=== PATIENT | male | born 1965 | race African-American/Black ===

== ENCOUNTER 2016-12-29 10:51 | Inpatient (IN) ==
[2016-12-29] MEDS ORDERED: SODIUM CHLORIDE 0.9% 1,000 ML IV STA (11:29)
[2016-12-29] MEDS ORDERED: ONDANSETRON 4 MG/2 ML VIAL IV STA (11:29)
[2016-12-29] MEDS ORDERED: ONDANSETRON 4 MG/2 ML VIAL ONE (11:45)
[2016-12-29 12:02] LABS: Basophils % 0.5 % (0.0-0.8); Eosinophils # 0.1 10*3/uL (0.0-0.87); Eosinophils % 0.8 % (0.00-10.9); Hematocrit 37.3 VOL% (42.0-52.0); Immature Granulocytes % 0.7 %; Immature Granulocytes Absolute 0.06 #; Lymphocytes # 1.8 10*3/uL (1.4-4.0); Lymphocytes % 20.3 % (21.2-54.2); Mean Corpuscular HGB Conc 34.9 GM/DL (32-36); Mean Corpuscular Hemoglobin 31 PG (27-34); Mean Corpuscular Volume 89.9 FL (87-102); Mean Platelet Volume 9.6 FL (9.6-12.0); Monocytes # 0.5 10*3/uL (0.11-0.8); Monocytes % 5.2 % (1.7-12.7); Neutrophils # 6.4 10*3/uL (1.4-7.4); Neutrophils % 72.5 % (38.7-73.9); Platelet Count 315 T/CUMM (130-400); Red Blood Count 4.15 MC/CUMM (3.8-5.5); Red Cell Distribution Width 14.1 % (9.3-17.3); White Blood Count 8.9 T/CUMM (4-12)
--- NOTE | 2016-12-29 12:09 | CT Report ---
Referring physician: Kalen Tam EXAM: CT abdomen and pelvis without contrast DATE: 12/29/2016 COMPARISON: 07/08/2016 REASON: Left upper quadrant pain with history of pancreatitis TECHNIQUE: Axial images of the abdomen and pelvis were obtained without the use of contrast. Coronal and sagittal reformatted images were also provided. Total DLP is 166.50 mGy*cm. FINDINGS: The lungs remain overexpanded with chronic scarring and coronary artery calcifications. The liver is normal in size with no masses, dilated ducts, or calcified gallstones. The spleen, adrenal glands, and right kidney are stable in appearance. 10 mm calcification in the lower pole of the left kidney. The pancreas is enlarged with extensive calcifications. 59 x 58 x 57 mm pseudocyst in the head of the pancreas which measured 55 mm in maximal diameter on prior exam. The additional pseudocysts in the head and tail of the pancreas are more poorly defined on these noncontrast scans but have not increased in size. Compression of the adjacent bowel with minimal fluid in the duodenum. Increased fluid in the small bowel and colon with mild gaseous distention. No free air is identified. The prostate and urinary bladder are stable in appearance. Degenerative changes are noted. IMPRESSION: Findings consistent with acute and chronic pancreatitis. Larger 59 mm pseudocyst in the head of the pancreas with additional persistent smaller pseudocysts. Associated ileus. 10 mm calcification in the lower pole of the left kidney. Continued follow-up CT may be helpful for further evaluation of the progressive findings. The CT exam was performed using one or more of the following dose reduction techniques: Automated exposure control and adjustment of the mA and/or kV according to patient size. PROCEDURE INTERPRETED AT [facility] DEPARTMENT OF RADIOLOGY Final Report Signed by: Dr. Ritu Gupta
[2016-12-29] MEDS ORDERED: HYDROmorphone 2 MG/1 ML VIAL IV STA (12:26)
[2016-12-29 12:31] LABS: Alanine Aminotransferase 17 U/L (16-61); Albumin 3.3 G/DL (3.4-5.0); Alkaline Phosphatase 114 U/L (45-117); Aspartate Amino Transferase 16 U/L (0-37); Blood Urea Nitrogen 3 MG/DL (7-18); Calcium 8.8 MG/DL (8.5-10.1); Glucose 102 MG/DL (74-106); Magnesium 2.4 MG/DL (1.8-2.4); Osmolality,Calculated 279.1 MOS/KG (273-304); Potassium 3.2 MMOL/L (3.5-5.1); Sodium 142 MMOL/L (136-145); Total Protein 7.4 G/DL (6.4-8.3)
[2016-12-29] MEDS ORDERED: HYDROmorphone 2 MG/1 ML VIAL ONE (12:31)
--- NOTE | 2016-12-29 13:12 | Emergency Department Note ---
Ilan Peres Mantricia, am scribing for, and in the presence of, Kalen Tam MD 11:39. Anel Peres Phillip K, MD, personally performed the services described in this documentation, ascribed by Kuldip Talavera in my presence, and it is both accurate and complete [id number] . Arrival - Arrival Chief Complaint: Abdominal / Flank Pain Stated Complaint: pancreatitis ED Nursing Triage Note: Pt c/o upper abd pain x 1 wk. Mode of Arrival: Ambulatory Limitations: No Limitations Source: Patient Time Seen by Provider: 12/29/16 11:21 - History of Present Illness HPI Narrative: Pt is a 51 y/o black male arriving to ED with c/o abdominal pain that onset a week ago. Pt has a PMHx of pancreatitis and states that his last flare up was 2 weeks ago. He reports that his last alcohol consumption was in May. He reports no other complaints to ED. Onset (ago): week(s) Consistency: constant Allergies/Adverse Reactions: Allergies Allergy/AdvReac Type Severity Reaction Status Date / Time No Known Allergies Allergy Verified 08/10/16 08:27 Home Medications: Home Medications Medication Instructions Recorded Confirmed Type HYDROcodone/ACETAMIN 7.5-325 1 tablet PO Q4H PRN #20 tablet 04/22/16 12/29/16 Rx [[place] 7.5-325] Pantoprazole Tab [Protonix Tab] 40 mg PO DAILY #30 tablet 04/22/16 12/29/16 Rx amLODIPine [Norvasc] 10 mg PO DAILY 12/29/16 12/29/16 History Review of System - Review of System 12 point system: reviewed and no additional remarkable complaints except as stated - Review of System Constitutional: Absent: chills, diaphoresis Eyes: Absent: discharge, pain Gastrointestinal: Present: abdominal pain Medical,Surgical,& Family Hx - Medical History Cardio: History of: Hypertension Psychological: History of: Depression Neurology: History of: Migraine HEENT: History of: Eye Problem (wears glasses) Endocrine: No history of: Diabetes Mellitus (NIDDM) Gastrointestinal: History of: GERD, Pancreatitis, GI Problems Musculoskeletal: History of: Back/Neck Problems (chronic back and neck pain), Herniated Disk - Surgical History Cardiac Surgeries: Patient Denies: Cardiac Catheterization, Cardiac Surgery Thoracic Surgeries: Patient denies;: Organ Transplant Neurologic Surgeries: Patient denies: Neurologic Surgery Abdominal Surgeries: Patient denies: Abdominal Surgery Reproductive Surgeries: Patient denies;: Genitourinary Surgery Orthopedic Surgeries: Surgical HX of;: Spinal Surgery (lower back) - Family History Family History: Reports;: Family Cancer (Sister), Family Diabetes (Grandmother) , Family Hypertension, Family Stroke - Social History Smoking Status: Current every day smoker Exam Vital Signs: Vital Signs Temperature 98.9 F 12/29/16 12:17 Pulse Rate 71 12/29/16 12:30 Respiratory Rate 18 12/29/16 12:30 Blood Pressure 194/105 12/29/16 12:30 O2 Sat by Pulse Oximetry 99 12/29/16 11:01 - General General appearance: alert, in no apparent distress - Head Head exam: Present: atraumatic, normocephalic, normal inspection - Eye Eye exam: Present: normal appearance, PERRL, EOMI - ENT ENT exam: Present: normal exam, normal oropharynx, mucous membranes moist, TM's normal bilaterally, normal external ear exam - Neck Neck exam: Present: normal inspection, full ROM, trachea midline. Absent: tenderness - Chest Chest inspection: Present: normal inspection, symmetric chest wall rise. Absent : tenderness - Respiratory Respiratory exam: Present: normal lung sounds bilaterally - Cardiovascular Cardiovascular exam: Present: regular rate, normal rhythm, normal heart sounds - Abdominal Exam Abdominal exam: Present: soft, normal bowel sounds. Absent: distention, tenderness, guarding, rebound - Extremities Exam Extremities exam: Present: normal inspection, full ROM, normal capillary refill. Absent: tenderness, pedal edema - Back Exam Back exam: Present: normal inspection, full ROM. Absent: tenderness - Neurological Exam Neurological exam: Present: alert, oriented X3, CN II-XII intact, normal gait, reflexes normal - Psychiatric Psychiatric exam: Present: normal affect, normal mood - Skin Skin exam: Present: warm, dry, intact, normal color Results - Labs CBC & BMP: 12/29/16 11:51 12/29/16 11:51 Lab Results: I have reviewed the patients labs Labs: Laboratory Tests 12/29/16 12/29/16 11:51 11:51 Hgb 13.0 L Hct 37.3 L Lymph % (Auto) 20.3 L Potassium 3.2 L BUN 3 L BUN/Creatinine Ratio 4.00 L Albumin 3.3 L Globulin 4.1 H Albumin/Globulin Ratio 0.8 L Serum Alcohol < 15 L - Diagnostic Findings Procedure: CT Abdomen and Pelvis: report reviewed by me (Findings consistent with acute and chronic pancreatitis. Larger 59 mm pseudocyst in the head of the pancreas with additional persistent smaller pseudocysts. Associated ileus. 10 mm calcification in the lower pole of the left kidney. Continued follow-up CT may be helpful for further evaluation of the progressive findings. ) Disposition Clinical Impression: Pancreatitis, Pancreatic pseudocyst, Ileus Case discussed with: patient Disposition: Still a Patient Condition: Guarded Additional Instructions: Admit to the hospitalist.
--- NOTE | 2016-12-29 14:56 | Hospitalist History & Physical ---
Assessment and Plan - Time spent with patient Time spent with patient: Greater than 30 minutes (1) Ileus Status: Acute Assessment and plan: Mr. Lee is a 51-year-old -[place] male with history of hypertension and chronic pancreatitis due to multiple pseudocysts from previous alcohol use admitted by the hospitalist service with acute non-serologic pancreatitis. Patient will be given IV fluids, antibiotics, pain and nausea control. He will be held n.p.o. until his pain improves. If patient does not make significant improvement by 3 or 4 days will try to transfer to [facility] or [facility] for pancreatectomy as an inpatient. Will resume his home medicines and monitor his blood pressure. Dr. Jacobs will see and examined patient and further recommendations to follow. Current Visit: Yes (2) Pancreatic pseudocyst Status: Acute Current Visit: Yes (3) Abdominal pain Status: Acute Current Visit: No Qualifiers: Abdominal location: epigastric Qualified Code(s): R10.13 - Epigastric pain (4) Acute on chronic pancreatitis Status: Acute Current Visit: No (5) HTN (hypertension) Status: Acute Current Visit: No (6) History of alcohol abuse Status: Acute Current Visit: No History of Present Illness Chief complaint: Abdominal pain History of present illness: Mr. Lee is a 51 year old -[place] male with history of hypertension and acute versus chronic pancreatitis with multiple admissions due to pseudocysts in the pancreas. Patient was seen by Dr. Lowe from surgery before and they have tried to get him into [facility] or [facility] as an outpatient for pancreatectomy but the patient does not have any payor sources. Patient states his pain started approximately 1 week ago and it just worsened in the last day or so. Patient states it is associated with nausea and intense pain that radiates through to the back. Patient rates the pain 10/10 and is unrelenting. Patient's blood pressures are elevated but he states he did not take his medicines this morning due to his pain. His labs are relatively unremarkable other than a low potassium of 3.2. Patient's lipase is normal at 139. Patient has not had any alcohol since May and his serum alcohol is negative. Patient denies headache, dysphasia, chest pain, shortness of breath, constipation or diarrhea, or lower extremity edema. After discussion with Dr. Tam the ED physician and Dr. Jacobs the admitting hospitalist it was agreed patient would be admitted for further evaluation. Home Medications Medication Instructions Recorded Confirmed Type HYDROcodone/ACETAMIN 7.5-325 1 tablet PO Q4H PRN #20 tablet 04/22/16 12/29/16 Rx [[place] 7.5-325] Pantoprazole Tab [Protonix Tab] 40 mg PO DAILY #30 tablet 04/22/16 12/29/16 Rx amLODIPine [Norvasc] 10 mg PO DAILY 12/29/16 12/29/16 History Allergies Allergy/AdvReac Type Severity Reaction Status Date / Time No Known Allergies Allergy Verified 08/10/16 08:27 Medical,Surgical,& Family Hx - Medical History Cardio: History of: Hypertension Psychological: History of: Depression Neurology: History of: Migraine HEENT: History of: Eye Problem (wears glasses) Endocrine: No history of: Diabetes Mellitus (NIDDM) Gastrointestinal: History of: GERD, Pancreatitis, GI Problems Musculoskeletal: History of: Back/Neck Problems (chronic back and neck pain), Herniated Disk - Surgical History Cardiac Surgeries: Patient Denies: Cardiac Catheterization, Cardiac Surgery Thoracic Surgeries: Patient denies;: Organ Transplant Neurologic Surgeries: Patient denies: Neurologic Surgery Abdominal Surgeries: Patient denies: Abdominal Surgery Reproductive Surgeries: Patient denies;: Genitourinary Surgery Orthopedic Surgeries: Surgical HX of;: Spinal Surgery (lower back) - Family History Family History: Reports;: Family Cancer (Sister), Family Diabetes (Grandmother) , Family Hypertension, Family Stroke - Social History Smoking Status: Current every day smoker Frequency of Alcohol Use: None Type of Drug Use: Unknown Marital Status: Lives With:: Sibling Functional capacity: independent ambulation Review of systems: A complete 10 system review of systems was obtained and pertinent positives and negatives per HPI Exam - Constitutional Vitals: Period Temp Pulse Resp BP Sys/Esquivel Pulse Ox Last 24 Hr 98.9 F-98.9 F 71-98 18-197 169-200/105-123 99 Exam: Constitutional System: Moderate distress. No tremulousness. Cachectic Head: Normocephalic, atraumatic. Ears, Nose and Throat System: No evidence of Otitis or Mastoiditis. No epistaxis or discharge Eyes System: Pupils equal, round, and reactive. Extraocular muscles intact. Neck: Supple, without adenopathy, No jugular venous distention. No thyromegaly, neck mass, or prior surgery apparent. Respiratory System: Chest clear to auscultation. Cardiovascular System: Heart with regular rate and rhythm. No murmur. GI System: Abdomen soft, nontender. Normo active bowel sounds present. Musculoskeletal System: limbs with no pedal edema. Full distal pulses. Neurological System: No discernable sensory deficit. No aphasia Psychiatric System: Conversation is rational Results - Labs CBC & BMP: 12/29/16 11:51 12/29/16 11:51 Lab Results: I have reviewed the past 24 hour labs - Diagnostic Findings Procedure: CT Abdomen and Pelvis: report reviewed by me (Acute and chronic pancreatitis. Larger 59 mm pseudocyst in the head of the pancreas with additional persistent smaller pseudocysts. Associated ileus. 10 minute Ferreira calculus ossification in the lower pole of the kidney)
[2016-12-29] MEDS ORDERED: PROMETHAZINE 25 MG/1 ML VIAL IM PRN (15:00)
[2016-12-29] MEDS ORDERED: ONDANSETRON 4 MG/2 ML VIAL IV PRN (15:00)
[2016-12-29] MEDS ORDERED: guaiFENesin/DM ER 600-30 MG TABLET PO PRN (15:02)
[2016-12-29] MEDS ORDERED: ACETAMINOPHEN 325 MG TABLET PO PRN ×2 (15:02)
[2016-12-29] MEDS ORDERED: DOCUSATE SODIUM 100 MG CAPSULE PO PRN (15:02)
--- NOTE | 2016-12-29 16:30 | General Surg History&Physical ---
Assessment and Plan - Time spent with patient Time spent with patient: Greater than 30 minutes (1) Pancreatic pseudocyst Status: Chronic Assessment and plan: This pseudocyst actually measures larger than on his last CAT scan. He does not really appear to have elevated lipase or amylase suggesting a true acute pancreatitis episode though I suspect that his pancreas is "burned out". His symptoms may be from the pseudocyst itself. [facility] have not been [facility]. I have discussed the option of surgery with him with the understanding that dealing with the pseudocyst may not relieve his pain. He is going to need to decide whether he wants us to try to get him over to [facility] again or have us go ahead and do surgery here. We discussed these options in detail and he is contemplating this. Current Visit: No History of Present Illness Chief complaint: Abdominal pain History of present illness: Mr. Lee is a 51 year old male Who for the last week has had gradually increasing vague upper abdominal pain which is poorly localized. The pain is moderate in severity. It is constant. He feels worse if he tries to eat. The pain does not radiate. He has a feeling of fullness in his upper abdomen. He has had a long history of chronic pancreatitis. He stopped drinking in May. Home Medications Medication Instructions Recorded Confirmed Type HYDROcodone/ACETAMIN 7.5-325 1 tablet PO Q4H PRN #20 tablet 04/22/16 12/29/16 Rx [[place] 7.5-325] Pantoprazole Tab [Protonix Tab] 40 mg PO DAILY #30 tablet 04/22/16 12/29/16 Rx amLODIPine [Norvasc] 10 mg PO DAILY 12/29/16 12/29/16 History Allergies Allergy/AdvReac Type Severity Reaction Status Date / Time No Known Allergies Allergy Verified 08/10/16 08:27 Medical,Surgical,& Family Hx - Medical History Cardio: History of: Hypertension Psychological: History of: Depression Neurology: History of: Migraine HEENT: History of: Eye Problem (wears glasses) Endocrine: No history of: Diabetes Mellitus (NIDDM) Gastrointestinal: History of: GERD, Pancreatitis, GI Problems Musculoskeletal: History of: Back/Neck Problems (chronic back and neck pain), Herniated Disk - Surgical History Cardiac Surgeries: Patient Denies: Cardiac Catheterization, Cardiac Surgery Thoracic Surgeries: Patient denies;: Organ Transplant Neurologic Surgeries: Patient denies: Neurologic Surgery Abdominal Surgeries: Patient denies: Abdominal Surgery Reproductive Surgeries: Patient denies;: Genitourinary Surgery Orthopedic Surgeries: Surgical HX of;: Spinal Surgery (lower back) - Family History Family History: Reports;: Family Cancer (Sister), Family Diabetes (Grandmother) , Family Hypertension, Family Stroke - Social History Smoking Status: Current every day smoker Frequency of Alcohol Use: None Type of Drug Use: Unknown Exam - Constitutional Vitals: Period Temp Pulse Resp BP Sys/Esquivel Pulse Ox Last 24 Hr 98.1 F-98.9 F 63-98 18-197 169-200/105-123 99-99 General appearance: no acute distress, under weight - Head Head exam: Present: normocephalic - Eye Eye exam: Absent: scleral icterus Pupils: Present: HUSSAIN - ENT Mouth exam: Present: normal voice - Neck Neck exam: Present: trachea midline. Absent: tenderness, thyromegaly - Respiratory Respiratory exam: Present: clear to auscultation bilaterally. Absent: accessory muscle use - Cardiovascular Cardiovascular exam: Present: RRR - GI/Abdominal GI/Abdominal exam: Present: mass, soft. Absent: distended, guarding, Arceo's sign, tenderness, rebound - Extremities Exam Extremities exam: Present: full ROM. Absent: edema - Neurological Exam Neurological exam: Present: alert, oriented X3. Absent: motor sensory deficit Speech: Present: normal - Skin Skin exam: Present: normal color - Constitutional Constitutional: Absent: chills, fever(s), weight loss - EENT Nose, mouth and throat: Absent: dysphagia - Cardiovascular Cardiovascular: Absent: chest pain at rest, chest pain with activity, dyspnea, dyspnea on exertion, syncope - Respiratory Respiratory: Absent: cough, dyspnea, hemoptysis, dyspnea on exertion - Gastrointestinal Gastrointestinal: Present: abdominal pain, bloating, early satiety, nausea. Absent: hematemesis, hematochezia, melena, vomiting, jaundice - Genitourinary Genitourinary: Absent: hematuria - Musculoskeletal Musculoskeletal: Absent: back pain - Neurological Neurological: Absent: focal weakness, syncope - Endocrine Endocrine: Present: polyuria Hematologic/Lymphatic: Absent: easy bleeding, easy bruising Results - Labs CBC & BMP: 12/29/16 11:51 12/29/16 11:51 Lab Results: I have reviewed the past 24 hour labs - Diagnostic Findings Procedure: CT Abdomen and Pelvis: image reviewed by me, report reviewed by me
[2016-12-29] MEDS: amLODIPine 10 MG TABLET PO SCH (17:05)
[2016-12-29] MEDS: HYDROmorphone 2 MG/1 ML VIAL IV PRN ×3 (17:05→21:23)
[2016-12-29] MEDS: PANTOPRAZOLE 40 MG VIAL IV SCH (17:07)
[2016-12-29] MEDS: SODIUM CHLORIDE 0.9% 1,000 ML IV SCH (17:07)
[2016-12-29] MEDS: PIPERACILLIN/TAZOBACTAM 3,375 MG in SODIUM CHLORIDE 0.9% 100 ML IV SCH ×2 (17:08→23:19)
[2016-12-29] MEDS: ENOXAPARIN 40 MG/0.4 ML SYRINGE SUBCUT SCH (17:09)
[2016-12-29] MEDS: hydrALAZINE 20 MG/1 ML VIAL IV PRN (17:27)
[2016-12-30] MEDS: HYDROmorphone 2 MG/1 ML VIAL IV PRN ×8 (02:19→23:35)
[2016-12-30] MEDS: hydrALAZINE 20 MG/1 ML VIAL IV PRN ×2 (04:46→23:35)
[2016-12-30] MEDS: SODIUM CHLORIDE 0.9% 1,000 ML IV SCH ×2 (06:23→14:50)
[2016-12-30] MEDS: PIPERACILLIN/TAZOBACTAM 3,375 MG in SODIUM CHLORIDE 0.9% 100 ML IV SCH ×3 (06:27→23:35)
[2016-12-30] MEDS ORDERED: THIAMINE INJ 100 MG, FOLIC ACID INJ 1 MG, MULTIVITAMIN INJ 10 ML in DEXTROSE 5% NACL 0.... IV SCH (08:30)
[2016-12-30 09:10] LABS: Bilirubin,Total 0.7 MG/DL (0.2-1.0); Calcium 8.2 MG/DL (8.5-10.1); Osmolality,Calculated 279.1 MOS/KG (273-304); Potassium 2.9 MMOL/L (3.5-5.1); Total Protein 6.5 G/DL (6.4-8.3)
[2016-12-30] MEDS ORDERED: DEXTROSE 5% NACL 0.45% 1,000 ML IV SCH (09:30)
[2016-12-30] MEDS: PANTOPRAZOLE 40 MG VIAL IV SCH (10:43)
[2016-12-30] MEDS: NICOTINE 21 MG/24 HR PATCH TRANSDERM PRN (10:45)
[2016-12-30] MEDS: amLODIPine 10 MG TABLET PO SCH (10:45)
--- NOTE | 2016-12-30 10:49 | Ultrasound Report ---
US gallbladder Indication: Pancreatitis. ULTRASOUND ABDOMEN, limited Comparison: Findings: Liver: Unremarkable Gallbladder: Unremarkable, except for minimal pericholecystic fluid, nonspecific Common bile duct: 3 mm Pancreas: Enlarged, edematous and echogenic with scattered calcifications. 56 x 50 x 15 mm cystic lesion at the head of the pancreas is present with dependent debris. No pancreatic duct dilatation. Right kidney: 11.2 cm length. No mass, cyst, calcification or obstruction Impression: Pseudocyst of the head of the pancreas. Enlarged edematous pancreas. Trace amount of pericholecystic fluid, likely reactive ascites from the adjacent inflammation. PROCEDURE INTERPRETED AT [facility] DEPARTMENT OF RADIOLOGY Final Report Signed by: Harley Liu M.D.
--- NOTE | 2016-12-30 11:40 | General Surgery Progress Note ---
Assessment and Plan (1) Pancreatic pseudocyst Status: Chronic Assessment and plan: This pseudocyst actually measures larger than on his last CAT scan. He does not really appear to have elevated lipase or amylase suggesting a true acute pancreatitis episode though I suspect that his pancreas is "burned out". His symptoms may be from the pseudocyst itself. Attempts to get [facility] have not been [facility]. I have discussed the option of surgery with him with the understanding that dealing with the pseudocyst may not relieve his pain. He is going to need to decide whether he wants us to try to get him over to [facility] again or have us go ahead and do surgery here. We discussed these options in detail and he is contemplating this. 12/30: I discussed the role of surgery in treating his pseudocyst which is actually enlarged from the spurring. It is unclear how much of her his abdominal symptoms related to the pseudocyst and we did discuss the possibility that surgery would not make his abdominal pain better. He understands that it is not curative of his chronic pancreatitis and he could have recurrent flareups or further pseudocyst or other problems. We also discussed the risks associated with the surgery itself which are not insignificant. He understands that there is a risk of major infections or abscesses, or pancreatic fistula, etc. He understands these issues and is considering whether he wants to have surgery here or to be [facility] to [facility]. Current Visit: No Subjective Patient reports: Present: feels better, pain is less, nausea. Absent: vomiting , fever Exam - Constitutional Vitals: Period Temp Pulse Resp BP Sys/Esquivel Pulse Ox Last 24 Hr 97.6 F-98.9 F 63-98 18-197 129-200/75-123 97-100 General appearance: no acute distress - Respiratory Respiratory exam: Absent: accessory muscle use - GI/Abdominal GI/Abdominal exam: Present: mass, soft. Absent: distended, tenderness, rebound Results - Labs CBC & BMP: 12/29/16 11:51 12/30/16 08:38 Lab Results: I have reviewed the past 24 hour labs - Diagnostic Findings Procedure: Ultrasound: report reviewed by me
--- NOTE | 2016-12-30 11:47 | Hospitalist Progress Note ---
Assessment and Plan (1) Acute pancreatitis Status: Acute Assessment and plan: with an enlarging pseudocyst. Plan Surgery is following, will follow recommendations..He is considering whether he wants to have surgery here or to be transferred to [place]. Continue NPO/IVF/Banana bag/pain meds/antibiotics Gall bladder USS Lipid panel PPIs Correct electrolytes, BC -repeat amylase, lipase Current Visit: No Qualifiers: Pancreatitis type: alcohol induced (2) Hypertension Status: Chronic Assessment and plan: stable Current Visit: No (3) Hypokalemia Status: Acute Assessment and plan: will replete, bmp in am Current Visit: Yes (4) History of alcohol abuse Status: Acute Assessment and plan: He claims he has quit since May of last year -continue with banana bag Current Visit: No Hospitalist: Subjective Interval history: Patient seen. He was asking for something to eat.CT showed pseudocyst actually measures larger than on his last CAT scan. Surgery is seeing and discussing possibility of surgical intervention. Exam - Constitutional Vitals: Period Temp Pulse Resp BP Sys/Esquivel Pulse Ox Last 24 Hr 97.6 F-98.9 F 63-98 18-197 129-200/75-123 97-100 General appearance: no acute distress - Head Head exam: Present: normal inspection - Eye Pupils: Present: HUSSAIN - Respiratory Respiratory exam: Present: clear to auscultation bilaterally - Cardiovascular Cardiovascular exam: Present: regular rate and rhythm - GI/Abdominal GI/Abdominal exam: Present: tenderness - Extremities Exam Extremities exam: Present: normal inspection - Neurological Exam Neurological exam: Present: alert, oriented X3 Results - Labs CBC & BMP: 12/29/16 11:51 12/30/16 08:38 Lab Results: I have reviewed the past 24 hour labs
[2016-12-30] MEDS ORDERED: THIAMINE INJ 100 MG, FOLIC ACID INJ 1 MG, MULTIVITAMIN INJ 10 ML, POTASSIUM CHLORIDE IN... IV SCH (11:53)
[2016-12-30] MEDS: POTASSIUM CHLORIDE RIDER 10 MEQ in PREMIX 1 EACH IV SCH ×5 (12:44→21:09)
[2016-12-30] MEDS: ENOXAPARIN 40 MG/0.4 ML SYRINGE SUBCUT SCH (15:13)
[2016-12-30] MEDS: POTASSIUM CHLORIDE INJ 40 MEQ in DEXTROSE 5% NACL 0.45% 1,000 ML IV SCH (23:41)
[2016-12-31] MEDS: HYDROmorphone 2 MG/1 ML VIAL IV PRN ×9 (01:43→22:00)
[2016-12-31] MEDS: POTASSIUM CHLORIDE INJ 40 MEQ in DEXTROSE 5% NACL 0.45% 1,000 ML IV SCH ×2 (03:37→09:22)
[2016-12-31] MEDS: NICOTINE 21 MG/24 HR PATCH TRANSDERM PRN (03:40)
[2016-12-31 05:55] LABS: Risk Ratio 1.84; VLDL CHOLESTEROL 10.6 MG/DL
[2016-12-31] MEDS: PIPERACILLIN/TAZOBACTAM 3,375 MG in SODIUM CHLORIDE 0.9% 100 ML IV SCH ×2 (06:31→17:03)
[2016-12-31] MEDS: amLODIPine 10 MG TABLET PO SCH (09:20)
[2016-12-31] MEDS: PANTOPRAZOLE 40 MG VIAL IV SCH (09:20)
--- NOTE | 2016-12-31 10:53 | General Surgery Progress Note ---
Assessment and Plan (1) Pancreatic pseudocyst Status: Chronic Assessment and plan: This pseudocyst actually measures larger than on his last CAT scan. He does not really appear to have elevated lipase or amylase suggesting a true acute pancreatitis episode though I suspect that his pancreas is "burned out". His symptoms may be from the pseudocyst itself. Attempts to get [facility] have not been successful. I have discussed the option of surgery with him with the understanding that dealing with the pseudocyst may not relieve his pain. He is going to need to decide whether he wants us to try to get him over to [facility] again or have us go ahead and do surgery here. We discussed these options in detail and he is contemplating this. 12/30: I discussed the role of surgery in treating his pseudocyst which is actually enlarged from the spurring. It is unclear how much of her his abdominal symptoms related to the pseudocyst and we did discuss the possibility that surgery would not make his abdominal pain better. He understands that it is not curative of his chronic pancreatitis and he could have recurrent flareups or further pseudocyst or other problems. We also discussed the risks associated with the surgery itself which are not insignificant. He understands that there is a risk of major infections or abscesses, or pancreatic fistula, etc. He understands these issues and is considering whether he wants to have surgery here or to be transferred to [facility]. 12/31: He continues to improve and feel better. He desires treatment of his pseudocyst here. We discussed whether to transfer to [facility] and he prefers to have surgical treatment here. We went over the surgery involved in detail and he understands that it may not relieve his pain or prevent recurrences. He also understands that there are multiple complications that can occur with the surgery. He desires to proceed with surgery tomorrow. I will see about adding him on to the schedule tomorrow. Current Visit: No Subjective Patient reports: Present: feels better, pain is less. Absent: nausea, vomiting , fever Exam - Constitutional Vitals: Period Temp Pulse Resp BP Sys/Esquivel Pulse Ox Last 24 Hr 97 F-99 F 80-89 18-20 143-163/76-92 96-100 General appearance: no acute distress - Eye Eye exam: Absent: scleral icterus - Respiratory Respiratory exam: Absent: accessory muscle use - GI/Abdominal GI/Abdominal exam: Present: mass, soft. Absent: distended, guarding, tenderness , rebound Results - Labs CBC & BMP: 12/29/16 11:51 12/31/16 04:49 Lab Results: I have reviewed the past 24 hour labs
[2016-12-31 12:14] LABS: INR 1.1; PT Patient Result 11.3 SECS; Partial Thromboplastin Time 30.6 SECS (0-40)
--- NOTE | 2016-12-31 13:13 | Hospitalist Progress Note ---
Assessment and Plan (1) Acute pancreatitis Status: Acute Assessment and plan: with an enlarging pseudocyst.He desires to proceed with surgery here so he is on the schedule for tomorrow am.Gall bladder USS showed trace pericholecystic fluid, pseudocyst of the head of pancreas.Lipid profile noted.BC, UC-no growth Plan Follow Surgery's recommendations.. Continue NPO/IVF/Banana bag/pain meds/antibiotics/PPI Current Visit: No Qualifiers: Pancreatitis type: alcohol induced (2) Hypertension Status: Chronic Assessment and plan: will add Lisinopril 2.5mg bid, follow response. Current Visit: No (3) Hypokalemia Status: Acute Assessment and plan: will continue to replete, bmp in am Current Visit: Yes (4) History of alcohol abuse Status: Acute Assessment and plan: He claims he has quit since May of last year -continue with banana bag Current Visit: No Hospitalist: Subjective Interval history: Patient seen and he feels about the same. He goes downstairs to smoke every now and then.He prefers to have his pseudocyst surgery here rather than in [place]. Exam - Constitutional Vitals: Period Temp Pulse Resp BP Sys/Esquivel Pulse Ox Last 24 Hr 97 F-99 F 80-89 18-20 143-163/76-100 96-100 General appearance: no acute distress - Head Head exam: Present: normal inspection - Respiratory Respiratory exam: Present: clear to auscultation bilaterally - Cardiovascular Cardiovascular exam: Present: regular rate and rhythm - GI/Abdominal GI/Abdominal exam: Present: tenderness - Extremities Exam Extremities exam: Present: normal inspection - Neurological Exam Neurological exam: Present: alert, oriented X3 Results - Labs CBC & BMP: 12/29/16 11:51 12/31/16 04:49 Lab Results: I have reviewed the past 24 hour labs Quality Measures - VTE Contraindication to Pharmacological VTE Prophylaxis: High Risk of Bleeding
[2016-12-31] MEDS ORDERED: POTASSIUM CHLORIDE 20 MEQ TABLET PO ONE (13:25)
[2016-12-31] MEDS: THIAMINE INJ 100 MG, FOLIC ACID INJ 1 MG, MULTIVITAMIN INJ 10 ML, POTASSIUM CHLORIDE IN... IV SCH (13:57)
[2016-12-31] MEDS: LISINOPRIL 2.5 MG TABLET PO SCH ×2 (13:57→20:00)
[2017-01-01] MEDS: PIPERACILLIN/TAZOBACTAM 3,375 MG in SODIUM CHLORIDE 0.9% 100 ML IV SCH ×4 (00:18→23:14)
[2017-01-01] MEDS: HYDROmorphone 2 MG/1 ML VIAL IV PRN ×14 (00:18→23:08)
[2017-01-01] MEDS: hydrALAZINE 20 MG/1 ML VIAL IV PRN ×2 (00:19→11:57)
[2017-01-01] MEDS: POTASSIUM CHLORIDE INJ 40 MEQ in DEXTROSE 5% NACL 0.45% 1,000 ML IV SCH ×3 (05:15→14:08)
[2017-01-01 05:45] LABS: Basophils % 0.1 % (0.0-0.8); Eosinophils # 0.2 10*3/uL (0.0-0.87); Eosinophils % 2.2 % (0.00-10.9); Hematocrit 29.8 VOL% (42.0-52.0); Hemoglobin 10.1 GM/DL (14.0-18.0); Immature Granulocytes % 0.6 %; Immature Granulocytes Absolute 0.04 #; Lymphocytes # 1.8 10*3/uL (1.4-4.0); Lymphocytes % 25.1 % (21.2-54.2); Mean Corpuscular HGB Conc 33.9 GM/DL (32-36); Mean Corpuscular Hemoglobin 30 PG (27-34); Mean Corpuscular Volume 89.5 FL (87-102); Mean Platelet Volume 10.4 FL (9.6-12.0); Monocytes # 0.5 10*3/uL (0.11-0.8); Monocytes % 6.7 % (1.7-12.7); Neutrophils # 4.7 10*3/uL (1.4-7.4); Neutrophils % 65.3 % (38.7-73.9); Platelet Count 267 T/CUMM (130-400); Red Blood Count 3.33 MC/CUMM (3.8-5.5); Red Cell Distribution Width 14.4 % (9.3-17.3); White Blood Count 7.2 T/CUMM (4-12)
[2017-01-01 06:10] LABS: Calcium 8.1 MG/DL (8.5-10.1); Osmolality,Calculated 277.3 MOS/KG (273-304); Potassium 3.9 MMOL/L (3.5-5.1)
[2017-01-01] MEDS: PANTOPRAZOLE 40 MG VIAL IV SCH ×2 (08:12→08:33)
[2017-01-01] MEDS: LISINOPRIL 2.5 MG TABLET PO SCH (08:12)
[2017-01-01] MEDS: amLODIPine 10 MG TABLET PO SCH (08:12)
[2017-01-01] MEDS: THIAMINE INJ 100 MG, FOLIC ACID INJ 1 MG, MULTIVITAMIN INJ 10 ML, POTASSIUM CHLORIDE IN... IV SCH (11:36)
--- NOTE | 2017-01-01 12:08 | Hospitalist Progress Note ---
Assessment and Plan (1) Acute pancreatitis Status: Acute Assessment and plan: with an enlarging pseudocyst.Gall bladder USS showed trace pericholecystic fluid , pseudocyst of the head of pancreas.Lipid profile noted.BC, UC-no growth. He is going for surgery today. Plan Follow Surgery's recommendations.. Continue NPO/IVF/Banana bag/pain meds/antibiotics/PPI Current Visit: No Qualifiers: Pancreatitis type: alcohol induced (2) Hypertension Status: Chronic Assessment and plan: will increase Lisinopril to 5mg bid, follow response. Current Visit: No (3) Hypokalemia Status: Acute Assessment and plan: will continue to replete, bmp in am Current Visit: Yes (4) History of alcohol abuse Status: Acute Assessment and plan: He claims he has quit since May of last year -continue with banana bag Current Visit: No Hospitalist: Subjective Interval history: Patient seen. He is going for surgery today. Exam - Constitutional Vitals: Period Temp Pulse Resp BP Sys/Esquivel Pulse Ox Last 24 Hr 97.8 F-98.9 F 81-95 18-18 141-156/87-102 95-98 General appearance: no acute distress - Respiratory Respiratory exam: Present: clear to auscultation bilaterally - Cardiovascular Cardiovascular exam: Present: regular rate and rhythm - GI/Abdominal GI/Abdominal exam: Present: tenderness - Extremities Exam Extremities exam: Present: normal inspection - Neurological Exam Neurological exam: Present: alert, oriented X3 Results - Labs CBC & BMP: 01/01/17 04:23 01/01/17 04:23 Lab Results: I have reviewed the past 24 hour labs Quality Measures - VTE Contraindication to Pharmacological VTE Prophylaxis: High Risk of Bleeding
[2017-01-01] MEDS ORDERED: PROPOFOL 200 MG/20 ML VIAL IV ONE (12:30)
[2017-01-01] MEDS ORDERED: DEXAMETHASONE 10 MG/1 ML VIAL ONE (12:30)
[2017-01-01] MEDS ORDERED: KETOROLAC 30 MG/1 ML VIAL ONE (12:30)
[2017-01-01] MEDS ORDERED: PHENYLEPHRINE 1 MG/10 ML SYRINGE IV ONE (12:30)
[2017-01-01] MEDS ORDERED: LIDOCAINE 2% 5 ML VIAL ONE (12:30)
[2017-01-01] MEDS ORDERED: GLYCOPYRROLATE 0.4 MG/2 ML VIAL ONE (12:30)
[2017-01-01] MEDS ORDERED: ROCURONIUM 100 MG/10 ML VIAL IV ONE (12:30)
[2017-01-01] MEDS ORDERED: ONDANSETRON 4 MG/2 ML VIAL ONE ×2 (12:30→14:12)
[2017-01-01] MEDS ORDERED: NEOSTIGMINE 10 MG/10 ML VIAL ONE (12:30)
--- NOTE | 2017-01-01 13:59 | Operative Note ---
Date of procedure: 01/01/17 Pre-op diagnosis: 5.5 cm enlarging pancreatic pseudocyst symptomatic Post-op diagnosis: same Procedure: Cecil-en-Y pancreatic cyst jejunostomy Findings and technique: After informed consent was obtained the patient was brought the operating room and placed in supine position after successful induction of general anesthesia the patient's abdomen was prepped and draped in usual sterile fashion. The abdomen was opened through an upper midline incision. Prior to making the incision the mass in the right upper quadrant was easily palpable. Exploration of the abdomen revealed a large fibrotic mass posterior to the transverse mesocolon and densely adherent to it was the duodenum. Along the inferior aspect of the cystic mass the duodenum passed behind the mass. I felt the best way to access this mass was through the transverse mesocolon and placed the Cecil-en-Y internal drainage inferiorly. I created a window and accessed the cyst cavity with a needle and aspirated cloudy fluid. It did not appear infected. After identifying the site for the cyst gastrostomy I created a Cecil-en-Y limb about 15 cm distal to the ligament of Treitz. This limb was about 30 cm in length and laid without tension up against the cystic mass inferiorly. The bowel was divided with SILVESTRE stapling device and I went ahead and created the Cecil-en-Y anastomosis with a SILVESTRE stapler and a TA stapler to close the openings in the ends of the bowel. I made sure that there was no constriction of the lumen of the Cecil-en-Y limb of the anastomosis. Next I created a window into the pseudocyst. This was cut about 1 x 1.5 cm and the cyst wall sent to pathology and was found to be benign on frozen section. An anastomosis was created with an inner layer of interrupted PDS sutures approximating the lining of the cyst to the mucosa and then an outer layer of full-thickness sutures to the cyst wall seromuscular Lembert sutures with silk. This anastomosis was then coated coated with Tisseel tissue sealant. The staple lines of the Cecil-en-Y anastomosis were also coated with Tisseel and the bowel returned to its normal position. Good hemostasis was identified and minimal blood loss occurred intraoperatively. He appeared to tolerate the procedure well. Prior to making the anastomosis I explored the inner aspect of the cyst making sure that there was no bleeding within the cyst cavity and there was no apparent mass-effect or malignancy. This was a unilocular well-defined mature cyst. Anesthesia: GETA Surgeon / Physician: Deangelo Palma III. Estimated blood loss: other (50 mL) Specimens: other (Cyst wall) Condition: stable Disposition: PACU Results - Labs CBC & BMP: 01/01/17 04:23 01/01/17 04:23 Discharge Plan - Discharge Medications No Action Pantoprazole Tab [Protonix Tab] 40 mg PO DAILY #30 tablet HYDROcodone/ACETAMIN 7.5-325 [Whitmer 7.5-325] 1 tablet PO Q4H PRN #20 tablet PRN Reason: Pain Moderate (4-7) amLODIPine [Norvasc] 10 mg PO DAILY - Follow Up or Referral - Forms/Instructions
[2017-01-01] MEDS ORDERED: HYDROmorphone 2 MG/1 ML VIAL ONE (14:12)
--- NOTE | 2017-01-01 14:12 | Anesthesia Post-Op ---
Anesthesia Post OP - Post Ansesthetic Evaluation Patient seen in post op: Yes Resp: within normal limits CV: within normal limits Mental: within normal limits Temp: within normal limits Zrth-Lh-Ozvnwoyap: within normal limits Nausea and Vomiting: within normal limits Pain: within normal limits
[2017-01-01] MEDS ORDERED: SEVOFLURANE 1 UNIT/15 MINUTE INH ONE (14:13)
[2017-01-01] MEDS ORDERED: ACETAMINOPHEN 1,000 MG/100 ML VIAL IV ONE (14:14)
[2017-01-01] MEDS ORDERED: LACTATED RINGERS 1,000 ML IV ONE (14:14)
[2017-01-01] MEDS ORDERED: MIDAZOLAM 2 MG/2 ML VIAL ONE (14:14)
[2017-01-01] MEDS ORDERED: fentaNYL 100 MCG/2 ML VIAL ONE (14:14)
[2017-01-01] MEDS ORDERED: MEPERIDINE 25 MG/1 ML VIAL IV PRN (14:28)
[2017-01-01] MEDS ORDERED: ONDANSETRON 4 MG/2 ML VIAL IV PRN (14:28)
[2017-01-01 14:30] LABS: Apearance,Urine CLEAR (Clear); Bilirubin,Urine Negative (Negative); Blood, Urine Negative (Negative); Glucose,Urine (UA) Negative (Negative); Hyaline Casts,Urine 1 /LPF (0-3); Ketones,Urine Negative (Negative); Nitrite,Urine Negative (Negative); Protein,Urine Negative; RBC,Urine <1 /HPF (0-4); Urine Color Colorless (Yellow); Urine Specific Gravity 1.004 (1.001-1.035); Urine Urobilinogen < 2.0 EU/DL (0.2-1.0); WBC,Urine <1 /HPF (0-6)
[2017-01-01] MEDS ORDERED: MORPHINE 10 MG/1 ML VIAL ONE (14:35)
[2017-01-01] MEDS ORDERED: cloNIDine 0.1 MG TABLET ONE (14:35)
[2017-01-01] MEDS ORDERED: cloNIDine 0.1 MG TABLET PO ONE (14:35)
[2017-01-01] MEDS ORDERED: hydrALAZINE 20 MG/1 ML VIAL ONE (14:45)
[2017-01-01] MEDS ORDERED: MORPHINE 2 MG/1 ML SYRINGE IV ONE (14:45)
[2017-01-01] MEDS ORDERED: hydrALAZINE 20 MG/1 ML VIAL IV ONE (14:50)
[2017-01-01 16:57] LABS: Hematocrit 30.3 VOL% (42.0-52.0); Hemoglobin 10.4 GM/DL (14.0-18.0)
[2017-01-01] MEDS: LISINOPRIL 5 MG TABLET PO SCH (20:20)
[2017-01-01 22:47] LABS: Hematocrit 29.2 VOL% (42.0-52.0); Hemoglobin 9.9 GM/DL (14.0-18.0)
[2017-01-02] MEDS: POTASSIUM CHLORIDE INJ 40 MEQ in DEXTROSE 5% NACL 0.45% 1,000 ML IV SCH ×3 (00:58→20:48)
[2017-01-02] MEDS: HYDROmorphone 2 MG/1 ML VIAL IV PRN ×10 (02:37→22:46)
[2017-01-02 06:07] LABS: Hematocrit 29.9 VOL% (42.0-52.0); Immature Granulocytes % 0.3 %; Immature Granulocytes Absolute 0.04 #; Lymphocytes % 8.7 % (21.2-54.2); Mean Corpuscular HGB Conc 33.4 GM/DL (32-36); Mean Corpuscular Hemoglobin 30 PG (27-34); Mean Corpuscular Volume 89.3 FL (87-102); Mean Platelet Volume 10.3 FL (9.6-12.0); Monocytes # 0.7 10*3/uL (0.11-0.8); Monocytes % 5.9 % (1.7-12.7); Neutrophils # 10.2 10*3/uL (1.4-7.4); Neutrophils % 85.1 % (38.7-73.9); Platelet Count 298 T/CUMM (130-400); Red Blood Count 3.35 MC/CUMM (3.8-5.5); Red Cell Distribution Width 14.6 % (9.3-17.3)
[2017-01-02] MEDS: PIPERACILLIN/TAZOBACTAM 3,375 MG in SODIUM CHLORIDE 0.9% 100 ML IV SCH ×3 (06:27→22:49)
[2017-01-02 06:31] LABS: Band Neutrophils 1 % (0-10); Hypochromasia Slight; Lymphocytes 6 % (20-55); Microcytosis 1+; Platelet Estimate Adequate; Segmented Neutrophils 91 % (50-85); Total Cells Counted 100
[2017-01-02 06:45] LABS: Calcium 8.5 MG/DL (8.5-10.1); Osmolality,Calculated 275.5 MOS/KG (273-304); Potassium 4.5 MMOL/L (3.5-5.1)
[2017-01-02] MEDS ORDERED: ACETAMINOPHEN 500 MG TABLET PO PRN (07:09)
[2017-01-02] MEDS: PANTOPRAZOLE 40 MG VIAL IV SCH (08:20)
[2017-01-02] MEDS: LISINOPRIL 5 MG TABLET PO SCH (08:20)
[2017-01-02] MEDS: amLODIPine 10 MG TABLET PO SCH (08:20)
[2017-01-02] MEDS: THIAMINE INJ 100 MG, FOLIC ACID INJ 1 MG, MULTIVITAMIN INJ 10 ML, POTASSIUM CHLORIDE IN... IV SCH (10:47)
[2017-01-02] MEDS: hydrALAZINE 20 MG/1 ML VIAL IV PRN (10:48)
--- NOTE | 2017-01-02 11:29 | Pathology Report from [facility] ---
[facility] ACCESSION # : [id number] PATIENT NAME : Dada Lee ORDERING DR : TRICE MARTEL III, MD CLINICAL HX: Pseudocyst pancreatitis POST-OP DX: Same SPECIMEN INFO: Cyst wall GROSS DESCRIPTION: The specimen received fresh for frozen section labeled with the patients name DADA LEE and consists of an aggregate of red-sweeney tissue measuring 2.0 x 1.8 cm. A customer solutions representative section submitted in cassette FS1A for frozen section. The remaining tissue is submitted in cassette B. DIAGNOSIS FOR DADA LEE: PANCREATIC PSEUDOCYST WALL BIOPSY: Acute and chronic inflammation, fibrosis. COLLECTED DATE: 01/01/2017 [facility] REPORT DATE: 01/02/2017 ELECTRONICALLY SIGNED BY: Melquiades Heart M.D. 01/02/2017 - 9:21:22 [facility]
--- NOTE | 2017-01-02 12:39 | Event Note ---
Feels well postoperative day #1. His abdomen is benign and he is not having nausea or vomiting. We are limiting his p.o. intake at this point. There is just some serosanguineous drainage from his MARIXA drain and this is decreasing. We will get him up out of bed more today. His pathology is benign.
--- NOTE | 2017-01-02 14:17 | Hospitalist Progress Note ---
Assessment and Plan (1) Acute pancreatitis Status: Acute Assessment and plan: with an enlarging pseudocyst.Gall bladder USS showed trace pericholecystic fluid , pseudocyst of the head of pancreas.Lipid profile noted.BC, UC-no growth. Patient had a Cecil-en-Y pancreatic cyst jejunostomy yesterday.He is a lot of pain and discomfort today.He also has a drain in place. Plan Follow Surgery's recommendations.. Continue NPO/IVF/Banana bag/pain meds/antibiotics/PPI Current Visit: No Qualifiers: Pancreatitis type: alcohol induced (2) Hypertension Status: Chronic Assessment and plan: will increase Lisinopril to 10mg bid, follow response.Optimize pain management Current Visit: No (3) Hypokalemia Status: Acute Assessment and plan: will continue to replete, bmp in am Current Visit: Yes (4) History of alcohol abuse Status: Acute Assessment and plan: He claims he has quit since May of last year -continue with banana bag Current Visit: No Hospitalist: Subjective Interval history: Patient had a Cecil-en-Y pancreatic cyst jejunostomy done yesterday. This am, he was in a lot of pain and discomfort.Drain was in place draining minimal bloody fluid. He is also spiking a temp of 100.3 Exam - Constitutional Vitals: Period Temp Pulse Resp BP Sys/Esquivel Pulse Ox Last 24 Hr 97.9 F-100.3 F 81-107 16-20 115-189/69-115 93-100 General appearance: no acute distress - Head Head exam: Present: normal inspection - Respiratory Respiratory exam: Present: clear to auscultation bilaterally - Cardiovascular Cardiovascular exam: Present: regular rate and rhythm - GI/Abdominal GI/Abdominal exam: Present: tenderness, other (drain in place) - Extremities Exam Extremities exam: Present: normal inspection - Neurological Exam Neurological exam: Present: alert, oriented X3 Results - Labs CBC & BMP: 01/02/17 05:01 01/02/17 05:01 Lab Results: I have reviewed the past 24 hour labs Quality Measures - VTE Contraindication to Pharmacological VTE Prophylaxis: High Risk of Bleeding
[2017-01-02] MEDS: LISINOPRIL 10 MG TABLET PO SCH (20:42)
[2017-01-03] MEDS: HYDROmorphone 2 MG/1 ML VIAL IV PRN ×9 (01:25→21:44)
[2017-01-03] MEDS: POTASSIUM CHLORIDE INJ 40 MEQ in DEXTROSE 5% NACL 0.45% 1,000 ML IV SCH ×2 (06:52→23:47)
[2017-01-03] MEDS: PIPERACILLIN/TAZOBACTAM 3,375 MG in SODIUM CHLORIDE 0.9% 100 ML IV SCH ×3 (06:53→22:55)
[2017-01-03] MEDS: PANTOPRAZOLE 40 MG VIAL IV SCH (09:38)
[2017-01-03] MEDS: LISINOPRIL 10 MG TABLET PO SCH ×2 (09:39→21:06)
[2017-01-03] MEDS: amLODIPine 10 MG TABLET PO SCH (09:39)
[2017-01-03] MEDS: THIAMINE INJ 100 MG, FOLIC ACID INJ 1 MG, MULTIVITAMIN INJ 10 ML, POTASSIUM CHLORIDE IN... IV SCH (12:29)
--- NOTE | 2017-01-03 12:40 | Event Note ---
He feels well. He has been ambulating. His vital signs are stable and there is serosanguineous drainage in his MARIXA drain. I see no signs of leak or infectious complication. We will go slow on advancing his p.o. diet. I will check another CBC in the morning.
--- NOTE | 2017-01-03 13:36 | Hospitalist Progress Note ---
Assessment and Plan (1) Acute pancreatitis Status: Acute Assessment and plan: with an enlarging pseudocyst.Gall bladder USS showed trace pericholecystic fluid , pseudocyst of the head of pancreas.Lipid profile noted.BC, UC-no growth. Patient had a Cecil-en-Y pancreatic cyst jejunostomy ..He also has a MARIXA drain in place.He is still hurting in his stomach Plan Follow Surgery's recommendations.. Continue IVF/Banana bag/pain meds/antibiotics/PPI Current Visit: No Qualifiers: Pancreatitis type: alcohol induced (2) Hypertension Status: Chronic Assessment and plan: will increase Lisinopril to 15mg bid, follow response.Optimize pain management Current Visit: No (3) Hypokalemia Status: Acute Assessment and plan: corrected Current Visit: Yes (4) History of alcohol abuse Status: Acute Assessment and plan: He claims he has quit since May of last year -continue with banana bag Current Visit: No (5) Anemia Status: Acute Assessment and plan: SCDs for DVT prophylaxis CBC in am Current Visit: Yes Hospitalist: Subjective Interval history: Patient is 51yr old a history of chronic pancreatitis secondary to ETOH was admitted for acute pancreatitis and pseudocyst and he had Cecil-en-Y pancreatic cyst jejunostomy 2 days ago and currently has a MARIXA drain in place draining minimal bloody fluid. This am, patient was still hurting in his abdomen. Exam - Constitutional Vitals: Period Temp Pulse Resp BP Sys/Esquivel Pulse Ox Last 24 Hr 98.3 F-99.1 F 89-98 16-20 139-161/81-98 94-98 General appearance: no acute distress - Head Head exam: Present: normal inspection - Respiratory Respiratory exam: Present: clear to auscultation bilaterally - Cardiovascular Cardiovascular exam: Present: regular rate and rhythm - GI/Abdominal GI/Abdominal exam: Present: normal bowel sounds, tenderness, other (MARIXA drain in place) - Extremities Exam Extremities exam: Present: normal inspection - Neurological Exam Neurological exam: Present: alert, oriented X3 Results - Labs CBC & BMP: 01/02/17 05:01 01/02/17 05:01 Lab Results: I have reviewed the past 24 hour labs Quality Measures - VTE Contraindication to Pharmacological VTE Prophylaxis: High Risk of Bleeding
[2017-01-04] MEDS: HYDROmorphone 2 MG/1 ML VIAL IV PRN ×11 (00:09→22:34)
[2017-01-04 06:26] LABS: Basophils % 0.2 % (0.0-0.8); Eosinophils # 0.2 10*3/uL (0.0-0.87); Eosinophils % 2.2 % (0.00-10.9); Hematocrit 28.3 VOL% (42.0-52.0); Hemoglobin 9.9 GM/DL (14.0-18.0); Immature Granulocytes % 0.3 %; Immature Granulocytes Absolute 0.03 #; Lymphocytes # 1.6 10*3/uL (1.4-4.0); Lymphocytes % 16.1 % (21.2-54.2); Mean Corpuscular Hemoglobin 31 PG (27-34); Mean Corpuscular Volume 88.4 FL (87-102); Mean Platelet Volume 9.7 FL (9.6-12.0); Monocytes # 0.7 10*3/uL (0.11-0.8); Monocytes % 7.4 % (1.7-12.7); Neutrophils # 7.4 10*3/uL (1.4-7.4); Neutrophils % 73.8 % (38.7-73.9); Platelet Count 275 T/CUMM (130-400); Red Cell Distribution Width 14.6 % (9.3-17.3)
[2017-01-04] MEDS: POTASSIUM CHLORIDE INJ 40 MEQ in DEXTROSE 5% NACL 0.45% 1,000 ML IV SCH ×2 (06:28→20:43)
[2017-01-04] MEDS: PIPERACILLIN/TAZOBACTAM 3,375 MG in SODIUM CHLORIDE 0.9% 100 ML IV SCH ×3 (06:29→22:36)
[2017-01-04 06:55] LABS: Eosinophils 3 % (0-10); Hypochromasia 1+; Lymphocytes 17 % (20-55); Platelet Estimate Adequate; Segmented Neutrophils 78 % (50-85); Total Cells Counted 100
[2017-01-04 07:23] LABS: Calcium 8.4 MG/DL (8.5-10.1); Osmolality,Calculated 272.7 MOS/KG (273-304); Potassium 4.2 MMOL/L (3.5-5.1)
[2017-01-04] MEDS: LISINOPRIL 10 MG TABLET PO SCH ×2 (08:55→20:33)
[2017-01-04] MEDS: PANTOPRAZOLE 40 MG VIAL IV SCH (08:55)
[2017-01-04] MEDS: amLODIPine 10 MG TABLET PO SCH (08:56)
--- NOTE | 2017-01-04 10:30 | Event Note ---
Postoperative day #3. He looks and feels well. He is taking some liquids. There is no increased MARIXA drainage in his MARIXA drainage is serosanguineous. His abdomen appears benign. We will slowly advance his diet and get him up.
[2017-01-04] MEDS: THIAMINE INJ 100 MG, FOLIC ACID INJ 1 MG, MULTIVITAMIN INJ 10 ML, POTASSIUM CHLORIDE IN... IV SCH (13:22)
--- NOTE | 2017-01-04 18:37 | Hospitalist Progress Note ---
Assessment and Plan (1) History of alcohol use Status: Acute Current Visit: No (2) HTN (hypertension) Status: Acute Current Visit: No (3) Pancreatic pseudocyst Status: Acute Current Visit: Yes Hospitalist: Subjective Interval history: No acute events overnight. Patient reports that he feels a little better. He is on zosyn. Advanced to clear liquid diet. Exam - Constitutional Vitals: Period Temp Pulse Resp BP Sys/Esquivel Pulse Ox Last 24 Hr 98.1 F-99.1 F 75-101 18-20 102-147/61-94 92-99 General appearance: under weight - Head Head exam: Present: normocephalic, atraumatic - Eye Eye exam: Present: EOMI Pupils: Present: HUSSAIN - ENT ENT exam: Present: normal exam - Neck Neck exam: Present: normal inspection - Respiratory Respiratory exam: Present: clear to auscultation bilaterally. Absent: wheezes - Cardiovascular Cardiovascular exam: Present: regular rate and rhythm - GI/Abdominal GI/Abdominal exam: Present: normal bowel sounds, soft. Absent: tenderness, rebound - Extremities Exam Extremities exam: Present: normal inspection - Back Exam Back exam: Present: normal inspection - Neurological Exam Neurological exam: Present: alert, oriented X3 - Psychiatric Psychiatric exam: Present: normal affect, normal mood - Skin Skin exam: Present: warm, intact Results - Labs CBC & BMP: 01/04/17 05:33 01/04/17 05:33 Quality Measures - VTE Contraindication to Pharmacological VTE Prophylaxis: High Risk of Bleeding
[2017-01-05] MEDS: HYDROmorphone 2 MG/1 ML VIAL IV PRN ×4 (00:37→06:48)
[2017-01-05] MEDS: POTASSIUM CHLORIDE INJ 40 MEQ in DEXTROSE 5% NACL 0.45% 1,000 ML IV SCH ×2 (00:41→12:45)
[2017-01-05 05:28] LABS: Basophils % 0.2 % (0.0-0.8); Eosinophils # 0.2 10*3/uL (0.0-0.87); Eosinophils % 1.5 % (0.00-10.9); Hematocrit 28.1 VOL% (42.0-52.0); Hemoglobin 9.6 GM/DL (14.0-18.0); Immature Granulocytes % 0.5 %; Immature Granulocytes Absolute 0.05 #; Lymphocytes # 1.4 10*3/uL (1.4-4.0); Mean Corpuscular HGB Conc 34.2 GM/DL (32-36); Mean Corpuscular Hemoglobin 31 PG (27-34); Mean Corpuscular Volume 89.2 FL (87-102); Mean Platelet Volume 9.8 FL (9.6-12.0); Monocytes # 0.6 10*3/uL (0.11-0.8); Neutrophils # 8.2 10*3/uL (1.4-7.4); Neutrophils % 78.8 % (38.7-73.9); Platelet Count 272 T/CUMM (130-400); Red Blood Count 3.15 MC/CUMM (3.8-5.5); Red Cell Distribution Width 14.6 % (9.3-17.3); White Blood Count 10.4 T/CUMM (4-12)
[2017-01-05 06:04] LABS: Calcium 8.6 MG/DL (8.5-10.1); Magnesium 2.1 MG/DL (1.8-2.4); Osmolality,Calculated 272.7 MOS/KG (273-304); Potassium 3.8 MMOL/L (3.5-5.1)
[2017-01-05 06:17] LABS: Platelet Estimate Normal
[2017-01-05] MEDS: PIPERACILLIN/TAZOBACTAM 3,375 MG in SODIUM CHLORIDE 0.9% 100 ML IV SCH ×3 (06:47→22:57)
[2017-01-05] MEDS: amLODIPine 10 MG TABLET PO SCH (08:39)
[2017-01-05] MEDS: LISINOPRIL 10 MG TABLET PO SCH ×2 (08:39→20:08)
[2017-01-05] MEDS: PANTOPRAZOLE 40 MG VIAL IV SCH (08:43)
--- NOTE | 2017-01-05 11:08 | Event Note ---
He feels well. He is tolerating liquids without nausea or vomiting. He has had some low-grade temperature. His drain fluid is still small amount of serosanguineous drainage. His abdomen and his incisions look good. We will advance his diet and I think we can go ahead and pull his drain.
[2017-01-05] MEDS: THIAMINE INJ 100 MG, FOLIC ACID INJ 1 MG, MULTIVITAMIN INJ 10 ML, POTASSIUM CHLORIDE IN... IV SCH (12:45)
--- NOTE | 2017-01-05 13:55 | Hospitalist Progress Note ---
Assessment and Plan (1) History of alcohol use Status: Acute Current Visit: No (2) HTN (hypertension) Status: Chronic Assessment and plan: Continue lisinopril and amlodipine Current Visit: No (3) Pancreatic pseudocyst Status: Acute Assessment and plan: s/p drain removal today Continue zosyn Current Visit: Yes Hospitalist: Subjective Interval history: No acute events overnight. Pain is better. Drain was removed today. He has remained afebrile. Reports some burning after eating breakfast. Exam - Constitutional Vitals: Period Temp Pulse Resp BP Sys/Esquivel Pulse Ox Last 24 Hr 99 F-99.9 F 75-101 18-20 102-135/61-86 93-99 General appearance: under weight - Head Head exam: Present: normocephalic, atraumatic - Eye Eye exam: Present: EOMI Pupils: Present: HUSSAIN - ENT ENT exam: Present: normal exam - Neck Neck exam: Present: normal inspection - Respiratory Respiratory exam: Present: clear to auscultation bilaterally. Absent: rhonchi, wheezes - Cardiovascular Cardiovascular exam: Present: regular rate and rhythm - GI/Abdominal GI/Abdominal exam: Present: normal bowel sounds, soft. Absent: tenderness, rebound - Extremities Exam Extremities exam: Present: normal inspection - Back Exam Back exam: Present: normal inspection - Neurological Exam Neurological exam: Present: alert, oriented X3 - Psychiatric Psychiatric exam: Present: normal affect, normal mood - Skin Skin exam: Present: warm Results - Labs CBC & BMP: 01/05/17 04:50 01/05/17 04:50 Quality Measures - VTE Contraindication to Pharmacological VTE Prophylaxis: High Risk of Bleeding Specialty Discharge - Follow Up or Referrals Follow up with: Deangelo Palma III., MD [Physician] - (Follow Up on Sunday01/10/17 at 9:45 AM)
[2017-01-05] MEDS ORDERED: DEXT 5% NACL 0.45% KCL 40 MEQ 40 MEQ/1,000 ML BAG IV SCH (20:53)
[2017-01-05] MEDS: diphenhydrAMINE CAP 25 MG CAPSULE PO PRN (23:03)
[2017-01-06] MEDS: diphenhydrAMINE CAP 25 MG CAPSULE PO PRN (04:45)
[2017-01-06] MEDS: PIPERACILLIN/TAZOBACTAM 3,375 MG in SODIUM CHLORIDE 0.9% 100 ML IV SCH (06:04)
--- NOTE | 2017-01-06 07:20 | Event Note ---
The patient is doing well following Cecil-en-Y pancreatic cyst jejunostomy for pancreatic pseudocyst on 01/01/[address] Palma. His pain is well controlled with p.o. pain medication and he is tolerating a diet without difficulty. He appears ready for discharge and a prescription has been seen in his chart that was filled out yesterday by one of our providers in our group. The patient will be followed always here but if he goes home today he can follow-up with Dr. Palma as previously scheduled.
[2017-01-06] MEDS: amLODIPine 10 MG TABLET PO SCH ×2 (07:36→08:38)
[2017-01-06] MEDS: LISINOPRIL 10 MG TABLET PO SCH ×2 (07:36→08:39)
[2017-01-06] MEDS: PANTOPRAZOLE 40 MG TABLET PO SCH ×2 (07:37→08:39)
[2017-01-06 08:59] VITALS: BP 127/88
--- NOTE | 2017-01-06 09:50 | Discharge Summary ---
<Dary Camacho - Last Filed: 01/06/17 09:38> Hospital Course - Hospital Course Hospital Course: This is a very poor and unfortunate 51-year-old male that presented to the ED at [facility] on December 29, 2016 for the evaluation of abdominal pain. The patient has a medical history significant for: pancreatitis , alcohol abuse, nicotine addiction, hypertension, depression, migraine headaches, and chronic neck and back pain. The patient reported the onset of symptoms 1 week prior to presentation. He reported that he experienced symptoms similar in nature 2 weeks prior to this presentation and attributed them to pancreatitis. The patient adamantly denied alcohol consumption at the time of ED presentation and reported that his last alcohol consumption was in May 2016. At the time of ED presentation, the patient was noted to be grossly hypertensive with a blood pressure of 194/105. Labs were obtained; hematology panel reported a white blood cell count at 8.9, hemoglobin 13.0, hematocrit 37.3 , and platelet count at 315. Chemistry panel reported sodium at 142, potassium 3.2, chloride 106, carbon dioxide 26, BUN 3, creatinine 0.70, and glucose at 102. Lipase was noted at 139 and lipase was noted at 39. Lipid panel was obtained which reported triglycerides at 53, cholesterol 112, LDL cholesterol at 48, VLDL cholesterol at 2.6, HDL cholesterol at 61. Serum alcohol level was noted at <15. Ultrasound of the gallbladder was obtained which reported a pseudocyst of the head of the pancreas measuring 5.5 cm, enlarged edematous pancreas, trace amount of jose-cholecystic fluid likely reactive ascites from the adjacent inflammation. A general surgery consultation was requested at that time to evaluate based on the CT scan findings. On January 01, 2017, the patient underwent an uncomplicated Cecil-en-Y pancreatic cyst jejunostomy; under the direction of Dr. Deangelo Palma III. Specimens were obtained for pathology; which were essentially benign. The patient's condition gradually improved and his diet was advanced. His drain was removed 01/05/17 without incident. His vital signs are stable. He has not experienced any significant overnight events. He has now reached maximal benefit of inpatient stay and will be discharged home. Specialty Discharge - Follow Up or Referrals Follow up with: Deangelo Palma III., MD [Physician] - 01/10/17 9:45 am () Discharge Plan - Discharge Data Disposition: Disch To Home/Self Care - Discharge Medications New HYDROcodone/ACETAMIN 7.5-325 [[place] 7.5-325] 1 tablet PO Q4H PRN #30 tablet PRN Reason: Pain Moderate To Severe (4-10) Lisinopril [Prinivil] 15 mg PO BID #60 tablet Continue Pantoprazole Tab [Protonix Tab] 40 mg PO DAILY #30 tablet HYDROcodone/ACETAMIN 7.5-325 [[place] 7.5-325] 1 tablet PO Q4H PRN #20 tablet PRN Reason: Pain Moderate (4-7) amLODIPine [Norvasc] 10 mg PO DAILY - Follow Up or Referral Follow Up: Deangelo Palma III., MD [Physician] - 01/10/17 9:45 am () - Forms/Instructions Instructions: Pancreatitis (DC), Pancreatic Pseudocyst (DC) Exam - Constitutional Vitals: Period Temp Pulse Resp BP Sys/Esquivel Pulse Ox Last 24 Hr 97.9 F-99.0 F 84-95 16-20 127-152/84-97 96-99 DS: Provider Date of admission: 12/29/16 13:43 Primary care physician: COCO BARRIENTOS Attending physician on admission: Hilda Pearson MD Consults: 12/29/16 15:10 Consult to Physician [CONS] Routine Comment: Pancreatic pseudocyst Consulting Provider: Deangelo Palma III. Consult to Specialist Group: Surgery When should Consulting Provider be notified: Now Person Notified: ROX Date Notified: 12/29/16 Time Notified: 15:29 Consult Notification Comment: AWARE 12/29/16 15:59 Consult to Dietitian [CONS] Routine Reason for Dietitian: Other Discharging clinician: Dary Camacho CNP <Oral [place] - Last Filed: 01/06/17 10:11> Hospital Course - Time spent with patient Time with patient DS: Greater than 30 minutes (45) Diagnosis - Discharge Diagnosis (1) History of alcohol use Status: Chronic (2) HTN (hypertension) Status: Chronic (3) Pancreatic pseudocyst Status: Resolved Discharge Plan - Discharge Data Condition at Discharge: Stable Discharge Diet: advance to your usual diet Activity: resume usual activities as tolerated Hygiene: no restrictions Weight Bearing at Discharge: weight bear as tolerated Contact your physician if you experience:: fever over 101 Exam - Constitutional General appearance: under weight - Head Head exam: Present: normocephalic, atraumatic - Eye Eye exam: Present: EOMI Pupils: Present: HUSSAIN - ENT ENT exam: Present: normal exam - Neck Neck exam: Present: normal inspection - Respiratory Respiratory exam: Present: clear to auscultation bilaterally. Absent: rhonchi, wheezes - Cardiovascular Cardiovascular exam: Present: regular rate and rhythm - GI/Abdominal GI/Abdominal exam: Present: normal bowel sounds, soft. Absent: tenderness, rebound - Extremities Exam Extremities exam: Present: normal inspection - Back Exam Back exam: Present: normal inspection - Neurological Exam Neurological exam: Present: alert, oriented X3 - Psychiatric Psychiatric exam: Present: normal affect, normal mood - Skin Skin exam: Present: warm, intact
== END 2017-01-06 13:21 | disposition home or self-care (01) | DRG 405 ==
LOC: N.ED 10:51 → N.EDINP 13:43 → SUATTDRO 13:43 → N.5E 14:20
PROVIDERS: ADMIT Internal Medicine; ATTEND Internal Medicine

== ENCOUNTER 2017-01-22 09:44 | Inpatient (IN) ==
[2017-01-22] MEDS ORDERED: ONDANSETRON 4 MG/2 ML VIAL IV STA (11:46)
[2017-01-22] MEDS ORDERED: HYDROmorphone 2 MG/1 ML VIAL IV STA (11:46)
--- NOTE | 2017-01-22 11:52 | Emergency Department Note ---
Arrival - Arrival Chief Complaint: Abdominal / Flank Pain Stated Complaint: stomach ED Nursing Triage Note: Pt c/o abd pain x 3-4 days. Denies N/V/D. Mode of Arrival: Ambulatory Limitations: No Limitations Source: Patient, Old Records Reviewed, RN Notes Reviewed Time Seen by Provider: 01/22/17 10:39 - History of Present Illness HPI Narrative: - History of Present Illness 51-year-old black male presents to ED with CC of: abdominal pain, x 3-4 days. Denies nausea vomiting diarrhea or constipation. Fever: no Keeping fluids down: yes Normal urine output: yes PMHx: Chronic pancreatitis with multiple admissions for acute pancreatitis. Patient had drainage of a pancreatic pseudocyst in December by Dr. Palma. Denies alcohol intake this visit. HTN, GERD, chronic back pain, depression. Allergies/Adverse Reactions: Allergies Allergy/AdvReac Type Severity Reaction Status Date / Time No Known Allergies Allergy Verified 08/10/16 08:27 Home Medications: Home Medications Medication Instructions Recorded Confirmed Type amLODIPine [Norvasc] 10 mg PO DAILY 12/29/16 01/22/17 History HYDROcodone/ACETAMIN 7.5-325 1 tablet PO Q6H PRN 01/22/17 01/22/17 History [[place] 7.5-325] Omeprazole [Omeprazole] 20 mg PO DAILY 01/22/17 01/22/17 History Review of System - Review of System 12 point system: reviewed and no additional remarkable complaints except as stated - Review of System Constitutional: Absent: chills, fever Cardiovascular: Absent: chest pain, palpitations, edema Gastrointestinal: Present: as per HPI, abdominal pain. Absent: nausea, vomiting , diarrhea, constipation, hematemesis, melena, hematochezia Medical,Surgical,& Family Hx - Medical History Cardio: History of: Hypertension Psychological: History of: Depression Neurology: History of: Migraine HEENT: History of: Eye Problem (wears glasses) Endocrine: No history of: Diabetes Mellitus (NIDDM) Gastrointestinal: History of: GERD, Pancreatitis, GI Problems Musculoskeletal: History of: Back/Neck Problems (chronic back and neck pain), Herniated Disk - Surgical History Cardiac Surgeries: Patient Denies: Cardiac Catheterization, Cardiac Surgery Thoracic Surgeries: Patient denies;: Organ Transplant Neurologic Surgeries: Patient denies: Neurologic Surgery Abdominal Surgeries: Surgical HX of: Abdominal Surgery (remove cyst from pancreas) Reproductive Surgeries: Patient denies;: Genitourinary Surgery Orthopedic Surgeries: Surgical HX of;: Spinal Surgery (lower back) - Family History Family History: Reports;: Family Cancer (Sister), Family Diabetes (Grandmother) , Family Hypertension, Family Stroke - Social History Smoking Status: Current every day smoker Exam Physical Examination: - General General appearance: alert, in mild distress - HEENT Present: atraumatic, normocephalic, normal inspection, PERRL, EOMI, mucous membranes moist - Neck Neck exam: Present: normal inspection, full ROM - Respiratory Respiratory exam: Present: normal lung sounds bilaterally - Cardiovascular Cardiovascular exam: Present: regular rate, normal rhythm, normal heart sounds - Abdominal Exam Abdominal exam: Present: Firm, tenderness: Yes, left upper quadrant; moderate; guarding present, midline scar present, erythema or edema noted. Normal bowel sounds. Absent: distention, trauma, - Extremities Exam Extremities exam: Present: normal inspection, full ROM. Absent: pedal edema, joint swelling, calf tenderness - Neurological Exam Neurological exam: Present: alert, oriented X3, no neuorosensory deficits - Psychiatric Psychiatric exam: Present: normal affect, normal mood - Skin Skin exam: Present: warm, dry, intact Vital Signs: Vital Signs Temperature 98.4 F 01/22/17 23:25 Pulse Rate 87 01/22/17 23:25 Respiratory Rate 20 01/22/17 23:25 Blood Pressure 146/88 01/22/17 23:25 O2 Sat by Pulse Oximetry 98 01/22/17 23:25 Course - Consultations Time: 11:50 (Hospitalist service notified of pt presence and status. Requests CT. ) Time: 13:05 (Hospitalist service notified of pt CT and lab results. Will come and evaluate patient for admission.) Time: 13:30 (Joann Ramirez here. Will admit patient.) Results - Labs CBC & BMP: 01/22/17 12:20 01/22/17 12:20 Lab Results: I have reviewed the patients labs Labs: Laboratory Tests 01/22/17 11:46 Urine Color Straw Urine Appearance Clear Urine pH 7.0 Ur Specific [place] 1.029 Urine Protein Negative Urine Glucose (UA) Negative Urine Ketones Negative Urine Blood Negative Urine Nitrate Negative Urine Bilirubin Negative Urine Urobilinogen < 2.0 H Urine Leukocytes Negative Urine RBC <1 Urine WBC 1 Urine Mucus Occasional Ur Culture Indicated? Not indicated Laboratory Tests 01/22/17 01/22/17 12:20 13:47 Urine Opiates Screen Positive H Ur Barbiturates Screen Negative Ur Phencyclidine Scrn Negative U Amphetamine/Methamph Negative U Benzodiazepines Scrn Negative U Cocaine Metab Screen Negative U Cannabinoids Screen Negative Serum Alcohol < 15 L U Ethyl Alcohol Screen Negative Laboratory Tests 01/22/17 12:20 AST 13 ALT 15 L Alkaline Phosphatase 117 Albumin 2.6 L Globulin 4.3 H Albumin/Globulin Ratio 0.6 L Amylase 47 Lipase 74.0 - Impressions CT Abdomen and Pelvis: 1. There is a 15 x 11 mm soft tissue mass in the right lower lobe, highly suspicious for malignancy. Further evaluation is warranted. 2. There is air in the biliary tree, small in amount. This was not seen on the previous study. Has the patient had a sphincterotomy? 3. Grossly abnormal pancreas, with severe findings of acute and chronic pancreatitis. Pseudocyst at the junction of head and neck of the pancreas has decreased significantly in size. - Diagnostic Findings Procedure: CT Abdomen and Pelvis: report reviewed by me (See Impression Above) Disposition Clinical Impression: Acute non-serologic pancreatitis, Chronic pancreatitis, Nicotine abuse, Lung mass Disposition: Still a Patient Condition: Stable Time of Disposition: 13:30
[2017-01-22 12:29] LABS: Basophils % 0.3 % (0.0-0.8); Eosinophils # 0.1 10*3/uL (0.0-0.87); Hematocrit 30.7 VOL% (42.0-52.0); Hemoglobin 10.5 GM/DL (14.0-18.0); Immature Granulocytes % 0.8 %; Immature Granulocytes Absolute 0.06 #; Lymphocytes # 1.7 10*3/uL (1.4-4.0); Lymphocytes % 23.3 % (21.2-54.2); Mean Corpuscular HGB Conc 34.2 GM/DL (32-36); Mean Corpuscular Hemoglobin 30 PG (27-34); Monocytes # 0.3 10*3/uL (0.11-0.8); Monocytes % 4.2 % (1.7-12.7); Neutrophils % 70.4 % (38.7-73.9); Platelet Count 170 T/CUMM (130-400); Red Blood Count 3.45 MC/CUMM (3.8-5.5); Red Cell Distribution Width 16.3 % (9.3-17.3); White Blood Count 7.1 T/CUMM (4-12)
[2017-01-22] MEDS ORDERED: HYDROmorphone 2 MG/1 ML VIAL ONE (12:48)
[2017-01-22] MEDS ORDERED: ONDANSETRON 4 MG/2 ML VIAL ONE (12:49)
[2017-01-22 12:50] LABS: Lactic Acid 1.1 MMOL/L (0.4-2.0)
--- NOTE | 2017-01-22 12:53 | CT Report ---
CT of the abdomen and pelvis with intravenous contrast. 100 cc Omni 350. Axial images were obtained with sagittal and coronal reconstructions. Indication: Generalized abdominal pain. Pancreatitis. Comparison is made to a previous exam of December 29, 2016. Axial images were obtained with sagittal and coronal reconstructions. Within the medial aspects of the right lower lobe, there is a 15 x 11 mm lobular soft tissue mass, with some spiculation of the margins. This is highly suspicious for malignancy. There is no pericardial or pleural effusion. At the dome of the right lobe of the liver, there is a 7 mm hypodensity in the venous phase which demonstrates complete filling on the delayed phase. On a previous contrasted CT, this showed vascular enhancement. I suspect that this represents a small vascular lesion such as a hemangioma, or other vascular variant. No suspicious masses are seen within the liver. There is a air in the biliary tree. The gallbladder is contracted. The pancreas is markedly enlarged diffusely, and contains severe edema with poor perfusion of the parenchyma. Calcifications are seen throughout the pancreatic parenchyma, the result of chronic pancreatitis. A cystic mass previously seen in the junction of the head and the neck of the pancreas, previously measuring 5.5 cm, now measures 10 x 12 mm. No new pancreatic mass is seen. The pancreatic duct is not perceptible. There is no adrenal enlargement. There is no splenic enlargement. The kidneys are normal in size, location, and contour. They enhance normally and excrete normally. The ureters are normal in course and caliber. The urinary bladder presents a normal appearance. Evaluation of the bowel is limited due to the lack of bowel contrast. The gastric contour is normal. The loops of small intestine are not dilated. There is no small intestinal wall thickening. The appendix where visualized appears normal. The terminal ileum appears normal. There is no dilatation of the colon or colonic wall thickening. No free fluid. Atherosclerotic plaque is noted within a normal caliber abdominal aorta. No definite adenopathy. Degenerative changes are noted at L4-L5 and L5-S1. Impression: 1. There is a 15 x 11 mm soft tissue mass in the right lower lobe, highly suspicious for malignancy. Further evaluation is warranted. 2. There is air in the biliary tree, small in amount. This was not seen on the previous study. Has the patient had a sphincterotomy? 3. Grossly abnormal pancreas, with severe findings of acute and chronic pancreatitis. Pseudocyst at the junction of head and neck of the pancreas has decreased significantly in size. The CT exam was performed using one or more of the following dose reduction techniques: Automated exposure control, adjustment of the mA and/or kV according to patient size, or use of iterative reconstruction technique. PROCEDURE INTERPRETED AT [facility] DEPARTMENT OF RADIOLOGY Final Report Signed by: Dr. Jennifer Greene
[2017-01-22 13:02] LABS: Alanine Aminotransferase 15 U/L (16-61); Albumin 2.6 G/DL (3.4-5.0); Alkaline Phosphatase 117 U/L (45-117); Aspartate Amino Transferase 13 U/L (0-37); Bilirubin,Total < 0.39 MG/DL (0.2-1.0); Blood Urea Nitrogen 3 MG/DL (7-18); Calcium 8.9 MG/DL (8.5-10.1); Glucose 66 MG/DL (74-106); Osmolality,Calculated 275.3 MOS/KG (273-304); Potassium 3.6 MMOL/L (3.5-5.1); Sodium 141 MMOL/L (136-145); Total Protein 6.9 G/DL (6.4-8.3)
[2017-01-22 13:03] LABS: Amylase 47 U/L (25-115)
[2017-01-22 13:04] LABS: Apearance,Urine CLEAR (Clear); Bilirubin,Urine Negative (Negative); Blood, Urine Negative (Negative); Glucose,Urine (UA) Negative (Negative); Ketones,Urine Negative (Negative); Mucus,Urine Occasional /LPF (Occasional); Nitrite,Urine Negative (Negative); Protein,Urine Negative; RBC,Urine <1 /HPF (0-4); Urine Color Straw (Yellow); Urine Specific Gravity 1.029 (1.001-1.035); Urine Urobilinogen < 2.0 EU/DL (0.2-1.0); WBC,Urine 1 /HPF (0-6)
[2017-01-22 13:56] LABS: Hypochromasia 1+; Polychromasia Slight
[2017-01-22] MEDS ORDERED: PROMETHAZINE 25 MG/1 ML VIAL IM PRN (13:58)
[2017-01-22] MEDS ORDERED: ACETAMINOPHEN 325 MG TABLET PO PRN ×2 (13:58)
[2017-01-22] MEDS ORDERED: guaiFENesin/DM ER 600-30 MG TABLET PO PRN (13:58)
[2017-01-22] MEDS ORDERED: DOCUSATE SODIUM 100 MG CAPSULE PO PRN (13:58)
[2017-01-22] MEDS ORDERED: NICOTINE 21 MG/24 HR PATCH TRANSDERM PRN (13:58)
--- NOTE | 2017-01-22 14:05 | Hospitalist History & Physical ---
Assessment and Plan - Time spent with patient Time spent with patient: Greater than 30 minutes (1) Tobacco abuse Status: Acute Assessment and plan: Mr. Lee is a 51-year-old -Sammar[place] male with history of tobacco abuse , hypertension, and recurrent pancreatitis due to previous alcohol abuse admitted by the hospitalist service with acute non-serologic pancreatitis. Patient will be given IV fluids, pain and nausea medicine. Patient will be kept n.p.o. except for ice chips and sips of water. He will also be started on IV antibiotics. Patient also has a soft tissue mass in the right lower lobe of the lung so will consult pulmonary to evaluate. Dr. Ward will see and examine patient and further recommendations to follow. Current Visit: Yes (2) Acute non-serologic pancreatitis Status: Acute Current Visit: Yes (3) Hypertension Status: Acute Current Visit: No (4) History of alcohol abuse Status: Acute Current Visit: No History of Present Illness Chief complaint: Abdominal pain History of present illness: Mr. Lee is a 51 year old -Sammar[place] male with history of hypertension , tobacco abuse, and chronic pancreatitis with multiple admissions due to abdominal pain presenting to the ED today with abdominal pain. Patient underwent a Cecil-en-Y pancreatic cyst jejunostomy on 01/01/[address] Louie MARRUFO for a 5.5 cm enlarging pancreatic pseudocyst that was symptomatic. He had a follow-up appointment on 01/10/2017 where everything was going well. Patient states approximately 4 days ago he started having abdominal pain that is increased now to 9/10. He denies nausea, vomiting, headache, dizziness, difficulty swallowing, chest pain, shortness of breath, constipation or diarrhea , or lower extremity edema. Upon exam patient is afebrile and his vital signs are stable. His labs are relatively normal with normal LFTs and normal amylase and lipase. CT scan obtained showing a grossly abnormal pancreas with severe findings of acute on chronic pancreatitis. Pseudocyst at the junction of the head and neck of the pancreas is decreased significantly in size. Also showing a 15 x 11 mm soft tissue mass in the right lower lobe of the lung highly suspicious for malignancy. This is not mentioned in his previous CTs. Patient is lying on his side in the position due to pain. He has difficulty straightening his legs in supine position due to abdominal pain. He is tender to palpation throughout the abdomen but no peritoneal signs. Patient's case was discussed with Sofi Lockwood the ED REGISTERED NURSE AMBULATORY and Dr. Ward the admitting hospitalist and it was agreed patient would be admitted for further evaluation and treatment. Patient's medications will be reconciled when entered in the [employer] and patient is a full code. Home Medications Medication Instructions Recorded Confirmed Type amLODIPine [Norvasc] 10 mg PO DAILY 12/29/16 01/22/17 History Allergies Allergy/AdvReac Type Severity Reaction Status Date / Time No Known Allergies Allergy Verified 08/10/16 08:27 Medical,Surgical,& Family Hx - Medical History Cardio: History of: Hypertension Psychological: History of: Depression Neurology: History of: Migraine HEENT: History of: Eye Problem (wears glasses) Endocrine: No history of: Diabetes Mellitus (NIDDM) Gastrointestinal: History of: GERD, Pancreatitis, GI Problems Musculoskeletal: History of: Back/Neck Problems (chronic back and neck pain), Herniated Disk - Surgical History Cardiac Surgeries: Patient Denies: Cardiac Catheterization, Cardiac Surgery Thoracic Surgeries: Patient denies;: Organ Transplant Neurologic Surgeries: Patient denies: Neurologic Surgery Abdominal Surgeries: Surgical HX of: Abdominal Surgery (remove cyst from pancreas) Reproductive Surgeries: Patient denies;: Genitourinary Surgery Orthopedic Surgeries: Surgical HX of;: Spinal Surgery (lower back) - Family History Family History: Reports;: Family Cancer (Sister), Family Diabetes (Grandmother) , Family Hypertension, Family Stroke - Social History Smoking Status: Current every day smoker Have you smoked in the last 12 months: Yes Frequency of Alcohol Use: None Type of Drug Use: None Marital Status: Single Lives With:: Sibling Functional capacity: independent ambulation Review of systems: A complete 10 system review of systems was obtained and pertinent positives and negatives per HPI Exam - Constitutional Vitals: Period Temp Pulse Resp BP Sys/Esquivel Pulse Ox Last 24 Hr 98.3 F-98.3 F 84-95 20-20 122-135/82-88 98 Exam: Constitutional System: Mild distress. No tremulousness. Head: Normocephalic, atraumatic. Ears, Nose and Throat System: No evidence of Otitis or Mastoiditis. No epistaxis or discharge, poor dentition Eyes System: Pupils equal, round, and reactive. Extraocular muscles intact. Neck: Supple, without adenopathy, No jugular venous distention. No thyromegaly, neck mass, or prior surgery apparent. Respiratory System: Chest clear to auscultation. Cardiovascular System: Heart with regular rate and rhythm. No murmur. GI System: Abdomen rigid, moderately tender throughout. Normo active bowel sounds present. Musculoskeletal System: limbs with no pedal edema. Full distal pulses. Neurological System: No discernable sensory deficit. No aphasia Psychiatric System: Conversation is rational Results - Labs CBC & BMP: 01/22/17 12:20 01/22/17 12:20 Lab Results: I have reviewed the past 24 hour labs - Diagnostic Findings Procedure: CT Abdomen and Pelvis: report reviewed by me (15 x 11 mm soft tissue mass in the right lower lobe lung highly suspicious for malignancy. Small amount of air in the biliary tree. Grossly abnormal pancreas with severe findings of acute on chronic pancreatitis with pseudocyst at the junction of the head and neck of the pancreas that has decreased significantly in size.)
[2017-01-22 14:10] LABS: Alcohol Patient Result Negative (Negative); Barbiturates Screen,Urine Negative (Negative); Benzodiazepines Screen,Urine Negative (Negative); Cannabinoid Screen,Urine Negative (Negative); Opiate Screen,Urine Positive (Negative); Phencyclidine Screen,Urine Negative (Negative)
[2017-01-22] MEDS: HYDROmorphone 2 MG/1 ML VIAL IV SCH ×9 (16:41→23:59)
[2017-01-22] MEDS: PIPERACILLIN/TAZOBACTAM 3,375 MG in SODIUM CHLORIDE 0.9% 100 ML IV SCH (17:50)
[2017-01-22] MEDS: SODIUM CHLORIDE 0.9% 1,000 ML IV SCH ×2 (17:50→19:35)
[2017-01-22] MEDS: ENOXAPARIN 40 MG/0.4 ML SYRINGE SUBCUT SCH (18:41)
[2017-01-22] MEDS: amLODIPine 10 MG TABLET PO SCH (18:42)
[2017-01-23] MEDS: HYDROmorphone 2 MG/1 ML VIAL IV SCH ×24 (00:02→23:28)
[2017-01-23] MEDS: ONDANSETRON 4 MG/2 ML VIAL IV PRN ×2 (00:37→20:38)
[2017-01-23] MEDS: PIPERACILLIN/TAZOBACTAM 3,375 MG in SODIUM CHLORIDE 0.9% 100 ML IV SCH ×4 (00:37→23:35)
[2017-01-23] MEDS: SODIUM CHLORIDE 0.9% 1,000 ML IV SCH ×3 (02:04→14:13)
[2017-01-23 06:05] LABS: Basophils % 0.2 % (0.0-0.8); Eosinophils # 0.1 10*3/uL (0.0-0.87); Eosinophils % 1.7 % (0.00-10.9); Hematocrit 20.2 VOL% (42.0-52.0); Hemoglobin 6.7 GM/DL (14.0-18.0); Immature Granulocytes % 0.7 %; Immature Granulocytes Absolute 0.04 #; Lymphocytes # 1.5 10*3/uL (1.4-4.0); Lymphocytes % 26.7 % (21.2-54.2); Mean Corpuscular HGB Conc 33.2 GM/DL (32-36); Mean Corpuscular Hemoglobin 31 PG (27-34); Mean Corpuscular Volume 92.7 FL (87-102); Mean Platelet Volume 10.1 FL (9.6-12.0); Monocytes # 0.3 10*3/uL (0.11-0.8); Monocytes % 5.2 % (1.7-12.7); Neutrophils # 3.6 10*3/uL (1.4-7.4); Neutrophils % 65.5 % (38.7-73.9); Platelet Count 243 T/CUMM (130-400); Red Blood Count 2.18 MC/CUMM (3.8-5.5); Red Cell Distribution Width 16.6 % (9.3-17.3); White Blood Count 5.4 T/CUMM (4-12)
[2017-01-23 06:59] LABS: Hypochromasia Slight
[2017-01-23 07:00] LABS: Microcytosis 1+; Platelet Estimate Normal
[2017-01-23] MEDS ORDERED: SODIUM CHLORIDE 0.9% 250 ML IV PRN (07:54)
--- NOTE | 2017-01-23 07:56 | Hospitalist Progress Note ---
Assessment and Plan (1) Acute on chronic pancreatitis Status: Acute Assessment and plan: December repair of pancreatic pseudocyst, reduced volume of pseudocyst on recent CT scan however demonstrating acute and chronic pancreatic changes. Current Visit: No (2) Anemia Status: Acute Assessment and plan: The patient's previous hemoglobins of average approximately 9-9.5. The sudden drop likely reflects rehydration and his acute illness. The patient will be transfused. Current Visit: No (3) Lung mass Status: Acute Assessment and plan: This apparently was not noted on previous CT scans of the chest. Pulmonary consultation has been requested. Current Visit: Yes Hospitalist: Subjective Interval history: 51-year-old male with history of chronic pancreatitis recurrent episodes of acute pancreatitis had undergone resection of an enlarging pseudocyst on January 01. He presented yesterday with recurrent abdominal pain with CT scan demonstrating postoperative changes, chronic and acute pancreatitis with reduced volume of the pseudocyst. Incidentally the patient, a smoker, was identified as having a 15 x 11 mm soft tissue mass in the right lower lobe of the lung on that CT scan. The patient this morning states that he is hungry. With rehydration his hemoglobin is fallen substantially, no bleeding has been observed. Exam - Constitutional Vitals: Period Temp Pulse Resp BP Sys/Esquivel Pulse Ox Last 24 Hr 97.4 F-98.7 F 76-96 18-20 118-146/72-89 96-100 General appearance: under weight - Respiratory Respiratory exam: Present: clear to auscultation bilaterally. Absent: rales, rhonchi, wheezes - Cardiovascular Cardiovascular exam: Present: regular rate and rhythm - GI/Abdominal GI/Abdominal exam: Present: hypoactive bowel sounds, other (Well-healed midline incision). Absent: tenderness, rebound - Extremities Exam Extremities exam: Absent: edema - Neurological Exam Neurological exam: Present: alert, oriented X3 Results - Labs CBC & BMP: 01/23/17 04:44 01/23/17 07:11
--- NOTE | 2017-01-23 07:58 | XRay Report ---
Exam: XR chest 2V Indication: Chest lung mass pain Shortness of breath Comparison study: 08/10/2016 radiograph Findings: The heart, mediastinum and bony structures are stable from prior. Lungs are mildly hyperexpanded, similar to prior. The questioned soft tissue mass seen on prior CT imaging is not definitely identified radiographically. There is no focal consolidation, pneumothorax or pleural effusion identified. Impression: No acute cardiopulmonary process. Questioned mass seen previously on CT images is not definitely identified radiographically. Correlation with dedicated CT imaging of the chest with intravenous contrast should be obtained for further evaluation. PROCEDURE INTERPRETED AT [facility] DEPARTMENT OF RADIOLOGY Final Report Signed by: Devonte Hidalgo
[2017-01-23 08:19] LABS: Albumin 2.4 G/DL (3.4-5.0); Bilirubin,Total 0.4 MG/DL (0.2-1.0); Magnesium 1.9 MG/DL (1.8-2.4); Osmolality,Calculated 279.1 MOS/KG (273-304); Potassium 3.3 MMOL/L (3.5-5.1)
[2017-01-23] MEDS: amLODIPine 10 MG TABLET PO SCH (08:32)
--- NOTE | 2017-01-23 10:37 | Pulmonology Consult Note ---
History of Present Illness Chief complaint: Possible right lower lung chest mass. Acute abdominal pain. History of present illness: Mr. Lee is a 51 year old black male whom I been asked to see in pulmonary consultation. This patient had a pancreatic cyst. He was here 01/01/[address] Palma. The surgery was a Cecil-en-Y pancreatic cyst jejunostomy. Saw Dr. Palma in follow-up 01/10/2017 and was doing well. 3 days prior to this admission the patient began to develop abdominal pain and this increased significantly he said. His vital signs were stable and he was afebrile. His lab showed no gross abnormalities. CT scan of the abdomen showed an abnormal pancreas with findings of acute on chronic pancreatitis. Today's pseudocyst had decreased significantly in size. Patient's abdominal pain is better but he has had a big drop in his H&H. On the CT scan of his chest there was a 15 x 11 mm soft tissue mass in the right lower lung of the right lung. This appeared to be in a posterior medial basilar segment. On the follow-up routine chest x-ray this cannot be seen. We will reevaluate this with a CT of the chest. Patient has significant risk factors for lung cancer. The patient denies any cough or shortness of breath or sputum production. He says he smokes up half a pack of cigarettes per day and has done so for years. Patient says his abdomen no longer hurts. He says it has never hurt when he eats. He has not seen any blood per rectum or any blood in his stools. The remainder of the review of systems are negative. Allergies. None Home medicines. See below Hospital medicines. See below Past history. Recent Cecil-en-Y pancreatic cyst jejunostomy by Dr. Palma. History of tobacco abuse. High blood pressure. Recurrent pancreatitis secondary to previous alcohol abuse. History of depression. History of migraine headaches. History of chronic neck and back pain. Family history. His sister had cancer. His grandmother had diabetes. There is a family history of high blood pressure and CVA social history. Smokes a half a pack every day. Presently denies alcohol but there was past history of alcohol abuse. He is a disabled or seeking disability. Unemployed. CT of the abdomen. See above. 15 x 11 mm soft tissue mass medial basal segment of the right lower lung. Mass cannot be seen on chest x-ray Lab. Creatinine is 0.5. BUN is 5. Sodium 142. Potassium is low at 3.3. Calcium is low at 8.0. Protein and albumin are low at 6.0 and 2.4. Globulin is 3.6. White count is 5400 with 65.5 626.7 lymphs. H&H is dropped from 10.5/ 30.7-6.7/20.2. Platelets are 243,000. CEA is 4.2. Amylase and lipase are normal. Physical exam. Vital signs. See below Psychiatric. Oriented 3. General. No distress. Neurologic. Cranial nerves are grossly intact. Patient moves all 4 extremities. Gait was not tested. Neck. Symmetrical. No meningismus. Lymphatics. No submandibular cervical supraclavicular or epitrochlear adenopathy. Chest. Clear. Prolonged expiration. Heart no gallop Abdomen. Postsurgical. Nontender. Bowel sounds are present. Extremities. Nothing to suggest deep venous thrombophlebitis. The remainder the exam is noncontributory. Impression. 1. Recent Cecil-en-Y pancreatic cyst jejunostomy by Dr. Palma 2. History of alcohol abuse 3. Tobacco abuse 4. High blood pressure 5. Probable COPD 6. Possible 11 x 15 mm soft tissue nodule in the medial basal segment of the right lower lung. If this nodule persists on follow-up test and lung cancer is a possibility and will need to evaluate this with fiberoptic bronchoscopy under fluoroscopy. Plan. 1. CT of the chest with contrast 2. When patient is stable he can be evaluated with fiberoptic bronchoscopy if this mass-effect is still present on follow-up CT of chest 3. Patient should stop smoking. Home Medications Medication Instructions Recorded Confirmed Type amLODIPine [Norvasc] 10 mg PO DAILY 12/29/16 01/22/17 History HYDROcodone/ACETAMIN 7.5-325 1 tablet PO Q6H PRN 01/22/17 01/22/17 History [[place] 7.5-325] Omeprazole [Omeprazole] 20 mg PO DAILY 01/22/17 01/22/17 History Allergies Allergy/AdvReac Type Severity Reaction Status Date / Time No Known Allergies Allergy Verified 08/10/16 08:27 Exam (Pulmonay) H&P - Constitutional Vitals: Period Temp Pulse Resp BP Sys/Esquivel Pulse Ox Last 24 Hr 97.4 F-98.9 F 76-96 18-20 118-146/72-89 96-100 Medical,Surgical,& Family Hx - Medical History Cardio: History of: Hypertension Psychological: History of: Depression Neurology: History of: Migraine HEENT: History of: Eye Problem (wears glasses) Endocrine: No history of: Diabetes Mellitus (NIDDM) Gastrointestinal: History of: GERD, Pancreatitis, GI Problems Musculoskeletal: History of: Back/Neck Problems (chronic back and neck pain), Herniated Disk - Surgical History Cardiac Surgeries: Patient Denies: Cardiac Catheterization, Cardiac Surgery Thoracic Surgeries: Patient denies;: Organ Transplant Neurologic Surgeries: Patient denies: Neurologic Surgery Abdominal Surgeries: Surgical HX of: Abdominal Surgery (remove cyst from pancreas) Reproductive Surgeries: Patient denies;: Genitourinary Surgery Orthopedic Surgeries: Surgical HX of;: Spinal Surgery (lower back) - Family History Family History: Reports;: Family Cancer (Sister), Family Diabetes (Grandmother) , Family Hypertension, Family Stroke - Social History Smoking Status: Current every day smoker Frequency of Alcohol Use: Frequently Type of Drug Use: None Results - Labs CBC & BMP: 01/23/17 04:44 01/23/17 07:11
--- NOTE | 2017-01-23 14:43 | CT Report ---
CT chest wo/w con Technique: Axial CT imaging of the chest was performed prior to and following administration of 100 cc of Omnipaque 350. No immediate complication from administration of contrast. Coronal and sagittal reformatted images were additionally created and submitted for review. Dose reduction: This CT exam was performed using one or more of the following dose reduction techniques: Automated exposure control, automated adjustment of the mA and/or KV according to patient size, or use of iterative reconstruction technique. Total DLP: 216 mGy*cm Clinical history: Right lower lung nodule seen on CT scanning of the abdomen Comparison: CT abdomen pelvis dated 01/22/2017 Findings: CHEST: Mediastinum/vessels/lymph nodes: Heart and great vessels appear unremarkable. There is no evidence of pericardial effusion. The aorta and pulmonary vessels appear widely patent. There is no adenopathy in the chest. Lungs: Lungs are predominantly clear. The 1.7 cm soft tissue lesion within the medial aspect of the right lower lobe is again identified and highly suspicious for malignancy. There is an additional 6 mm ground glass density within the medial right upper lobe which is nonspecific (axial image 26). Central airways are patent. Minimal posterior basilar atelectatic changes are noted bilaterally.. Thyroid: Thyroid gland appears within normal limits. No acute abnormality is identified within the visualized upper abdomen. Markedly abnormal pancreatic tissue with extensive calcification consistent with chronic pancreatitis, discussed in detail on the dedicated CT abdomen pelvis report. BONES: No acute or suspicious appearing osseous abnormalities are identified. Impression: 1.7 cm soft tissue lesion within the medial right lung base is suspicious for malignancy. Additional nonspecific groundglass density measuring 6 mm in the medial right upper lobe may represent a infectious/inflammatory process although an additional possibility of malignancy cannot be excluded. Consider tissue biopsy of the solid lesion within the right lower lobe and PET/CT imaging for further evaluation. PROCEDURE INTERPRETED AT [facility] DEPARTMENT OF RADIOLOGY Final Report Signed by: Devonte Hidalgo
[2017-01-23] MEDS: POTASSIUM CHLORIDE INJ 40 MEQ in LACTATED RINGERS 1,000 ML IV SCH (15:42)
[2017-01-23] MEDS: ENOXAPARIN 40 MG/0.4 ML SYRINGE SUBCUT SCH (16:19)
[2017-01-24] MEDS: HYDROmorphone 2 MG/1 ML VIAL IV SCH ×24 (01:20→22:18)
[2017-01-24 06:50] LABS: Magnesium 1.9 MG/DL (1.8-2.4); Osmolality,Calculated 275.3 MOS/KG (273-304); Potassium 3.8 MMOL/L (3.5-5.1)
[2017-01-24] MEDS: POTASSIUM CHLORIDE INJ 40 MEQ in LACTATED RINGERS 1,000 ML IV SCH ×2 (07:40→14:09)
[2017-01-24] MEDS: PIPERACILLIN/TAZOBACTAM 3,375 MG in SODIUM CHLORIDE 0.9% 100 ML IV SCH ×2 (08:32→17:10)
[2017-01-24] MEDS: amLODIPine 10 MG TABLET PO SCH (08:32)
--- NOTE | 2017-01-24 08:51 | Hospitalist Progress Note ---
Assessment and Plan (1) Acute on chronic pancreatitis Status: Acute Assessment and plan: December repair of pancreatic pseudocyst, reduced volume of pseudocyst on recent CT scan however demonstrating acute and chronic pancreatic changes. Current Visit: No (2) Anemia Status: Acute Assessment and plan: The patient's previous hemoglobins of average approximately 9-9.5. The sudden drop likely reflects rehydration and his acute illness. The patient will be transfused. Current Visit: No (3) Lung mass Status: Acute Assessment and plan: This apparently was not noted on previous CT scans. Pulmonary consultation has been requested. Current Visit: Yes Hospitalist: Subjective Interval history: 51-year-old male with chronic pancreatitis with recurrent episodes of acute pancreatitis who underwent resection of enlarging pseudocyst on January 01 of this year. He presented with recurrent abdominal pain with CT scan demonstrating postoperative changes chronic and acute pancreatitis. In addition a right lower lobe nodular lesion was noted on the abdominal CT scan follow-up CT scan of the chest after pulmonary consultation confirms the presence of soft tissue lesion 1.7 cm. Patient has had a bowel movement he has had no nausea or vomiting and his appetite is normal. He was transfused however the rise in hemoglobin suggests that the initial CBC was somewhat problematic. His state of hydration is adequate. Blood pressure is somewhat labile. Exam - Constitutional Vitals: Period Temp Pulse Resp BP Sys/Esquivel Pulse Ox Last 24 Hr 97.5 F-98.9 F 66-84 16-20 121-190/77-103 93-99 General appearance: under weight - Respiratory Respiratory exam: Present: clear to auscultation bilaterally. Absent: rales, rhonchi, wheezes - Cardiovascular Cardiovascular exam: Present: regular rate and rhythm - GI/Abdominal GI/Abdominal exam: Present: normal bowel sounds. Absent: ascites, tenderness, rebound - Extremities Exam Extremities exam: Absent: edema - Neurological Exam Neurological exam: Present: alert, oriented X3 Results - Labs CBC & BMP: 01/24/17 06:03 01/24/17 06:03 Labs: Magnesium 1.9
--- NOTE | 2017-01-24 11:00 | Pulmonology Progress Note ---
Pulmonary - PN: Subj Interval history: Is a 51-year-old black male. I saw in pulmonary consultation 01/23/2017. Nodule had been noted in the medial basal segment of his right lower lung. This was seen on CT of the abdomen. It was not visible on any of his chest x- rays. My impressions were. 1. Recent Cecil-en-Y pancreatic cyst jejunostomy by Dr. Palma 2. History of alcohol abuse 3. Tobacco abuse 4. High blood pressure 5. Probable COPD 6. Possible 11 x 15 mm soft tissue nodule in the medial basal segment of the right lower lung. If this nodule persists on follow-up test and lung cancer is a possibility and will need to evaluate this with fiberoptic bronchoscopy under fluoroscopy. 01/24/2017. Patient had a CT of the chest. This showed a 1.7 cm soft tissue lesion in the medial right lung base suspicious for malignancy. In addition there was a nonspecific groundglass density that measures 6 mm in the medial right upper lung. This appears to be smooth bordered inhomogeneous and I think this is a scar. Patient is a smoker and he has significant risk factors for cancer. I discussed bronchoscopy and the risk and I will also discuss transthoracic biopsies and the risk. Layo Thapa nurse practitioner was present. We have agreed to do fiberoptic bronchoscopy under fluoroscopy tomorrow morning at 9 AM. This will be a difficult lesion to see on the fluoroscopy. I doubt that we will see it endobronchially. If we are unable to get good specimens and we need to consider a transthoracic biopsy. Patient says his abdominal pain is for all practical purposes resolved. He had a blood transfusion on 01/23/2018 and his hemoglobin increased from 6.7-14.0. Source of blood loss is not known to me electrolytes are normal. Creatinine is 0.60 and BUN is 5 glucoses are low normal. The patient's records were unclear about his disability. I asked him if he was disabling he said no he is seeking disability based on his back and based on his chronic pancreatitis from alcohol abuse Physical exam. Vital signs. See below Psychiatric oriented 3 Neurologic cranial nerves are intact patient moves all 4 extremities. Chest is clear Heart no gallop Abdomen is nontender. Extremities no edema nothing to suggest deep venous thrombophlebitis. Face is symmetrical. There is no swelling of the lips or tongue. Neck. Symmetrical. No meningismus. Plan. 01/24/[address] of the chest with contrast 2. When patient is stable he can be evaluated with fiberoptic bronchoscopy if this mass-effect is still present on follow-up CT of chest 3. Patient should stop smoking. 01/24/[address] scan of the chest shows a 1.7 cm in diameter mass in the medial basal segment of the right lower lung 2. Fiberoptic bronchoscopy under fluoroscopy scheduled for 6 01/25/2017. Please disregard date says zuleyma has a very hard time with the #2017. We have less than 6 months ago and this year. Exam (Progress Note) - Constitutional Vitals: Period Temp Pulse Resp BP Sys/Esquivel Pulse Ox Last 24 Hr 98.0 F-98.8 F 66-84 16-20 121-190/77-103 93-99 Results - Labs CBC & BMP: 01/24/17 06:03 01/24/17 06:03
[2017-01-24 11:24] LABS: PT Patient Result 10.9 SECS
[2017-01-24 11:43] LABS: Albumin 2.8 G/DL (3.4-5.0); Bilirubin,Direct 0.3 MG/DL (0.0-0.20); Bilirubin,Total 1.3 MG/DL (0.2-1.0)
[2017-01-24] MEDS: ONDANSETRON 4 MG/2 ML VIAL IV PRN (14:24)
[2017-01-24] MEDS: ENOXAPARIN 40 MG/0.4 ML SYRINGE SUBCUT SCH (17:11)
[2017-01-25] MEDS: POTASSIUM CHLORIDE INJ 40 MEQ in LACTATED RINGERS 1,000 ML IV SCH (00:45)
[2017-01-25] MEDS: PIPERACILLIN/TAZOBACTAM 3,375 MG in SODIUM CHLORIDE 0.9% 100 ML IV SCH ×2 (00:46→07:06)
[2017-01-25] MEDS: HYDROmorphone 2 MG/1 ML VIAL IV SCH ×24 (00:50→21:28)
[2017-01-25 05:04] LABS: Basophils % 0.4 % (0.0-0.8); Eosinophils # 0.1 10*3/uL (0.0-0.87); Eosinophils % 1.9 % (0.00-10.9); Hematocrit 38.3 VOL% (42.0-52.0); Hemoglobin 13.1 GM/DL (14.0-18.0); Immature Granulocytes % 0.6 %; Immature Granulocytes Absolute 0.04 #; Lymphocytes # 1.7 10*3/uL (1.4-4.0); Mean Corpuscular HGB Conc 34.2 GM/DL (32-36); Mean Corpuscular Hemoglobin 30 PG (27-34); Mean Corpuscular Volume 88.9 FL (87-102); Mean Platelet Volume 10.1 FL (9.6-12.0); Monocytes # 0.5 10*3/uL (0.11-0.8); Monocytes % 6.8 % (1.7-12.7); Neutrophils # 4.6 10*3/uL (1.4-7.4); Neutrophils % 66.3 % (38.7-73.9); Platelet Count 337 T/CUMM (130-400); Red Blood Count 4.31 MC/CUMM (3.8-5.5); Red Cell Distribution Width 15.9 % (9.3-17.3)
[2017-01-25 05:14] LABS: PT Patient Result 10.7 SECS; Partial Thromboplastin Time 29.4 SECS (0-40)
[2017-01-25 05:37] LABS: Calcium 8.9 MG/DL (8.5-10.1); Osmolality,Calculated 272.5 MOS/KG (273-304)
[2017-01-25] MEDS ORDERED: BENZONATATE 100 MG CAPSULE PO ONE (07:30)
[2017-01-25] MEDS ORDERED: diphenhydrAMINE 50 MG/1 ML VIAL IM ONE (08:00)
[2017-01-25] MEDS ORDERED: MEPERIDINE 50 MG/1 ML VIAL IM ONE (08:00)
[2017-01-25] MEDS ORDERED: LIDOCAINE 2% VISCOUS 100 ML BOTTLE SWISH/SPIT ONE (08:30)
[2017-01-25] MEDS ORDERED: LIDOCAINE 4% TOP SOLN 50 ML BOTTLE RESP TX ONE (08:30)
[2017-01-25] MEDS ORDERED: LIDOCAINE 1% 20 ML VIAL MISC INJ ONE (08:30)
--- NOTE | 2017-01-25 08:59 | Hospitalist Progress Note ---
Assessment and Plan (1) Acute on chronic pancreatitis Status: Acute Assessment and plan: December repair of pancreatic pseudocyst, reduced volume of pseudocyst on recent CT scan however demonstrating acute and chronic pancreatic changes. Current Visit: No (2) Anemia Status: Acute Assessment and plan: The patient's previous hemoglobins of average approximately 9-9.5. The sudden drop likely reflects rehydration and his acute illness. The patient was transfused with an unexpected brisk hemoglobin response. Current Visit: No (3) Lung mass Status: Acute Assessment and plan: This apparently was not noted on previous CT scans. Pulmonary consultation has been requested with bronchoscopy January 25 Current Visit: Yes Hospitalist: Subjective Interval history: 51-year-old male with chronic pancreatitis with recurrent episodes of acute pancreatitis who underwent resection of an enlarging pseudocyst on 01 January. He presented with recurrent abdominal pain with CT scan demonstrating postoperative changes significant reduction in size of the pseudocyst with both chronic and acute pancreatic changes. From this patient is progressed rapidly resolving nausea and abdominal pain. On his initial CT scan of the abdomen he was noted to have soft tissue mass in the right lower lung field confirmed by CT scanning of the chest. He is to have bronchoscopy performed today. His vital signs been stable with variable diastolic hypertension. He tolerated oral intake without difficulty. Exam - Constitutional Vitals: Period Temp Pulse Resp BP Sys/Esquivel Pulse Ox Last 24 Hr 98.1 F-98.5 F 72-88 18-20 136-147/82-99 92-98 General appearance: under weight - Respiratory Respiratory exam: Present: clear to auscultation bilaterally. Absent: rales, rhonchi, wheezes - Cardiovascular Cardiovascular exam: Present: regular rate and rhythm - GI/Abdominal GI/Abdominal exam: Present: normal bowel sounds. Absent: ascites, distended, tenderness - Extremities Exam Extremities exam: Absent: edema - Neurological Exam Neurological exam: Present: alert, oriented X3 Results - Labs CBC & BMP: 01/25/17 03:27 01/25/17 03:27 Labs: Magnesium 2.0
[2017-01-25] MEDS ORDERED: EPINEPHrine 1 MG/ML VIAL ET ONE (09:53)
[2017-01-25] MEDS ORDERED: EPINEPHrine 1 MG/ML VIAL ONE (10:33)
--- NOTE | 2017-01-25 11:11 | Event Note ---
In hospital diagnostic fiberoptic bronchoscopy with brushes 6 under fluoroscopy , right lower lung lavage sent for cytology, AFB stains and culture, fungal stains and culture, Gram stain, bacterial culture This 51-year-old black male who is a smoker and has risk for lung carcinoma. CT scan was found that he had a 1.7 cm in diameter nodule in the medial basal segment of the right lower lung. For these reasons he is evaluated with fiberoptic bronchoscopy. Vocal cords were normal. Trachea was normal. Magaly was sharp. The left bronchial tree contained a good bit of secretions. These were removed with lavage and suctioning. The right bronchial tree contains a moderate amount of thick tenacious secretions as is usually seen in's COPD with chronic sputum. This was removed with lavage and suctioning. Right lower lung lesion was brushed under fluoroscopic guidance. One brush went directly into the lesion. All other pressures were in the vicinity of it. This area could not be biopsied. Prior to brushing the area was catheterized and topical dilute epinephrine and iced saline were instilled. Patient did not have any bleeding. He tolerated the procedure well. After the medial basal segment of the right lower lung was brushed this was followed by irrigation and no specimens were also sent for the studies named above. The patient tolerated procedure well there were no complications. There was no family present. Follow-up chest x-ray is pending Impression. 1. Tobacco abuse 2. Retained secretions 3. 1.7 cm medial basal segment of the right lower lung lesion. Etiology undetermined. Rule out cancer. Plan. 1. Follow-up on bronchoscopy specimens. We are suspicious for cancer. This could have another etiology such as a nodule from atypical mycobacterium. 2. No diagnosis is obtained. This area can be followed by CT scan or we could ask interventional radiology to evaluate with a transthoracic biopsy. This is previously been discussed with the patient.
--- NOTE | 2017-01-25 11:18 | Pulmonology Progress Note ---
Pulmonary - PN: Subj Interval history: Layo Thapa, AGNP-, acting as scribe for Dr. Flakito Lind This is a 51-year-old black male. We saw the patient in pulmonary consultation 01/23/2017. A pulmonary nodule had been noted in the medial basal segment of his right lower lung. This was seen on CT of the abdomen. It was not visible on any of his chest x-rays. At the time of our consultation, our impressions were: 1. Recent Cecil-en-Y pancreatic cyst jejunostomy by Dr. Palma 2. History of alcohol abuse 3. Tobacco abuse 4. High blood pressure 5. Probable COPD 6. Possible 11 x 15 mm soft tissue nodule in the medial basal segment of the right lower lung. If this nodule persists on follow-up test and lung cancer is a possibility and will need to evaluate this with fiberoptic bronchoscopy under fluoroscopy. 01/24/2017. Patient had a CT of the chest. This showed a 1.7 cm soft tissue lesion in the medial right lung base suspicious for malignancy. In addition there was a nonspecific groundglass density that measures 6 mm in the medial right upper lung. This appears to be smooth bordered inhomogeneous and I think this is a scar. Patient is a smoker and he has significant risk factors for cancer. I discussed bronchoscopy and the risk and I will also discuss transthoracic biopsies and the risk. Layo Thapa nurse practitioner was present. We have agreed to do fiberoptic bronchoscopy under fluoroscopy tomorrow morning at 9 AM. This will be a difficult lesion to see on the fluoroscopy. I doubt that we will see it endobronchially. If we are unable to get good specimens and we need to consider a transthoracic biopsy. Patient says his abdominal pain is for all practical purposes resolved. He had a blood transfusion on 01/23/2018 and his hemoglobin increased from 6.7-14.0. Source of blood loss is not known to me electrolytes are normal. Creatinine is 0.60 and BUN is 5 glucoses are low normal. The patient's records were unclear about his disability. I asked him if he was disabling he said no he is seeking disability based on his back and based on his chronic pancreatitis from alcohol abuse. 01/25/2017. The patient underwent fiberoptic bronchoscopy earlier today. This showed retained secretions were thick and tenacious. The right lower lung lesion was approached under fluoroscopic guidance. Please see the bronchoscopy report for more information. Of course, results are pending. He tolerated the procedure well. Medications have been reviewed. We made no changes today. Labs been reviewed. White count is 7000 with a normal differential; H&H 13.1/ 38.3; platelet count 337,000; INR 1.0; creatinine 0.50, BUN 5, electrolytes are normal; total bilirubin is elevated at 1.30; liver function tests within normal limits with the exception of a minimally elevated alkaline phosphatase of 121; calcium 8.9, albumin 2.8, total protein 7.0; CEA 4.2; CA 125 46 Exam (Progress Note) - Constitutional Vitals: Period Temp Pulse Resp BP Sys/Esquivel Pulse Ox Last 24 Hr 98.1 F-98.5 F 72-100 10-20 136-178/82-118 94-100 Exam: Chest fairly clear Heart no gallop Abdomen is nontender and nondistended; bowel sounds are positive 4 Extremities with nothing to suggest acute deep venous thrombophlebitis Psychiatric oriented 3 Neurologic long-term motor function is intact Plan: Follow-up bronchoscopy results when available. Repeat chest x-ray today and tomorrow. See orders. Results - Labs CBC & BMP: 01/25/17 03:27 01/25/17 03:27
[2017-01-25] MEDS: amLODIPine 10 MG TABLET PO SCH (12:22)
--- NOTE | 2017-01-25 12:43 | XRay Report ---
Exam: XR chest 2V Date: 01/25/2017 12:10 PM Indication: Post bronchoscopy Comparison: 01/22/2017 Technical: PA lateral Findings: Heart is demonstrated without abnormality. There is minimal hyperinflation present a few reticular nodular densities. On the lateral examination there appears be a 2.6 cm mass just abutting and anterior to the vertebral body on recent CT scan this is located in the right lung posteriorly this area is obscured on the PA chest. The mediastinum and bony structures are otherwise intact Impression: 1. Mild hyperinflation and minimal granuloma change. 2. Mass in the right lung posteriorly PROCEDURE INTERPRETED AT [facility], [place] DEPARTMENT OF RADIOLOGY Final Report Signed by: Dr. Flakito Carolina
[2017-01-25] MEDS: ENOXAPARIN 40 MG/0.4 ML SYRINGE SUBCUT SCH (16:26)
[2017-01-26] MEDS: HYDROmorphone 2 MG/1 ML VIAL IV SCH ×24 (00:46→22:35)
--- NOTE | 2017-01-26 07:57 | XRay Report ---
2 view chest. Indication: Chest mass. Comparison: January 25, 2017. The heart is normal in size. The pulmonary vasculature is normal. The lung guerrero are free of infiltrate. No pneumothorax or pleural effusion. There is a known pulmonary mass right lower lobe, which is poorly seen on plain film. Osseous structures are unremarkable. Impression: The right-sided pulmonary mass is poorly seen on plain film. No evidence of complication following bronchoscopy. PROCEDURE INTERPRETED AT [facility] DEPARTMENT OF RADIOLOGY Final Report Signed by: Dr. Jennifer Greene
[2017-01-26] MEDS: amLODIPine 10 MG TABLET PO SCH (10:40)
[2017-01-26] MEDS: ONDANSETRON 4 MG/2 ML VIAL IV PRN (11:22)
--- NOTE | 2017-01-26 12:02 | Pulmonology Progress Note ---
Pulmonary - PN: Subj Interval history: Layo Thapa, AGNP-, acting as scribe for Dr. Flakito Lind This is a 51-year-old black male. We saw the patient in pulmonary consultation 01/23/2017. A pulmonary nodule had been noted in the medial basal segment of his right lower lung. This was seen on CT of the abdomen. It was not visible on any of his chest x-rays. At the time of our consultation, our impressions were: 1. Recent Cecil-en-Y pancreatic cyst jejunostomy by Dr. Palma 2. History of alcohol abuse 3. Tobacco abuse 4. High blood pressure 5. Probable COPD 6. Possible 11 x 15 mm soft tissue nodule in the medial basal segment of the right lower lung. If this nodule persists on follow-up test and lung cancer is a possibility and will need to evaluate this with fiberoptic bronchoscopy under fluoroscopy. 01/24/2017. Patient had a CT of the chest. This showed a 1.7 cm soft tissue lesion in the medial right lung base suspicious for malignancy. In addition there was a nonspecific groundglass density that measures 6 mm in the medial right upper lung. This appears to be smooth bordered inhomogeneous and I think this is a scar. Patient is a smoker and he has significant risk factors for cancer. I discussed bronchoscopy and the risk and I will also discuss transthoracic biopsies and the risk. Layo Thapa nurse practitioner was present. We have agreed to do fiberoptic bronchoscopy under fluoroscopy tomorrow morning at 9 AM. This will be a difficult lesion to see on the fluoroscopy. I doubt that we will see it endobronchially. If we are unable to get good specimens and we need to consider a transthoracic biopsy. Patient says his abdominal pain is for all practical purposes resolved. He had a blood transfusion on 01/23/2018 and his hemoglobin increased from 6.7-14.0. Source of blood loss is not known to me electrolytes are normal. Creatinine is 0.60 and BUN is 5 glucoses are low normal. The patient's records were unclear about his disability. I asked him if he was disabling he said no he is seeking disability based on his back and based on his chronic pancreatitis from alcohol abuse. 01/25/2017. The patient underwent fiberoptic bronchoscopy earlier today. This showed retained secretions were thick and tenacious. The right lower lung lesion was approached under fluoroscopic guidance. Please see the bronchoscopy report for more information. Of course, results are pending. He tolerated the procedure well. 01/26/17. The patient was on his phone this morning when we entered the room. He never hung up the phone. Results from FOB yesterday are pending. Medications have been reviewed. We made no changes today. Labs been reviewed. Exam (Progress Note) - Constitutional Vitals: Period Temp Pulse Resp BP Sys/Esquivel Pulse Ox Last 24 Hr 96.6 F-98.6 F 70-90 18-20 129-136/81-91 93-97 Exam: Chest fairly clear Heart no gallop Abdomen is nontender and nondistended; bowel sounds are positive 4 Extremities with nothing to suggest acute deep venous thrombophlebitis Psychiatric oriented 3 Neurologic long-term motor function is intact Plan: Follow-up bronchoscopy results when available. Repeat chest x-ray tomorrow. See orders. Results - Labs CBC & BMP: 01/25/17 03:27 01/25/17 03:27
[2017-01-26] MEDS: ENOXAPARIN 40 MG/0.4 ML SYRINGE SUBCUT SCH (16:26)
--- NOTE | 2017-01-26 19:16 | Pathology Report from [facility] ---
[facility] [place] ACCESSION # : [id number] PATIENT NAME : Dada Lee ORDERING DR : MERLY HILLMAN MD CLINICAL HX: Right Lower Lung Nodule POST-OP DX: Same SPECIMEN INFO: Brushing,Bronchial,RLL - 5 brushes (Received in Cytol[facility]) CLASS: II CLASS COMMENTS: Reactive and hyperplastic changes with some metaplasia.CELL BLOCK: Same CLASS LEGEND: CLASS 0 Material inadequate for diagnosis because of (see comment) CLASS I Absence of atypical or abnormal cells CLASS II Atypical Cytology but no evidence of malignancy CLASS III Cytology suggestive of but not conclusive for malignancy CLASS IV Cytology strongly suggestive of malignancy CLASS V Cytology conclusive for malignancy COLLECTED DATE: 01/25/2017 [facility] [place] REPORT DATE: 01/26/2017 ELECTRONICALLY SIGNED BY: Markel Boyle III, M.D. 01/26/2017 - 9:20:47 MTDD
--- NOTE | 2017-01-26 19:16 | Pathology Report from [facility] ---
[facility] [place] : [id number] PATIENT NAME : Dada Lee ORDERING DR : MERLY HILLMAN MD CLINICAL HX: Right Lower Lung Nodule POST-OP DX: Same SPECIMEN INFO: Washing,Bronchial,RLL - 10 mls greyish white, mucoid CLASS: II CLASS COMMENTS: Mucus, pulmonary macrophages, reactive respiratory epithelial cells.CELL BLOCK: Same CLASS LEGEND: CLASS 0 Material inadequate for diagnosis because of (see comment) CLASS I Absence of atypical or abnormal cells CLASS II Atypical Cytology but no evidence of malignancy CLASS III Cytology suggestive of but not conclusive for malignancy CLASS IV Cytology strongly suggestive of malignancy CLASS V Cytology conclusive for malignancy COLLECTED DATE: 01/25/2017 [facility] [place] DATE: 01/26/2017 ELECTRONICALLY SIGNED BY: Markel Boyle III, M.D. 01/26/2017 - 9:18:30 MTDKenia
--- NOTE | 2017-01-26 19:50 | Hospitalist Progress Note ---
Assessment and Plan (1) Acute on chronic pancreatitis Status: Acute Assessment and plan: December repair of pancreatic pseudocyst, reduced volume of pseudocyst on recent CT scan however demonstrating acute and chronic pancreatic changes. Current Visit: No (2) Anemia Status: Acute Assessment and plan: Monitor CBC periodically. Current Visit: No Qualifiers: Anemia type: unspecified type Qualified Code(s): D64.9 - Anemia, unspecified (3) Lung mass Status: Acute Assessment and plan: Patient status post fiberoptic bronchoscopy on 01/25, pathology is pending. Appreciate pulmonology following. Current Visit: Yes Hospitalist: Subjective Interval history: 51-year-old male with chronic pancreatitis with recurrent episodes of acute pancreatitis who underwent resection of an enlarging pseudocyst on January 01. He presented with recurrent abdominal pain with CT scan demonstrating postoperative changes significant reduction in size of the pseudocyst with both chronic and acute pancreatic changes. On his initial CT scan of the abdomen he was noted to have soft tissue mass in the right lower lung field confirmed by CT scanning of the chest. He is s/p FOB 01/25 Exam - Constitutional Vitals: Period Temp Pulse Resp BP Sys/Esquivel Pulse Ox Last 24 Hr 97.6 F-98.6 F 70-90 18-20 130-136/81-91 93-97 General appearance: no acute distress - Head Head exam: Present: normal inspection, atraumatic - Eye Eye exam: Present: EOMI Pupils: Present: HUSSAIN - ENT ENT exam: Present: normal exam - Neck Neck exam: Present: normal inspection - Respiratory Respiratory exam: Present: clear to auscultation bilaterally - Cardiovascular Cardiovascular exam: Present: regular rate and rhythm - GI/Abdominal GI/Abdominal exam: Present: normal bowel sounds - Extremities Exam Extremities exam: Present: normal inspection, normal capillary refill Results - Labs CBC & BMP: 01/25/17 03:27 01/25/17 03:27
[2017-01-27] MEDS: HYDROmorphone 2 MG/1 ML VIAL IV SCH ×23 (00:32→22:19)
[2017-01-27] MEDS: amLODIPine 10 MG TABLET PO SCH (09:16)
[2017-01-27] MEDS: ENOXAPARIN 40 MG/0.4 ML SYRINGE SUBCUT SCH (17:15)
[2017-01-27] MEDS: diphenhydrAMINE CAP 25 MG CAPSULE PO PRN (20:41)
--- NOTE | 2017-01-27 21:09 | Hospitalist Progress Note ---
Assessment and Plan (1) Acute on chronic pancreatitis Status: Acute Assessment and plan: December repair of pancreatic pseudocyst, reduced volume of pseudocyst on recent CT scan however demonstrating acute and chronic pancreatic changes. Current Visit: No (2) Anemia Status: Acute Assessment and plan: Monitor CBC periodically. Current Visit: No Qualifiers: Anemia type: unspecified type Qualified Code(s): D64.9 - Anemia, unspecified (3) Lung mass Status: Acute Assessment and plan: Patient status post fiberoptic bronchoscopy on 01/25, pathology is pending. Appreciate pulmonology following. Current Visit: Yes Hospitalist: Subjective Interval history: 51-year-old male with chronic pancreatitis with recurrent episodes of acute pancreatitis who underwent resection of an enlarging pseudocyst on January 01. He presented with recurrent abdominal pain with CT scan demonstrating postoperative changes significant reduction in size of the pseudocyst with both chronic and acute pancreatic changes. On his initial CT scan of the abdomen he was noted to have soft tissue mass in the right lower lung field confirmed by CT scanning of the chest. He is s/p FOB 01/25, path is pending Exam - Constitutional Vitals: Period Temp Pulse Resp BP Sys/Esquivel Pulse Ox Last 24 Hr 97.9 F-99.5 F 71-81 16-20 122-157/65-98 93-98 General appearance: no acute distress - Head Head exam: Present: normal inspection, normocephalic, atraumatic - Eye Eye exam: Present: EOMI Pupils: Present: HUSSAIN - ENT ENT exam: Present: normal exam - Neck Neck exam: Present: normal inspection - Respiratory Respiratory exam: Present: clear to auscultation bilaterally - Cardiovascular Cardiovascular exam: Present: regular rate and rhythm - GI/Abdominal GI/Abdominal exam: Present: normal bowel sounds - Extremities Exam Extremities exam: Present: normal inspection, normal capillary refill - Neurological Exam Neurological exam: Present: alert, oriented X3 - Psychiatric Psychiatric exam: Present: normal affect, normal mood - Skin Skin exam: Present: normal color, warm, dry Results - Labs CBC & BMP: 01/25/17 03:27 01/25/17 03:27
[2017-01-28] MEDS: HYDROmorphone 2 MG/1 ML VIAL IV SCH ×21 (00:16→20:52)
[2017-01-28] MEDS: diphenhydrAMINE CAP 25 MG CAPSULE PO PRN ×2 (04:25→20:56)
[2017-01-28] MEDS: amLODIPine 10 MG TABLET PO SCH (08:42)
--- NOTE | 2017-01-28 10:07 | Hospitalist Progress Note ---
Assessment and Plan (1) Acute on chronic pancreatitis Status: Acute Assessment and plan: Patient is symptomatically better tolerating diet he hemodynamically stable. Normal white count and renal function electrolyte looks okay continue follow Current Visit: No (2) Lung mass Status: Acute Assessment and plan: Biopsy pending pulmonary following Current Visit: Yes (3) Anemia Status: Acute Assessment and plan: Patient is post transfusion his hemoglobin significantly improved at 13.1 dated 01/25/2017 Current Visit: No Qualifiers: Anemia type: unspecified type Qualified Code(s): D64.9 - Anemia, unspecified (4) Tobacco abuse Status: Chronic Assessment and plan: Patient said he had cut down the smoking already to half pack a day advised to quit smoking Current Visit: Yes Hospitalist: Subjective Interval history: Patient with a history of prior chronic pancreatitis and s/p a Cecil-en-Y pancreatic cyst jejunostomy on 01/01/[address] Louie MARRUFO for a 5.5 cm enlarging pancreatic pseudocyst that was symptomatic. He presented with abdominal pain admitted on 01/22/2017 and was diagnosed to have acute on chronic pancreatitis. He has his lipase was normal but imaging was reported to have acute on chronic pancreatitis. During the workup also noted to have 15 x 11 mm soft tissue mass in the right lower lobe of the lung highly suspicious for malignancy. He has undergone biopsy and result pending. Subjectively he denies any vomiting able to tolerate solid food pain is still present in the abdomen but mild Exam - Constitutional Vitals: Period Temp Pulse Resp BP Sys/Esquivel Pulse Ox Last 24 Hr 98.2 F-99.5 F 71-88 16-18 135-160/85-97 96-98 General appearance: no acute distress - Respiratory Respiratory exam: Present: clear to auscultation bilaterally. Absent: rales, rhonchi - Cardiovascular Cardiovascular exam: Present: regular rate and rhythm. Absent: tachycardia - GI/Abdominal GI/Abdominal exam: Present: tenderness (There is some voluntary guarding in the upper abdomen with tenderness above the umbilicus but no no rigidity), soft. Absent: normal bowel sounds, ascites - Extremities Exam Extremities exam: Absent: edema - Neurological Exam Neurological exam: Present: alert, oriented X3 Results - Labs CBC & BMP: 01/25/17 03:27 01/25/17 03:27 Lab Results: I have reviewed the past 24 hour labs
[2017-01-28] MEDS: ENOXAPARIN 40 MG/0.4 ML SYRINGE SUBCUT SCH (17:53)
[2017-01-29] MEDS: HYDROmorphone 2 MG/1 ML VIAL IV SCH ×25 (00:22→23:24)
[2017-01-29] MEDS: diphenhydrAMINE CAP 25 MG CAPSULE PO PRN ×3 (04:11→20:56)
[2017-01-29] MEDS: amLODIPine 10 MG TABLET PO SCH (08:55)
--- NOTE | 2017-01-29 11:14 | Hospitalist Progress Note ---
Assessment and Plan (1) Chronic pancreatitis Status: Acute Assessment and plan: Continue diet, continue IV fluids, continue pain control Current Visit: Yes (2) Lung mass Status: Acute Assessment and plan: Pulmonology following. Patient status post bronchoscopy on 01/25/2017. Biopsy results pending. Per patient is supposed to have a transthoracic biopsy done today or tomorrow but that cannot be confirmed because awaiting pulmonology note. Current Visit: Yes Hospitalist: Subjective Interval history: Mr. Lee is a 51-year-old male with a history of chronic pancreatitis and was admitted to hospitalist service for acute on chronic pancreatitis. Incidentally a lung mass was found and patient had a bronchoscopy with biopsies taken. Patient reports continued abdominal pain. He also reports he supposed to get a transthoracic biopsy today or tomorrow. No new complaints. Exam - Constitutional Vitals: Period Temp Pulse Resp BP Sys/Esquivel Pulse Ox Last 24 Hr 97.8 F-98.7 F 74-80 14-18 124-156/62-102 97-99 General appearance: no acute distress, under weight - Head Head exam: Present: normal inspection - Eye Eye exam: Present: EOMI - Respiratory Respiratory exam: Present: clear to auscultation bilaterally. Absent: wheezes - Cardiovascular Cardiovascular exam: Present: regular rate and rhythm - GI/Abdominal GI/Abdominal exam: Present: normal bowel sounds, tenderness (throughout but worse in the epigastric region). Absent: distended - Extremities Exam Extremities exam: Absent: edema - Neurological Exam Neurological exam: Present: alert, oriented X3 - Psychiatric Psychiatric exam: Present: normal affect, normal mood - Skin Skin exam: Present: normal color Results - Labs CBC & BMP: 01/25/17 03:27 01/25/17 03:27
--- NOTE | 2017-01-29 11:23 | Pulmonology Progress Note ---
Pulmonary - PN: Subj Interval history: Layo Thapa, AGNP-, acting as scribe for Dr. Flakito Lind This is a 51-year-old black male. We saw the patient in pulmonary consultation 01/23/2017. A pulmonary nodule had been noted in the medial basal segment of his right lower lung. This was seen on CT of the abdomen. It was not visible on any of his chest x-rays. At the time of our consultation, our impressions were: 1. Recent Cecil-en-Y pancreatic cyst jejunostomy by Dr. Palma 2. History of alcohol abuse 3. Tobacco abuse 4. High blood pressure 5. Probable COPD 6. Possible 11 x 15 mm soft tissue nodule in the medial basal segment of the right lower lung. If this nodule persists on follow-up test and lung cancer is a possibility and will need to evaluate this with fiberoptic bronchoscopy under fluoroscopy. 01/24/2017. Patient had a CT of the chest. This showed a 1.7 cm soft tissue lesion in the medial right lung base suspicious for malignancy. In addition there was a nonspecific groundglass density that measures 6 mm in the medial right upper lung. This appears to be smooth bordered inhomogeneous and I think this is a scar. Patient is a smoker and he has significant risk factors for cancer. I discussed bronchoscopy and the risk and I will also discuss transthoracic biopsies and the risk. Layo Thapa nurse practitioner was present. We have agreed to do fiberoptic bronchoscopy under fluoroscopy tomorrow morning at 9 AM. This will be a difficult lesion to see on the fluoroscopy. I doubt that we will see it endobronchially. If we are unable to get good specimens and we need to consider a transthoracic biopsy. Patient says his abdominal pain is for all practical purposes resolved. He had a blood transfusion on 01/23/2018 and his hemoglobin increased from 6.7-14.0. Source of blood loss is not known to me electrolytes are normal. Creatinine is 0.60 and BUN is 5 glucoses are low normal. The patient's records were unclear about his disability. I asked him if he was disabling he said no he is seeking disability based on his back and based on his chronic pancreatitis from alcohol abuse. 01/25/2017. The patient underwent fiberoptic bronchoscopy earlier today. This showed retained secretions were thick and tenacious. The right lower lung lesion was approached under fluoroscopic guidance. Please see the bronchoscopy report for more information. Of course, results are pending. He tolerated the procedure well. 01/26/17. The patient was on his phone this morning when we entered the room. He never hung up the phone. Results from FOB yesterday are pending. 01/29/2017. The patient's pathology from fiberoptic bronchoscopy has been reported as class II. We discussed this with the patient today. All things considered, we feel that it would be most appropriate to ask interventional radiology to proceed with transthoracic needle biopsy. We need to be absolutely sure that this is not a cancer. The patient understands this and is willing to proceed. All of his questions were answered to his understanding. On bronchoscopy lavages, Gram stain showed no organisms and nothing grew on culture. There is no AFB or fungus seen on smears. Of course, the AFB and fungal cultures are still pending. Medications have been reviewed. We made no changes today. Labs been reviewed. No new labs were drawn today. Exam (Progress Note) - Constitutional Vitals: Period Temp Pulse Resp BP Sys/Esquivel Pulse Ox Last 24 Hr 97.8 F-98.7 F 74-80 14-18 124-156/62-102 97-99 Exam: Chest fairly clear Heart no gallop Abdomen is nontender and nondistended; bowel sounds are positive 4 Extremities with nothing to suggest acute deep venous thrombophlebitis Psychiatric oriented 3 Neurologic long-term motor function is intact Plan: Consult interventional radiology for needle biopsy. Continue present treatment. See orders. Results - Labs CBC & BMP: 01/25/17 03:27 01/25/17 03:27
[2017-01-29] MEDS: ONDANSETRON 4 MG/2 ML VIAL IV PRN (13:18)
[2017-01-29] MEDS: ENOXAPARIN 40 MG/0.4 ML SYRINGE SUBCUT SCH (17:51)
--- NOTE | 2017-01-29 18:56 | IR History and Physical Update ---
IR Pre-Procedure - History and Physical H&P was reviewed, the patient examined and there: are no changes in the patients condition since last H&P was completed. Reason for procedure:: RLL lung lesion - Dictation Physical: refer to H&P completed by admitting physician - Physical Exam Vital Signs: Last Vital Signs Temp 97.5 F L 01/29/17 15:35 Pulse 73 01/29/17 15:35 Resp 18 01/29/17 15:35 BP 128/79 01/29/17 15:35 Pulse Ox 95 01/29/17 15:35 Mental Status: alert and oriented Heart: regular rate and rhythm Lung: clear to auscultation Abdomen: within normal limits - Sedation IR anesthesia plan for sedation: none ASA Class: II Airway Assessment: Class II: Soft palate, uvula, fauces visible - Risks Risks: Procedures explained. Risks discussed include, but not limited to, the following:[ pneumothorax, bleeding, infection] All questions answered. The following alternatives were discussed:[ none] Risks and benefits discussed with: patient Consent obtained from: patient Assessment and Plan - Time spent with patient Time spent with patient: Less than 30 minutes
[2017-01-30] MEDS: HYDROmorphone 2 MG/1 ML VIAL IV SCH ×18 (00:59→15:34)
[2017-01-30 06:23] LABS: Basophils % 0.3 % (0.0-0.8); Eosinophils # 0.2 10*3/uL (0.0-0.87); Eosinophils % 2.6 % (0.00-10.9); Hematocrit 37.8 VOL% (42.0-52.0); Hemoglobin 12.3 GM/DL (14.0-18.0); Immature Granulocytes % 0.4 %; Immature Granulocytes Absolute 0.03 #; Lymphocytes # 1.9 10*3/uL (1.4-4.0); Lymphocytes % 27.8 % (21.2-54.2); Mean Corpuscular HGB Conc 32.5 GM/DL (32-36); Mean Corpuscular Hemoglobin 30 PG (27-34); Mean Platelet Volume 10.1 FL (9.6-12.0); Monocytes # 0.4 10*3/uL (0.11-0.8); Monocytes % 6.2 % (1.7-12.7); Neutrophils # 4.4 10*3/uL (1.4-7.4); Neutrophils % 62.7 % (38.7-73.9); Platelet Count 281 T/CUMM (130-400); Red Blood Count 4.11 MC/CUMM (3.8-5.5); Red Cell Distribution Width 15.9 % (9.3-17.3); White Blood Count 6.9 T/CUMM (4-12)
[2017-01-30 07:00] LABS: Albumin 2.8 G/DL (3.4-5.0); Bilirubin,Total 0.4 MG/DL (0.2-1.0); Calcium 8.4 MG/DL (8.5-10.1); Osmolality,Calculated 273.5 MOS/KG (273-304); Potassium 4.3 MMOL/L (3.5-5.1); Total Protein 6.5 G/DL (6.4-8.3)
[2017-01-30] MEDS ORDERED: DIAZEPAM 5 MG TABLET PO ONE (10:29)
[2017-01-30] MEDS ORDERED: DIAZEPAM 5 MG TABLET ONE (10:34)
--- NOTE | 2017-01-30 11:27 | Pulmonology Progress Note ---
Pulmonary - PN: Subj Interval history: This is a 51-year-old black male. We saw the patient in pulmonary consultation 01/23/2017. A pulmonary nodule had been noted in the medial basal segment of his right lower lung. This was seen on CT of the abdomen. It was not visible on any of his chest x-rays. At the time of our consultation, our impressions were: 1. Recent Cecil-en-Y pancreatic cyst jejunostomy by Dr. Palma 2. History of alcohol abuse 3. Tobacco abuse 4. High blood pressure 5. Probable COPD 6. Possible 11 x 15 mm soft tissue nodule in the medial basal segment of the right lower lung. If this nodule persists on follow-up test and lung cancer is a possibility and will need to evaluate this with fiberoptic bronchoscopy under fluoroscopy. 01/24/2017. Patient had a CT of the chest. This showed a 1.7 cm soft tissue lesion in the medial right lung base suspicious for malignancy. In addition there was a nonspecific groundglass density that measures 6 mm in the medial right upper lung. This appears to be smooth bordered inhomogeneous and I think this is a scar. Patient is a smoker and he has significant risk factors for cancer. I discussed bronchoscopy and the risk and I will also discuss transthoracic biopsies and the risk. Layo Thapa nurse practitioner was present. We have agreed to do fiberoptic bronchoscopy under fluoroscopy tomorrow morning at 9 AM. This will be a difficult lesion to see on the fluoroscopy. I doubt that we will see it endobronchially. If we are unable to get good specimens and we need to consider a transthoracic biopsy. Patient says his abdominal pain is for all practical purposes resolved. He had a blood transfusion on 01/23/2018 and his hemoglobin increased from 6.7-14.0. Source of blood loss is not known to me electrolytes are normal. Creatinine is 0.60 and BUN is 5 glucoses are low normal. The patient's records were unclear about his disability. I asked him if he was disabling he said no he is seeking disability based on his back and based on his chronic pancreatitis from alcohol abuse. 01/25/2017. The patient underwent fiberoptic bronchoscopy earlier today. This showed retained secretions were thick and tenacious. The right lower lung lesion was approached under fluoroscopic guidance. Please see the bronchoscopy report for more information. Of course, results are pending. He tolerated the procedure well. 01/26/17. The patient was on his phone this morning when we entered the room. He never hung up the phone. Results from FOB yesterday are pending. 01/29/2017. The patient's pathology from fiberoptic bronchoscopy has been reported as class II. We discussed this with the patient today. All things considered, we feel that it would be most appropriate to ask interventional radiology to proceed with transthoracic needle biopsy. We need to be absolutely sure that this is not a cancer. The patient understands this and is willing to proceed. All of his questions were answered to his understanding. On bronchoscopy lavages, Gram stain showed no organisms and nothing grew on culture. There is no AFB or fungus seen on smears. Of course, the AFB and fungal cultures are still pending. Medications have been reviewed. We made no changes today. Labs been reviewed. No new labs were drawn today. 01/30/2017. Patient's had a stable night. He is for transthoracic biopsy of medial basal segment right lower lung lesion. Electrolytes are normal. Calcium is 8.4. Liver function tests are normal. Albumin is low at 2.8 CBC is stable. There are no positive cultures. Medicines have been reviewed and lab reviewed. Exam (Progress Note) - Constitutional Vitals: Period Temp Pulse Resp BP Sys/Esquivel Pulse Ox Last 24 Hr 97.8 F-98.7 F 74-80 - 124-156/62-102 97-99 Exam: Chest fairly clear Heart no gallop Abdomen is nontender and nondistended; bowel sounds are positive 4 Extremities with nothing to suggest acute deep venous thrombophlebitis Psychiatric oriented 3 Neurologic long-term motor function is intact Plan: 01/29/2017. 1. Consult interventional radiology for needle biopsy. 2. Continue present treatment. 3. See orders. 01/30/2017. 1. Transthoracic biopsy of right lower lung lesion today. 2. No changes made in treated Exam (Progress Note) - Constitutional Vitals: Period Temp Pulse Resp BP Sys/Esquivel Pulse Ox Last 24 Hr 97.5 F-997.9 F 70-79 16-18 123-154/75-94 95-99 Results - Labs CBC & BMP: 01/30/17 05:35 01/30/17 05:35
--- NOTE | 2017-01-30 12:47 | XRay Report ---
History is post lung biopsy Inspiratory and expiratory films obtained Comparison 01/26/2017 The heart is normal in size No pneumothorax seen Prior lung nodule seen on CT not well seen on plain film. Impression: No pneumothorax seen PROCEDURE INTERPRETED AT [facility] DEPARTMENT OF RADIOLOGY Final Report Signed by: Dr. Katelin Greene
[2017-01-30] MEDS: amLODIPine 10 MG TABLET PO SCH (13:02)
--- NOTE | 2017-01-30 14:43 | CT Report ---
CT biopsy lung wo coreRT Clinical Information: Right lower lobe lung lesion, negative bronchus Physician: Dr. Hidalgo Technique: Informed consent was obtained from the patient. Full explanation of the nature of the procedure, alternatives and risks were discussed, including risks of bleeding, infection and potential inability to diagnose with needle technique. Adjacent vascular and organ injury were also fully discussed. He expressed understanding and a desire to proceed. Formal timeouts were performed, per protocol. Local anesthesia only was used for the procedure. Initial CT scanning of the chest without contrast demonstrates the targeted soft tissue lesion within the right lower lung, seen previously CT guided localization of the target lesion was performed. Under real time guidance, 3 total core biopsies were obtained using a 20-gauge system and submitted in formalin. Follow-up imaging demonstrated no evidence of pneumothorax. There is minimal hemorrhage within the biopsy and along the biopsy tract, as expected. Estimated blood loss less than 5 cc. Total number of images for this study: 409 Conclusion: Technically successful CT guided core biopsy as performed above PROCEDURE INTERPRETED AT [facility] DEPARTMENT OF RADIOLOGY Final Report Signed by: Devonte Hidalgo
--- NOTE | 2017-01-30 16:00 | XRay Report ---
Exam: XR chest inspiration expiratio Indication: Status post lung nodule biopsy Comparison study: 01/30/2017 11:57 AM radiograph Findings: Lungs are predominantly clear. The known right lower lobe small soft tissue nodule was not well visualized radiographically. There is no evidence of pneumothorax or other significant complication following lung lesion biopsy. Impression: No pneumothorax or other significant complication following right lower lobe lung nodule biopsy. PROCEDURE INTERPRETED AT [facility] DEPARTMENT OF RADIOLOGY Final Report Signed by: Devonte Hidalgo
[2017-01-30] MEDS: ENOXAPARIN 40 MG/0.4 ML SYRINGE SUBCUT SCH (16:07)
--- NOTE | 2017-01-30 17:17 | Hospitalist Progress Note ---
Hospitalist: Subjective Interval history: Pt c/o anxiety and chronic lower abdominal pain described as dull. He rates it as 7-8/10. No radiation. No nausea or vomiting and was eating a sandwich and chips at the time of by exam. BM was this am without melena or BRBPR. Receiving IV dilaudid q2h Exam - Constitutional Vitals: Period Temp Pulse Resp BP Sys/Esquivel Pulse Ox Last 24 Hr 97.5 F-997.9 F 61-79 16-18 123-176/75-102 95-99 Exam: Cachetic chronically ill appearing, NAD RRR no M CTAB nonlabored Soft, lower abd TTP without rebound +voluntary guarding. +BS. Slightly distended Warm no c/c/e Results - Labs CBC & BMP: 01/30/17 05:35 01/30/17 05:35 - Impressions (1) Acute on chronic pancreatitis Status: Acute Assessment and plan: Patient is symptomatically better tolerating diet he hemodynamically stable. Normal white count and renal function within normal limits. LFTs improved. Lipase normal. Wean IV dilaudid to PRN (currently scheduled q2h). Add [place] as pt states this helps at home Current Visit: No (2) RLL Lung mass (15 x 11 cm) Status: Acute Assessment and plan: FOB done and results negative Biopsy done 01/30- F/U pathology Current Visit: Yes (3) Anemia Status: Acute Assessment and plan: Patient is post transfusion his hemoglobin significantly improved at 13.1 dated 01/25/2017 Current Visit: No Qualifiers: Anemia type: unspecified type Qualified Code(s): D64.9 - Anemia, unspecified (4) Tobacco abuse Status: Chronic Assessment and plan: Patient said he had cut down the smoking already to half pack a day advised to quit smoking Current Visit: Yes (5) Possible COPD not in exacerbation - inhalers, smoking cessation, bronchodilators - Nicotine patch (6) Insomnia - Trial of Trazadone. Lovenox for DVT prophylaxis D/W nurse and pt and all questions answered.
[2017-01-30] MEDS ORDERED: ALBUTEROL/IPRATROPIUM 3 ML NEB RESP TX PRN (17:18)
[2017-01-30] MEDS: HYDROmorphone 2 MG/1 ML VIAL IV PRN (19:42)
[2017-01-30] MEDS: traZODone 50 MG TABLET PO SCH (21:07)
[2017-01-30] MEDS: diphenhydrAMINE CAP 25 MG CAPSULE PO PRN (21:25)
[2017-01-31] MEDS: HYDROmorphone 2 MG/1 ML VIAL IV PRN ×6 (00:29→21:06)
[2017-01-31] MEDS: amLODIPine 10 MG TABLET PO SCH (08:51)
--- NOTE | 2017-01-31 11:51 | Pulmonology Progress Note ---
Pulmonary - PN: Subj Interval history: Layo Thapa, AGNP-, acting as scribe for Dr. Flakito Lind This is a 51-year-old black male. We saw the patient in pulmonary consultation 01/23/2017. A pulmonary nodule had been noted in the medial basal segment of his right lower lung. This was seen on CT of the abdomen. It was not visible on any of his chest x-rays. At the time of our consultation, our impressions were: 1. Recent Cecil-en-Y pancreatic cyst jejunostomy by Dr. Palma 2. History of alcohol abuse 3. Tobacco abuse 4. High blood pressure 5. Probable COPD 6. Possible 11 x 15 mm soft tissue nodule in the medial basal segment of the right lower lung. If this nodule persists on follow-up test and lung cancer is a possibility and will need to evaluate this with fiberoptic bronchoscopy under fluoroscopy. 01/24/2017. Patient had a CT of the chest. This showed a 1.7 cm soft tissue lesion in the medial right lung base suspicious for malignancy. In addition there was a nonspecific groundglass density that measures 6 mm in the medial right upper lung. This appears to be smooth bordered inhomogeneous and I think this is a scar. Patient is a smoker and he has significant risk factors for cancer. I discussed bronchoscopy and the risk and I will also discuss transthoracic biopsies and the risk. Layo Thapa nurse practitioner was present. We have agreed to do fiberoptic bronchoscopy under fluoroscopy tomorrow morning at 9 AM. This will be a difficult lesion to see on the fluoroscopy. I doubt that we will see it endobronchially. If we are unable to get good specimens and we need to consider a transthoracic biopsy. Patient says his abdominal pain is for all practical purposes resolved. He had a blood transfusion on 01/23/2018 and his hemoglobin increased from 6.7-14.0. Source of blood loss is not known to me electrolytes are normal. Creatinine is 0.60 and BUN is 5 glucoses are low normal. The patient's records were unclear about his disability. I asked him if he was disabling he said no he is seeking disability based on his back and based on his chronic pancreatitis from alcohol abuse. 01/25/2017. The patient underwent fiberoptic bronchoscopy earlier today. This showed retained secretions were thick and tenacious. The right lower lung lesion was approached under fluoroscopic guidance. Please see the bronchoscopy report for more information. Of course, results are pending. He tolerated the procedure well. 01/26/17. The patient was on his phone this morning when we entered the room. He never hung up the phone. Results from FOB yesterday are pending. 01/29/2017. The patient's pathology from fiberoptic bronchoscopy has been reported as class II. We discussed this with the patient today. All things considered, we feel that it would be most appropriate to ask interventional radiology to proceed with transthoracic needle biopsy. We need to be absolutely sure that this is not a cancer. The patient understands this and is willing to proceed. All of his questions were answered to his understanding. On bronchoscopy lavages, Gram stain showed no organisms and nothing grew on culture. There is no AFB or fungus seen on smears. Of course, the AFB and fungal cultures are still pending. 01/30/2017. Patient's had a stable night. He is for transthoracic biopsy of medial basal segment right lower lung lesion. Electrolytes are normal. Calcium is 8.4. Liver function tests are normal. Albumin is low at 2.8 CBC is stable. There are no positive cultures. Medicines have been reviewed and lab reviewed. 01/31/2017. The patient had a needle biopsy by Dr. Hidalgo yesterday. Pathology is pending. This morning he is n.p.o. for CT of the abdomen. We have been informed that the patient leaves the floor to smoke. When we confronted him about this, he states that he could not remember if he did or not. He thinks he may have left the floor yesterday. Chest x-ray was not done today. One has been ordered. Medications have been reviewed. We made no changes today. Labs been reviewed. No new labs were drawn today. Exam (Progress Note) - Constitutional Vitals: Period Temp Pulse Resp BP Sys/Esquivel Pulse Ox Last 24 Hr 96.7 F-99.3 F 61-82 16-20 124-176/78-103 96-99 Exam: Chest fairly clear Heart no gallop Abdomen is nontender and nondistended; bowel sounds are positive 4 Extremities with nothing to suggest acute deep venous thrombophlebitis Psychiatric oriented 3 Neurologic long-term motor function is intact Plan: Continue present treatment. Follow-up needle biopsy results when available. This patient does not need to leave the floor to smoke, but we will defer management of this to his attending. See orders. Results - Labs CBC & BMP: 01/30/17 05:35 01/30/17 05:35
--- NOTE | 2017-01-31 13:57 | CT Report ---
CT abdomen pelvis w con Indication: Generalized abdominal pain Comparison: CT abdomen pelvis dated January 22, 2017 Technique: Multiple axial tomographic images of the abdomen and pelvis were obtained after the administration of 80 cc Omnipaque 350 intravenous contrast. Findings: Nodule again demonstrated within the medial aspect of the right lower lobe which appears slightly more prominent than on prior exam measuring approximately 1.8 x 1.3 cm compared to 1.5 x 1.3 cm on comparison study. This could be secondary to changes of recent biopsy or changes in technique. Small groundglass haziness surrounds this nodule which likely reflects small hemorrhage. Correlate with biopsy results. No worrisome focal hepatic abnormality. The gallbladder is grossly unremarkable. The pancreas again appears edematous throughout with significant enlargement of the pancreatic head suspicious for acute on chronic pancreatitis as there are again multiple calcifications throughout the pancreas. Small cystic structure again noted within the pancreatic head measuring up to 1.1 cm which may reflect a pseudocyst. The spleen is grossly unremarkable. The bilateral adrenal glands are grossly unremarkable. The bilateral kidneys are grossly unremarkable. The urinary bladder is incompletely distended. Prostate and seminal vesicles appear grossly unchanged. There is no evidence of gastrointestinal obstruction or acute appendicitis. There is wall thickening of the distal stomach which could reflect sequela of gastritis. Consider endoscopy. There is also wall thickening suggested within the second portion of the duodenum which could reflect secondary duodenitis. Anastomotic suture material again noted within the anterior mid abdomen. Mild atherosclerotic calcifications demonstrated. Visualized osseous and surrounding soft tissue structures appear grossly unchanged. IMPRESSION: The pancreas again appears edematous throughout with significant enlargement of the pancreatic head suspicious for acute on chronic pancreatitis as there are again multiple calcifications throughout the pancreas. Small cystic structure again noted within the pancreatic head measuring up to 1.1 cm which may reflect a pseudocyst. There is wall thickening of the distal stomach which could reflect sequela of gastritis. Consider endoscopy. There is also wall thickening suggested within the second portion of the duodenum which could reflect secondary duodenitis. Nodule again demonstrated within the medial aspect of the right lower lobe which appears slightly more prominent than on prior exam measuring approximately 1.8 x 1.3 cm compared to 1.5 x 1.3 cm on comparison study. This could be secondary to changes of recent biopsy or changes in technique. Small groundglass haziness surrounds this nodule which likely reflects small hemorrhage. Correlate with biopsy results. Other/detailed findings as above. The CT exam was performed using one or more of the following dose reduction techniques: Automated exposure control, adjustment of the mA and/or kV according to patient size, or use of iterative reconstruction technique. PROCEDURE INTERPRETED AT [facility] DEPARTMENT OF RADIOLOGY Final Report Signed by: Dr Barney Chisholm
[2017-01-31] MEDS ORDERED: PANTOPRAZOLE 40 MG TABLET PO SCH (14:30)
--- NOTE | 2017-01-31 14:32 | Hospitalist Progress Note ---
Hospitalist: Subjective Interval history: No change in abdominal pain. CT of abd/pelvis shows possible gastritis/ duodenitis. No fever. Tolerating po. No nausea or vomiting. Slept better last night. Exam - Constitutional Vitals: Period Temp Pulse Resp BP Sys/Esquivel Pulse Ox Last 24 Hr 97.7 F-99.3 F 61-82 18-20 124-161/78-103 97-99 Exam: Cachetic chronically ill appearing, NAD, smells of tobacco use RRR no M CTAB nonlabored Soft, lower abd TTP without rebound +voluntary guarding. +BS. Slightly distended Warm no c/c/e Results - Labs CBC & BMP: 01/30/17 05:35 01/30/17 05:35 - Impressions (1) Acute on chronic pancreatitis Status: Acute Assessment and plan: Patient is symptomatically better tolerating diet he hemodynamically stable. Normal white count and renal function within normal limits. LFTs improved. Lipase normal. Wean IV dilaudid to PRN (currently scheduled q2h). Add [place] as pt states this helps at home Current Visit: No (2) Abdominal pain - CT abd/pelvis 01/22 reviewed - CT abd/pelvis 01/31 showed " The pancreas again appears edematous throughout with significant enlargement of the pancreatic head suspicious for acute on chronic pancreatitis as there are again multiple calcifications throughout the pancreas. Small cystic structure again noted within the pancreatic head measuring up to 1.1 cm which may reflect a pseudocyst. There is wall thickening of the distal stomach which could reflect sequela of gastritis. Consider endoscopy. There is also wall thickening suggested within the second portion of the duodenum which could reflect secondary duodenitis. Nodule again demonstrated within the medial aspect of the right lower lobe which appears slightly more prominent than on prior exam measuring approximately 1.8 x 1.3 cm compared to 1.5 x 1.3 cm on comparison study. This could be secondary to changes of recent biopsy or changes in technique. Small groundglass haziness surrounds this nodule which likely reflects small hemorrhage. Correlate with biopsy results. - GI consult - start carafate and PPI (3) RLL Lung mass (15 x 11 cm) Status: Acute Assessment and plan: FOB done and results negative Biopsy done 01/30- F/U pathology. Still pending Current Visit: Yes (4) Anemia Status: Acute Assessment and plan: Patient is post transfusion his hemoglobin significantly improved at 13.1 dated 01/25/2017 Current Visit: No Qualifiers: Anemia type: unspecified type Qualified Code(s): D64.9 - Anemia, unspecified (5) Tobacco abuse Status: Chronic Assessment and plan: Patient said he had cut down the smoking already to half pack a day advised to quit smoking. He is still smoking while hospitalized Current Visit: Yes (5) Possible COPD not in exacerbation - inhalers, smoking cessation, bronchodilators - Nicotine patch (6) Insomnia - Cont Trazodone. Lovenox for DVT prophylaxis D/W nurse and pt and all questions answered.
--- NOTE | 2017-01-31 14:36 | XRay Report ---
XR chest 2V Indication: Transthoracic biopsy Comparison: Chest x-ray dated January 30, 2017 Technique: Frontal and lateral views of the chest. Findings: The cardiomediastinal silhouette is stable in configuration. No pneumothorax demonstrated. There is opacification in the upper/lateral left lung which is most likely projectional. Consider repeat chest x-ray. Visualized osseous and surrounding soft tissue structures appear grossly unchanged. IMPRESSION: As above. PROCEDURE INTERPRETED AT [facility] DEPARTMENT OF RADIOLOGY Final Report Signed by: Dr Barney Chisholm
--- NOTE | 2017-01-31 15:51 | Gastrointestinal Consult Note ---
Assessment and Plan (1) Abdominal pain Status: Acute Assessment and plan: 01/31-onset of abdominal pain with prior history of chronic pancreatitis and recent Cecil-en-Y pancreatic cyst jejunostomy in December. Similar presentation per patient with associated nausea. detention chronic history of heavy alcohol use. Normal LFTs and lipase on admission. CT findings noted as below from admission with repeat CT on 01/31. Plan an addendum to followed by Dr. Crowder. Current Visit: No Qualifiers: Abdominal location: epigastric Qualified Code(s): R10.13 - Epigastric pain History of Present Illness Chief complaint: Pancreatitis History of present illness: Mr. Lee is a 51 year old male who was admitted to the hospital on 01/22 for onset of abdominal pain. Patient has a prior history of pancreatitis with multiple episodes in the past. On his last admission in December he underwent a Cecil-en-Y pancreatic cyst jejunostomy on 01/[address] Palma. At that time he had a 5.5 cm enlarging pancreatic pseudocyst. He did well postoperatively and was discharged home and states he is felt fairly well until several days ago when he had a new onset of abdominal pain. Patient states that the pain feels very similar to his prior episodes of pancreatitis and was associated with nausea without vomiting. He denies any fever, chills or night sweats associated with this. Patient admits to having a long-term history of chronic alcohol use however states that he has been abstinent since May of last year. On admission his LFTs were normal as well as amylase and lipase. On admission patient had a CT of abdomen which showed severe findings of acute and chronic pancreatitis with a pseudocyst at the junction of the head and neck of the pancreas which is decreased significantly in size from comparison of 12/29 films. He had a repeat CT of abdomen on today which showed significant enlargement of the pancreatic head which was suspicious for acute on chronic pancreatitis with small cystic structure within the pancreatic head measuring 1.1 cm. Also noted was wall thickening of the distal stomach as well as second portion of duodenum reflecting duodenitis. He was also noted to have a right lower lobe nodule which is suspicious for malignancy and pulmonology was consulted regarding this. Lipase noted today at 74, amylase 42. LFTs are unremarkable. Patient is afebrile. Home Medications Medication Instructions Recorded Confirmed Type amLODIPine [Norvasc] 10 mg PO DAILY 12/29/16 01/22/17 History HYDROcodone/ACETAMIN 7.5-325 1 tablet PO Q6H PRN 01/22/17 01/22/17 History [[place] 7.5-325] Omeprazole [Omeprazole] 20 mg PO DAILY 01/22/17 01/22/17 History Allergies Allergy/AdvReac Type Severity Reaction Status Date / Time No Known Allergies Allergy Verified 08/10/16 08:27 Medical,Surgical,& Family Hx - Medical History Cardio: History of: Hypertension Psychological: History of: Depression Neurology: History of: Migraine HEENT: History of: Eye Problem (wears glasses) Endocrine: No history of: Diabetes Mellitus (NIDDM) Gastrointestinal: History of: GERD, Pancreatitis, GI Problems Musculoskeletal: History of: Back/Neck Problems (chronic back and neck pain), Herniated Disk - Surgical History Cardiac Surgeries: Patient Denies: Cardiac Catheterization, Cardiac Surgery Thoracic Surgeries: Patient denies;: Organ Transplant Neurologic Surgeries: Patient denies: Neurologic Surgery Abdominal Surgeries: Surgical HX of: Abdominal Surgery (remove cyst from pancreas) Reproductive Surgeries: Patient denies;: Genitourinary Surgery Orthopedic Surgeries: Surgical HX of;: Spinal Surgery (lower back) - Family History Family History: Reports;: Family Cancer (Sister), Family Diabetes (Grandmother) , Family Hypertension, Family Stroke - Social History Smoking Status: Current every day smoker Frequency of Alcohol Use: Frequently Type of Drug Use: None 12 point system: reviewed and no additional remarkable complaints except as stated - Constitutional Constitutional: Present: as per HPI - EENT Eyes: Present: as per HPI Ears: Present: as per HPI Nose, mouth and throat: Present: as per HPI - Cardiovascular Cardiovascular: Present: as per HPI - Respiratory Respiratory: Present: as per HPI - Gastrointestinal Gastrointestinal: Present: as per HPI, abdominal pain, nausea - Genitourinary Genitourinary: Present: as per HPI - Musculoskeletal Musculoskeletal: Present: as per HPI - Neurological Neurological: Present: as per HPI - Psychiatric Psychiatric: Present: as per HPI - Endocrine Endocrine: Present: as per HPI - Hematologic/Lymphatic Hematologic/Lymphatic: Present: as per HPI Exam - Constitutional Vitals: Period Temp Pulse Resp BP Sys/Esquivel Pulse Ox Last 24 Hr 97.7 F-99.3 F 61-82 18-20 124-161/78-103 97-99 General appearance: no acute distress, under weight - Head Head exam: Present: normal inspection, normocephalic - Eye Eye exam: Present: other (Lids and conjunctive are unremarkable). Absent: scleral icterus - ENT ENT exam: Present: normal exam, normal oropharynx - Neck Neck exam: Present: normal inspection - Respiratory Respiratory exam: Present: clear to auscultation bilaterally. Absent: rales, rhonchi, wheezes - Cardiovascular Cardiovascular exam: Present: regular rate and rhythm. Absent: diastolic murmur , JVD, systolic murmur - GI/Abdominal GI/Abdominal exam: Present: normal bowel sounds, soft. Absent: ascites, distended, mass, organomegaly, tenderness - Extremities Exam Extremities exam: Present: normal inspection, full ROM - Back Exam Back exam: Present: normal inspection - Neurological Exam Neurological exam: Present: alert, oriented X3 - Psychiatric Psychiatric exam: Present: normal affect, normal mood - Skin Skin exam: Present: normal color, warm, dry Results - Labs CBC & BMP: 01/30/17 05:35 01/30/17 05:35 Lab Results: I have reviewed the past 24 hour labs
[2017-01-31] MEDS: ENOXAPARIN 40 MG/0.4 ML SYRINGE SUBCUT SCH (16:35)
[2017-01-31] MEDS: SUCRALFATE 1 GM/10 ML UDCUP PO SCH ×2 (16:44→21:04)
--- NOTE | 2017-01-31 18:16 | Pathology Report from [facility] ---
[facility] ACCESSION # : [id number] PATIENT NAME : Dada Lee ORDERING DR : Devonte Hidalgo MD CLINICAL HX: Right lung mass - Smoker POST-OP DX: Same SPECIMEN INFO: Right lower lung mass, CT guided biopsy GROSS DESCRIPTION: The specimen is received in formalin labeled with the patients name and consists of a few tiny fragments of sweeney tissue collectively measuring 0.2 x 0.3 cm. Submitted in one cassette. DIAGNOSIS FOR DADA LEE: LESION RIGHT LOWER LUNG MASS, BIOPSY: Pulmonary adenocarcinoma, well-differentiated. COLLECTED DATE: 01/30/2017 [facility] REPORT DATE: 01/31/2017 ELECTRONICALLY SIGNED BY: Melquiades Heart M.D. 01/31/2017 - 13:50:17 [facility]
[2017-01-31] MEDS: PANTOPRAZOLE 40 MG TABLET PO SCH (21:04)
[2017-01-31] MEDS: traZODone 50 MG TABLET PO SCH (21:05)
[2017-01-31] MEDS: ONDANSETRON 4 MG/2 ML VIAL IV PRN (21:05)
[2017-02-01] MEDS: diphenhydrAMINE CAP 25 MG CAPSULE PO PRN (01:04)
[2017-02-01] MEDS: HYDROmorphone 2 MG/1 ML VIAL IV PRN ×5 (01:04→20:09)
[2017-02-01] MEDS: ONDANSETRON 4 MG/2 ML VIAL IV PRN ×2 (06:17→15:28)
[2017-02-01] MEDS: amLODIPine 10 MG TABLET PO SCH (08:00)
[2017-02-01] MEDS: PANTOPRAZOLE 40 MG TABLET PO SCH ×2 (08:01→20:07)
[2017-02-01] MEDS: SUCRALFATE 1 GM/10 ML UDCUP PO SCH ×4 (08:01→20:06)
--- NOTE | 2017-02-01 09:06 | Gastrointestinal Progress Note ---
Assessment and Plan (1) Abdominal pain Status: Acute Assessment and plan: 02/01-Pain more controlled today, no nausea or vomiting. Tolerating diet at present time. Continue to monitor. Plan and addendum to follow by Dr Crowder. 01/31-onset of abdominal pain with prior history of chronic pancreatitis and recent Cecil-en-Y pancreatic cyst jejunostomy in December. Similar presentation per patient with associated nausea. skilled nursing chronic history of heavy alcohol use. Normal LFTs and lipase on admission. CT findings noted as below from admission with repeat CT on 01/31. Plan an addendum to followed by Dr. Crowder. Current Visit: No Qualifiers: Abdominal location: epigastric Qualified Code(s): R10.13 - Epigastric pain Gastroenterology - PN: Subj Interval history: CC: Abdominal pain Pt is seen, awake and alert, lying in bed. States he is feeling some better at this time and his pain is improved. He denies any nausea or vomiting. He is tolerating his diet in small amounts. Abdomen is soft, tender to palpation. He is afebrile and WBC are unremarkable. ROS: Denies any SOB or chest pain Exam (Progress Note) - Constitutional Vitals: Period Temp Pulse Resp BP Sys/Esquivel Pulse Ox Last 24 Hr 97.8 F-98.9 F 74-83 18-20 129-155/88-101 97-100 - Other Additional findings: General appearance: no acute distress, under weight - Head Head exam: Present: normal inspection, normocephalic - Eye Eye exam: Present: other (Lids and conjunctive are unremarkable). Absent: scleral icterus - ENT ENT exam: Present: normal exam, normal oropharynx - Neck Neck exam: Present: normal inspection - Respiratory Respiratory exam: Present: clear to auscultation bilaterally. Absent: rales, rhonchi, wheezes - Cardiovascular Cardiovascular exam: Present: regular rate and rhythm. Absent: diastolic murmur , JVD, systolic murmur - GI/Abdominal GI/Abdominal exam: Present: normal bowel sounds, soft. Absent: ascites, distended, mass, organomegaly, tenderness - Extremities Exam Extremities exam: Present: normal inspection, full ROM - Back Exam Back exam: Present: normal inspection - Neurological Exam Neurological exam: Present: alert, oriented X3 - Psychiatric Psychiatric exam: Present: normal affect, normal mood - Skin Skin exam: Present: normal color, warm, dry Results - Labs CBC & BMP: 01/30/17 05:35 01/30/17 05:35 Lab Results: I have reviewed the past 24 hour labs
--- NOTE | 2017-02-01 10:35 | Hospitalist Progress Note ---
Hospitalist: Subjective Interval history: Abd pain improved. No fever. No cp or SOB. No nausea or vomiting. +BM. Received 2mg IV dilaudid this am Exam - Constitutional Vitals: Period Temp Pulse Resp BP Sys/Esquivel Pulse Ox Last 24 Hr 97.8 F-98.9 F 74-83 18-20 129-155/88-101 97-100 Exam: Cachetic chronically ill appearing, NAD, smells of tobacco use RRR no M CTAB nonlabored Soft, nontender. +BS. Slightly distended Warm no c/c/e Results - Labs CBC & BMP: 01/30/17 05:35 01/30/17 05:35 - Impressions (1) Acute on chronic pancreatitis Status: Acute Assessment and plan: Patient is symptomatically better tolerating diet he hemodynamically stable. Normal white count and renal function within normal limits. LFTs improved. Lipase normal. Wean IV dilaudid from 2mg IV to 1mg IV PRN. Cont [place] prn. Pt states this helps at home Current Visit: No (2) Abdominal pain possibly due to PUD - CT abd/pelvis 01/22 reviewed - CT abd/pelvis 01/31 showed " The pancreas again appears edematous throughout with significant enlargement of the pancreatic head suspicious for acute on chronic pancreatitis as there are again multiple calcifications throughout the pancreas. Small cystic structure again noted within the pancreatic head measuring up to 1.1 cm which may reflect a pseudocyst. There is wall thickening of the distal stomach which could reflect sequela of gastritis. Consider endoscopy. There is also wall thickening suggested within the second portion of the duodenum which could reflect secondary duodenitis. Nodule again demonstrated within the medial aspect of the right lower lobe which appears slightly more prominent than on prior exam measuring approximately 1.8 x 1.3 cm compared to 1.5 x 1.3 cm on comparison study. This could be secondary to changes of recent biopsy or changes in technique. Small groundglass haziness surrounds this nodule which likely reflects small hemorrhage. Correlate with biopsy results. - GI following. No plans for endoscopy at this time. - Cont carafate and PPI (3) RLL Lung mass (15 x 11 cm) due to well differentiated pulmonary adenocarcinoma Status: Acute Assessment and plan: FOB done and results show Class II- atypia but negative for malignancy. Biopsy done 01/30- Pathology showed Pulmonary adenocarcinoma, well- differentiated. Consult oncology Current Visit: Yes (4) Anemia Status: Acute Assessment and plan: s/p post transfusion his hemoglobin significantly improved at 13.1 dated 2016 but has been slowly decreasing. Will recheck H and H in am Current Visit: No Qualifiers: Anemia type: unspecified type Qualified Code(s): D64.9 - Anemia, unspecified (5) Tobacco abuse Status: Chronic Assessment and plan: Patient said he had cut down the smoking already to half pack a day advised to quit smoking. He is still smoking while hospitalized - Smoking cessation recommended. He does have a nicotine patch ordered. Current Visit: Yes (5) Possible COPD not in exacerbation - inhalers, smoking cessation, bronchodilators - Nicotine patch (6) Insomnia - Cont Trazodone. Lovenox for DVT prophylaxis D/W nurse and pt and all questions answered. I will be away several days. One of my associates will follow in my absence.
--- NOTE | 2017-02-01 11:15 | Pulmonology Progress Note ---
Pulmonary - PN: Subj Interval history: Layo Thapa, AGNP-, acting as scribe for Dr. Flakito Lind This is a 51-year-old black male. We saw the patient in pulmonary consultation 01/23/2017. A pulmonary nodule had been noted in the medial basal segment of his right lower lung. This was seen on CT of the abdomen. It was not visible on any of his chest x-rays. At the time of our consultation, our impressions were: 1. Recent Cecil-en-Y pancreatic cyst jejunostomy by Dr. Palma 2. History of alcohol abuse 3. Tobacco abuse 4. High blood pressure 5. Probable COPD 6. Possible 11 x 15 mm soft tissue nodule in the medial basal segment of the right lower lung. If this nodule persists on follow-up test and lung cancer is a possibility and will need to evaluate this with fiberoptic bronchoscopy under fluoroscopy. 01/24/2017. Patient had a CT of the chest. This showed a 1.7 cm soft tissue lesion in the medial right lung base suspicious for malignancy. In addition there was a nonspecific groundglass density that measures 6 mm in the medial right upper lung. This appears to be smooth bordered inhomogeneous and I think this is a scar. Patient is a smoker and he has significant risk factors for cancer. I discussed bronchoscopy and the risk and I will also discuss transthoracic biopsies and the risk. Layo Thapa nurse practitioner was present. We have agreed to do fiberoptic bronchoscopy under fluoroscopy tomorrow morning at 9 AM. This will be a difficult lesion to see on the fluoroscopy. I doubt that we will see it endobronchially. If we are unable to get good specimens and we need to consider a transthoracic biopsy. Patient says his abdominal pain is for all practical purposes resolved. He had a blood transfusion on 01/23/2018 and his hemoglobin increased from 6.7-14.0. Source of blood loss is not known to me electrolytes are normal. Creatinine is 0.60 and BUN is 5 glucoses are low normal. The patient's records were unclear about his disability. I asked him if he was disabling he said no he is seeking disability based on his back and based on his chronic pancreatitis from alcohol abuse. 01/25/2017. The patient underwent fiberoptic bronchoscopy earlier today. This showed retained secretions were thick and tenacious. The right lower lung lesion was approached under fluoroscopic guidance. Please see the bronchoscopy report for more information. Of course, results are pending. He tolerated the procedure well. 01/26/17. The patient was on his phone this morning when we entered the room. He never hung up the phone. Results from FOB yesterday are pending. 01/29/2017. The patient's pathology from fiberoptic bronchoscopy has been reported as class II. We discussed this with the patient today. All things considered, we feel that it would be most appropriate to ask interventional radiology to proceed with transthoracic needle biopsy. We need to be absolutely sure that this is not a cancer. The patient understands this and is willing to proceed. All of his questions were answered to his understanding. On bronchoscopy lavages, Gram stain showed no organisms and nothing grew on culture. There is no AFB or fungus seen on smears. Of course, the AFB and fungal cultures are still pending. 01/30/2017. Patient's had a stable night. He is for transthoracic biopsy of medial basal segment right lower lung lesion. Electrolytes are normal. Calcium is 8.4. Liver function tests are normal. Albumin is low at 2.8 CBC is stable. There are no positive cultures. Medicines have been reviewed and lab reviewed. 01/31/2017. The patient had a needle biopsy by Dr. Hidalgo yesterday. Pathology is pending. This morning he is n.p.o. for CT of the abdomen. We have been informed that the patient leaves the floor to smoke. When we confronted him about this, he states that he could not remember if he did or not. He thinks he may have left the floor yesterday. Chest x-ray was not done today. One has been ordered. 02/01/2017. The patient's pathology from transthoracic needle biopsy has now been reported. It showed pulmonary adenocarcinoma, well-differentiated. Oncology has already been consulted. Per the nursing staff, the patient continues to leave the floor to go smoke. This is been discussed with patient on several occasions by us and Dr. Hoang. Nicotine patch is in use. His breathing is stable. CT the abdomen and pelvis done 01/31/2017 showed an edematous pancreas with significant enlargement of the pancreatic head suspicious for acute on chronic pancreatitis with again seen multiple calcifications throughout the pancreas. Small cystic structure was again noted within the pancreatic head measuring up to 1.1 cm which is noted could reflect a pseudocyst. There is wall thickening of the distal stomach which was noted could reflect sequela of gastritis. There is also wall thickening suggested within the second portion of the duodenum which could reflect secondary duodenitis. He is being followed by gastroenterology. Medications have been reviewed. We made no changes today. Labs been reviewed. No new labs were drawn today. Exam (Progress Note) - Constitutional Vitals: Period Temp Pulse Resp BP Sys/Esquivel Pulse Ox Last 24 Hr 97.8 F-98.9 F 74-83 18-20 129-155/88-101 97-100 Exam: Chest fairly clear Heart no gallop Abdomen is nontender and nondistended; bowel sounds are positive 4 Extremities with nothing to suggest acute deep venous thrombophlebitis Psychiatric oriented 3 Neurologic long-term motor function is intact Plan: Pathology showed pulmonary adenocarcinoma. Oncology has already been consulted. We will sign off. Please reconsult as needed. Results - Labs CBC & BMP: 01/30/17 05:35 01/30/17 05:35
[2017-02-01] MEDS: ENOXAPARIN 40 MG/0.4 ML SYRINGE SUBCUT SCH (17:50)
[2017-02-01] MEDS: traZODone 50 MG TABLET PO SCH (20:07)
[2017-02-02] MEDS: HYDROmorphone 2 MG/1 ML VIAL IV PRN ×6 (00:20→21:42)
[2017-02-02 05:05] LABS: Basophils % 0.5 % (0.0-0.8); Eosinophils # 0.2 10*3/uL (0.0-0.87); Eosinophils % 3.1 % (0.00-10.9); Hematocrit 35.2 VOL% (42.0-52.0); Hemoglobin 11.6 GM/DL (14.0-18.0); Immature Granulocytes % 0.5 %; Immature Granulocytes Absolute 0.03 #; Lymphocytes # 1.6 10*3/uL (1.4-4.0); Lymphocytes % 29.2 % (21.2-54.2); Mean Corpuscular Hemoglobin 30 PG (27-34); Mean Corpuscular Volume 91.7 FL (87-102); Mean Platelet Volume 9.9 FL (9.6-12.0); Monocytes # 0.3 10*3/uL (0.11-0.8); Monocytes % 5.5 % (1.7-12.7); Neutrophils # 3.4 10*3/uL (1.4-7.4); Neutrophils % 61.2 % (38.7-73.9); Platelet Count 259 T/CUMM (130-400); Red Blood Count 3.84 MC/CUMM (3.8-5.5); Red Cell Distribution Width 15.9 % (9.3-17.3); White Blood Count 5.5 T/CUMM (4-12)
[2017-02-02 05:34] LABS: Calcium 8.5 MG/DL (8.5-10.1); Osmolality,Calculated 279.1 MOS/KG (273-304); Potassium 3.5 MMOL/L (3.5-5.1)
[2017-02-02] MEDS: SUCRALFATE 1 GM/10 ML UDCUP PO SCH ×4 (08:50→20:50)
[2017-02-02] MEDS: amLODIPine 10 MG TABLET PO SCH (08:50)
[2017-02-02] MEDS: PANTOPRAZOLE 40 MG TABLET PO SCH ×2 (08:50→20:51)
--- NOTE | 2017-02-02 09:26 | Gastrointestinal Progress Note ---
Assessment and Plan (1) Abdominal pain Status: Acute Assessment and plan: 02/02-no complaints of abdominal pain nausea vomiting. Tolerating diet. Pathology from lung biopsy noted as below. Continue to monitor this time. Plan an addendum followed by Dr. Crowder 02/01-Pain more controlled today, no nausea or vomiting. Tolerating diet at present time. Continue to monitor. Plan and addendum to follow by Dr Crowder. 01/31-onset of abdominal pain with prior history of chronic pancreatitis and recent Cecil-en-Y pancreatic cyst jejunostomy in December. Similar presentation per patient with associated nausea. 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 Normal LFTs and lipase on admission. CT findings noted as below from admission with repeat CT on 01/31. Plan an addendum to followed by Dr. Crowder. Current Visit: No Qualifiers: Abdominal location: epigastric Qualified Code(s): R10.13 - Epigastric pain Gastroenterology - PN: Subj Interval history: CC: Pancreatitis Patient is seen awake and alert with spouse at bedside. States he had an uneventful night and rested well. He currently is denying any abdominal pain and is tolerating his diet well. No reports of nausea or vomiting. No tenderness on exam. Patient is noted to have positive pathology report for well -defined linear adenocarcinoma with pulmonology following. Abdomen soft, nontender. Patient is afebrile without leukocytosis. ROS: Denies shortness breath or chest pain Exam (Progress Note) - Constitutional Vitals: Period Temp Pulse Resp BP Sys/Esquivel Pulse Ox Last 24 Hr 97.2 F-98.4 F 67-87 16-18 137-159/86-106 95-99 General appearance: normal weight, no acute distress - Head Head exam: Present: normal inspection, normocephalic - Eye Eye exam: Present: other (Lids and conjunctive are unremarkable). Absent: scleral icterus - ENT ENT exam: Present: normal exam, normal oropharynx - Neck Neck exam: Present: normal inspection - Respiratory Respiratory exam: Present: clear to auscultation bilaterally. Absent: rales, rhonchi, wheezes - Cardiovascular Cardiovascular exam: Present: regular rate and rhythm. Absent: diastolic murmur , JVD, systolic murmur - GI/Abdominal GI/Abdominal exam: Present: normal bowel sounds, soft. Absent: ascites, distended, mass, organomegaly, tenderness - Extremities Exam Extremities exam: Present: normal inspection, full ROM - Back Exam Back exam: Present: normal inspection - Neurological Exam Neurological exam: Present: alert, oriented X3 - Psychiatric Psychiatric exam: Present: normal affect, normal mood - Skin Skin exam: Present: normal color, warm, dry Results - Labs CBC & BMP: 02/02/17 04:51 02/02/17 04:51 Lab Results: I have reviewed the past 24 hour labs
--- NOTE | 2017-02-02 12:24 | Oncology Consult Note ---
Assessment and Plan (1) Lung cancer Status: Acute Assessment and plan: Under ideal circumstances the patient should be evaluated for possible resection. I do not know his exact pulmonary status at this time. I think an outpatient PET scan in 2 weeks would be very reasonable and then pursue either thoracic surgery referral or stereotactic radiosurgery. Current Visit: Yes History of Present Illness Chief complaint: Lung cancer History of present illness: Mr. Lee is a 51 year old male With complicated medical history with recent abdominal surgery due to pancreatitis complications. The patient reports no alcohol since May. He does still smoke regularly. This admission workup has been underway for a 1.7 cm right sided lung nodule. I have reviewed the CT of the chest that shows no lymphadenopathy. There is a smaller groundglass area of 6 mm nonspecific in appearance within a separate lobe of the right lung. Biopsy results are consistent with pulmonary adenocarcinoma. No obvious metastatic disease is seen. Home Medications Medication Instructions Recorded Confirmed Type amLODIPine [Norvasc] 10 mg PO DAILY 12/29/16 01/22/17 History HYDROcodone/ACETAMIN 7.5-325 1 tablet PO Q6H PRN 01/22/17 01/22/17 History [[place] 7.5-325] Omeprazole [Omeprazole] 20 mg PO DAILY 01/22/17 01/22/17 History Allergies Allergy/AdvReac Type Severity Reaction Status Date / Time No Known Allergies Allergy Verified 08/10/16 08:27 Medical,Surgical,& Family Hx - Medical History Cardio: History of: Hypertension Psychological: History of: Depression Neurology: History of: Migraine HEENT: History of: Eye Problem (wears glasses) Endocrine: No history of: Diabetes Mellitus (NIDDM) Gastrointestinal: History of: GERD, Pancreatitis, GI Problems Musculoskeletal: History of: Back/Neck Problems (chronic back and neck pain), Herniated Disk - Surgical History Cardiac Surgeries: Patient Denies: Cardiac Catheterization, Cardiac Surgery Thoracic Surgeries: Patient denies;: Organ Transplant Neurologic Surgeries: Patient denies: Neurologic Surgery Abdominal Surgeries: Surgical HX of: Abdominal Surgery (remove cyst from pancreas) Reproductive Surgeries: Patient denies;: Genitourinary Surgery Orthopedic Surgeries: Surgical HX of;: Spinal Surgery (lower back) - Family History Family History: Reports;: Family Cancer (Sister), Family Diabetes (Grandmother) , Family Hypertension, Family Stroke - Social History Smoking Status: Current every day smoker Frequency of Alcohol Use: Frequently Type of Drug Use: None Exam - Constitutional Vitals: Period Temp Pulse Resp BP Sys/Esquivel Pulse Ox Last 24 Hr 97.2 F-98.4 F 67-85 18-20 142-159/86-106 95-99 General appearance: under weight - Head Head Exam: Present: other (Temporal wasting bilaterally) - Eye Eye Exam: Absent: scleral icterus Pupils: Present: normal accommodation - Respiratory Respiratory exam: Present: CTAB. Absent: accessory muscle use - Neurological Exam Neurological exam: Present: alert, oriented X3 - Skin Skin exam: Present: warm, dry Results - Labs CBC & BMP: 02/02/17 04:51 02/02/17 04:51
[2017-02-02] MEDS: ONDANSETRON 4 MG/2 ML VIAL IV PRN (12:47)
[2017-02-02] MEDS: LISINOPRIL 10 MG TABLET PO SCH (12:48)
[2017-02-02] MEDS: buPROPion SR 150 MG TABLET PO SCH (12:49)
[2017-02-02] MEDS: ENOXAPARIN 40 MG/0.4 ML SYRINGE SUBCUT SCH (17:12)
--- NOTE | 2017-02-02 18:24 | Hospitalist Progress Note ---
Assessment and Plan (1) Acute on chronic pancreatitis Status: Acute Assessment and plan: December repair of pancreatic pseudocyst, reduced volume of pseudocyst on recent CT scan however demonstrating acute and chronic pancreatic changes. Current Visit: No (2) Anemia Status: Acute Assessment and plan: Monitor CBC periodically. Current Visit: No Qualifiers: Anemia type: unspecified type Qualified Code(s): D64.9 - Anemia, unspecified (3) Lung mass Status: Acute Assessment and plan: Patient status post fiberoptic bronchoscopy on 01/25, pathology is pending. Appreciate pulmonology following. Current Visit: Yes Hospitalist: Subjective Interval history: Abd pain improved. No fever. No cp or SOB. No nausea or vomiting. Exam - Constitutional Vitals: Period Temp Pulse Resp BP Sys/Esquivle Pulse Ox Last 24 Hr 97.2 F-98.4 F 67-85 18-20 134-159/86-105 95-99 Exam: General: [No Acute Distress] HEENT: [Normocephalic, atraumatic, Extra ocular movements intact] Neck: [Supple, No JVD] Chest: [Clear to auscultation B/L] CV: [S1 + S2 audible without murmur, gallop or rub] Abd: [soft, NT, Non-distended, BS +] Ext: [No edema] Skin: [No purpura, bruising or rash] Rheumatologic: [No Joint deformities] Neurologic: [Strengtg 5/5 all extremities, no gross sensory deficits] Results - Labs CBC & BMP: 02/02/17 04:51 02/02/17 04:51 - Impressions 1) Acute on chronic pancreatitis Status: Acute Assessment and plan: Patient is symptomatically better tolerating diet he hemodynamically stable. Normal white count and renal function within normal limits. LFTs improved. Lipase normal. Wean IV dilaudid from 2mg IV to 1mg IV PRN. Cont [place] prn. Pt states this helps at home Current Visit: No (2) Abdominal pain possibly due to PUD - CT abd/pelvis 01/22 reviewed - CT abd/pelvis 01/31 showed " The pancreas again appears edematous throughout with significant enlargement of the pancreatic head suspicious for acute on chronic pancreatitis as there are again multiple calcifications throughout the pancreas. Small cystic structure again noted within the pancreatic head measuring up to 1.1 cm which may reflect a pseudocyst. There is wall thickening of the distal stomach which could reflect sequela of gastritis. Consider endoscopy. There is also wall thickening suggested within the second portion of the duodenum which could reflect secondary duodenitis. Nodule again demonstrated within the medial aspect of the right lower lobe which appears slightly more prominent than on prior exam measuring approximately 1.8 x 1.3 cm compared to 1.5 x 1.3 cm on comparison study. This could be secondary to changes of recent biopsy or changes in technique. Small groundglass haziness surrounds this nodule which likely reflects small hemorrhage. Correlate with biopsy results. - GI following. No plans for endoscopy at this time. - Cont carafate and PPI (3) RLL Lung mass (15 x 11 cm) due to well differentiated pulmonary adenocarcinoma Status: Acute Assessment and plan: FOB done and results show Class II- atypia but negative for malignancy. Biopsy done 01/30- Pathology showed Pulmonary adenocarcinoma, well- differentiated. Consult oncology Current Visit: Yes (4) Anemia Status: Acute Assessment and plan: s/p post transfusion his hemoglobin significantly improved at 13.1 dated 2016 but has been slowly decreasing. Will recheck H and H in am Current Visit: No Qualifiers: Anemia type: unspecified type Qualified Code(s): D64.9 - Anemia, unspecified (5) Tobacco abuse Status: Chronic Assessment and plan: Patient said he had cut down the smoking already to half pack a day advised to quit smoking. He is still smoking while hospitalized - Smoking cessation recommended. He does have a nicotine patch ordered. Current Visit: Yes (5) Ch COPD not in exacerbation - inhalers, smoking cessation, bronchodilators - Nicotine patch (6) Insomnia - Cont Trazodone. Lovenox for DVT prophylaxis
[2017-02-02] MEDS: traZODone 50 MG TABLET PO SCH (20:51)
[2017-02-03] MEDS: HYDROmorphone 2 MG/1 ML VIAL IV PRN ×6 (02:15→23:00)
[2017-02-03] MEDS: buPROPion SR 150 MG TABLET PO SCH (08:54)
[2017-02-03] MEDS: amLODIPine 10 MG TABLET PO SCH (08:54)
[2017-02-03] MEDS: PANTOPRAZOLE 40 MG TABLET PO SCH ×2 (08:55→20:25)
[2017-02-03] MEDS: SUCRALFATE 1 GM/10 ML UDCUP PO SCH ×4 (08:55→20:25)
[2017-02-03] MEDS: LISINOPRIL 10 MG TABLET PO SCH (08:55)
[2017-02-03] MEDS: ONDANSETRON 4 MG/2 ML VIAL IV PRN (14:30)
--- NOTE | 2017-02-03 16:42 | Hospitalist Progress Note ---
Assessment and Plan (1) Acute on chronic pancreatitis Status: Acute Assessment and plan: December repair of pancreatic pseudocyst, reduced volume of pseudocyst on recent CT scan however demonstrating acute and chronic pancreatic changes. Current Visit: No (2) Anemia Status: Acute Assessment and plan: Monitor CBC periodically. Current Visit: No Qualifiers: Anemia type: unspecified type Qualified Code(s): D64.9 - Anemia, unspecified (3) Lung mass Status: Acute Assessment and plan: Patient status post fiberoptic bronchoscopy on 01/25, pathology is pending. Appreciate pulmonology following. Current Visit: Yes Hospitalist: Subjective Interval history: Abd pain improved. No fever. No cp or SOB. No nausea or vomiting. Exam - Constitutional Vitals: Period Temp Pulse Resp BP Sys/Esquivel Pulse Ox Last 24 Hr 97.4 F-99.1 F 72-87 16-20 133-154/88-107 95-100 Exam: General: [No Acute Distress] HEENT: [Normocephalic, atraumatic, Extra ocular movements intact] Neck: [Supple, No JVD] Chest: [Clear to auscultation B/L] CV: [S1 + S2 audible without murmur, gallop or rub] Abd: [soft, NT, Non-distended, BS +] Ext: [No edema] Skin: [No purpura, bruising or rash] Rheumatologic: [No Joint deformities] Neurologic: [Strengtg 5/5 all extremities, no gross sensory deficits] Results - Labs CBC & BMP: 02/02/17 04:51 02/02/17 04:51 - Impressions 1) Acute on chronic pancreatitis Status: Acute Assessment and plan: Patient is symptomatically better tolerating diet he hemodynamically stable. Normal white count and renal function within normal limits. LFTs improved. Lipase normal. Wean IV dilaudid from 2mg IV to 1mg IV PRN. Cont [place] prn. Pt states this helps at home Current Visit: No (2) Abdominal pain possibly due to PUD - CT abd/pelvis 01/22 reviewed - CT abd/pelvis 01/31 showed " The pancreas again appears edematous throughout with significant enlargement of the pancreatic head suspicious for acute on chronic pancreatitis as there are again multiple calcifications throughout the pancreas. Small cystic structure again noted within the pancreatic head measuring up to 1.1 cm which may reflect a pseudocyst. There is wall thickening of the distal stomach which could reflect sequela of gastritis. Consider endoscopy. There is also wall thickening suggested within the second portion of the duodenum which could reflect secondary duodenitis. Nodule again demonstrated within the medial aspect of the right lower lobe which appears slightly more prominent than on prior exam measuring approximately 1.8 x 1.3 cm compared to 1.5 x 1.3 cm on comparison study. This could be secondary to changes of recent biopsy or changes in technique. Small groundglass haziness surrounds this nodule which likely reflects small hemorrhage. Correlate with biopsy results. - GI following. No plans for endoscopy at this time. - Cont carafate and PPI (3) RLL Lung mass (15 x 11 cm) due to well differentiated pulmonary adenocarcinoma Status: Acute Assessment and plan: FOB done and results show Class II- atypia but negative for malignancy. Biopsy done 01/30- Pathology showed Pulmonary adenocarcinoma, well- differentiated. Consult oncology Current Visit: Yes (4) Anemia Status: Acute Assessment and plan: s/p post transfusion his hemoglobin significantly improved at 13.1 dated 2016 but has been slowly decreasing. Will recheck H and H in am Current Visit: No Qualifiers: Anemia type: unspecified type Qualified Code(s): D64.9 - Anemia, unspecified (5) Tobacco abuse Status: Chronic Assessment and plan: Patient said he had cut down the smoking already to half pack a day advised to quit smoking. He is still smoking while hospitalized - Smoking cessation recommended. He does have a nicotine patch ordered. Current Visit: Yes (5) Ch COPD not in exacerbation - inhalers, smoking cessation, bronchodilators - Nicotine patch (6) Insomnia - Cont Trazodone. Lovenox for DVT prophylaxis
[2017-02-03] MEDS: ENOXAPARIN 40 MG/0.4 ML SYRINGE SUBCUT SCH (17:22)
[2017-02-03] MEDS: traZODone 50 MG TABLET PO SCH (20:25)
[2017-02-03] MEDS: diphenhydrAMINE CAP 25 MG CAPSULE PO PRN (23:05)
[2017-02-04] MEDS: HYDROmorphone 2 MG/1 ML VIAL IV PRN ×4 (03:34→17:27)
[2017-02-04] MEDS: buPROPion SR 150 MG TABLET PO SCH (08:17)
[2017-02-04] MEDS: amLODIPine 10 MG TABLET PO SCH (08:17)
[2017-02-04] MEDS: SUCRALFATE 1 GM/10 ML UDCUP PO SCH ×3 (08:17→17:26)
[2017-02-04] MEDS: PANTOPRAZOLE 40 MG TABLET PO SCH (08:17)
[2017-02-04] MEDS: LISINOPRIL 10 MG TABLET PO SCH (08:17)
--- NOTE | 2017-02-04 10:23 | Discharge Summary ---
Hospital Course - Hospital Course Hospital Course: Mr. Lee is a 51-year-old -[place] male with history of tobacco abuse , hypertension, and recurrent pancreatitis due to previous alcohol abuse admitted by the hospitalist service on 01/22/2017 with acute non-serologic pancreatitis. Patient was given IV fluids, pain and nausea medicine as well as kept n.p.o. except for ice chips and sips of water. He was also be started on IV antibiotics. Patient was also noted to have a soft tissue mass in his right lower lobe. Pulmonology was consulted to follow along. - Time spent with patient Time with patient DS: Greater than 30 minutes Discharge Plan - Discharge Medications No Action amLODIPine [Norvasc] 10 mg PO DAILY HYDROcodone/ACETAMIN 7.5-325 [[place] 7.5-325] 1 tablet PO Q6H PRN PRN Reason: Pain Omeprazole [Omeprazole] 20 mg PO DAILY - Follow Up or Referral - Forms/Instructions Exam - Constitutional Vitals: Period Temp Pulse Resp BP Sys/Esquivel Pulse Ox Last 24 Hr 97.0 F-98.6 F 73-81 16-20 137-149/75-92 93-100 Discharge Results Procedures and tests throughout hospitalization: Pending Orders 01/25/17 AFB Culture/Smears Routine Fungal Culture w/ Prep Routine Labs on day of discharge: Preliminary micro results at discharge 01/25/17 Unknown Fungal Culture - Preliminary Bronchial Antwon Lavage No Fungus isolated at 1 week DS: Provider Date of admission: 01/22/17 13:58 Primary care physician: COCO BARRIENTOS Attending physician on admission: Indio Ward Jr., MD Consults: 01/22/17 13:58 Consult to Physician [CONS] Routine Comment: RLL mass Consulting Provider: Flakito Lind Consulting Provider Notified: Yes When should Consulting Provider be notified: Now Person Notified: erick walker Date Notified: 01/23/17 Time Notified: 07:50 01/22/17 16:36 Consult to Dietitian [CONS] Routine Reason for Dietitian: Dietary Consult 01/31/17 14:24 Consult to Physician [CONS] Routine Comment: abdominal pain Consulting Provider: Flakito Crowder Consulting Provider Notified: Yes When should Consulting Provider be notified: Now Consult to Specialist Group: Gastroenterology When should Consulting Provider be notified: Now Person Notified: chanell called Date Notified: 01/31/17 Time Notified: 14:43 02/01/17 10:51 Consult to Physician [CONS] Routine Comment: newly diagnosed pulmonary adenocarinoma Consulting Provider: Harley Kruse Consulting Provider Notified: Yes When should Consulting Provider be notified: Now Person Notified: natalie called Date Notified: 02/01/17 Time Notified: 11:15 Consult Notification Comment: dr. chen out of town/dr. kruse on duty 02/02/17 12:16 Consult to Case Mgmt/Social Srvs [CONS] Routine Reason for Case Mgmt/Social Srvs: Discharge Planning Consult Comment: needs insurance Discharging clinician: Nuno COVINGTON Expected date of discharge: 02/04/17
--- NOTE | 2017-02-04 16:51 | Discharge Summary ---
Hospital Course - Hospital Course Hospital Course: Mr. Lee is a 51-year-old -[place] male with history of tobacco abuse , hypertension, and recurrent pancreatitis due to previous alcohol abuse admitted by the hospitalist service on 01/22/2017 with acute non-serologic pancreatitis. Patient was given IV fluids, pain and nausea medicine as well as kept n.p.o. except for ice chips and sips of water. He was also be started on IV antibiotics. Patient was also noted to have a soft tissue mass in his right lower lobe. Pulmonology was consulted to follow along. Diagnosis - Discharge Diagnosis (1) Acute on chronic pancreatitis Status: Acute (2) Anemia Status: Acute (3) Lung mass Status: Acute Discharge Plan - Discharge Data Condition at Discharge: Stable Discharge Diet: regular diet Activity: resume usual activities as tolerated, increase activity as tolerated Weight Bearing at Discharge: weight bear as tolerated - Discharge Medications No Action amLODIPine [Norvasc] 10 mg PO DAILY HYDROcodone/ACETAMIN 7.5-325 [[place] 7.5-325] 1 tablet PO Q6H PRN PRN Reason: Pain Omeprazole [Omeprazole] 20 mg PO DAILY - Follow Up or Referral - Forms/Instructions Exam - Constitutional Vitals: Period Temp Pulse Resp BP Sys/Esquivel Pulse Ox Last 24 Hr 97.6 F-98.6 F 73-81 16-20 134-149/75-92 93-100 Discharge Results Procedures and tests throughout hospitalization: Pending Orders 01/25/17 AFB Culture/Smears Routine Fungal Culture w/ Prep Routine Labs on day of discharge: Preliminary micro results at discharge 01/25/17 Unknown Fungal Culture - Preliminary Bronchial Antwon Lavage No Fungus isolated at 1 week DS: Provider Date of admission: 01/22/17 13:58 Primary care physician: COCO BARRIENTOS Attending physician on admission: Indio Ward Jr., MD Consults: 01/22/17 13:58 Consult to Physician [CONS] Routine Comment: RLL mass Consulting Provider: Flakito Lind Consulting Provider Notified: Yes When should Consulting Provider be notified: Now Person Notified: erick walker Date Notified: 01/23/17 Time Notified: 07:50 01/22/17 16:36 Consult to Dietitian [CONS] Routine Reason for Dietitian: Dietary Consult 01/31/17 14:24 Consult to Physician [CONS] Routine Comment: abdominal pain Consulting Provider: Flakito Crowder Consulting Provider Notified: Yes When should Consulting Provider be notified: Now Consult to Specialist Group: Gastroenterology When should Consulting Provider be notified: Now Person Notified: chanell called Date Notified: 01/31/17 Time Notified: 14:43 02/01/17 10:51 Consult to Physician [CONS] Routine Comment: newly diagnosed pulmonary adenocarinoma Consulting Provider: Harley Kruse Consulting Provider Notified: Yes When should Consulting Provider be notified: Now Person Notified: natalie called Date Notified: 02/01/17 Time Notified: 11:15 Consult Notification Comment: dr. chen out of town/dr. kruse on duty 02/02/17 12:16 Consult to Case Mgmt/Social Srvs [CONS] Routine Reason for Case Mgmt/Social Srvs: Discharge Planning Consult Comment: needs insurance Discharging clinician: Libia Hoang MD
[2017-02-04 17:14] VITALS: BP 142/90
[2017-02-04] MEDS: ENOXAPARIN 40 MG/0.4 ML SYRINGE SUBCUT SCH (17:26)
--- NOTE | 2017-02-04 17:55 | Discharge Summary ---
Hospital Course - Hospital Course Hospital Course: Mr. Lee is a 51-year-old -[place] male with history of tobacco abuse , hypertension, and recurrent pancreatitis due to previous alcohol abuse admitted by the hospitalist service on 01/22/2017 with acute non-serologic pancreatitis. Patient was given IV fluids, pain and nausea medicine as well as kept n.p.o. except for ice chips and sips of water. He was also be started on IV antibiotics. Patient was also noted to have a soft tissue mass in his right lower lobe. Pulmonology was consulted to follow along. Diagnosis - Discharge Diagnosis (1) Acute on chronic pancreatitis Status: Acute (2) Anemia Status: Acute (3) Lung mass Status: Acute Specialty Discharge - Follow Up or Referrals Discharge Plan - Discharge Medications No Action amLODIPine [Norvasc] 10 mg PO DAILY HYDROcodone/ACETAMIN 7.5-325 [[place] 7.5-325] 1 tablet PO Q6H PRN PRN Reason: Pain Omeprazole [Omeprazole] 20 mg PO DAILY - Follow Up or Referral - Forms/Instructions Instructions: How to Stop Smoking (DC), How to Stop Smoking (GEN), Biliary Colic (GEN), Tate Bronchoscopy or Lung Biopsy Exam - Constitutional Vitals: Period Temp Pulse Resp BP Sys/Esquivel Pulse Ox Last 24 Hr 97.6 F-98.6 F 68-81 16-20 134-149/75-92 93-100 Discharge Results Procedures and tests throughout hospitalization: Pending Orders 01/25/17 AFB Culture/Smears Routine Fungal Culture w/ Prep Routine Labs on day of discharge: Preliminary micro results at discharge 01/25/17 Unknown Fungal Culture - Preliminary Bronchial Antwon Lavage No Fungus isolated at 1 week DS: Provider Date of admission: 01/22/17 13:58 Primary care physician: COCO BARRIENTOS Attending physician on admission: Indio Ward Jr., MD Consults: 01/22/17 13:58 Consult to Physician [CONS] Routine Comment: RLL mass Consulting Provider: Flakito Lind Consulting Provider Notified: Yes When should Consulting Provider be notified: Now Person Notified: erickjessenia walker Date Notified: 01/23/17 Time Notified: 07:50 01/22/17 16:36 Consult to Dietitian [CONS] Routine Reason for Dietitian: Dietary Consult 01/31/17 14:24 Consult to Physician [CONS] Routine Comment: abdominal pain Consulting Provider: Flakito Crowder Consulting Provider Notified: Yes When should Consulting Provider be notified: Now Consult to Specialist Group: Gastroenterology When should Consulting Provider be notified: Now Person Notified: chanell called Date Notified: 01/31/17 Time Notified: 14:43 02/01/17 10:51 Consult to Physician [CONS] Routine Comment: newly diagnosed pulmonary adenocarinoma Consulting Provider: Harley Kruse Consulting Provider Notified: Yes When should Consulting Provider be notified: Now Person Notified: natalie called Date Notified: 02/01/17 Time Notified: 11:15 Consult Notification Comment: dr. chen out of town/dr. kruse on duty 02/02/17 12:16 Consult to Case Mgmt/Social Srvs [CONS] Routine Reason for Case Mgmt/Social Srvs: Discharge Planning Consult Comment: needs insurance Discharging clinician: Libia Hoang MD
== END 2017-02-04 18:15 | disposition home or self-care (01) | DRG 439 ==
LOC: N.ED 09:44 → SUATTDRO 13:58 → N.EDINP 13:58 → N.3E 16:12
PROVIDERS: ADMIT Internal Medicine Nephrology; ATTEND Hospitalist
PROC: BRONCHB (2017-01-25 08:50)

== ENCOUNTER 2017-03-12 12:11 | Inpatient (IN) ==
[2017-03-12] MEDS ORDERED: SODIUM CHLORIDE 0.9% 2,000 ML IV STA (13:15)
[2017-03-12] MEDS ORDERED: ONDANSETRON 4 MG/2 ML VIAL IV STA (13:15)
[2017-03-12] MEDS ORDERED: HYDROmorphone 2 MG/1 ML VIAL IV STA ×2 (13:15→16:02)
[2017-03-12] MEDS ORDERED: METOPROLOL TARTRATE 5 MG/5 ML VIAL IV STA (13:17)
--- NOTE | 2017-03-12 13:22 | Emergency Department Note ---
Lexii Peres Hilary, am scribing for, and in the presence of, Alin Melendez MD 13: 19. Nora Peres James D, MD, personally performed the services described in this documentation, ascribed by Analilia Shultz in my presence, and it is both accurate and complete 321 . Arrival - Arrival Chief Complaint: Abdominal / Flank Pain Stated Complaint: blood pressure and stomach pain ED Nursing Triage Note: was over at dr [place] office to get ready for surgery tomorrow and bp was elevated sent here for evaluation. pt reports he thinks he is having a pancreatitis flare up too. Mode of Arrival: Wheelchair Limitations: No Limitations Source: Patient, RN Notes Reviewed - History of Present Illness HPI Narrative: Pt is a 51 y/o male presenting to the ED with c/o high blood pressure and abdominal pain which onset 2 days ago. Pt states he is supposed to have surgery tomorrow to have a spot removed on his lung but his blood pressure was elevated. Pt confirms abdominal pain but denies vomiting, SOB or chest pain. No other complaints or problems stated in the ED. Pt has a PMHx of pancreatitis, HTN and GERD. Onset (ago): day(s) Consistency: constant Severity: mild Severity scale (1-10): 1 Quality: sharp Allergies/Adverse Reactions: Allergies Allergy/AdvReac Type Severity Reaction Status Date / Time No Known Allergies Allergy Verified 08/10/16 08:27 Home Medications: Home Medications Medication Instructions Recorded Confirmed Type Lisinopril [Lisinopril] 10 mg PO QAM 02/09/17 03/12/17 History Citalopram Hydrobromide [Celexa] 10 mg PO DAILY 03/12/17 03/12/17 History HYDROcodone/ACETAMIN 7.5-325 1 tablet PO Q6H 03/12/17 03/12/17 History [[place] 7.5-325] Pantoprazole Tab [Protonix Tab] 40 mg PO DAILY 03/12/17 03/12/17 History Review of System - Review of System 12 point system: reviewed and no additional remarkable complaints except as stated - Review of System Constitutional: Present: other (high blood pressure). Absent: fever Respiratory: Absent: respiratory distress (SOB) Cardiovascular: Absent: chest pain Gastrointestinal: Present: abdominal pain. Absent: nausea, vomiting Medical,Surgical,& Family Hx - Medical History Cardio: History of: Hypertension Psychological: History of: Depression Neurology: History of: Migraine HEENT: History of: Eye Problem (wears glasses) Endocrine: No history of: Diabetes Mellitus (NIDDM) Gastrointestinal: History of: GERD, Pancreatitis, GI Problems Musculoskeletal: History of: Back/Neck Problems (chronic back and neck pain), Herniated Disk - Surgical History Cardiac Surgeries: Patient Denies: Cardiac Catheterization, Cardiac Surgery Thoracic Surgeries: Patient denies;: Organ Transplant Neurologic Surgeries: Patient denies: Neurologic Surgery Abdominal Surgeries: Surgical HX of: Abdominal Surgery (remove cyst from pancreas) Reproductive Surgeries: Patient denies;: Genitourinary Surgery Orthopedic Surgeries: Surgical HX of;: Spinal Surgery (lower back) - Family History Family History: Reports;: Family Cancer (Sister), Family Diabetes (Grandmother) , Family Hypertension, Family Stroke - Social History Smoking Status: Current every day smoker Exam Physical Examination: GENERAL: This is a thin black male in no apparent distress. VITAL SIGNS: Temperature: 98.4 Pulse: 66 Respiratory: 20 Blood Pressure: 207 /124 O2Sat: 99 HEENT: Head is normocephalic and atraumatic. Pupils are equally round and reactive to light. Extraocular movement are intact. Oropharynx is benign with moist mucous membranes. NECK: Neck is soft and supple without tenderness. There are no masses. There is no lymphadenopathy. LUNGS: Lungs are clear to auscultation bilaterally. Chest rises symmetrically. There is no chest wall tenderness. CV: Heart is regular rate and rhythm without murmurs, rubs, or gallops. ABDOMEN: Abdomen is soft, tender over the epigastrium. There are no abnormal masses palpated. There is no organomegaly. Bowel sounds are present and active. SKIN: Skin is warm and dry. No rash. EXTREMITIES: Patient has full range of motion without tenderness. There is no pedal edema. NEUROLOGIC: Awake, alert, and oriented x4. Cranial nerves II through XII are grossly intact. There are no motorsensory deficits. PSYCHIATRIC: Normal affect. Normal mood. Vital Signs: Vital Signs Temperature 98.4 F 03/12/17 13:21 Pulse Rate 65 03/12/17 13:30 Respiratory Rate 20 03/12/17 13:30 Blood Pressure 212/125 03/12/17 13:30 O2 Sat by Pulse Oximetry 100 03/12/17 13:30 Course - Consultations Consultation #1: Discussed with hospitalist. Patient will be admitted to their service. Time: 15:24 Results - Labs CBC & BMP: 03/12/17 13:31 03/12/17 13:31 Lab Results: I have reviewed the patients labs Labs: Laboratory Tests 03/12/17 03/12/17 13:31 13:31 WBC 9.4 RBC 4.26 Hgb 13.3 L Hct 38.7 L Plt Count 248 Lymph % (Auto) 20.4 L Sodium 138 Potassium 3.8 Chloride 105 Carbon Dioxide 25 BUN 5 L Glucose 112 H Calculated Osmolality 272.7 L Alkaline Phosphatase 126 H Globulin 4.3 H Albumin/Globulin Ratio 0.8 L - Diagnostic Findings Procedure: Abdominal x-ray: report reviewed by me, image reviewed by me (No definite acute abnormality. Changes of chronic pancreatitis as before), Chest x- ray: report reviewed by me, image reviewed by me (Right lower love pulmonary nodule as noted on recent CT examinations. This lesion has been recently biopsied. ) Disposition Clinical Impression: Acute pancreatitis, Essential hypertension, Right lower lobe lung mass Case discussed with: patient Disposition: Still a Patient Condition: Stable Time of Disposition: 14:48
[2017-03-12] MEDS ORDERED: HYDROmorphone 2 MG/1 ML VIAL ONE ×2 (13:36→15:40)
[2017-03-12] MEDS ORDERED: ONDANSETRON 4 MG/2 ML VIAL ONE (13:36)
[2017-03-12] MEDS ORDERED: METOPROLOL TARTRATE 5 MG/5 ML VIAL IV ONE (13:37)
--- NOTE | 2017-03-12 13:47 | EKG Report ---
Stationary ECG Study [facility] ER Test Date: 03/12/2017 1:46:17 PM Pat Name: LUIS KATZ Department: Room: Gender: M Vice Admiral: : 1965 Requested by: Alin Aquino Order Number: [id number] Reading MD: ADDIS MICHAELS Intervals Dorothy Rate: 67 P: 83 CO: 166 QRS: 68 QRSD: 87 T: 64 QT: 406 QTc: 421 Interpretive Statements SINUS RHYTHM Electronically Signed On 03-12-17 13:49:53 CDT by ADDIS MICHAELS [email or web address]
[2017-03-12 13:48] LABS: Basophils % 0.3 % (0.0-0.8); Eosinophils # 0.1 10*3/uL (0.0-0.87); Eosinophils % 0.9 % (0.00-10.9); Hematocrit 38.7 VOL% (42.0-52.0); Hemoglobin 13.3 GM/DL (14.0-18.0); Immature Granulocytes % 0.6 %; Immature Granulocytes Absolute 0.06 #; Lymphocytes # 1.9 10*3/uL (1.4-4.0); Lymphocytes % 20.4 % (21.2-54.2); Mean Corpuscular HGB Conc 34.4 GM/DL (32-36); Mean Corpuscular Hemoglobin 31 PG (27-34); Mean Corpuscular Volume 90.8 FL (87-102); Mean Platelet Volume 9.9 FL (9.6-12.0); Monocytes # 0.4 10*3/uL (0.11-0.8); Monocytes % 4.6 % (1.7-12.7); Neutrophils # 6.9 10*3/uL (1.4-7.4); Neutrophils % 73.2 % (38.7-73.9); Platelet Count 248 T/CUMM (130-400); Red Blood Count 4.26 MC/CUMM (3.8-5.5); Red Cell Distribution Width 16.3 % (9.3-17.3); White Blood Count 9.4 T/CUMM (4-12)
[2017-03-12 14:08] LABS: Alanine Aminotransferase 16 U/L (16-61); Albumin 3.5 G/DL (3.4-5.0); Alkaline Phosphatase 126 U/L (45-117); Aspartate Amino Transferase 10 U/L (0-37); Blood Urea Nitrogen 5 MG/DL (7-18); Calcium 9.1 MG/DL (8.5-10.1); Glucose 112 MG/DL (74-106); Osmolality,Calculated 272.7 MOS/KG (273-304); Potassium 3.8 MMOL/L (3.5-5.1); Sodium 138 MMOL/L (136-145); Total Protein 7.8 G/DL (6.4-8.3); Troponin I Only < 0.015 NG/ML (0.00-0.045)
--- NOTE | 2017-03-12 14:18 | XRay Report ---
History: Abdominal pain. Right lower lobe lung mass Date: 03/12/2017 Study: Chest x-ray single view portable Comparison exam: February 09, 2017 chest x-ray The cardiac silhouette is not enlarged. There is no mediastinal mass. The pulmonary vasculature is not engorged. There is no new pulmonary infiltrate. There is an 18 mm noncalcified nodule in the medial aspect of the right lower lobe, also seen on recent CT exams. There is no pleural effusion or pneumothorax. There is no acute osseous abnormality. Impression: Right lower lobe pulmonary nodule as noted on recent CT examinations. This lesion has been recently biopsied. No acute process otherwise PROCEDURE INTERPRETED AT [facility] DEPARTMENT OF RADIOLOGY Final Report Signed by: Dr. Jessica Crowder
--- NOTE | 2017-03-12 14:20 | XRay Report ---
History: Abdominal pain Date: 03/12/2017 Study: Flat and erect abdomen Comparison exam: August 10, 2016 abdominal x-ray There is no evidence of pneumoperitoneum. The bowel gas pattern is nonobstructive without gross mass lesion. Numerous scattered pancreatic calcifications are present as can be seen with chronic pancreatitis. Phleboliths overlie the left hemipelvis. There is no acute osseous abnormality. Impression: No definite acute abnormality. Changes of chronic pancreatitis as before PROCEDURE INTERPRETED AT [facility] DEPARTMENT OF RADIOLOGY Final Report Signed by: Dr. Jessica Crowder
--- NOTE | 2017-03-12 15:51 | Hospitalist History & Physical ---
Addendum entered and electronically signed by Mel Sheffield NP 03/12/17 16:24: On exam patient had left sided tenderness with palpitation Original Note: <Mel Sheffield - Last Filed: 03/12/17 15:41> Assessment and Plan - Time spent with patient Time spent with patient: Greater than 30 minutes (1) Acute pancreatitis Status: Acute Assessment and plan: ADMIT IV fluids NPO PRN pain management PRN hypertension management repeat a.m. labs Further recommendations per Dr Menchaca Current Visit: Yes (2) Essential hypertension Status: Acute Current Visit: Yes (3) Right lower lobe lung mass Status: Acute Current Visit: Yes History of Present Illness Chief complaint: hypertension, abdominal pain History of present illness: Mr. Lee is a 51 year old black male w/ PMHx of Pancreatitis, GERD, Hypertension, Depression, Migraine presented to the ED from Dr Saleem Rios office for increased blood pressure and abdominal pain. He reports being at the office for surgical workup for lung biopsy but his blood pressure was "high and his stomach was hurting" so they sent him to the ED. Denies chest pain, shortness of breath, nausea, fever, or chills. Reports normal BM this a..m. without bright red or dark blood. IN ED: Afebrile; BP 207/124; HR 66; 99% SAT. LABS: Alkaline Phos 126; WBC normal ; H&H stable; Electrolytes within normal range. ABD XRAY: no definite acute abnormality; chronic pancreatitis. CXR: right lower lobe pulmonary nodule; no acute process. EKG: sinus rhythm. Metoprolol, zofran, dilaudid, and NS bolus given in the ED. PCP: Dr Smith Oncology: Dr Huff After discussion with Dr Melendez in the ED and Dr Menchaca with Hospital Medicine, it was agreed to admit patient for further evaluation and treatment. Home medications to be reviewed and reconciliation to follow. Home Medications Medication Instructions Recorded Confirmed Type Lisinopril [Lisinopril] 10 mg PO QAM 02/09/17 03/12/17 History Citalopram Hydrobromide [Celexa] 10 mg PO DAILY 03/12/17 03/12/17 History HYDROcodone/ACETAMIN 7.5-325 1 tablet PO Q6H 03/12/17 03/12/17 History [[place] 7.5-325] Pantoprazole Tab [Protonix Tab] 40 mg PO DAILY 03/12/17 03/12/17 History Allergies Allergy/AdvReac Type Severity Reaction Status Date / Time No Known Allergies Allergy Verified 08/10/16 08:27 Medical,Surgical,& Family Hx - Medical History Cardio: History of: Hypertension Psychological: History of: Depression Neurology: History of: Migraine HEENT: History of: Eye Problem (wears glasses) Endocrine: No history of: Diabetes Mellitus (NIDDM) Gastrointestinal: History of: GERD, Pancreatitis, GI Problems Musculoskeletal: History of: Back/Neck Problems (chronic back and neck pain), Herniated Disk - Surgical History Cardiac Surgeries: Patient Denies: Cardiac Catheterization, Cardiac Surgery Thoracic Surgeries: Patient denies;: Organ Transplant Neurologic Surgeries: Patient denies: Neurologic Surgery Abdominal Surgeries: Surgical HX of: Abdominal Surgery (remove cyst from pancreas) Reproductive Surgeries: Patient denies;: Genitourinary Surgery Orthopedic Surgeries: Surgical HX of;: Spinal Surgery (lower back) - Family History Family History: Reports;: Family Cancer (Sister), Family Diabetes (Grandmother) , Family Hypertension, Family Stroke - Social History Smoking Status: Current every day smoker Frequency of Alcohol Use: None Type of Drug Use: None Marital Status: Single Lives With:: Sibling (lives with his brother) Functional capacity: independent ambulation 12 point system: reviewed and no additional remarkable complaints except as stated Exam - Constitutional Vitals: Period Temp Pulse Resp BP Sys/Esquivel Pulse Ox Last 24 Hr 98.4 F-98.4 F 65-67 20-20 207-237/124-129 99-100 General appearance: normal weight, no acute distress - Head Head exam: Present: normal inspection - Eye Eye exam: Present: EOMI Pupils: Present: HUSSAIN - Neck Neck exam: Present: normal inspection. Absent: thyromegaly - Respiratory Respiratory exam: Present: clear to auscultation bilaterally. Absent: rhonchi, stridor, wheezes - Cardiovascular Cardiovascular exam: Present: regular rate and rhythm - GI/Abdominal GI/Abdominal exam: Present: normal bowel sounds, tenderness (right upper quadrant), soft. Absent: distended, firm, rebound - Extremities Exam Extremities exam: Present: full ROM. Absent: edema - Neurological Exam Neurological exam: Present: alert, oriented X3, CN II-XII intact - Psychiatric Psychiatric exam: Present: normal affect, normal mood. Absent: agitated, anxious - Skin Skin exam: Present: normal color, warm, dry Results - Labs CBC & BMP: 03/12/17 13:31 03/12/17 13:31 Lab Results: I have reviewed the past 24 hour labs Labs: Lipase 80 Alkaline phosphate 126 BUN 5 and creatinine 0.7 - EKG EKG results: interpreted by ERMD - Diagnostic Findings Procedure: Abdominal x-ray: report reviewed by me (No definite acute abnormality , changes of chronic pancreatitis as before), Chest x-ray: report reviewed by me (Right lower lobe pulmonary nodule as noted on recent CT, the lesion has been recently biopsied, no acute process otherwise) <Ayesha Menchaca - Last Filed: 03/12/17 16:44> History of Present Illness History of present illness: Mr. Lee is a 51 year old male who was sent for evaluation of elevated blood pressure and abdominal pain.Patient seen, examined and discussed with the ALIGNER BARREL AND RECEIVER. On further evaluation, I realized patient actually belongs to the Family [facility] group so we will defer further care to them. Exam - Constitutional Vitals: Period Temp Pulse Resp BP Sys/Esquivel Pulse Ox Last 24 Hr 98.4 F-98.4 F 57-76 20-20 170-237/104-129 97-100 Results - Labs CBC & BMP: 03/12/17 13:31 03/12/17 13:31
[2017-03-12] MEDS ORDERED: ONDANSETRON 4 MG/2 ML VIAL IV PRN (16:02)
--- NOTE | 2017-03-12 16:29 | Family Practice History&Phys ---
Assessment and Plan (1) Essential hypertension Status: Chronic Assessment and plan: 1.uncontrolled, Will start lisinopril 20 mg Bid , hydralazine 25 mg po Tid, 2. Recurrent pancreatitis, with abdominal pain, GERD, and IV pain meds, IV Zofran, Protonix, 3. Nicotine patch for smoking 4. Has lung cancer, adenocarcinoma right, follow oncologist, cardiothoracic surgeon recommendation, possible surgery during this hospital stay Current Visit: Yes (2) Recurrent pancreatitis Status: Acute Current Visit: Yes (3) Right lower lobe lung mass Status: Acute Current Visit: Yes (4) Abdominal pain Status: Acute Current Visit: Yes (5) GERD (gastroesophageal reflux disease) Status: Chronic Current Visit: Yes (6) History of alcohol abuse Status: Chronic Current Visit: Yes (7) Tobacco abuse Status: Chronic Current Visit: Yes History of Present Illness Chief complaint: was sent from for high BP, abdominal pain since 4-5 days History of present illness: Mr. Lee is a 51 year old male PCP: Dr. Montenegro, last seen in clinic 03/05/2017 History obtained from pt, was sent from clinic for high bp, pt recently diagnosed with rt lung cancer, adenocarcinoma, is scheduled for Sx tomorrow Am, c/o abdominal pain since 4-5 days , intermittent , 01/22 , on opoids , llast norco taken yesterday ,is scheduled for pain clinic appt, has h/o recurrent pancreatitis episodes , BM regular , last BM this Am, last meal yesterday satinder, no fever , chest pain, headaches or dizziness, no nausea, vomiting, last alcohol intake 7 days ago, about 12 oz, smokes 1PPD, Home Medications Medication Instructions Recorded Confirmed Type Lisinopril [Lisinopril] 10 mg PO QAM 02/09/17 03/12/17 History Citalopram Hydrobromide [Celexa] 10 mg PO DAILY 03/12/17 03/12/17 History HYDROcodone/ACETAMIN 7.5-325 1 tablet PO Q6H 03/12/17 03/12/17 History [[place] 7.5-325] Pantoprazole Tab [Protonix Tab] 40 mg PO DAILY 03/12/17 03/12/17 History Allergies Allergy/AdvReac Type Severity Reaction Status Date / Time No Known Allergies Allergy Verified 08/10/16 08:27 - Constitutional Constitutional: Present: as per HPI - EENT Eyes: Present: as per HPI - Cardiovascular Cardiovascular: Present: as per HPI - Respiratory Respiratory: Present: as per HPI - Gastrointestinal Gastrointestinal: Present: as per HPI - Genitourinary Genitourinary: Present: as per HPI - Musculoskeletal Musculoskeletal: Present: as per HPI - Neurological Neurological: Present: as per HPI - Psychiatric Psychiatric: Present: as per HPI - Endocrine Endocrine: Present: as per HPI - Hematologic/Lymphatic Hematologic/Lymphatic: Present: as per HPI Medical,Surgical,& Family Hx - Medical History Cardio: History of: Hypertension Psychological: History of: Depression Neurology: History of: Migraine HEENT: History of: Eye Problem (wears glasses) Endocrine: No history of: Diabetes Mellitus (NIDDM) Respiratory: History of: Lung Cancer Gastrointestinal: History of: GERD, Pancreatitis, GI Problems Musculoskeletal: History of: Back/Neck Problems (chronic back and neck pain), Herniated Disk - Surgical History Cardiac Surgeries: Patient Denies: Cardiac Catheterization, Cardiac Surgery Thoracic Surgeries: Patient denies;: Organ Transplant Neurologic Surgeries: Patient denies: Neurologic Surgery Abdominal Surgeries: Surgical HX of: Abdominal Surgery (remove cyst from pancreas) Reproductive Surgeries: Patient denies;: Genitourinary Surgery Orthopedic Surgeries: Surgical HX of;: Spinal Surgery (lower back) - Family History Family History: Reports;: Family Cancer (Sister), Family Diabetes (Grandmother) , Family Hypertension, Family Stroke - Social History Smoking Status: Current every day smoker Frequency of Alcohol Use: None Type of Drug Use: None Exam - Constitutional Vitals: Period Temp Pulse Resp BP Sys/Esquivel Pulse Ox Last 24 Hr 98.4 F-98.4 F 57-76 20-20 170-237/104-129 97-100 Exam: Examination: Examined in the ER GENERAL: Alert, oriented, in no acute distress , thin built male patient, Lying in the bed, HEENT: normal, ,PERRLA. EOMI. Mucous membranes are moist. Oral cavity: Poor oral and dental hygiene NECK: Neck is supple. No JVD. No carotid bruit. No thyromegaly. CVS: Regular rate and rhythm. S1 and S2 are normal. RESPIRATORY: Clear to ausculation bilaterally , No wheezes, rales or rhonchi. ABDOMEN: Soft epigastric, umbilical area tender, with mild guarding, no rigidity, no rebound tenderness. Bowel sounds are present. No hepatosplenomegaly. EXT: No edema. 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 Motor strength normal. Results - Labs CBC & BMP: 03/12/17 13:31 03/12/17 13:31 Lab Results: I have reviewed the past 24 hour labs - Diagnostic Findings Procedure: Abdominal x-ray: report reviewed by me, Chest x-ray: report reviewed by me
[2017-03-12] MEDS ORDERED: SODIUM CHLORIDE 0.9% 1,000 ML IV SCH (16:30)
[2017-03-12] MEDS ORDERED: SODIUM CHLORIDE 0.9% 250 ML IV PRN (17:00)
--- NOTE | 2017-03-12 17:03 | Event Note ---
The patient presented to my clinic this morning to discuss his preop testing. However on his vital signs he was found to have urgent hypertension with systolic blood pressure above 180. He was sent immediately to the ER. This got corrected in the ER he got admitted to the hospitalist service. I will continue to proceed with his planned surgery tomorrow on March 13 for right VATS right lower lobectomy with mediastinal lymph node dissection for his adenocarcinoma.
[2017-03-12 17:51] LABS: PT Patient Result 10.8 SECS; Partial Thromboplastin Time 28.7 SECS (0-40)
[2017-03-12] MEDS: hydrALAZINE 25 MG TABLET PO SCH ×2 (18:25→21:28)
[2017-03-12] MEDS: LISINOPRIL 20 MG TABLET PO SCH ×2 (18:27→21:28)
[2017-03-12] MEDS: HYDROmorphone 2 MG/1 ML VIAL IV PRN (19:44)
[2017-03-12] MEDS: hydrALAZINE 20 MG/1 ML VIAL IV PRN (19:48)
[2017-03-13] MEDS ORDERED: CEFUROXIME 1,500 MG VIAL IM ONE (00:01)
[2017-03-13] MEDS ORDERED: BUPIVACAINE LIPOSOMAL 20 ML/266 MG VIAL INFILTRAT ONE (00:01)
[2017-03-13] MEDS: HYDROmorphone 2 MG/1 ML VIAL IV PRN ×2 (00:03→03:53)
[2017-03-13] MEDS: CLORAZEPATE 7.5 MG TABLET PO PRN (00:20)
[2017-03-13] MEDS: hydrALAZINE 20 MG/1 ML VIAL IV PRN ×2 (04:06→19:48)
[2017-03-13] MEDS ORDERED: ALBUTEROL/IPRATROPIUM 3 ML NEB RESP TX ONE (05:30)
[2017-03-13] MEDS ORDERED: DIAZEPAM 5 MG TABLET PO ONE (06:00)
[2017-03-13] MEDS ORDERED: FAMOTIDINE 20 MG TABLET PO ONE (06:00)
[2017-03-13] MEDS ORDERED: ACETAMINOPHEN INJ 1,000 MG in PREMIX 1 EACH IV ONE (06:01)
[2017-03-13] MEDS ORDERED: CITALOPRAM 20 MG TABLET PO ONE (06:21)
[2017-03-13] MEDS ORDERED: METOPROLOL TARTRATE 5 MG/5 ML VIAL IV ONE (06:25)
[2017-03-13] MEDS ORDERED: LISINOPRIL 20 MG TABLET PO ONE (06:30)
[2017-03-13] MEDS ORDERED: hydrALAZINE 25 MG TABLET PO ONE (06:30)
[2017-03-13] MEDS ORDERED: CEFUROXIME INJ 1,500 MG in SODIUM CHLORIDE 0.9% 100 ML IV ONE (06:30)
[2017-03-13] MEDS ORDERED: TISSUE ADHESIVE 1 EACH APPLICATOR TOP ONE (06:37)
[2017-03-13] MEDS ORDERED: HEPARIN 5,000 UNIT/1 ML VIAL ONE (06:37)
[2017-03-13] MEDS ORDERED: BUPIVACAINE LIPOSOMAL 20 ML/266 MG VIAL ONE ×2 (06:38→13:33)
[2017-03-13] MEDS ORDERED: TALC INTRAPLEURAL POWDER 5 GM BOTTLE INTRAPLEUR ONE (06:41)
[2017-03-13 07:05] LABS: Basophils % 0.3 % (0.0-0.8); Eosinophils # 0.1 10*3/uL (0.0-0.87); Hematocrit 37.1 VOL% (42.0-52.0); Hemoglobin 12.3 GM/DL (14.0-18.0); Immature Granulocytes % 0.8 %; Immature Granulocytes Absolute 0.08 #; Lymphocytes % 20.9 % (21.2-54.2); Mean Corpuscular HGB Conc 33.2 GM/DL (32-36); Mean Corpuscular Hemoglobin 31 PG (27-34); Mean Corpuscular Volume 94.2 FL (87-102); Mean Platelet Volume 9.6 FL (9.6-12.0); Monocytes # 0.5 10*3/uL (0.11-0.8); Monocytes % 5.1 % (1.7-12.7); NRBC # 0.02 10*3/uL; Neutrophils # 6.9 10*3/uL (1.4-7.4); Neutrophils % 71.9 % (38.7-73.9); Platelet Count 215 T/CUMM (130-400); Red Blood Count 3.94 MC/CUMM (3.8-5.5); Red Cell Distribution Width 16.4 % (9.3-17.3); White Blood Count 9.7 T/CUMM (4-12)
[2017-03-13 07:24] LABS: PT Patient Result 10.3 SECS
[2017-03-13 07:42] LABS: Albumin 3.3 G/DL (3.4-5.0); Bilirubin,Total 0.5 MG/DL (0.2-1.0); Calcium 8.8 MG/DL (8.5-10.1); Osmolality,Calculated 279.1 MOS/KG (273-304); Potassium 3.9 MMOL/L (3.5-5.1); Total Protein 7.2 G/DL (6.4-8.3)
--- NOTE | 2017-03-13 09:23 | Event Note ---
pt is not on the floor , currently in OR , for right VATS right lower lobectomy with mediastinal lymph node dissection for his adenocarcinoma.
--- NOTE | 2017-03-13 09:26 | Family Practice Progress Note ---
Family Practice - PN: Subj Interval history: PCP:, pt admitted for Rt lower lung cancer, s/p rt lower lobectomy/mediastinal lymph node dissection, has h/o HTN, recurrent pancreatitis, chronic abdominal pain, h/o alcohol abuse and nicotine ciggarette dependence pt seen and examined in ICU, Pt is post op ,is drowsy , but awakable , has chest drain in place , on warming blanket currently, Exam (Progress Note) - Constitutional Vitals: Period Temp Pulse Resp BP Sys/Esquivel Pulse Ox Last 24 Hr 97.1 F-98.4 F 57-96 18-20 130-237/86-129 96-100 Exam: Examination: GENERAL:Sleeping , is post op, drowsy , arousable,warming blanket in place, is sweating at face, HEENT: normal, ,PERRLA. EOMI. NECK: Neck is supple. No JVD. No carotid bruit. No thyromegaly. CVS: Regular rate and rhythm. S1 and S2 are normal. RESPIRATORY: Clear to ausculation bilaterally in upper lobes,chest drain in place, ABDOMEN: Soft, NT,Bowel sounds are present. No hepatosplenomegaly. EXT: No edema SkIN : mildly pale appearing Results - Labs CBC & BMP: 03/13/17 13:50 03/13/17 13:50 Lab Results: I have reviewed the past 24 hour labs - Diagnostic Findings Procedure: Chest x-ray: report reviewed by me Assessment and Plan (1) Cancer of lower lobe of right lung Problem details: s/p rt lower lobectomy and complete mediastinal lymph node dissection Status: Acute Assessment and plan: is post op, stable ,continue monitoring in ICU, 2. HTN , BP improving, continue current regimen, 3. recurrent pancreatitis, stable , 4. continue recommendations as per cardiothoracic SX, Current Visit: Yes (2) Essential hypertension Status: Chronic Current Visit: Yes (3) Recurrent pancreatitis Status: Acute Current Visit: Yes (4) Right lower lobe lung mass Status: Acute Current Visit: Yes (5) Abdominal pain Status: Acute Current Visit: Yes (6) GERD (gastroesophageal reflux disease) Status: Chronic Current Visit: Yes (7) History of alcohol abuse Status: Chronic Current Visit: Yes (8) Tobacco abuse Status: Chronic Current Visit: Yes
[2017-03-13 10:12] LABS: Apearance,Urine CLEAR (Clear); Bilirubin,Urine Negative (Negative); Blood, Urine Negative (Negative); Glucose,Urine (UA) Negative (Negative); Ketones,Urine Negative (Negative); Nitrite,Urine Negative (Negative); Protein,Urine Negative; RBC,Urine 1 /HPF (0-4); Squamous Epithelial Cell,Urine Occasional /HPF (0-10); Urine Color Yellow (Yellow); Urine Specific Gravity 1.008 (1.001-1.035); Urine Urobilinogen < 2.0 EU/DL (0.2-1.0); WBC,Urine 1 /HPF (0-6)
[2017-03-13] MEDS ORDERED: GLYCOPYRROLATE 0.4 MG/2 ML VIAL ONE (14:08)
[2017-03-13] MEDS ORDERED: NEOSTIGMINE 10 MG/10 ML VIAL ONE (14:08)
[2017-03-13] MEDS ORDERED: fentaNYL 100 MCG/2 ML VIAL ONE (14:08)
[2017-03-13] MEDS ORDERED: ROCURONIUM 100 MG/10 ML VIAL IV ONE (14:09)
[2017-03-13] MEDS ORDERED: ONDANSETRON 4 MG/2 ML VIAL ONE (14:09)
[2017-03-13] MEDS ORDERED: SUCCINYLCHOLINE 200 MG/10 ML VIAL ONE (14:09)
[2017-03-13] MEDS ORDERED: ACETAMINOPHEN 1,000 MG/100 ML VIAL IV ONE (14:10)
[2017-03-13] MEDS ORDERED: SEVOFLURANE 1 UNIT/15 MINUTE INH ONE (14:10)
[2017-03-13] MEDS ORDERED: SODIUM CHLORIDE 0.9% 1,000 ML IV ONE (14:11)
[2017-03-13] MEDS ORDERED: LACTATED RINGERS 1,000 ML IV ONE (14:11)
[2017-03-13] MEDS ORDERED: MIDAZOLAM 2 MG/2 ML VIAL ONE (14:12)
[2017-03-13] MEDS: PANTOPRAZOLE 40 MG VIAL IV SCH (14:16)
[2017-03-13] MEDS: hydrALAZINE 25 MG TABLET PO SCH ×3 (14:16→21:22)
[2017-03-13] MEDS: NICOTINE 14 MG/24 HR PATCH TRANSDERM SCH (14:16)
[2017-03-13] MEDS: LISINOPRIL 20 MG TABLET PO SCH ×2 (14:16→21:22)
[2017-03-13] MEDS: CITALOPRAM 20 MG TABLET PO SCH (14:16)
[2017-03-13] MEDS ORDERED: GLUCAGON 1 MG VIAL IM PRN (14:18)
[2017-03-13] MEDS ORDERED: HYDROmorphone 2 MG/1 ML VIAL IV PRN (14:18)
[2017-03-13] MEDS ORDERED: ONDANSETRON 4 MG/2 ML VIAL IV PRN (14:18)
[2017-03-13] MEDS ORDERED: DEXTROSE 50% 25 GM/50 ML SYRINGE IV PRN (14:18)
--- NOTE | 2017-03-13 14:26 | Operative Note ---
Date of procedure: 03/13/17 Pre-op diagnosis: Right lower lobe lung cancer Post-op diagnosis: same Procedure: Procedure: 1. Bronchoscopy 3. Right video-assisted thoracoscopy 4. Injection of liposomal bupivacaine with intercostal nerve blocks levels 2, 3 , 4, 5, 6, 7, 8 5. Right lower lobectomy 6. Complete mediastinal lymph node dissection Details of the procedure: The patient was brought into the OR placed supine on the OR table and general endotracheal anesthesia was induced without without any problems. Antibiotics were given. Time out was performed. At this point I decided to proceed with right video-assisted thoracoscopy to do the right lower lobectomy and mediastinal lymph node. The patient was turned and the chest was prepared and draped in sterile fashion. An incision was made over the eighth rib and space was entered bluntly. Survey of the chest didn't show any obvious lesions other than the right lower lobe. The inferior pulmonary ligament was taken down and dissected the hilum all around the lung. The right inferior pulmonary vein was identified and encircled with silk stitch. Was created and I used a white load stapler to resect the pulmonary vein. Care was taken to preserve the right middle lobe vein and the right upper lobe vein. After that I proceeded to identify the interlobar artery and I opened the fissure.. Dissection was carried around the artery. Of note there was severely adhesed large and solid lymph nodes likely related to chronic pancreatitis after circling the artery successfully I dissected it using white load. I after that identified the interlobar artery and finished the fissure using linear jaycee. This was carried all the way down. After that the bronchus was identified and it linear stapler. Another branch of the pulmonary artery was also identified and another white load was used to resect that. The lobe was then handed over after complete resection and then turned my attention to completion of lymph node dissection. Identified level VII lymph node as well as level IV lymph nodes. There was collected and the would be sent for permanent pathology. The patient tolerated the procedure well hemostasis was achieved and 2 chest tubes were inserted without any problems. The right middle and lower lobes were inflated successfully without any problems. I did not see a leak. The patient was extubated and moved to PACU in good condition. Anesthesia: GETA Surgeon / Physician: Sailaja Merida Estimated blood loss: other (400) Specimens: other (Right lower lobe, level 9R, level 7, level 4R lymph nodes) Condition: stable Disposition: PACU Results - Labs CBC & BMP: 03/13/17 06:45 03/13/17 06:45 Discharge Plan - Discharge Medications No Action Lisinopril [Lisinopril] 10 mg PO QAM HYDROcodone/ACETAMIN 7.5-325 [[place] 7.5-325] 1 tablet PO Q6H Citalopram Hydrobromide [Celexa] 10 mg PO DAILY Pantoprazole Tab [Protonix Tab] 40 mg PO DAILY - Follow Up or Referral - Forms/Instructions
--- NOTE | 2017-03-13 14:35 | XRay Report ---
XR chest 1V portable Indication: Post VATS, right lower lobectomy, central line Comparison: Chest x-ray dated March 12, 2017 Technique: Single frontal view of the chest. Findings: Heart size within normal limits. Right-sided central venous catheter tip injection over the high right atrium. 2 right-sided chest tubes terminate over the right lung apex. Suspect tiny residual right apical pneumothorax. Small right pleural effusion. Mild volume loss in the right hemithorax. Superficial skin jaycee noted projecting over the right chest. Visualized osseous structures appear grossly unchanged.. IMPRESSION: As above. PROCEDURE INTERPRETED AT [facility] DEPARTMENT OF RADIOLOGY Final Report Signed by: Dr Barney Chisholm
[2017-03-13 14:36] LABS: Basophils % 0.1 % (0.0-0.8); Eosinophils % 0.1 % (0.00-10.9); Hematocrit 31.6 VOL% (42.0-52.0); Hemoglobin 10.4 GM/DL (14.0-18.0); Immature Granulocytes % 0.9 %; Immature Granulocytes Absolute 0.12 #; Lymphocytes # 0.8 10*3/uL (1.4-4.0); Lymphocytes % 5.9 % (21.2-54.2); Mean Corpuscular HGB Conc 32.9 GM/DL (32-36); Mean Corpuscular Hemoglobin 32 PG (27-34); Mean Corpuscular Volume 95.8 FL (87-102); Monocytes # 0.5 10*3/uL (0.11-0.8); Monocytes % 3.3 % (1.7-12.7); Neutrophils # 12.5 10*3/uL (1.4-7.4); Neutrophils % 89.7 % (38.7-73.9); Platelet Count 190 T/CUMM (130-400); Red Cell Distribution Width 16.5 % (9.3-17.3); White Blood Count 13.9 T/CUMM (4-12)
[2017-03-13 14:52] LABS: Calcium 7.9 MG/DL (8.5-10.1); Osmolality,Calculated 282.4 MOS/KG (273-304); Potassium 4.1 MMOL/L (3.5-5.1)
[2017-03-13] MEDS ORDERED: NALOXONE 0.4 MG/ML VIAL IV PRN (15:03)
[2017-03-13] MEDS: GABAPENTIN 100 MG CAPSULE PO SCH ×2 (15:17→21:22)
[2017-03-13] MEDS: KETOROLAC 15 MG/1 ML VIAL IV SCH ×2 (15:17→22:10)
[2017-03-13] MEDS: HYDROmorphone PCA 30 MG/30 ML SYRINGE IV SCH (15:38)
--- NOTE | 2017-03-13 16:36 | Anesthesia Post-Op ---
Anesthesia Post OP - Post Ansesthetic Evaluation Patient seen in post op: Yes Resp: within normal limits CV: within normal limits Mental: within normal limits Temp: within normal limits [id number]: within normal limits Nausea and Vomiting: within normal limits Pain: within normal limits Patient seen at: date (03/13/17), time (8705)
[2017-03-13] MEDS: POTASSIUM CHLORIDE INJ 10 MEQ in SODIUM CHLORIDE 0.45% 1,000 ML IV SCH ×2 (16:45→23:49)
[2017-03-13] MEDS: ACETAMINOPHEN INJ 1,000 MG in PREMIX 1 EACH IV SCH (21:18)
[2017-03-13] MEDS: CEFUROXIME INJ 1,500 MG in SODIUM CHLORIDE 0.9% 100 ML IV SCH (23:40)
[2017-03-14] MEDS: POTASSIUM CHLORIDE INJ 10 MEQ in SODIUM CHLORIDE 0.45% 1,000 ML IV SCH ×2 (02:00→09:49)
[2017-03-14] MEDS: KETOROLAC 15 MG/1 ML VIAL IV SCH ×4 (03:25→21:02)
[2017-03-14] MEDS: ACETAMINOPHEN INJ 1,000 MG in PREMIX 1 EACH IV SCH (03:30)
[2017-03-14 04:28] LABS: Basophils % 0.1 % (0.0-0.8); Hematocrit 30.2 VOL% (42.0-52.0); Hemoglobin 10.3 GM/DL (14.0-18.0); Immature Granulocytes % 0.4 %; Immature Granulocytes Absolute 0.06 #; Lymphocytes # 1.2 10*3/uL (1.4-4.0); Lymphocytes % 8.3 % (21.2-54.2); Mean Corpuscular HGB Conc 34.1 GM/DL (32-36); Mean Corpuscular Hemoglobin 31 PG (27-34); Mean Corpuscular Volume 92.1 FL (87-102); Mean Platelet Volume 9.4 FL (9.6-12.0); Monocytes # 0.6 10*3/uL (0.11-0.8); Monocytes % 4.3 % (1.7-12.7); Neutrophils # 12.4 10*3/uL (1.4-7.4); Neutrophils % 86.9 % (38.7-73.9); Platelet Count 154 T/CUMM (130-400); Red Blood Count 3.28 MC/CUMM (3.8-5.5); Red Cell Distribution Width 17.1 % (9.3-17.3); White Blood Count 14.3 T/CUMM (4-12)
[2017-03-14 05:02] LABS: Calcium 7.8 MG/DL (8.5-10.1); Osmolality,Calculated 277.4 MOS/KG (273-304); Potassium 3.9 MMOL/L (3.5-5.1)
[2017-03-14 05:37] LABS: Magnesium 1.9 MG/DL (1.8-2.4); Phosphorous 4.1 MG/DL (2.5-4.9)
--- NOTE | 2017-03-14 08:39 | XRay Report ---
History: Postop right lower lobe lobectomy. Adenocarcinoma right lung Date: 03/14/2017 at 3:21 AM Study: Chest x-ray PA and lateral Comparison exam: March 13, 2017 There are 2 chest tubes in the right hemithorax which are in stable satisfactory position. No pneumothorax is identified. There is some mild atelectatic change in the right lower lung. There is decreased mild right pleural effusion. There is no new or worsening pulmonary infiltrate otherwise. The cardiomediastinal silhouette and pulmonary vasculature are stable. Osseous structures are unchanged. Impression: Stable postoperative chest. No pneumothorax. Reduced right-sided pleural effusion PROCEDURE INTERPRETED AT [facility] DEPARTMENT OF RADIOLOGY Final Report Signed by: Dr. Jessica Crowder
--- NOTE | 2017-03-14 09:07 | Family Practice Progress Note ---
Family Practice - PN: Subj Interval history: PCP:, pt admitted for Rt lower lung cancer, s/p rt lower lobectomy/mediastinal lymph node dissection, postop day 1 today has h/o HTN, recurrent pancreatitis, chronic abdominal pain, h/o alcohol abuse and nicotine ciggarette dependence pt seen and examined in ICU, has rt chest drain, Augustin's,on IVF Pt is post op , is more awake, alert today, but feeling tired/fatigued, is having breakfast. Mentions is hurting at the right chest at the surgery site, and abdominal pain on and off. No fevers/nausea/vomiting/dizziness. No overnight events reported by the nurse. Exam (Progress Note) - Constitutional Vitals: Period Temp Pulse Resp BP Sys/Esquivel Pulse Ox Last 24 Hr 96.9 F-98.6 F 72-99 10-20 105-222/52-89 95-100 Exam: Examination: GENERAL: Alert, awake, is having breakfast , has Augustin is in place, chest drain present at the right chest, HEENT: normal, ,PERRLA. EOMI. NECK: Neck is supple. No JVD. No carotid bruit. No thyromegaly. CVS: Regular rate and rhythm. S1 and S2 are normal. RESPIRATORY: Right upper lobe crackles, left lung clear to auscultation ABDOMEN: Mild generalized tenderness, Bowel sounds are present. No hepatosplenomegaly. EXT: No edema SkIN : mildly pale appearing Results - Labs CBC & BMP: 03/14/17 04:20 03/14/17 04:20 Lab Results: I have reviewed the past 24 hour labs - Diagnostic Findings Procedure: Chest x-ray: report reviewed by me Assessment and Plan (1) Cancer of lower lobe of right lung Problem details: s/p rt lower lobectomy and complete mediastinal lymph node dissection Status: Acute Assessment and plan: is post op day 1, stable , will continue monitoring in ICU for today Pain control, fair, On pain meds, will Decrease IVF, 2. HTN , BP improving, continue current regimen, 3. recurrent pancreatitis, stable , 4. continue recommendations as per cardiothoracic SX, Current Visit: Yes (2) Essential hypertension Status: Chronic Assessment and plan: 1.uncontrolled, Will start lisinopril 20 mg Bid , hydralazine 25 mg po Tid, 2. Recurrent pancreatitis, with abdominal pain, GERD, and IV pain meds, IV Zofran, Protonix, 3. Nicotine patch for smoking 4. Has lung cancer, adenocarcinoma right, follow oncologist, cardiothoracic surgeon recommendation, possible surgery during this hospital stay Current Visit: Yes (3) Recurrent pancreatitis Status: Chronic Current Visit: Yes (4) Right lower lobe lung mass Status: Acute Current Visit: Yes (5) Abdominal pain Status: Chronic Current Visit: Yes (6) GERD (gastroesophageal reflux disease) Status: Chronic Current Visit: Yes (7) History of alcohol abuse Status: Chronic Current Visit: Yes (8) Tobacco abuse Status: Chronic Current Visit: Yes
[2017-03-14] MEDS: CITALOPRAM 20 MG TABLET PO SCH (09:28)
[2017-03-14] MEDS: LISINOPRIL 20 MG TABLET PO SCH ×2 (09:29→21:00)
[2017-03-14] MEDS: NICOTINE 14 MG/24 HR PATCH TRANSDERM SCH (09:29)
[2017-03-14] MEDS: hydrALAZINE 25 MG TABLET PO SCH ×3 (09:29→21:00)
[2017-03-14] MEDS: ACETAMINOPHEN 500 MG TABLET PO SCH ×3 (09:29→20:58)
[2017-03-14] MEDS: GABAPENTIN 100 MG CAPSULE PO SCH ×3 (09:29→21:00)
[2017-03-14] MEDS: ENOXAPARIN 40 MG/0.4 ML SYRINGE SUBCUT SCH (09:30)
[2017-03-14] MEDS: PANTOPRAZOLE 40 MG VIAL IV SCH ×2 (09:31→09:47)
[2017-03-14] MEDS: CELECOXIB 200 MG CAPSULE PO SCH ×2 (09:47→20:59)
[2017-03-14] MEDS: CEFUROXIME INJ 1,500 MG in SODIUM CHLORIDE 0.9% 100 ML IV SCH (11:05)
[2017-03-14] MEDS: HYDROmorphone 2 MG/1 ML VIAL IV PRN ×2 (17:37→22:12)
--- NOTE | 2017-03-14 17:46 | Cardiothoracic Progress Note ---
Assessment and Plan - Time spent with patient Time spent with patient: Greater than 30 minutes (1) Cancer of lower lobe of right lung Problem details: s/p rt lower lobectomy and complete mediastinal lymph node dissection Status: Acute Assessment and plan: Postoperative day 1 status post right VATS right lower lobectomy with mediastinal lymph node dissection for non-small cell lung cancer. The patient did very well. His pain is well controlled. He has minimal chest tube output. He does have air leak on expiration. Keep the chest tube to suction, DC arterial line, DC Augustin. Advance diet. Out of bed. Current Visit: Yes Exam (Progress Note) - Constitutional Vitals: Period Temp Pulse Resp BP Sys/Esquivel Pulse Ox Last 24 Hr 98.0 F-98.6 F 82-99 10-20 116-222/64-89 100-100 Result/EKG - Labs CBC & BMP: 03/14/17 04:20 03/14/17 04:20 Labs: Laboratory Results - last 24 hr 03/13/17 03/14/17 03/14/17 06:45 04:20 04:20 WBC 14.3 H RBC 3.28 L Hgb 10.3 L Hct 30.2 L MCV 92.1 MCH 31 MCHC 34.1 RDW 17.1 Plt Count 154 MPV 9.4 L Neut % (Auto) 86.9 H Lymph % (Auto) 8.3 L [place] % (Auto) 4.3 Eos % (Auto) 0.0 Baso % (Auto) 0.1 Neut # (Auto) 12.4 H Lymph # (Auto) 1.2 L [place] # (Auto) 0.6 Eos # (Auto) 0.0 Baso # (Auto) 0.0 Immature Gran % 0.4 Nucleated RBC % 0.0 Immature Gran # 0.06 Nucleated RBCs # 0.00 Immature Plt Fraction 0.0 Sodium Potassium Chloride Carbon Dioxide Anion Gap BUN Creatinine GFR Calculation BUN/Creatinine Ratio Glucose Calculated Osmolality Calcium Phosphorus 4.1 Magnesium 1.9 Blood Type Cancelled Antibody Screen Cancelled Crossmatch See Detail Blood Bank Comment Cancelled 03/14/17 04:20 WBC RBC Hgb Hct MCV MCH MCHC RDW Plt Count MPV Neut % (Auto) Lymph % (Auto) [place] % (Auto) Eos % (Auto) Baso % (Auto) Neut # (Auto) Lymph # (Auto) [place] # (Auto) Eos # (Auto) Baso # (Auto) Immature Gran % Nucleated RBC % Immature Gran # Nucleated RBCs # Immature Plt Fraction Sodium 140 Potassium 3.9 Chloride 107 Carbon Dioxide 28 Anion Gap 8.9 BUN 6 L Creatinine 0.50 L GFR Calculation 134 BUN/Creatinine Ratio 12.00 Glucose 112 H Calculated Osmolality 277.4 Calcium 7.8 L Phosphorus Magnesium Blood Type Antibody Screen Crossmatch Blood Bank Comment
[2017-03-15] MEDS: POTASSIUM CHLORIDE INJ 10 MEQ in SODIUM CHLORIDE 0.45% 1,000 ML IV SCH (00:04)
[2017-03-15] MEDS: KETOROLAC 15 MG/1 ML VIAL IV SCH ×2 (02:46→08:20)
[2017-03-15] MEDS: ACETAMINOPHEN 500 MG TABLET PO SCH ×4 (02:47→21:05)
[2017-03-15] MEDS: HYDROmorphone 2 MG/1 ML VIAL IV PRN ×3 (02:50→09:25)
[2017-03-15] MEDS: hydrALAZINE 20 MG/1 ML VIAL IV PRN ×2 (04:55→13:49)
[2017-03-15 06:14] LABS: Basophils % 0.2 % (0.0-0.8); Eosinophils # 0.1 10*3/uL (0.0-0.87); Eosinophils % 0.8 % (0.00-10.9); Hematocrit 29.9 VOL% (42.0-52.0); Hemoglobin 9.9 GM/DL (14.0-18.0); Immature Granulocytes % 0.8 %; Immature Granulocytes Absolute 0.09 #; Lymphocytes # 1.3 10*3/uL (1.4-4.0); Lymphocytes % 11.3 % (21.2-54.2); Mean Corpuscular HGB Conc 33.1 GM/DL (32-36); Mean Corpuscular Hemoglobin 31 PG (27-34); Mean Corpuscular Volume 94.3 FL (87-102); Mean Platelet Volume 10.5 FL (9.6-12.0); Monocytes # 0.5 10*3/uL (0.11-0.8); Monocytes % 4.1 % (1.7-12.7); Neutrophils # 9.2 10*3/uL (1.4-7.4); Neutrophils % 82.8 % (38.7-73.9); Platelet Count 167 T/CUMM (130-400); Red Blood Count 3.17 MC/CUMM (3.8-5.5); Red Cell Distribution Width 17.3 % (9.3-17.3); White Blood Count 11.1 T/CUMM (4-12)
[2017-03-15 06:49] LABS: Calcium 8.1 MG/DL (8.5-10.1); Osmolality,Calculated 273.5 MOS/KG (273-304); Potassium 3.9 MMOL/L (3.5-5.1)
[2017-03-15] MEDS: HYDROmorphone PCA 30 MG/30 ML SYRINGE IV SCH (07:18)
[2017-03-15] MEDS: hydrALAZINE 25 MG TABLET PO SCH ×3 (08:20→21:06)
[2017-03-15] MEDS: METOPROLOL TARTRATE 25 MG TABLET PO SCH ×2 (08:20→21:06)
[2017-03-15] MEDS: CITALOPRAM 20 MG TABLET PO SCH (08:20)
[2017-03-15] MEDS: GABAPENTIN 100 MG CAPSULE PO SCH ×3 (08:20→21:06)
[2017-03-15] MEDS: LISINOPRIL 20 MG TABLET PO SCH ×2 (08:20→21:07)
[2017-03-15] MEDS: ENOXAPARIN 40 MG/0.4 ML SYRINGE SUBCUT SCH (08:20)
[2017-03-15] MEDS: CELECOXIB 200 MG CAPSULE PO SCH ×2 (08:20→21:06)
[2017-03-15] MEDS: NICOTINE 14 MG/24 HR PATCH TRANSDERM SCH (08:21)
[2017-03-15] MEDS: PANTOPRAZOLE 40 MG VIAL IV SCH (08:21)
--- NOTE | 2017-03-15 08:21 | XRay Report ---
XR chest 2V Date: 03/15/2017 4:00 AM History: Right lower lobectomy Comparison: 03/15/2017 Technique: PA and lateral chest Findings: The heart is normal in size with stable supportive devices. Recent right lower lobectomy with larger right pneumothorax measuring 37 mm from the pleural line to the right lateral chest wall. Progressive atelectasis. Small pleural effusions. Stable mediastinum and osseous structures. Impression: Recent right lower lobectomy with larger right pneumothorax which measures 37 mm of pleural line to the lateral right chest wall location. This finding was discussed the patient's nurse, Carlos at 8:15 AM on 03/15/2017. Critical test results PROCEDURE INTERPRETED AT [facility] DEPARTMENT OF RADIOLOGY Final Report Signed by: Dr. Ritu Gupta
--- NOTE | 2017-03-15 08:37 | Family Practice Progress Note ---
Family Practice - PN: Subj Interval history: PCP:, pt admitted for Rt lower lung cancer, s/p rt lower lobectomy/mediastinal lymph node dissection, postop day 2 today has h/o HTN, recurrent pancreatitis, chronic abdominal pain, h/o alcohol abuse and nicotine ciggarette dependence pt seen and examined in ICU, stable, has rt chest drain, looking better overall than yesterday, is having breakfast. Mentions is hurting at the right chest at the surgery site02/22,, and abdominal pain too on and off. No fevers/nausea/vomiting/dizziness.is passing flatus,no BM since yesterday, No overnight events reported by the nurse. Exam (Progress Note) - Constitutional Vitals: Period Temp Pulse Resp BP Sys/Esquivel Pulse Ox Last 24 Hr 97.4 F-99.6 F 73-101 10-26 111-161/50-104 92-100 Exam: Examination: GENERAL: Alert, awake, is having breakfast , chest drain present at the right chest, HEENT: normal, ,PERRLA. EOMI. NECK: Neck is supple. No JVD. No carotid bruit. No thyromegaly. CVS: Regular rate and rhythm. S1 and S2 are normal. RESPIRATORY: Right upper, mid lobe crackles but better than yesterday,, left lung clear to auscultation ABDOMEN: generalized tenderness, Bowel sounds are present. No hepatosplenomegaly. EXT: No edema SkIN : mildly pale appearing Results - Labs CBC & BMP: 03/15/17 04:40 03/15/17 04:40 Lab Results: I have reviewed the past 24 hour labs - Diagnostic Findings Procedure: Chest x-ray: report reviewed by me Assessment and Plan (1) Cancer of lower lobe of right lung Problem details: s/p rt lower lobectomy and complete mediastinal lymph node dissection Status: Acute Assessment and plan: is post op day 2, stable , transfer to monitor bed today, Pain control, fair, d/c [employer]IT [employer] pump, will switch to more oral meds, 2. HTN , BP improving, continue current regimen, 3. recurrent pancreatitis, stable ,continue zofran and protonix , pain meds prn , 4. nicotine dependence, continue nicotine patch, continue recommendations as per cardiothoracic SX, Current Visit: Yes (2) Essential hypertension Status: Chronic Current Visit: Yes (3) Recurrent pancreatitis Status: Chronic Current Visit: Yes (4) Right lower lobe lung mass Status: Acute Current Visit: Yes (5) Abdominal pain Status: Chronic Current Visit: Yes (6) GERD (gastroesophageal reflux disease) Status: Chronic Current Visit: Yes (7) History of alcohol abuse Status: Chronic Current Visit: Yes (8) Tobacco abuse Status: Chronic Current Visit: Yes
[2017-03-15] MEDS ORDERED: DOCUSATE SODIUM 100 MG CAPSULE PO PRN (08:49)
[2017-03-15] MEDS: traMADol 50 MG TABLET PO PRN ×2 (11:33→17:12)
[2017-03-15] MEDS: HYDROmorphone 2 MG/1 ML VIAL IV SCH ×2 (13:49→22:10)
--- NOTE | 2017-03-15 14:16 | Pathology Report from [facility] ---
[facility] [place] : [id number] PATIENT NAME : Dada Katz ORDERING DR : Sailaja Merida MD CLINICAL HX: RT lung CA POST-OP DX: Same SPECIMEN INFO: #1 Level 9R lymph node #2 Right lower lobe #3 4R lymph node # 4 7R lymph node GROSS DESCRIPTION: #1 Received fresh labeled #1 is a hemorrhagic tissue fragment measuring 0.6 x 0.6 cm. Submitted in cassette #1.#2 The specimen labeled RIGHT LOWER LOBE is received fresh for frozen section consist of a right lower lung lobe measuring 15.5 x 12.5 x 4.0 cm. There is a wrent area noted with suture attached to the tissue beneath the pleural surface. The suture santiago the a pink-white circumscribed tumor mass measuring 1.9 x 1.3 cm. Does not grossly reach the surface and comes to within 2.3 cm of the bronchial margin. A few anthracotic lymph nodes are found which measures up 0.9 x 0.7 cm. The cut surfaces are spongy and hemorrhagic with no other masses appreciated. Sections submitted: Frozen section submitted: FS2A- bronchial vascular margin, [id number], Permanent section submitted: C and B-Tumor, E- entry level account representative pleural surface overlying tumor, 2F- lymph nodes.#3 Received fresh labeled #3 is an aggregate of hemorrhagic fatty tissue measuring 2.0 x 1.7 cm. Submitted in cassette #3.#4 Received fresh labeled #4 is a 0.6 x 0.4 cm red-black tissue fragment. Submitted in cassette #4. DIAGNOSIS FOR DADA KATZ: LUNG, RIGHT LOWER LOBE, LOBECTOMY (Intact, 15.5 x 12.5 x 4.0 cm): TUMOR TYPE: Non small cell, primary pulmonary adenocarcinoma HISTOLOGIC GRADE: Poorly differentiated (High grade) TUMOR SIZE: 1.9 x 1.3 cm. TUMOR SITE: Right lower lobe MARGINS: All margins uninvolved with carcinoma with nearest (bronchial) margin = 23 mm. FOCALITY: Unifocal VISCERAL PLEURAL INVASION: Not Present EXTRAPULMONARY EXTENSION: Not Present LYMPHOVASCULAR INVASION: Not present TUMOR ASSOCIATED PNEUMONITIS OR ATELECTASIS: Not present. LYMPH NODES: Number examined = 3; Number positive = 0. EXTRANODAL EXTENSION: Not present. AJCC PATHOLOGIC STAGE: IA ( [id number]) COLLECTED DATE: 03/13/2017 [facility] REPORT DATE: 03/15/2017 ELECTRONICALLY SIGNED BY: Markel Boyle III, M.D. 03/15/2017 - 7:28:48 [facility]
[2017-03-15] MEDS ORDERED: diphenhydrAMINE CAP 25 MG CAPSULE PO ONE (16:03)
[2017-03-15] MEDS: CLORAZEPATE 7.5 MG TABLET PO PRN (21:07)
[2017-03-16] MEDS: ACETAMINOPHEN 500 MG TABLET PO SCH ×4 (02:07→20:11)
[2017-03-16] MEDS: hydrALAZINE 20 MG/1 ML VIAL IV PRN ×2 (02:07→12:35)
[2017-03-16 05:48] LABS: Basophils % 0.3 % (0.0-0.8); Eosinophils # 0.1 10*3/uL (0.0-0.87); Eosinophils % 1.4 % (0.00-10.9); Hematocrit 30.8 VOL% (42.0-52.0); Hemoglobin 10.5 GM/DL (14.0-18.0); Immature Granulocytes % 0.5 %; Immature Granulocytes Absolute 0.04 #; Lymphocytes # 1.4 10*3/uL (1.4-4.0); Lymphocytes % 16.4 % (21.2-54.2); Mean Corpuscular HGB Conc 34.1 GM/DL (32-36); Mean Corpuscular Hemoglobin 31 PG (27-34); Mean Corpuscular Volume 91.1 FL (87-102); Monocytes # 0.4 10*3/uL (0.11-0.8); Monocytes % 4.8 % (1.7-12.7); Neutrophils # 6.7 10*3/uL (1.4-7.4); Neutrophils % 76.6 % (38.7-73.9); Platelet Count 184 T/CUMM (130-400); Red Blood Count 3.38 MC/CUMM (3.8-5.5); Red Cell Distribution Width 16.8 % (9.3-17.3); White Blood Count 8.8 T/CUMM (4-12)
[2017-03-16 06:13] LABS: Calcium 8.3 MG/DL (8.5-10.1); Osmolality,Calculated 274.5 MOS/KG (273-304); Potassium 3.7 MMOL/L (3.5-5.1)
--- NOTE | 2017-03-16 06:31 | Family Practice Progress Note ---
Family Practice - PN: Subj Interval history: PCP:, pt admitted for Rt lower lung cancer, s/p rt lower lobectomy/mediastinal lymph node dissection, postop day 3 today has h/o HTN, recurrent pancreatitis, chronic abdominal pain, h/o alcohol abuse and nicotine ciggarette dependence pt seen and examined on [facility], stable, is sleeping , woke him up, has rt chest drain,is getting out of bed few times, Mentions is hurting at the right chest, and abdominal pain too on and off, requesting to increase pain meds, dilaudid and norcos, No fevers/nausea/vomiting/dizziness.is passing flatus,no BM yet, No overnight events reported by the nurse except he requested pain meds often. yesterday on 03/15/17, spoke to ,cardiothoracic Sx, gave update of pt ' status, he is ok with cardiopul rehab placement at discharge, Exam (Progress Note) - Constitutional Vitals: Period Temp Pulse Resp BP Sys/Esquivel Pulse Ox Last 24 Hr 98 F-98.5 F 77-101 13-23 130-184/89-108 91-96 Exam: Examination: examined pt after waking him , GENERAL: Alert, awake, chest drain present at the right chest, HEENT: normal, ,PERRLA. EOMI. NECK: Neck is supple. No JVD. No carotid bruit. No thyromegaly. CVS: Regular rate and rhythm. S1 and S2 are normal. RESPIRATORY: Right side crackles more at lower aspect today,left lung clear to auscultation ABDOMEN: no tenderness, Bowel sounds are present. No hepatosplenomegaly. EXT: No edema, SCDs in place Results - Labs CBC & BMP: 03/16/17 05:02 03/16/17 05:02 Lab Results: I have reviewed the past 24 hour labs - Diagnostic Findings Procedure: Chest x-ray: report reviewed by me, image reviewed by me Assessment and Plan (1) Cancer of lower lobe of right lung Problem details: s/p rt lower lobectomy and complete mediastinal lymph node dissection Status: Acute Assessment and plan: is post op day 3, stable , Pain control, fair,increase norco to Q8hrs, on dilaudid , ultram, celebrex , tylenols prn 2. HTN , BP high, add norvasc 5 mg daily along with lisinopril, hydralazine and metoprolol, 3. recurrent pancreatitis, stable ,continue zofran and protonix , pain meds prn , 4. nicotine dependence, continue nicotine patch, 6. add Miralax prn , along with colace prn for constipation, continue recommendations as per cardiothoracic SX, Current Visit: Yes (2) Essential hypertension Status: Chronic Current Visit: Yes (3) Recurrent pancreatitis Status: Chronic Current Visit: Yes (4) Right lower lobe lung mass Status: Acute Current Visit: Yes (5) Abdominal pain Status: Chronic Current Visit: Yes (6) GERD (gastroesophageal reflux disease) Status: Chronic Current Visit: Yes (7) History of alcohol abuse Status: Chronic Current Visit: Yes (8) Tobacco abuse Status: Chronic Current Visit: Yes
[2017-03-16] MEDS: POLYETHYLENE GLYCOL POWDER 17 GM PACK PO PRN (08:00)
[2017-03-16] MEDS: HYDROmorphone 2 MG/1 ML VIAL IV SCH ×3 (08:00→21:35)
[2017-03-16] MEDS: PANTOPRAZOLE 40 MG TABLET PO SCH (08:01)
[2017-03-16] MEDS: ENOXAPARIN 40 MG/0.4 ML SYRINGE SUBCUT SCH (08:01)
[2017-03-16] MEDS: CELECOXIB 200 MG CAPSULE PO SCH ×2 (08:01→20:11)
[2017-03-16] MEDS: LISINOPRIL 20 MG TABLET PO SCH ×2 (08:01→20:10)
[2017-03-16] MEDS: CITALOPRAM 20 MG TABLET PO SCH (08:01)
[2017-03-16] MEDS: amLODIPine 5 MG TABLET PO SCH (08:02)
[2017-03-16] MEDS: GABAPENTIN 100 MG CAPSULE PO SCH ×3 (08:02→20:10)
[2017-03-16] MEDS: NICOTINE 14 MG/24 HR PATCH TRANSDERM SCH (08:03)
[2017-03-16] MEDS: traMADol 50 MG TABLET PO PRN ×2 (08:03→14:30)
[2017-03-16] MEDS: hydrALAZINE 25 MG TABLET PO SCH ×3 (08:03→20:09)
[2017-03-16] MEDS: METOPROLOL TARTRATE 25 MG TABLET PO SCH ×2 (08:03→20:10)
--- NOTE | 2017-03-16 09:30 | XRay Report ---
XR chest 2V Date: 03/16/2017 4:00 AM History: Right lower lobectomy Comparison: 03/15/2017 Technique: PA and lateral chest Findings: The heart is normal in size with stable right IJ CVP line and 2 right chest tubes. Recent right lower lobectomy with fairly stable right pneumothorax which still measures possibly 37 mm in the pleural line to the lateral chest wall. Residual atelectasis in the lungs with fairly stable pleural effusions. No acute osseous findings. Impression: Recent right lower lobectomy with fairly stable right pneumothorax. Residual atelectasis with small left pleural effusion. PROCEDURE INTERPRETED AT [facility] DEPARTMENT OF RADIOLOGY Final Report Signed by: Dr. Ritu Gupta
[2017-03-16] MEDS: CLORAZEPATE 7.5 MG TABLET PO PRN (23:34)
[2017-03-17] MEDS: ACETAMINOPHEN 500 MG TABLET PO SCH ×4 (02:37→20:53)
[2017-03-17 04:32] LABS: Basophils % 0.2 % (0.0-0.8); Eosinophils # 0.2 10*3/uL (0.0-0.87); Eosinophils % 2.4 % (0.00-10.9); Hematocrit 31.2 VOL% (42.0-52.0); Hemoglobin 10.6 GM/DL (14.0-18.0); Immature Granulocytes Absolute 0.08 #; Lymphocytes # 1.5 10*3/uL (1.4-4.0); Lymphocytes % 18.2 % (21.2-54.2); Mean Corpuscular Hemoglobin 31 PG (27-34); Mean Platelet Volume 10.3 FL (9.6-12.0); Monocytes # 0.7 10*3/uL (0.11-0.8); Monocytes % 8.5 % (1.7-12.7); Neutrophils # 5.8 10*3/uL (1.4-7.4); Neutrophils % 69.7 % (38.7-73.9); Platelet Count 217 T/CUMM (130-400); Red Blood Count 3.43 MC/CUMM (3.8-5.5); Red Cell Distribution Width 16.2 % (9.3-17.3); White Blood Count 8.3 T/CUMM (4-12)
[2017-03-17 05:01] LABS: Calcium 8.3 MG/DL (8.5-10.1); Magnesium 1.9 MG/DL (1.8-2.4); Osmolality,Calculated 272.7 MOS/KG (273-304); Potassium 3.4 MMOL/L (3.5-5.1)
[2017-03-17] MEDS: HYDROmorphone 2 MG/1 ML VIAL IV SCH ×3 (05:55→22:08)
--- NOTE | 2017-03-17 08:42 | XRay Report ---
2 view chest March 17, 2017 Indication postop pneumothorax Comparison images from previous day at 0727 hours Findings: Patient is status post thoracotomy with right lower lobectomy. Right central venous catheter and 2 large bore right-sided chest tubes are unchanged in position. Slight increase in size of the right thorax. Left lung remains well expanded along the chest wall. Impression: Increasing right pneumothorax post lower lobectomy PROCEDURE INTERPRETED AT [facility] DEPARTMENT OF RADIOLOGY Final Report Signed by: Monroe Liriano
[2017-03-17] MEDS: ENOXAPARIN 40 MG/0.4 ML SYRINGE SUBCUT SCH (09:24)
[2017-03-17] MEDS: NICOTINE 14 MG/24 HR PATCH TRANSDERM SCH (09:24)
[2017-03-17] MEDS: CELECOXIB 200 MG CAPSULE PO SCH ×2 (09:25→20:54)
[2017-03-17] MEDS: GABAPENTIN 100 MG CAPSULE PO SCH ×3 (09:26→20:55)
[2017-03-17] MEDS: METOPROLOL TARTRATE 25 MG TABLET PO SCH ×2 (09:26→20:57)
[2017-03-17] MEDS: LISINOPRIL 20 MG TABLET PO SCH ×2 (09:26→20:55)
[2017-03-17] MEDS: CITALOPRAM 20 MG TABLET PO SCH (09:26)
[2017-03-17] MEDS: PANTOPRAZOLE 40 MG TABLET PO SCH (09:26)
[2017-03-17] MEDS: amLODIPine 5 MG TABLET PO SCH (09:26)
[2017-03-17] MEDS: hydrALAZINE 25 MG TABLET PO SCH ×3 (09:26→20:54)
--- NOTE | 2017-03-17 10:50 | Cardiothoracic Progress Note ---
Assessment and Plan - Time spent with patient Time spent with patient: Greater than 30 minutes (1) Cancer of lower lobe of right lung Problem details: s/p rt lower lobectomy and complete mediastinal lymph node dissection Status: Acute Assessment and plan: Postoperative day 4 status post right VATS right lower lobectomy with mediastinal lymph node dissection for non-small cell lung cancer. The patient did very well. His pain is well controlled. He has minimal chest tube output. He does have air leak on expiration. Keep the chest tube to suction -10 mmHg , Out of bed. Current Visit: Yes Exam (Progress Note) - Constitutional Vitals: Period Temp Pulse Resp BP Sys/Esquivel Pulse Ox Last 24 Hr 98.0 F-98.7 F 77-88 17-20 136-176/77-118 92-96 Result/EKG - Labs CBC & BMP: 03/17/17 03:01 03/17/17 03:01 Labs: Laboratory Results - last 24 hr 03/17/17 03/17/17 03:01 03:01 WBC 8.3 RBC 3.43 L Hgb 10.6 L Hct 31.2 L MCV 91.0 MCH 31 MCHC 34.0 RDW 16.2 Plt Count 217 MPV 10.3 Neut % (Auto) 69.7 Lymph % (Auto) 18.2 L [place] % (Auto) 8.5 Eos % (Auto) 2.4 Baso % (Auto) 0.2 Neut # (Auto) 5.8 Lymph # (Auto) 1.5 [place] # (Auto) 0.7 Eos # (Auto) 0.2 Baso # (Auto) 0.0 Immature Gran % 1.0 Nucleated RBC % 0.0 Immature Gran # 0.08 Nucleated RBCs # 0.00 Immature Plt Fraction 0.0 Sodium 138 Potassium 3.4 L Chloride 101 Carbon Dioxide 29 Anion Gap 11.4 BUN 5 L Creatinine 0.40 L GFR Calculation 155 BUN/Creatinine Ratio 12.00 Glucose 109 H Calculated Osmolality 272.7 L Calcium 8.3 L Magnesium 1.9
[2017-03-17] MEDS: hydrALAZINE 20 MG/1 ML VIAL IV PRN (11:19)
--- NOTE | 2017-03-17 13:16 | Family Practice Progress Note ---
Family Practice - PN: Subj Interval history: Patient is stable states that pain is controlled. Denies any new complaints. Chest tube still present and has small leak. Vitals are stable. Reviewed lab and x-rays. Potassium slightly decreased at 3.4. Will start on oral potassium supplement. His examination is stable. We will continue present treatment plan Exam (Progress Note) - Constitutional Vitals: Period Temp Pulse Resp BP Sys/Esquivel Pulse Ox Last 24 Hr 98.0 F-98.6 F 77-88 17-20 121-176/71-118 95-98 Results - Labs CBC & BMP: 03/17/17 03:01 03/17/17 03:01
[2017-03-17] MEDS: POTASSIUM CHLORIDE 10 MEQ TABLET PO SCH ×2 (13:58→20:54)
[2017-03-17] MEDS: CLORAZEPATE 7.5 MG TABLET PO PRN (20:55)
[2017-03-18] MEDS: diphenhydrAMINE CAP 25 MG CAPSULE PO PRN (00:43)
[2017-03-18] MEDS: ACETAMINOPHEN 500 MG TABLET PO SCH ×4 (02:21→22:54)
[2017-03-18 03:36] LABS: Basophils % 0.1 % (0.0-0.8); Eosinophils # 0.2 10*3/uL (0.0-0.87); Eosinophils % 2.1 % (0.00-10.9); Hematocrit 29.5 VOL% (42.0-52.0); Hemoglobin 9.9 GM/DL (14.0-18.0); Immature Granulocytes % 1.4 %; Immature Granulocytes Absolute 0.12 #; Lymphocytes # 1.6 10*3/uL (1.4-4.0); Lymphocytes % 18.8 % (21.2-54.2); Mean Corpuscular HGB Conc 33.6 GM/DL (32-36); Mean Corpuscular Hemoglobin 31 PG (27-34); Mean Corpuscular Volume 91.6 FL (87-102); Monocytes # 0.8 10*3/uL (0.11-0.8); Neutrophils # 5.9 10*3/uL (1.4-7.4); Neutrophils % 68.6 % (38.7-73.9); Platelet Count 219 T/CUMM (130-400); Red Blood Count 3.22 MC/CUMM (3.8-5.5); Red Cell Distribution Width 15.9 % (9.3-17.3); White Blood Count 8.6 T/CUMM (4-12)
[2017-03-18 04:00] LABS: Magnesium 1.9 MG/DL (1.8-2.4); Osmolality,Calculated 273.7 MOS/KG (273-304); Potassium 3.7 MMOL/L (3.5-5.1)
[2017-03-18] MEDS: HYDROmorphone 2 MG/1 ML VIAL IV SCH ×3 (05:40→22:58)
[2017-03-18] MEDS: CELECOXIB 200 MG CAPSULE PO SCH ×2 (09:21→22:56)
[2017-03-18] MEDS: LISINOPRIL 20 MG TABLET PO SCH ×2 (09:21→22:57)
[2017-03-18] MEDS: GABAPENTIN 100 MG CAPSULE PO SCH ×3 (09:22→22:55)
[2017-03-18] MEDS: POTASSIUM CHLORIDE 10 MEQ TABLET PO SCH ×2 (09:22→22:57)
[2017-03-18] MEDS: METOPROLOL TARTRATE 25 MG TABLET PO SCH ×2 (09:23→22:55)
[2017-03-18] MEDS: hydrALAZINE 25 MG TABLET PO SCH ×3 (09:23→22:56)
[2017-03-18] MEDS: amLODIPine 5 MG TABLET PO SCH (09:24)
[2017-03-18] MEDS: PANTOPRAZOLE 40 MG TABLET PO SCH (09:26)
[2017-03-18] MEDS: ENOXAPARIN 40 MG/0.4 ML SYRINGE SUBCUT SCH (09:29)
[2017-03-18] MEDS: NICOTINE 14 MG/24 HR PATCH TRANSDERM SCH (09:31)
--- NOTE | 2017-03-18 10:01 | Cardiothoracic Progress Note ---
Assessment and Plan (1) Cancer of lower lobe of right lung Problem details: s/p rt lower lobectomy and complete mediastinal lymph node dissection Status: Acute Assessment and plan: Postoperative day 5 status post right VATS right lower lobectomy with mediastinal lymph node dissection for non-small cell lung cancer. The patient did very well. His pain is well controlled. He has minimal chest tube output. He does have air leak on expiration. Keep the chest tube to suction -10 mmHg , Out of bed. Current Visit: Yes Exam (Progress Note) - Constitutional Vitals: Period Temp Pulse Resp BP Sys/Esquivel Pulse Ox Last 24 Hr 97.9 F-98.9 F 73-87 18-20 120-157/71-107 93-99 Result/EKG - Labs CBC & BMP: 03/18/17 01:58 03/18/17 01:58 Labs: Laboratory Results - last 24 hr 03/18/17 03/18/17 01:58 01:58 WBC 8.6 RBC 3.22 L Hgb 9.9 L Hct 29.5 L MCV 91.6 MCH 31 MCHC 33.6 RDW 15.9 Plt Count 219 MPV 10.0 Neut % (Auto) 68.6 Lymph % (Auto) 18.8 L [place] % (Auto) 9.0 Eos % (Auto) 2.1 Baso % (Auto) 0.1 Neut # (Auto) 5.9 Lymph # (Auto) 1.6 [place] # (Auto) 0.8 Eos # (Auto) 0.2 Baso # (Auto) 0.0 Immature Gran % 1.4 Nucleated RBC % 0.0 Immature Gran # 0.12 Nucleated RBCs # 0.00 Immature Plt Fraction 0.0 Sodium 138 Potassium 3.7 Chloride 104 Carbon Dioxide 31 Anion Gap 6.7 BUN 7 Creatinine 0.50 L GFR Calculation 141 BUN/Creatinine Ratio 14.00 Glucose 119 H Calculated Osmolality 273.7 Calcium 8.0 L Magnesium 1.9
[2017-03-18] MEDS: CITALOPRAM 20 MG TABLET PO SCH (13:24)
--- NOTE | 2017-03-18 15:09 | Family Practice Progress Note ---
Family Practice - PN: Subj Interval history: Patient is stable states that pain is controlled. Denies any new complaints. Chest tube still present and has small leak. Vitals are stable. Reviewed lab and x-rays. Potassium slightly decreased at 3.4. Will start on oral potassium supplement. His examination is stable. We will continue present treatment plan 03/18/17 -patient is generally doing well. Vitals are stable. His a.m. labs are stable. Denies any new complaints. He has very minimal chest tube output but still has a small week. Surgeon plans to continue chest tube. He is sitting up more and not getting out of bed. We will plan to continue present treatment plan. Exam (Progress Note) - Constitutional Vitals: Period Temp Pulse Resp BP Sys/Esquivel Pulse Ox Last 24 Hr 97.9 F-98.9 F 73-87 18-20 120-151/73-106 93-99 Results - Labs CBC & BMP: 03/18/17 01:58 03/18/17 01:58
--- NOTE | 2017-03-18 16:08 | XRay Report ---
Two-view chest March 18, 2017 Indication: Pneumothorax Comparison from previous day at 0718 hours Findings: Patient is again status post right lower lobectomy. 2 right-sided chest tubes are unchanged. Stable right pneumothorax small amount of subcutaneous air within the overlying soft tissues. Left lung remains well-expanded chest wall. Right central venous catheter remains in satisfactory position. Impression: Stable postop chest with residual pneumothorax post right lower lobectomy PROCEDURE INTERPRETED AT [facility] DEPARTMENT OF RADIOLOGY Final Report Signed by: Monroe Liriano
[2017-03-19] MEDS: CLORAZEPATE 7.5 MG TABLET PO PRN ×2 (00:28→21:57)
[2017-03-19] MEDS: ACETAMINOPHEN 500 MG TABLET PO SCH ×4 (03:02→20:23)
[2017-03-19 03:28] LABS: Basophils % 0.2 % (0.0-0.8); Eosinophils # 0.2 10*3/uL (0.0-0.87); Eosinophils % 2.2 % (0.00-10.9); Hematocrit 28.7 VOL% (42.0-52.0); Hemoglobin 9.7 GM/DL (14.0-18.0); Immature Granulocytes % 2.1 %; Immature Granulocytes Absolute 0.17 #; Lymphocytes # 1.6 10*3/uL (1.4-4.0); Lymphocytes % 19.5 % (21.2-54.2); Mean Corpuscular HGB Conc 33.8 GM/DL (32-36); Mean Corpuscular Hemoglobin 31 PG (27-34); Mean Platelet Volume 9.4 FL (9.6-12.0); Monocytes # 0.7 10*3/uL (0.11-0.8); Monocytes % 8.9 % (1.7-12.7); Neutrophils # 5.5 10*3/uL (1.4-7.4); Neutrophils % 67.1 % (38.7-73.9); Platelet Count 251 T/CUMM (130-400); Red Blood Count 3.12 MC/CUMM (3.8-5.5); White Blood Count 8.2 T/CUMM (4-12)
[2017-03-19 03:52] LABS: Calcium 8.1 MG/DL (8.5-10.1); Magnesium 1.9 MG/DL (1.8-2.4); Osmolality,Calculated 278.4 MOS/KG (273-304); Potassium 3.6 MMOL/L (3.5-5.1)
[2017-03-19] MEDS: HYDROmorphone 2 MG/1 ML VIAL IV SCH ×3 (05:59→21:56)
[2017-03-19] MEDS: GABAPENTIN 100 MG CAPSULE PO SCH ×3 (09:10→20:23)
[2017-03-19] MEDS: POTASSIUM CHLORIDE 10 MEQ TABLET PO SCH ×2 (09:10→20:23)
[2017-03-19] MEDS: CELECOXIB 200 MG CAPSULE PO SCH ×2 (09:10→20:22)
[2017-03-19] MEDS: METOPROLOL TARTRATE 25 MG TABLET PO SCH ×2 (09:10→20:23)
[2017-03-19] MEDS: hydrALAZINE 25 MG TABLET PO SCH ×3 (09:10→20:23)
[2017-03-19] MEDS: CITALOPRAM 20 MG TABLET PO SCH (09:10)
[2017-03-19] MEDS: amLODIPine 5 MG TABLET PO SCH (09:11)
[2017-03-19] MEDS: LISINOPRIL 20 MG TABLET PO SCH ×2 (09:11→20:22)
[2017-03-19] MEDS: PANTOPRAZOLE 40 MG TABLET PO SCH (09:11)
[2017-03-19] MEDS: NICOTINE 14 MG/24 HR PATCH TRANSDERM SCH (09:14)
[2017-03-19] MEDS: ENOXAPARIN 40 MG/0.4 ML SYRINGE SUBCUT SCH (09:20)
--- NOTE | 2017-03-19 10:57 | XRay Report ---
2 view chest March 19, 2017 at 0839 hours Indication: Postop pneumothorax Comparison images from previous day at 0815 hours Findings: Right-sided chest tubes are unchanged in position with minimal improvement in the right pneumothorax. Patient status post right lower lobectomy with small amount of fluid now layering within the right lung base. Left lung remains well-expanded along the chest wall. Cardiomediastinal contours are stable. Central venous line is unchanged in position. Impression: Right-sided pneumothorax post lobectomy, minimally improved PROCEDURE INTERPRETED AT [facility] DEPARTMENT OF RADIOLOGY Final Report Signed by: Monroe Liriano
--- NOTE | 2017-03-19 14:36 | Family Practice Progress Note ---
Family Practice - PN: Subj Interval history: Patient is stable states that pain is controlled. Denies any new complaints. Chest tube still present and has small leak. Vitals are stable. Reviewed lab and x-rays. Potassium slightly decreased at 3.4. Will start on oral potassium supplement. His examination is stable. We will continue present treatment plan 03/18/17 -patient is generally doing well. Vitals are stable. His a.m. labs are stable. Denies any new complaints. He has very minimal chest tube output but still has a small week. Surgeon plans to continue chest tube. He is sitting up more and not getting out of bed. We will plan to continue present treatment plan. 03/19/17 -patient generally is stable with no problems noted. He has not been seen by cardiovascular surgery today. Lab studies are stable. Surgery will decide about continuing chest tube or removal. We will otherwise continue present treatment plan Exam (Progress Note) - Constitutional Vitals: Period Temp Pulse Resp BP Sys/Esquivel Pulse Ox Last 24 Hr 97.6 F-98.6 F 70-77 16-18 117-156/74-98 95-98 Results - Labs CBC & BMP: 03/19/17 02:41 03/19/17 02:41
--- NOTE | 2017-03-19 15:13 | Cardiothoracic Progress Note ---
Assessment and Plan (1) Cancer of lower lobe of right lung Problem details: s/p rt lower lobectomy and complete mediastinal lymph node dissection Status: Acute Assessment and plan: Postoperative day 6 status post right VATS right lower lobectomy with mediastinal lymph node dissection for non-small cell lung cancer. The patient continues to have a small air leak. His healing process is very slow due to his very poor nutrition. I expect this to take a while prior to complete healing due to his very small muscle mass and body habitus and very poor nutrition. I expect that he might need to be discharged with a chest tubes in place for a prolonged period time.. Current Visit: Yes Exam (Progress Note) - Constitutional Vitals: Period Temp Pulse Resp BP Sys/Esquivel Pulse Ox Last 24 Hr 97.6 F-98.6 F 70-77 16-18 117-156/74-98 95-98 Result/EKG - Labs CBC & BMP: 03/19/17 02:41 03/19/17 02:41 Labs: Laboratory Results - last 24 hr 03/19/17 03/19/17 02:41 02:41 WBC 8.2 RBC 3.12 L Hgb 9.7 L Hct 28.7 L MCV 92.0 MCH 31 MCHC 33.8 RDW 16.0 Plt Count 251 MPV 9.4 L Neut % (Auto) 67.1 Lymph % (Auto) 19.5 L [place] % (Auto) 8.9 Eos % (Auto) 2.2 Baso % (Auto) 0.2 Neut # (Auto) 5.5 Lymph # (Auto) 1.6 [place] # (Auto) 0.7 Eos # (Auto) 0.2 Baso # (Auto) 0.0 Immature Gran % 2.1 Nucleated RBC % 0.0 Immature Gran # 0.17 Nucleated RBCs # 0.00 Immature Plt Fraction 0.0 Sodium 140 Potassium 3.6 Chloride 104 Carbon Dioxide 29 Anion Gap 10.6 BUN 6 L Creatinine 0.60 L GFR Calculation 130 BUN/Creatinine Ratio 10.00 Glucose 139 H Calculated Osmolality 278.4 Calcium 8.1 L Magnesium 1.9
[2017-03-20 01:49] LABS: Apearance,Urine CLEAR (Clear); Bilirubin,Urine Negative (Negative); Blood, Urine Negative (Negative); Glucose,Urine (UA) Negative (Negative); Ketones,Urine Negative (Negative); Mucus,Urine Occasional /LPF (Occasional); Nitrite,Urine Negative (Negative); Protein,Urine Negative; RBC,Urine <1 /HPF (0-4); Urine Color Yellow (Yellow); Urine Specific Gravity 1.021 (1.001-1.035); Urine Urobilinogen < 2.0 EU/DL (0.2-1.0); WBC,Urine 1 /HPF (0-6)
[2017-03-20] MEDS: ACETAMINOPHEN 500 MG TABLET PO SCH ×4 (02:20→20:44)
[2017-03-20] MEDS: HYDROmorphone 2 MG/1 ML VIAL IV SCH ×3 (05:55→22:18)
[2017-03-20 06:53] LABS: Basophils % 0.2 % (0.0-0.8); Eosinophils # 0.3 10*3/uL (0.0-0.87); Eosinophils % 2.8 % (0.00-10.9); Hematocrit 30.6 VOL% (42.0-52.0); Hemoglobin 10.3 GM/DL (14.0-18.0); Immature Granulocytes % 2.7 %; Immature Granulocytes Absolute 0.24 #; Lymphocytes # 1.8 10*3/uL (1.4-4.0); Lymphocytes % 19.4 % (21.2-54.2); Mean Corpuscular HGB Conc 33.7 GM/DL (32-36); Mean Corpuscular Hemoglobin 31 PG (27-34); Mean Corpuscular Volume 92.2 FL (87-102); Mean Platelet Volume 9.6 FL (9.6-12.0); Monocytes % 10.7 % (1.7-12.7); Neutrophils # 5.8 10*3/uL (1.4-7.4); Neutrophils % 64.2 % (38.7-73.9); Platelet Count 280 T/CUMM (130-400); Red Blood Count 3.32 MC/CUMM (3.8-5.5); Red Cell Distribution Width 15.9 % (9.3-17.3)
[2017-03-20 07:26] LABS: Calcium 8.1 MG/DL (8.5-10.1); Osmolality,Calculated 272.7 MOS/KG (273-304); Potassium 4.2 MMOL/L (3.5-5.1)
[2017-03-20] MEDS: LISINOPRIL 20 MG TABLET PO SCH ×2 (08:27→20:44)
[2017-03-20] MEDS: amLODIPine 5 MG TABLET PO SCH (08:27)
[2017-03-20] MEDS: CITALOPRAM 20 MG TABLET PO SCH (08:27)
[2017-03-20] MEDS: METOPROLOL TARTRATE 25 MG TABLET PO SCH ×2 (08:27→20:45)
[2017-03-20] MEDS: CELECOXIB 200 MG CAPSULE PO SCH ×2 (08:27→20:44)
[2017-03-20] MEDS: POTASSIUM CHLORIDE 10 MEQ TABLET PO SCH ×2 (08:27→20:45)
[2017-03-20] MEDS: hydrALAZINE 25 MG TABLET PO SCH ×3 (08:27→20:45)
[2017-03-20] MEDS: GABAPENTIN 100 MG CAPSULE PO SCH ×3 (08:27→20:45)
[2017-03-20] MEDS: PANTOPRAZOLE 40 MG TABLET PO SCH (08:28)
[2017-03-20] MEDS: NICOTINE 14 MG/24 HR PATCH TRANSDERM SCH (08:30)
[2017-03-20] MEDS: ENOXAPARIN 40 MG/0.4 ML SYRINGE SUBCUT SCH (08:35)
--- NOTE | 2017-03-20 09:14 | XRay Report ---
2 view chest March 20, 2017 at 0817 hours Indication: Pneumothorax Comparison images from previous day at 0839 hours Findings: Cardiac mediastinal contours are stable. Support tubes and lines are unchanged. Right-sided pneumothorax is unchanged post right lower lobectomy. Increasing fluid within the right lung base. No acute osseous abnormalities. Stable subcutaneous air along the right chest wall. Impression: Postoperative chest again demonstrates stable right pneumothorax post lower lobectomy. Slight increased right pleural fluid. PROCEDURE INTERPRETED AT [facility] DEPARTMENT OF RADIOLOGY Final Report Signed by: Monroe Liriano
--- NOTE | 2017-03-20 09:23 | Family Practice Progress Note ---
Family Practice - PN: Subj Interval history: PCP:, pt admitted for Rt lower lung cancer, s/p rt lower lobectomy/mediastinal lymph node dissection, postop day 7 today has h/o HTN, recurrent pancreatitis, chronic abdominal pain, h/o alcohol abuse and nicotine ciggarette dependence pt seen and examined on [facility], stable, is ambulating, physical therapist at the bedside has rt chest drain in place, Mentions is hurting at the right chest improving, requesting to increase pain meds frequency, dilaudid and norcos, No fevers/nausea/vomiting/dizziness. No overnight events reported by the nurse, Awaiting cardiopulmonary rehabilitation placement with PARISA arguelles, Exam (Progress Note) - Constitutional Vitals: Period Temp Pulse Resp BP Sys/Esquivel Pulse Ox Last 24 Hr 98.1 F-99.3 F 76-83 18-20 116-150/71-95 95-98 Exam: Examination: , GENERAL: Alert, awake, chest drain present at the right chest, is ambulating well HEENT: normal, ,PERRLA. EOMI. NECK: Neck is supple. No JVD. No carotid bruit. No thyromegaly. CVS: Regular rate and rhythm. S1 and S2 are normal. RESPIRATORY: Right side upper lobe crackles ,left lung clear to auscultation ABDOMEN: no tenderness, Bowel sounds are present. No hepatosplenomegaly. EXT: No edema, Results - Labs CBC & BMP: 03/20/17 05:49 03/20/17 05:49 Lab Results: I have reviewed the past 24 hour labs - Diagnostic Findings Procedure: Chest x-ray: report reviewed by me, image reviewed by me Assessment and Plan (1) Cancer of lower lobe of right lung Problem details: s/p rt lower lobectomy and complete mediastinal lymph node dissection Status: Acute Assessment and plan: is post op day 7, stable , Pain control, fair,on norcos, on dilaudid , ultram, celebrex ,tylenols prn. 2. HTN , stable, on norvasc along with lisinopril, hydralazine and metoprolol, 3. recurrent pancreatitis, stable ,continue zofran and protonix , pain meds prn , 4. nicotine dependence, continue nicotine patch, 6. Discuss with healthcare social worker, for placement of the patient, for cardiopulmonary rehabilitation. continue recommendations as per cardiothoracic SX, Current Visit: Yes (2) Essential hypertension Status: Chronic Current Visit: Yes (3) Recurrent pancreatitis Status: Chronic Current Visit: Yes (4) Abdominal pain Status: Chronic Current Visit: Yes (5) GERD (gastroesophageal reflux disease) Status: Chronic Current Visit: Yes (6) History of alcohol abuse Status: Chronic Current Visit: Yes (7) Tobacco abuse Status: Chronic Current Visit: Yes
[2017-03-20] MEDS: traMADol 50 MG TABLET PO PRN (11:39)
--- NOTE | 2017-03-20 15:36 | Cardiothoracic Progress Note ---
Assessment and Plan (1) Cancer of lower lobe of right lung Problem details: s/p rt lower lobectomy and complete mediastinal lymph node dissection Status: Acute Assessment and plan: Postoperative day 7 status post right VATS right lower lobectomy with mediastinal lymph node dissection for non-small cell lung cancer. The patient continues to have a small air leak. His healing process is very slow due to his very poor nutrition. I expect this to take a while prior to complete healing due to his very small muscle mass and body habitus and very poor nutrition. I expect pascale to be discharged with chest tubes in place for a prolonged period time.. Current Visit: Yes Exam (Progress Note) - Constitutional Vitals: Period Temp Pulse Resp BP Sys/Esquivel Pulse Ox Last 24 Hr 98.5 F-99.3 F 72-83 18-20 116-150/71-95 95-100 Result/EKG - Labs CBC & BMP: 03/20/17 05:49 03/20/17 05:49 Labs: Laboratory Results - last 24 hr 03/20/17 03/20/17 03/20/17 00:53 05:49 05:49 WBC 9.0 RBC 3.32 L Hgb 10.3 L Hct 30.6 L MCV 92.2 MCH 31 MCHC 33.7 RDW 15.9 Plt Count 280 MPV 9.6 Neut % (Auto) 64.2 Lymph % (Auto) 19.4 L [place] % (Auto) 10.7 Eos % (Auto) 2.8 Baso % (Auto) 0.2 Neut # (Auto) 5.8 Lymph # (Auto) 1.8 [place] # (Auto) 1.0 H Eos # (Auto) 0.3 Baso # (Auto) 0.0 Immature Gran % 2.7 Nucleated RBC % 0.0 Immature Gran # 0.24 Nucleated RBCs # 0.00 Immature Plt Fraction 0.0 Sodium 138 Potassium 4.2 Chloride 104 Carbon Dioxide 27 Anion Gap 11.2 BUN 6 L Creatinine 0.50 L GFR Calculation 138 BUN/Creatinine Ratio 12.00 Glucose 93 Calculated Osmolality 272.7 L Calcium 8.1 L Urine Color Yellow Urine Appearance Clear Urine pH 5.0 Ur Specific [place] 1.021 Urine Protein Negative Urine Glucose (UA) Negative Urine Ketones Negative Urine Blood Negative Urine Nitrate Negative Urine Bilirubin Negative Urine Urobilinogen < 2.0 H Urine Leukocytes Negative Urine RBC <1 Urine WBC 1 Urine Mucus Occasional Ur Culture Indicated? Not indicated
[2017-03-20] MEDS: POLYETHYLENE GLYCOL POWDER 17 GM PACK PO PRN (16:09)
[2017-03-21] MEDS: ACETAMINOPHEN 500 MG TABLET PO SCH ×4 (02:09→20:20)
[2017-03-21] MEDS: HYDROmorphone 2 MG/1 ML VIAL IV SCH ×3 (06:10→21:37)
[2017-03-21 08:34] LABS: Basophils % 0.2 % (0.0-0.8); Eosinophils # 0.2 10*3/uL (0.0-0.87); Eosinophils % 1.9 % (0.00-10.9); Hematocrit 30.8 VOL% (42.0-52.0); Hemoglobin 10.4 GM/DL (14.0-18.0); Immature Granulocytes % 2.3 %; Immature Granulocytes Absolute 0.21 #; Lymphocytes # 1.8 10*3/uL (1.4-4.0); Lymphocytes % 19.5 % (21.2-54.2); Mean Corpuscular HGB Conc 33.8 GM/DL (32-36); Mean Corpuscular Hemoglobin 31 PG (27-34); Mean Corpuscular Volume 91.9 FL (87-102); Mean Platelet Volume 8.9 FL (9.6-12.0); Monocytes # 0.9 10*3/uL (0.11-0.8); Monocytes % 10.2 % (1.7-12.7); Neutrophils % 65.9 % (38.7-73.9); Platelet Count 309 T/CUMM (130-400); Red Blood Count 3.35 MC/CUMM (3.8-5.5); Red Cell Distribution Width 15.9 % (9.3-17.3)
[2017-03-21] MEDS: ENOXAPARIN 40 MG/0.4 ML SYRINGE SUBCUT SCH (08:55)
[2017-03-21] MEDS: CELECOXIB 200 MG CAPSULE PO SCH ×2 (08:56→20:19)
[2017-03-21] MEDS: CITALOPRAM 20 MG TABLET PO SCH (08:56)
[2017-03-21] MEDS: hydrALAZINE 25 MG TABLET PO SCH ×3 (08:56→20:20)
[2017-03-21] MEDS: LISINOPRIL 20 MG TABLET PO SCH ×2 (08:56→20:19)
[2017-03-21] MEDS: PANTOPRAZOLE 40 MG TABLET PO SCH (08:57)
[2017-03-21] MEDS: GABAPENTIN 100 MG CAPSULE PO SCH ×3 (08:57→20:21)
[2017-03-21] MEDS: POTASSIUM CHLORIDE 10 MEQ TABLET PO SCH ×2 (08:57→20:20)
[2017-03-21] MEDS: NICOTINE 14 MG/24 HR PATCH TRANSDERM SCH (08:58)
[2017-03-21] MEDS: amLODIPine 5 MG TABLET PO SCH (08:58)
[2017-03-21] MEDS: METOPROLOL TARTRATE 25 MG TABLET PO SCH ×2 (08:58→20:21)
[2017-03-21 09:02] LABS: Calcium 8.2 MG/DL (8.5-10.1); Osmolality,Calculated 274.7 MOS/KG (273-304); Potassium 4.2 MMOL/L (3.5-5.1)
--- NOTE | 2017-03-21 09:23 | Discharge Summary ---
Hospital Course - Hospital Course Hospital Course: PCP: Consultants on case : Cardiothoracic surgeon, pt admitted for high blood pressure, hypertensive urgency , noted in the clinic of , and was scheduled for surgery on 03/13/2017 right VATS right lower lobectomy with mediastinal lymph node dissection for his adenocarcinoma. Has h/o recurrent pancreatitis, GERD, chronic abdominal pain, history of alcohol and nicotine, cigarette abuse. Oral/IV blood pressure meds, lisinopril, hydralazine, IV hydralazine as needed, were started, and the blood pressure was improved prior to the surgery. Patient tolerated the surgery well, had chest tube with suction was placed at the right side. Patient received blood transfusion during the surgery. His postoperative pain was controlled initially with pump BIN PILER, followed with IV , oral pain meds, and tapered gradually over the hospital stay. His diet, ambulation was advanced as he tolerated. Initially patient was monitored in the CCU, later transferred to monitored bed. Metoprolol, Norvasc was added,further to control his high blood pressure. PT/OT was consulted during the hospital stay for further evaluation and recommendations. Daily labs, chest x-ray were done regular intervals postoperatively, his pneumothorax/atelectasis at right was improving. His H&H was stable postoperatively. Electrolytes were replaced as needed during the hospital stay. As per cardiothoracic surgeon, it was noted chest tube at right a small air leak. And his healing process is very slow due to his very poor nutrition. It was to expect this to take a while prior to complete healing due to his very small muscle mass and body habitus and very poor nutrition. As per his recommendation, he was to be discharged with the chest tube in place. His anxiety medication, Celexa was continued during the hospital stay. Trazodone was added for insomnia as needed. His chronic/recurrent pancreatitis was stable, during the hospital stay. he was postoperatively for 8-9 days in the hospital, director of cloud services were consulted for placement of the patient. Patient was uncomfortable going home with home health, he stays alone. He was accepted at [facility] at [place], patient was discharged with the chest tube in place, advised to follow-up cardiothoracic surgery clinic with chest x-ray on 04/02/2017, Norcos prescription was handed over 7.5/ 325 #120, please refer to the discharge medications. Discussed in detail with the patient about possible addiction, side effects with opioids, advised to take the pain medications only as needed, Need to inform my clinic prior to the swing bed discharge for make an appointment with my clinic. Patient was referred to pain clinic , but missed since was admitted to the surgery. Advised patient to call the pain clinic and reschedule when he gets discharged from swing bed. Diagnosis - Discharge Diagnosis (1) Cancer of lower lobe of right lung Status: Acute (2) Essential hypertension Status: Chronic (3) Recurrent pancreatitis Status: Chronic (4) Abdominal pain Status: Chronic (5) GERD (gastroesophageal reflux disease) Status: Chronic (6) History of alcohol abuse Status: Chronic (7) Tobacco abuse Status: Chronic (8) Anxiety Status: Chronic (9) Insomnia Status: Acute Specialty Discharge - Follow Up or Referrals Follow up with: Sailaja Merida [Physician] - 04/02/17 9:45 am (chest -xray at [facility] on 2016 at 8:00 before your appointment with Dr. Merida) Rikki Montenegro MD [Physician] - (PCP need to be contacted on the day of discharge from SWING bed, to make an appt,) Discharge Plan - Discharge Data Disposition: Swing Bed, Hos Based, [facility] Condition at Discharge: Stable Discharge Diet: low salt diet (add ensure/boost) Activity: resume usual activities as tolerated, as per physical therapy - Discharge Medications New Docusate Sodium Cap [Colace Cap] 100 mg PO BID PRN capsule PRN Reason: Constipation Metoprolol Tartrate Tab [Lopressor Tab] 25 mg PO BID tablet Polyethylene Glycol Powder [Miralax] 17 gm PO DAILY PRN PRN Reason: Constipation Acetaminophen Tab [Tylenol Tab] 1,000 mg PO Q6H tablet amLODIPine [Norvasc] 5 mg PO DAILY tablet Enoxaparin [Lovenox] 40 mg SUBCUT Q24H syringe Gabapentin Cap/Tab [Neurontin Cap/Tab] 100 mg PO TID capsule hydrALAZINE TAB [Apresoline Tab] 25 mg PO TID tablet HYDROcodone/ACETAMIN 7.5-325 [Stearns 7.5-325] 1 tablet PO Q4H PRN #120 tablet PRN Reason: Pain Moderate (4-7) Lisinopril [Prinivil] 20 mg PO BID tablet Nicotine 14 mg/24 Hr Patch [Nicoderm CQ 14 mg/24 hr Patch] 1 patch TRANSDERM DAILY patch Pantoprazole Tab [Protonix Tab] 40 mg PO DAILY tablet Potassium Chloride Cap/Tab [K Dur] 10 meq PO BID tablet traZODone [Desyrel] 12.5 mg PO BEDTIME PRN tablet PRN Reason: Insomnia Continue Citalopram Hydrobromide [Celexa] 10 mg PO DAILY Discontinued Lisinopril [Lisinopril] 10 mg PO QAM HYDROcodone/ACETAMIN 7.5-325 [Stearns 7.5-325] 1 tablet PO Q6H Pantoprazole Tab [Protonix Tab] 40 mg PO DAILY - Follow Up or Referral Follow Up: Sailaja Merida [Physician] - 04/02/17 9:45 am (chest -xray at [facility] on 2016 at 8:00 before your appointment with Dr. Merida) Rikki Montenegro MD [Physician] - (PCP need to be contacted on the day of discharge from SWING bed, to make an appt,) - Forms/Instructions Instructions: Lung Cancer (DC) Exam - Constitutional Vitals: Period Temp Pulse Resp BP Sys/Esquivel Pulse Ox Last 24 Hr 98.4 F-99.1 F 72-88 18-20 122-144/63-95 94-100 Exam: Examination: , GENERAL: Alert, awake, chest drain present at the right chest,lying in the bed HEENT: normal, ,PERRLA. EOMI. NECK: Neck is supple. No JVD. No carotid bruit. No thyromegaly. CVS: Regular rate and rhythm. S1 and S2 are normal. RESPIRATORY: Right side upper lobe crackles ,left lung clear to auscultation ABDOMEN: mild generalised tenderness, Bowel sounds are present. No hepatosplenomegaly. EXT: No edema, NET UI DEVELOPER : Alert, oriented 3, cranial nerves II through XII intact grossly, strength 5/5 bilateral upper, lower extremities Discharge Results Procedures and tests throughout hospitalization: Pending Orders 03/13/17 06:45 Fresh Frozen Plasma IN AM Red Blood Cells Leuko Red IN AM Single Donor Platelets IN AM 03/21/17 12:00 XR chest 1V portable Routine Labs on day of discharge: Labs from last 24 hours 03/21/17 03/21/17 08:22 08:22 WBC 9.0 RBC 3.35 L Hgb 10.4 L Hct 30.8 L MCV 91.9 MCH 31 MCHC 33.8 RDW 15.9 Plt Count 309 MPV 8.9 L Neut % (Auto) 65.9 Lymph % (Auto) 19.5 L [place] % (Auto) 10.2 Eos % (Auto) 1.9 Baso % (Auto) 0.2 Neut # (Auto) 6.0 Lymph # (Auto) 1.8 [place] # (Auto) 0.9 H Eos # (Auto) 0.2 Baso # (Auto) 0.0 Immature Gran % 2.3 Nucleated RBC % 0.0 Immature Gran # 0.21 Nucleated RBCs # 0.00 Immature Plt Fraction 0.0 Sodium 138 Potassium 4.2 Chloride 104 Carbon Dioxide 30 Anion Gap 8.2 BUN 9 Creatinine 0.60 L GFR Calculation 127 BUN/Creatinine Ratio 15.00 Glucose 111 H Calculated Osmolality 274.7 Calcium 8.2 L - Imaging and Cardiology Procedure: Chest x-ray: report reviewed by me, image reviewed by me - Additional Comments Chest x-ray Date: 03/21/2017 12:15 Indication: Chest tube placement follow-up pneumothorax right lower lobe lobectomy Comparison: Earlier film same date 8:17 AM Technical AP portable Findings: Persistent large right-sided pneumothorax is present with the 2 thoracotomy tubes present. Air-fluid levels present in the right base. Subcutaneous air is present. The heart is normal in size. There is a right IJ catheter present. Atelectatic change present in the medial right base. Impression: 1. Stable position of the 2 thoracotomy tubes with persistent right-sided pneumothorax. Findings appear similar to and unchanged from previous exam DS: Provider Date of admission: 03/12/17 16:44 Primary care physician: COCO BARRIENTOS Attending physician on admission: Rikki Montenegro MD Consults: 03/12/17 17:02 Consult to Anesthesiology [CONS] Routine Consulting Provider: Reason for Anesthesiology: Pre-op Clearance 03/13/17 14:03 Consult to Physician [CONS] Routine Comment: Consulting Provider: Sailaja Merida 03/15/17 09:03 Consult to Case Mgmt/Social Srvs [CONS] Routine Reason for Case Mgmt/Social Srvs: Discharge Planning 03/15/17 16:11 Consult to Case Mgmt/Social Srvs [CONS] Routine Reason for Case Mgmt/Social Srvs: Rehab 03/16/17 09:41 Consult to Occupational Therapy [CONS] Routine Reason for Occupational Therapy: Evaluate and Treat Consult Comment: Evaluate & Treat for Rehab Placement Consult to Physical Therapy [CONS] Routine Reason for Physical Therapy: Evaluate and Treat Consult Comment: Evaluate & Treat for Rehab Placement Discharging clinician: Rikki Montenegro MD
--- NOTE | 2017-03-21 12:43 | Family Practice Progress Note ---
Family Practice - PN: Subj Interval history: PCP:, pt admitted for Rt lower lung cancer, s/p rt lower lobectomy/mediastinal lymph node dissection, postop day 8 today has h/o HTN, recurrent pancreatitis, chronic abdominal pain, h/o alcohol abuse and nicotine ciggarette dependence pt seen and examined on [facility], stable, is ambulating, physical therapist at the bedside has rt chest drain in place, presently closed, mentions did not sleep well last night, No fevers/nausea/vomiting/dizziness. No overnight events reported by the nurse, Awaiting cardiopulmonary rehabilitation placement , if qualifies Exam (Progress Note) - Constitutional Vitals: Period Temp Pulse Resp BP Sys/Esquivel Pulse Ox Last 24 Hr 98.4 F-99.2 F 77-88 18-20 122-144/63-95 94-97 Exam: Examination: , GENERAL: Alert, awake, chest drain present at the right chest,lying in the bed HEENT: normal, ,PERRLA. EOMI. NECK: Neck is supple. No JVD. No carotid bruit. No thyromegaly. CVS: Regular rate and rhythm. S1 and S2 are normal. RESPIRATORY: Right side upper lobe crackles ,left lung clear to auscultation ABDOMEN: no tenderness, Bowel sounds are present. No hepatosplenomegaly. EXT: No edema, Results - Labs CBC & BMP: 03/21/17 08:22 03/21/17 08:22 Lab Results: I have reviewed the past 24 hour labs - Diagnostic Findings Procedure: Chest x-ray: image reviewed by me Assessment and Plan (1) Cancer of lower lobe of right lung Problem details: s/p rt lower lobectomy and complete mediastinal lymph node dissection Status: Acute Assessment and plan: is post op day 8, stable , Pain control, fair,on norcos, on dilaudid , ultram, celebrex ,tylenols prn. 2. HTN , stable, on norvasc along with lisinopril, hydralazine and metoprolol, 3. recurrent pancreatitis, stable ,continue zofran and protonix , pain meds prn , 4. nicotine dependence, continue nicotine patch, 6. Discussed today again with ,social science teacher, for placement of the patient,if qualifies, for cardiopulmonary rehabilitation.Pt willing for rehab, continue recommendations as per cardiothoracic SX, Current Visit: Yes (2) Essential hypertension Status: Chronic Current Visit: Yes (3) Recurrent pancreatitis Status: Chronic Current Visit: Yes (4) Abdominal pain Status: Chronic Current Visit: Yes (5) GERD (gastroesophageal reflux disease) Status: Chronic Current Visit: Yes (6) History of alcohol abuse Status: Chronic Current Visit: Yes (7) Tobacco abuse Status: Chronic Current Visit: Yes Quality Measures - VTE Contraindication to Pharmacological VTE Prophylaxis: High Risk of Bleeding
[2017-03-21] MEDS ORDERED: traZODone 50 MG TABLET PO PRN (12:46)
--- NOTE | 2017-03-21 14:08 | XRay Report ---
Exam: XR chest 1V portable Date: 03/21/2017 12:15 Indication: Chest tube placement follow-up pneumothorax right lower lobe lobectomy Comparison: Earlier film same date 8:17 AM Technical AP portable Findings: Persistent large right-sided pneumothorax is present with the 2 thoracotomy tubes present. Air-fluid levels present in the right base. Subcutaneous air is present. The heart is normal in size. There is a right IJ catheter present. Atelectatic change present in the medial right base. Impression: 1. Stable position of the 2 thoracotomy tubes with persistent right-sided pneumothorax. Findings appear similar to and unchanged from previous exam. PROCEDURE INTERPRETED AT [facility] DEPARTMENT OF RADIOLOGY Final Report Signed by: Dr. Flakito Carolina
[2017-03-21] MEDS: traMADol 50 MG TABLET PO PRN (20:26)
[2017-03-21] MEDS: diphenhydrAMINE CAP 25 MG CAPSULE PO PRN (21:45)
[2017-03-22] MEDS: ACETAMINOPHEN 500 MG TABLET PO SCH ×3 (01:09→14:05)
[2017-03-22] MEDS: HYDROmorphone 2 MG/1 ML VIAL IV SCH ×2 (05:31→14:05)
[2017-03-22] MEDS: ENOXAPARIN 40 MG/0.4 ML SYRINGE SUBCUT SCH (08:59)
[2017-03-22] MEDS: NICOTINE 14 MG/24 HR PATCH TRANSDERM SCH (09:00)
[2017-03-22] MEDS: LISINOPRIL 20 MG TABLET PO SCH (09:00)
[2017-03-22] MEDS: CELECOXIB 200 MG CAPSULE PO SCH (09:00)
[2017-03-22] MEDS: GABAPENTIN 100 MG CAPSULE PO SCH ×2 (09:00→14:09)
[2017-03-22] MEDS: CITALOPRAM 20 MG TABLET PO SCH (09:00)
[2017-03-22] MEDS: hydrALAZINE 25 MG TABLET PO SCH ×2 (09:00→14:09)
[2017-03-22] MEDS: METOPROLOL TARTRATE 25 MG TABLET PO SCH (09:01)
[2017-03-22] MEDS: POTASSIUM CHLORIDE 10 MEQ TABLET PO SCH (09:01)
[2017-03-22] MEDS: PANTOPRAZOLE 40 MG TABLET PO SCH (09:01)
[2017-03-22] MEDS: amLODIPine 5 MG TABLET PO SCH (09:01)
[2017-03-22 10:01] LABS: Basophils % 0.3 % (0.0-0.8); Eosinophils # 0.2 10*3/uL (0.0-0.87); Eosinophils % 1.9 % (0.00-10.9); Hematocrit 33.7 VOL% (42.0-52.0); Hemoglobin 11.2 GM/DL (14.0-18.0); Immature Granulocytes % 1.5 %; Immature Granulocytes Absolute 0.15 #; Lymphocytes # 1.9 10*3/uL (1.4-4.0); Lymphocytes % 19.5 % (21.2-54.2); Mean Corpuscular HGB Conc 33.2 GM/DL (32-36); Mean Corpuscular Hemoglobin 31 PG (27-34); Mean Corpuscular Volume 93.4 FL (87-102); Mean Platelet Volume 9.4 FL (9.6-12.0); Monocytes # 0.7 10*3/uL (0.11-0.8); Monocytes % 7.1 % (1.7-12.7); Neutrophils # 6.9 10*3/uL (1.4-7.4); Neutrophils % 69.7 % (38.7-73.9); Platelet Count 353 T/CUMM (130-400); Red Blood Count 3.61 MC/CUMM (3.8-5.5); Red Cell Distribution Width 15.8 % (9.3-17.3); White Blood Count 9.8 T/CUMM (4-12)
[2017-03-22 10:35] LABS: Calcium 8.3 MG/DL (8.5-10.1); Magnesium 1.9 MG/DL (1.8-2.4)
[2017-03-22 10:36] LABS: Potassium 4.5 MMOL/L (3.5-5.1)
[2017-03-22 11:35] VITALS: BP 124/78
== END 2017-03-22 15:43 | disposition swing bed (61) | DRG 120 ==
LOC: N.ED 12:11 → SUATTDRO 14:58 → N.EDINP 14:58 → N.4E 16:45 → N.ICU 03-13 08:24 → N.3E 03-15 15:12
PROVIDERS: ADMIT Family Medicine; ATTEND Family Medicine

== ENCOUNTER 2017-05-04 11:56 | Inpatient (IN) ==
[2017-05-04] MEDS ORDERED: ONDANSETRON 4 MG/2 ML VIAL IV PRN (12:21)
[2017-05-04] MEDS ORDERED: ACETAMINOPHEN 325 MG TABLET PO PRN (12:21)
[2017-05-04 13:44] LABS: Calcium 8.9 MG/DL (8.5-10.1); Magnesium 2.7 MG/DL (1.8-2.4); Osmolality,Calculated 248.5 MOS/KG (273-304); Potassium 4.2 MMOL/L (3.5-5.1)
[2017-05-04] MEDS: ENOXAPARIN 40 MG/0.4 ML SYRINGE SUBCUT SCH (13:48)
[2017-05-04] MEDS: CITALOPRAM 20 MG TABLET PO SCH (13:49)
[2017-05-04] MEDS: NICOTINE 14 MG/24 HR PATCH TRANSDERM SCH (15:40)
[2017-05-04] MEDS: SODIUM CHLORIDE 0.9% 1,000 ML IV SCH (17:51)
[2017-05-04 19:52] LABS: Osmolality,Calculated 255.2 MOS/KG (273-304); Potassium 3.6 MMOL/L (3.5-5.1)
[2017-05-04 20:21] LABS: Apearance,Urine CLEAR (Clear); Bilirubin,Urine Negative (Negative); Blood, Urine Negative (Negative); Glucose,Urine (UA) Negative (Negative); Ketones,Urine Negative (Negative); Mucus,Urine Occasional /LPF (Occasional); Nitrite,Urine Negative (Negative); Protein,Urine Negative; Squamous Epithelial Cell,Urine Occasional /HPF (0-10); Urine Color Yellow (Yellow); Urine Urobilinogen < 2.0 EU/DL (0.2-1.0)
[2017-05-04 20:23] LABS: Barbiturates Screen,Urine Negative (Negative); Benzodiazepines Screen,Urine Negative (Negative); Cannabinoid Screen,Urine Negative (Negative); Opiate Screen,Urine Positive (Negative); Phencyclidine Screen,Urine Negative (Negative)
[2017-05-04] MEDS: TEMAZEPAM 15 MG CAPSULE PO SCH (21:20)
[2017-05-04] MEDS: DOCUSATE SODIUM 100 MG CAPSULE PO SCH (21:20)
[2017-05-04] MEDS: MEGESTROL 400 MG/10 ML UDCUP PO SCH (21:21)
[2017-05-05] MEDS: SODIUM CHLORIDE 0.9% 1,000 ML IV SCH ×3 (02:13→19:36)
[2017-05-05 02:30] LABS: Basophils % 0.3 % (0.0-0.8); Eosinophils # 0.1 10*3/uL (0.0-0.87); Eosinophils % 0.6 % (0.00-10.9); Hematocrit 31.8 VOL% (42.0-52.0); Hemoglobin 11.2 GM/DL (14.0-18.0); Immature Granulocytes % 1.7 %; Immature Granulocytes Absolute 0.15 #; Lymphocytes # 1.8 10*3/uL (1.4-4.0); Mean Corpuscular HGB Conc 35.2 GM/DL (32-36); Mean Corpuscular Hemoglobin 32 PG (27-34); Mean Corpuscular Volume 91.9 FL (87-102); Mean Platelet Volume 9.3 FL (9.6-12.0); Monocytes # 0.8 10*3/uL (0.11-0.8); Monocytes % 8.8 % (1.7-12.7); Neutrophils # 6.2 10*3/uL (1.4-7.4); Neutrophils % 68.6 % (38.7-73.9); Platelet Count 366 T/CUMM (130-400); Red Blood Count 3.46 MC/CUMM (3.8-5.5); Red Cell Distribution Width 17.2 % (9.3-17.3); White Blood Count 9.1 T/CUMM (4-12)
[2017-05-05 03:14] LABS: Calcium 8.1 MG/DL (8.5-10.1); Magnesium 2.6 MG/DL (1.8-2.4); Osmolality,Calculated 257.9 MOS/KG (273-304); Potassium 3.5 MMOL/L (3.5-5.1)
[2017-05-05 03:53] LABS: Burr Cells Few; Platelet Estimate Normal
[2017-05-05] MEDS: PANTOPRAZOLE 40 MG TABLET PO SCH (09:48)
[2017-05-05] MEDS: CITALOPRAM 20 MG TABLET PO SCH (09:48)
[2017-05-05] MEDS: DOCUSATE SODIUM 100 MG CAPSULE PO SCH ×2 (09:48→21:48)
[2017-05-05] MEDS: NICOTINE 14 MG/24 HR PATCH TRANSDERM SCH (09:49)
[2017-05-05] MEDS: MEGESTROL 400 MG/10 ML UDCUP PO SCH ×2 (09:49→21:48)
[2017-05-05] MEDS: ENOXAPARIN 40 MG/0.4 ML SYRINGE SUBCUT SCH (12:30)
[2017-05-05] MEDS: TEMAZEPAM 15 MG CAPSULE PO SCH (23:45)
[2017-05-06] MEDS: SODIUM CHLOR 0.9% KCL 20 MEQ 20 MEQ/1,000 ML BAG IV SCH ×2 (05:35→19:13)
[2017-05-06 06:02] LABS: Calcium 8.2 MG/DL (8.5-10.1); Magnesium 2.1 MG/DL (1.8-2.4); Osmolality,Calculated 268.1 MOS/KG (273-304); Potassium 3.3 MMOL/L (3.5-5.1)
[2017-05-06 06:42] LABS: Basophils % 0.5 % (0.0-0.8); Eosinophils % 0.5 % (0.00-10.9); Hematocrit 31.9 VOL% (42.0-52.0); Immature Granulocytes % 1.7 %; Immature Granulocytes Absolute 0.14 #; Lymphocytes # 1.7 10*3/uL (1.4-4.0); Lymphocytes % 19.9 % (21.2-54.2); Mean Corpuscular HGB Conc 34.5 GM/DL (32-36); Mean Corpuscular Hemoglobin 32 PG (27-34); Mean Corpuscular Volume 94.1 FL (87-102); Mean Platelet Volume 9.2 FL (9.6-12.0); Monocytes # 0.7 10*3/uL (0.11-0.8); Monocytes % 8.2 % (1.7-12.7); Neutrophils # 5.8 10*3/uL (1.4-7.4); Neutrophils % 69.2 % (38.7-73.9); Platelet Count 358 T/CUMM (130-400); Red Blood Count 3.39 MC/CUMM (3.8-5.5); Red Cell Distribution Width 17.3 % (9.3-17.3); White Blood Count 8.3 T/CUMM (4-12)
[2017-05-06 07:09] LABS: Band Neutrophils 2 % (0-10); Hypochromasia 2+; Lymphocytes 22 % (20-55); Platelet Estimate Normal; Segmented Neutrophils 69 % (50-85); Total Cells Counted 100
[2017-05-06 07:10] LABS: Anisocytosis 1+; Burr Cells 2+; Macrocytosis 1+
[2017-05-06] MEDS: CITALOPRAM 20 MG TABLET PO SCH (09:13)
[2017-05-06] MEDS: LISINOPRIL 20 MG TABLET PO SCH (09:14)
[2017-05-06] MEDS: PANTOPRAZOLE 40 MG TABLET PO SCH (09:14)
[2017-05-06] MEDS: NICOTINE 14 MG/24 HR PATCH TRANSDERM SCH (09:14)
[2017-05-06] MEDS: DOCUSATE SODIUM 100 MG CAPSULE PO SCH ×2 (09:14→20:25)
[2017-05-06] MEDS: MEGESTROL 400 MG/10 ML UDCUP PO SCH ×2 (09:14→20:26)
[2017-05-06] MEDS: ENOXAPARIN 40 MG/0.4 ML SYRINGE SUBCUT SCH (12:30)
[2017-05-06] MEDS: chlorproMAZINE 25 MG TABLET PO PRN (20:25)
[2017-05-06] MEDS ORDERED: ENOXAPARIN 40 MG/0.4 ML SYRINGE SUBCUT SCH (21:00)
[2017-05-06] MEDS: TEMAZEPAM 15 MG CAPSULE PO SCH (22:46)
[2017-05-06] MEDS: POTASSIUM CHLORIDE 10 MEQ TABLET PO SCH (22:46)
[2017-05-07 06:15] LABS: Basophils # 0.1 10*3/uL (0.0-0.2); Basophils % 0.5 % (0.0-0.8); Eosinophils % 0.4 % (0.00-10.9); Hematocrit 33.4 VOL% (42.0-52.0); Hemoglobin 11.6 GM/DL (14.0-18.0); Immature Granulocytes % 1.6 %; Immature Granulocytes Absolute 0.16 #; Lymphocytes # 1.9 10*3/uL (1.4-4.0); Mean Corpuscular HGB Conc 34.7 GM/DL (32-36); Mean Corpuscular Hemoglobin 32 PG (27-34); Mean Corpuscular Volume 92.8 FL (87-102); Mean Platelet Volume 9.5 FL (9.6-12.0); Monocytes # 0.8 10*3/uL (0.11-0.8); Monocytes % 8.3 % (1.7-12.7); Neutrophils # 7.1 10*3/uL (1.4-7.4); Neutrophils % 70.2 % (38.7-73.9); Platelet Count 345 T/CUMM (130-400); Red Cell Distribution Width 17.3 % (9.3-17.3); White Blood Count 10.1 T/CUMM (4-12)
[2017-05-07] MEDS: SODIUM CHLOR 0.9% KCL 20 MEQ 20 MEQ/1,000 ML BAG IV SCH ×3 (06:37→21:24)
[2017-05-07 06:48] LABS: Calcium 8.5 MG/DL (8.5-10.1); Osmolality,Calculated 269.1 MOS/KG (273-304); Potassium 3.7 MMOL/L (3.5-5.1)
[2017-05-07] MEDS: MEGESTROL 400 MG/10 ML UDCUP PO SCH ×2 (09:17→21:16)
[2017-05-07] MEDS: DOCUSATE SODIUM 100 MG CAPSULE PO SCH ×2 (09:17→21:16)
[2017-05-07] MEDS: amLODIPine 5 MG TABLET PO SCH (09:17)
[2017-05-07] MEDS: PANTOPRAZOLE 40 MG TABLET PO SCH (09:17)
[2017-05-07] MEDS: LISINOPRIL 20 MG TABLET PO SCH (09:18)
[2017-05-07] MEDS: POTASSIUM CHLORIDE 10 MEQ TABLET PO SCH ×2 (09:18→21:16)
[2017-05-07] MEDS: NICOTINE 14 MG/24 HR PATCH TRANSDERM SCH (09:18)
[2017-05-07] MEDS: CITALOPRAM 20 MG TABLET PO SCH (09:18)
[2017-05-07] MEDS: chlorproMAZINE 25 MG TABLET PO PRN ×2 (09:51→18:38)
[2017-05-07] MEDS: TEMAZEPAM 15 MG CAPSULE PO SCH (21:16)
[2017-05-08 06:03] LABS: Basophils # 0.1 10*3/uL (0.0-0.2); Basophils % 0.5 % (0.0-0.8); Eosinophils # 0.1 10*3/uL (0.0-0.87); Eosinophils % 0.6 % (0.00-10.9); Hematocrit 32.4 VOL% (42.0-52.0); Hemoglobin 11.1 GM/DL (14.0-18.0); Immature Granulocytes % 1.5 %; Immature Granulocytes Absolute 0.16 #; Lymphocytes % 18.8 % (21.2-54.2); Mean Corpuscular HGB Conc 34.3 GM/DL (32-36); Mean Corpuscular Hemoglobin 32 PG (27-34); Mean Corpuscular Volume 93.1 FL (87-102); Mean Platelet Volume 9.3 FL (9.6-12.0); Monocytes # 0.8 10*3/uL (0.11-0.8); Monocytes % 7.8 % (1.7-12.7); Neutrophils # 7.5 10*3/uL (1.4-7.4); Neutrophils % 70.8 % (38.7-73.9); Platelet Count 346 T/CUMM (130-400); Red Blood Count 3.48 MC/CUMM (3.8-5.5); Red Cell Distribution Width 17.3 % (9.3-17.3); White Blood Count 10.6 T/CUMM (4-12)
[2017-05-08 06:34] LABS: Calcium 8.2 MG/DL (8.5-10.1); Magnesium 1.7 MG/DL (1.8-2.4); Osmolality,Calculated 266.2 MOS/KG (273-304)
[2017-05-08 06:36] LABS: Alanine Aminotransferase 16 U/L (16-61); Albumin 2.5 G/DL (3.4-5.0); Alkaline Phosphatase 76 U/L (45-117); Amylase 43 U/L (25-115); Aspartate Amino Transferase 8 U/L (0-37); Bilirubin,Direct < 0.100 MG/DL (0.0-0.20); Bilirubin,Indirect 0.3 MG/DL (0.0-1.0); Total Protein 5.8 G/DL (6.4-8.3)
[2017-05-08] MEDS: NICOTINE 14 MG/24 HR PATCH TRANSDERM SCH (09:24)
[2017-05-08] MEDS: chlorproMAZINE 25 MG TABLET PO PRN ×2 (09:24→19:55)
[2017-05-08] MEDS: POTASSIUM CHLORIDE 10 MEQ TABLET PO SCH ×3 (09:25→22:28)
[2017-05-08] MEDS: PANTOPRAZOLE 40 MG TABLET PO SCH (09:25)
[2017-05-08] MEDS: amLODIPine 5 MG TABLET PO SCH (09:25)
[2017-05-08] MEDS: MEGESTROL 400 MG/10 ML UDCUP PO SCH ×3 (09:25→22:29)
[2017-05-08] MEDS: DOCUSATE SODIUM 100 MG CAPSULE PO SCH ×3 (09:25→22:28)
[2017-05-08] MEDS: LISINOPRIL 20 MG TABLET PO SCH (09:25)
[2017-05-08] MEDS: CITALOPRAM 20 MG TABLET PO SCH (09:25)
[2017-05-08] MEDS: METOPROLOL TARTRATE 25 MG TABLET PO SCH ×3 (15:36→22:28)
[2017-05-08] MEDS: SODIUM CHLORIDE 0.9% 1,000 ML IV SCH (19:15)
[2017-05-08] MEDS: TEMAZEPAM 15 MG CAPSULE PO SCH ×2 (19:45→22:20)
[2017-05-09 05:37] LABS: Basophils # 0.1 10*3/uL (0.0-0.2); Basophils % 0.4 % (0.0-0.8); Eosinophils % 0.4 % (0.00-10.9); Hematocrit 32.8 VOL% (42.0-52.0); Hemoglobin 11.5 GM/DL (14.0-18.0); Immature Granulocytes % 1.6 %; Immature Granulocytes Absolute 0.18 #; Lymphocytes # 1.9 10*3/uL (1.4-4.0); Lymphocytes % 17.3 % (21.2-54.2); Mean Corpuscular HGB Conc 35.1 GM/DL (32-36); Mean Corpuscular Hemoglobin 33 PG (27-34); Mean Corpuscular Volume 93.2 FL (87-102); Monocytes # 0.8 10*3/uL (0.11-0.8); Neutrophils # 8.2 10*3/uL (1.4-7.4); Neutrophils % 73.3 % (38.7-73.9); Platelet Count 324 T/CUMM (130-400); Red Blood Count 3.52 MC/CUMM (3.8-5.5); Red Cell Distribution Width 17.3 % (9.3-17.3); White Blood Count 11.2 T/CUMM (4-12)
[2017-05-09 06:07] LABS: Calcium 8.7 MG/DL (8.5-10.1); Magnesium 1.7 MG/DL (1.8-2.4); Osmolality,Calculated 265.2 MOS/KG (273-304); Potassium 4.2 MMOL/L (3.5-5.1)
[2017-05-09] MEDS: NICOTINE 14 MG/24 HR PATCH TRANSDERM SCH (08:37)
[2017-05-09] MEDS: CITALOPRAM 20 MG TABLET PO SCH (08:38)
[2017-05-09] MEDS: PANTOPRAZOLE 40 MG TABLET PO SCH (08:38)
[2017-05-09] MEDS: METOPROLOL TARTRATE 25 MG TABLET PO SCH ×2 (08:38→21:25)
[2017-05-09] MEDS: POTASSIUM CHLORIDE 10 MEQ TABLET PO SCH ×2 (08:38→21:25)
[2017-05-09] MEDS: amLODIPine 5 MG TABLET PO SCH (08:38)
[2017-05-09] MEDS: MEGESTROL 400 MG/10 ML UDCUP PO SCH ×2 (08:38→21:24)
[2017-05-09] MEDS: LISINOPRIL 20 MG TABLET PO SCH ×2 (08:38→21:24)
[2017-05-09] MEDS: DOCUSATE SODIUM 100 MG CAPSULE PO SCH ×2 (08:38→21:24)
[2017-05-09] MEDS: chlorproMAZINE 25 MG TABLET PO PRN ×2 (12:30→21:24)
[2017-05-09] MEDS: TEMAZEPAM 15 MG CAPSULE PO SCH (21:24)
[2017-05-10] MEDS: SODIUM CHLORIDE 0.9% 1,000 ML IV SCH (01:45)
[2017-05-10 06:24] LABS: Basophils # 0.1 10*3/uL (0.0-0.2); Basophils % 0.6 % (0.0-0.8); Eosinophils % 0.3 % (0.00-10.9); Hematocrit 36.4 VOL% (42.0-52.0); Hemoglobin 12.4 GM/DL (14.0-18.0); Immature Granulocytes % 1.8 %; Immature Granulocytes Absolute 0.22 #; Lymphocytes # 2.4 10*3/uL (1.4-4.0); Lymphocytes % 19.5 % (21.2-54.2); Mean Corpuscular HGB Conc 34.1 GM/DL (32-36); Mean Corpuscular Hemoglobin 32 PG (27-34); Mean Corpuscular Volume 93.6 FL (87-102); Mean Platelet Volume 9.5 FL (9.6-12.0); Neutrophils # 8.6 10*3/uL (1.4-7.4); Neutrophils % 69.8 % (38.7-73.9); Platelet Count 326 T/CUMM (130-400); Red Blood Count 3.89 MC/CUMM (3.8-5.5); Red Cell Distribution Width 17.2 % (9.3-17.3); White Blood Count 12.4 T/CUMM (4-12)
[2017-05-10 06:48] LABS: Calcium 8.6 MG/DL (8.5-10.1); Magnesium 1.9 MG/DL (1.8-2.4); Osmolality,Calculated 267.1 MOS/KG (273-304); Potassium 4.2 MMOL/L (3.5-5.1)
[2017-05-10] MEDS: DOCUSATE SODIUM 100 MG CAPSULE PO SCH (08:46)
[2017-05-10] MEDS: PANTOPRAZOLE 40 MG TABLET PO SCH (08:46)
[2017-05-10] MEDS: LISINOPRIL 20 MG TABLET PO SCH (08:46)
[2017-05-10] MEDS: METOPROLOL TARTRATE 25 MG TABLET PO SCH (08:46)
[2017-05-10] MEDS: amLODIPine 5 MG TABLET PO SCH (08:46)
[2017-05-10] MEDS: POTASSIUM CHLORIDE 10 MEQ TABLET PO SCH (08:46)
[2017-05-10] MEDS: MEGESTROL 400 MG/10 ML UDCUP PO SCH (08:46)
[2017-05-10] MEDS: CITALOPRAM 20 MG TABLET PO SCH (08:46)
[2017-05-10] MEDS: NICOTINE 14 MG/24 HR PATCH TRANSDERM SCH (08:47)
[2017-05-10] MEDS: chlorproMAZINE 25 MG TABLET PO PRN ×2 (08:54→17:54)
[2017-05-10 16:19] VITALS: BP 107/76
[2017-05-10] MEDS ORDERED: HYDROmorphone 2 MG/1 ML VIAL IV ONE (16:21)
== END 2017-05-10 17:50 | disposition home health service (06) | DRG 143 ==
LOC: N.2E 12:29
PROVIDERS: ADMIT Family Medicine; ATTEND Family Medicine
PROC: [UNRECOGNIZED PROCEDURE] (2017-05-10 15:05)

== ENCOUNTER 2017-06-07 14:39 | Inpatient (IN) ==
[2017-06-07] MEDS ORDERED: SODIUM CHLORIDE 0.9% 1,000 ML IV STA (15:04)
[2017-06-07 15:29] LABS: Basophils % 0.2 % (0.0-0.8); Hematocrit 40.4 VOL% (42.0-52.0); Hemoglobin 14.3 GM/DL (14.0-18.0); Immature Granulocytes % 1.9 %; Immature Granulocytes Absolute 0.38 #; Lymphocytes # 1.9 10*3/uL (1.4-4.0); Lymphocytes % 9.3 % (21.2-54.2); Mean Corpuscular HGB Conc 35.4 GM/DL (32-36); Mean Corpuscular Hemoglobin 32 PG (27-34); Mean Platelet Volume 8.5 FL (9.6-12.0); Monocytes # 0.8 10*3/uL (0.11-0.8); Neutrophils # 16.8 10*3/uL (1.4-7.4); Neutrophils % 84.6 % (38.7-73.9); Platelet Count 530 T/CUMM (130-400); Red Blood Count 4.49 MC/CUMM (3.8-5.5); Red Cell Distribution Width 16.5 % (9.3-17.3); White Blood Count 19.8 T/CUMM (4-12)
[2017-06-07 15:54] LABS: Lactic Acid 5.1 MMOL/L (0.4-2.0)
[2017-06-07] MEDS ORDERED: SODIUM CHLORIDE 0.9% 1,350 ML IV ONE (15:54)
[2017-06-07 15:57] LABS: Alanine Aminotransferase 39 U/L (16-61); Albumin 4.1 G/DL (3.4-5.0); Alkaline Phosphatase 101 U/L (45-117); Aspartate Amino Transferase 31 U/L (0-37); Blood Urea Nitrogen 19 MG/DL (7-18); Calcium 10.1 MG/DL (8.5-10.1); Glucose 154 MG/DL (74-106); Magnesium 2.6 MG/DL (1.8-2.4); Osmolality,Calculated 255.5 MOS/KG (273-304); Sodium 125 MMOL/L (136-145); Total Protein 9.5 G/DL (6.4-8.3)
[2017-06-07] MEDS ORDERED: PIPERACILLIN/TAZOBACTAM 3,375 MG VIAL IV ONE (16:09)
[2017-06-07] MEDS ORDERED: SODIUM CHLORIDE 0.9% 100 ML IV ONE (16:09)
[2017-06-07] MEDS: PIPERACILLIN/TAZOBACTAM 3,375 MG in SODIUM CHLORIDE 0.9% 100 ML IV SCH (16:31)
[2017-06-07] MEDS ORDERED: ACETAMINOPHEN 325 MG TABLET PO PRN (18:11)
[2017-06-07] MEDS: ONDANSETRON 4 MG/2 ML VIAL IV PRN (18:19)
[2017-06-07] MEDS ORDERED: INFLUENZA VIRUS VACCINE 0.5 ML SYRINGE IM ONE (18:35)
[2017-06-07] MEDS ORDERED: PNEUMOCOCCAL VACCINE (13 VALENT) 0.5 ML SYRINGE IM ONE (18:38)
[2017-06-07 19:10] LABS: Apearance,Urine CLOUDY (Clear); Bacteria,Urine Occasional /HPF (Few); Bilirubin,Urine Negative (Negative); Blood, Urine Negative (Negative); Glucose,Urine (UA) Negative (Negative); Hyaline Casts,Urine 10 /LPF (0-3); Ketones,Urine 5 mg/dL (Negative); Mucus,Urine Occasional /LPF (Occasional); Nitrite,Urine Negative (Negative); Protein,Urine 100 MG/DL; RBC,Urine 6 /HPF (0-4); Squamous Epithelial Cell,Urine Occasional /HPF (0-10); Uric Acid Crystals,Urine Occasional /HPF (<1); Urine Color Amber (Yellow); Urine Specific Gravity 1.026 (1.001-1.035); Urine Urobilinogen < 2.0 EU/DL (0.2-1.0); WBC,Urine 13 /HPF (0-6)
[2017-06-07] MEDS: SODIUM CHLORIDE 0.9% 1,000 ML IV SCH (19:49)
[2017-06-07] MEDS: DOCUSATE SODIUM 100 MG CAPSULE PO SCH (21:54)
[2017-06-08] MEDS: PIPERACILLIN/TAZOBACTAM 3,375 MG in SODIUM CHLORIDE 0.9% 100 ML IV SCH ×3 (01:33→16:14)
[2017-06-08] MEDS: ONDANSETRON 4 MG/2 ML VIAL IV PRN ×4 (02:58→19:47)
[2017-06-08 05:09] LABS: Basophils % 0.1 % (0.0-0.8); Eosinophils % 0.1 % (0.00-10.9); Hematocrit 32.1 VOL% (42.0-52.0); Hemoglobin 11.6 GM/DL (14.0-18.0); Immature Granulocytes % 0.8 %; Immature Granulocytes Absolute 0.13 #; Lymphocytes # 1.1 10*3/uL (1.4-4.0); Mean Corpuscular HGB Conc 36.1 GM/DL (32-36); Mean Corpuscular Hemoglobin 32 PG (27-34); Mean Corpuscular Volume 87.7 FL (87-102); Mean Platelet Volume 8.7 FL (9.6-12.0); Monocytes # 0.9 10*3/uL (0.11-0.8); Monocytes % 5.9 % (1.7-12.7); Neutrophils # 13.6 10*3/uL (1.4-7.4); Neutrophils % 86.1 % (38.7-73.9); Platelet Count 424 T/CUMM (130-400); Red Blood Count 3.66 MC/CUMM (3.8-5.5); Red Cell Distribution Width 16.2 % (9.3-17.3); White Blood Count 15.8 T/CUMM (4-12)
[2017-06-08 05:35] LABS: Calcium 8.1 MG/DL (8.5-10.1); Osmolality,Calculated 261.9 MOS/KG (273-304); Potassium 2.7 MMOL/L (3.5-5.1)
[2017-06-08] MEDS ORDERED: POTASSIUM CHLORIDE RIDER 10 MEQ in PREMIX 1 EACH IV PRN (06:07)
[2017-06-08] MEDS: SODIUM CHLORIDE 0.9% 1,000 ML IV SCH ×3 (06:19→16:14)
[2017-06-08] MEDS: MORPHINE 2 MG/1 ML SYRINGE IV PRN ×4 (06:50→19:33)
[2017-06-08] MEDS: DOCUSATE SODIUM 100 MG CAPSULE PO SCH ×2 (09:12→23:11)
[2017-06-08] MEDS: PANTOPRAZOLE 40 MG TABLET PO SCH (09:30)
[2017-06-08] MEDS: POTASSIUM CHLORIDE 20 MEQ TABLET PO PRN ×4 (09:30→16:14)
[2017-06-08 14:08] LABS: Barbiturates Screen,Urine Negative (Negative); Benzodiazepines Screen,Urine Negative (Negative); Cannabinoid Screen,Urine Negative (Negative); Opiate Screen,Urine Positive (Negative); Phencyclidine Screen,Urine Negative (Negative)
[2017-06-09] MEDS: SODIUM CHLORIDE 0.9% 1,000 ML IV SCH ×3 (00:18→15:00)
[2017-06-09] MEDS: MORPHINE 2 MG/1 ML SYRINGE IV PRN ×5 (00:23→23:03)
[2017-06-09] MEDS: PIPERACILLIN/TAZOBACTAM 3,375 MG in SODIUM CHLORIDE 0.9% 100 ML IV SCH ×3 (00:26→15:16)
[2017-06-09] MEDS: POTASSIUM CHLORIDE 20 MEQ TABLET PO PRN ×5 (01:02→15:15)
[2017-06-09] MEDS: ONDANSETRON 4 MG/2 ML VIAL IV PRN ×4 (01:04→21:12)
[2017-06-09] MEDS: PANTOPRAZOLE 40 MG TABLET PO SCH (08:22)
[2017-06-09] MEDS: DOCUSATE SODIUM 100 MG CAPSULE PO SCH (08:23)
[2017-06-09 13:00] LABS: Basophils % 0.3 % (0.0-0.8); Eosinophils % 0.3 % (0.00-10.9); Hematocrit 31.9 VOL% (42.0-52.0); Hemoglobin 11.1 GM/DL (14.0-18.0); Immature Granulocytes % 0.6 %; Immature Granulocytes Absolute 0.07 #; Lymphocytes # 1.5 10*3/uL (1.4-4.0); Lymphocytes % 13.1 % (21.2-54.2); Mean Corpuscular HGB Conc 34.8 GM/DL (32-36); Mean Corpuscular Hemoglobin 32 PG (27-34); Mean Corpuscular Volume 91.1 FL (87-102); Mean Platelet Volume 8.4 FL (9.6-12.0); Monocytes # 0.8 10*3/uL (0.11-0.8); Monocytes % 6.8 % (1.7-12.7); Neutrophils # 9.1 10*3/uL (1.4-7.4); Neutrophils % 78.9 % (38.7-73.9); Platelet Count 358 T/CUMM (130-400); Red Cell Distribution Width 16.4 % (9.3-17.3); White Blood Count 11.5 T/CUMM (4-12)
[2017-06-09] MEDS: GABAPENTIN 100 MG CAPSULE PO SCH ×2 (15:15→21:12)
[2017-06-09] MEDS: MEGESTROL 400 MG/10 ML UDCUP PO SCH (21:12)
[2017-06-10] MEDS: SODIUM CHLORIDE 0.9% 1,000 ML IV SCH ×2 (00:54→16:18)
[2017-06-10] MEDS: PIPERACILLIN/TAZOBACTAM 3,375 MG in SODIUM CHLORIDE 0.9% 100 ML IV SCH ×3 (01:40→16:14)
[2017-06-10 03:19] LABS: Basophils % 0.3 % (0.0-0.8); Eosinophils % 0.3 % (0.00-10.9); Hematocrit 32.2 VOL% (42.0-52.0); Hemoglobin 10.9 GM/DL (14.0-18.0); Immature Granulocytes % 1.3 %; Immature Granulocytes Absolute 0.14 #; Lymphocytes # 1.5 10*3/uL (1.4-4.0); Lymphocytes % 14.1 % (21.2-54.2); Mean Corpuscular HGB Conc 33.9 GM/DL (32-36); Mean Corpuscular Hemoglobin 31 PG (27-34); Mean Corpuscular Volume 92.8 FL (87-102); Mean Platelet Volume 9.2 FL (9.6-12.0); Monocytes # 0.8 10*3/uL (0.11-0.8); Monocytes % 7.5 % (1.7-12.7); Neutrophils # 8.1 10*3/uL (1.4-7.4); Neutrophils % 76.5 % (38.7-73.9); Platelet Count 356 T/CUMM (130-400); Red Blood Count 3.47 MC/CUMM (3.8-5.5); Red Cell Distribution Width 16.4 % (9.3-17.3); White Blood Count 10.6 T/CUMM (4-12)
[2017-06-10 03:46] LABS: Osmolality,Calculated 274.7 MOS/KG (273-304); Potassium 3.6 MMOL/L (3.5-5.1)
[2017-06-10] MEDS: POTASSIUM CHLORIDE 20 MEQ TABLET PO PRN ×2 (04:57→06:52)
[2017-06-10] MEDS: MORPHINE 2 MG/1 ML SYRINGE IV PRN ×4 (05:06→21:28)
[2017-06-10] MEDS: MEGESTROL 400 MG/10 ML UDCUP PO SCH ×2 (09:41→21:28)
[2017-06-10] MEDS: CITALOPRAM 20 MG TABLET PO SCH (09:41)
[2017-06-10] MEDS: PANTOPRAZOLE 40 MG TABLET PO SCH (09:41)
[2017-06-10] MEDS: GABAPENTIN 100 MG CAPSULE PO SCH ×3 (09:42→21:28)
[2017-06-11] MEDS: PIPERACILLIN/TAZOBACTAM 3,375 MG in SODIUM CHLORIDE 0.9% 100 ML IV SCH ×3 (00:32→17:01)
[2017-06-11] MEDS: SODIUM CHLORIDE 0.9% 1,000 ML IV SCH (00:32)
[2017-06-11] MEDS: MORPHINE 2 MG/1 ML SYRINGE IV PRN ×5 (01:14→20:26)
[2017-06-11 08:08] LABS: Basophils % 0.4 % (0.0-0.8); Eosinophils # 0.1 10*3/uL (0.0-0.87); Eosinophils % 0.6 % (0.00-10.9); Hematocrit 30.2 VOL% (42.0-52.0); Hemoglobin 10.3 GM/DL (14.0-18.0); Immature Granulocytes % 1.2 %; Lymphocytes # 1.9 10*3/uL (1.4-4.0); Lymphocytes % 22.6 % (21.2-54.2); Mean Corpuscular HGB Conc 34.1 GM/DL (32-36); Mean Corpuscular Hemoglobin 32 PG (27-34); Mean Corpuscular Volume 93.5 FL (87-102); Mean Platelet Volume 9.2 FL (9.6-12.0); Monocytes # 0.5 10*3/uL (0.11-0.8); Monocytes % 5.5 % (1.7-12.7); Neutrophils # 5.8 10*3/uL (1.4-7.4); Neutrophils % 69.7 % (38.7-73.9); Platelet Count 308 T/CUMM (130-400); Red Blood Count 3.23 MC/CUMM (3.8-5.5); Red Cell Distribution Width 16.6 % (9.3-17.3); White Blood Count 8.3 T/CUMM (4-12)
[2017-06-11 08:39] LABS: Calcium 8.1 MG/DL (8.5-10.1); Magnesium 1.7 MG/DL (1.8-2.4); Osmolality,Calculated 277.5 MOS/KG (273-304); Potassium 3.7 MMOL/L (3.5-5.1)
[2017-06-11] MEDS: CITALOPRAM 20 MG TABLET PO SCH (10:40)
[2017-06-11] MEDS: GABAPENTIN 100 MG CAPSULE PO SCH ×3 (10:41→20:25)
[2017-06-11] MEDS: MEGESTROL 400 MG/10 ML UDCUP PO SCH ×2 (10:41→20:25)
[2017-06-11] MEDS: PANTOPRAZOLE 40 MG TABLET PO SCH (10:41)
[2017-06-11] MEDS: POTASSIUM CHLORIDE 20 MEQ TABLET PO PRN (16:13)
[2017-06-11] MEDS: MAGNESIUM OXIDE 400 MG TABLET PO SCH (20:25)
[2017-06-12] MEDS: SODIUM CHLORIDE 0.9% 1,000 ML IV SCH (00:29)
[2017-06-12] MEDS: MORPHINE 2 MG/1 ML SYRINGE IV PRN ×4 (00:30→13:21)
[2017-06-12] MEDS: PIPERACILLIN/TAZOBACTAM 3,375 MG in SODIUM CHLORIDE 0.9% 100 ML IV SCH ×2 (00:32→09:19)
[2017-06-12 04:47] LABS: Basophils # 0.1 10*3/uL (0.0-0.2); Basophils % 0.6 % (0.0-0.8); Eosinophils # 0.1 10*3/uL (0.0-0.87); Eosinophils % 0.6 % (0.00-10.9); Hematocrit 30.2 VOL% (42.0-52.0); Hemoglobin 10.1 GM/DL (14.0-18.0); Immature Granulocytes % 1.1 %; Immature Granulocytes Absolute 0.09 #; Lymphocytes # 1.8 10*3/uL (1.4-4.0); Lymphocytes % 22.4 % (21.2-54.2); Mean Corpuscular HGB Conc 33.4 GM/DL (32-36); Mean Corpuscular Hemoglobin 31 PG (27-34); Mean Corpuscular Volume 92.4 FL (87-102); Mean Platelet Volume 9.4 FL (9.6-12.0); Monocytes # 0.5 10*3/uL (0.11-0.8); Monocytes % 6.5 % (1.7-12.7); Neutrophils # 5.5 10*3/uL (1.4-7.4); Neutrophils % 68.8 % (38.7-73.9); Platelet Count 304 T/CUMM (130-400); Red Blood Count 3.27 MC/CUMM (3.8-5.5); Red Cell Distribution Width 16.7 % (9.3-17.3)
[2017-06-12 05:11] LABS: Calcium 8.4 MG/DL (8.5-10.1); Magnesium 1.7 MG/DL (1.8-2.4); Osmolality,Calculated 273.8 MOS/KG (273-304); Potassium 4.3 MMOL/L (3.5-5.1)
[2017-06-12] MEDS: CITALOPRAM 20 MG TABLET PO SCH (09:13)
[2017-06-12] MEDS: PANTOPRAZOLE 40 MG TABLET PO SCH (09:14)
[2017-06-12] MEDS: MAGNESIUM OXIDE 400 MG TABLET PO SCH (09:14)
[2017-06-12] MEDS: GABAPENTIN 100 MG CAPSULE PO SCH (09:14)
[2017-06-12] MEDS: MEGESTROL 400 MG/10 ML UDCUP PO SCH (09:15)
[2017-06-12] MEDS ORDERED: LISINOPRIL 20 MG TABLET PO SCH (10:00)
[2017-06-12] MEDS ORDERED: amLODIPine 5 MG TABLET PO SCH (10:00)
[2017-06-12 13:46] VITALS: BP 149/97
[2017-06-12] MEDS ORDERED: hydrALAZINE 25 MG TABLET PO SCH (15:00)
[2017-06-12] MEDS ORDERED: METOPROLOL TARTRATE 25 MG TABLET PO SCH (21:00)
== END 2017-06-12 17:25 | disposition home health service (06) | DRG 720 ==
LOC: N.ED 14:39 → N.EDINP 16:23 → N.CC 18:17 → N.4E 06-09 18:09
PROVIDERS: ADMIT Family Medicine; ATTEND Family Medicine

== ENCOUNTER 2017-07-05 10:02 | Observation (INO) ==
[2017-07-05] MEDS ORDERED: ONDANSETRON 4 MG/2 ML VIAL IV STA ×2 (10:52→16:36)
[2017-07-05] MEDS ORDERED: METOCLOPRAMIDE 10 MG/2 ML VIAL IV STA (10:52)
[2017-07-05] MEDS ORDERED: HYDROmorphone 2 MG/1 ML VIAL IV STA ×2 (10:52→16:36)
[2017-07-05] MEDS ORDERED: SODIUM CHLORIDE 0.9% 1,000 ML IV STA ×2 (10:52→14:17)
[2017-07-05] MEDS ORDERED: METOCLOPRAMIDE 10 MG/2 ML VIAL ONE (11:24)
[2017-07-05] MEDS ORDERED: ONDANSETRON 4 MG/2 ML VIAL ONE ×2 (11:24→16:10)
[2017-07-05 11:25] LABS: Basophils % 0.2 % (0.0-0.8); Eosinophils % 0.1 % (0.00-10.9); Hematocrit 43.1 VOL% (42.0-52.0); Hemoglobin 14.4 GM/DL (14.0-18.0); Immature Granulocytes % 1.6 %; Immature Granulocytes Absolute 0.22 #; Lymphocytes # 1.5 10*3/uL (1.4-4.0); Lymphocytes % 10.9 % (21.2-54.2); Mean Corpuscular HGB Conc 33.4 GM/DL (32-36); Mean Corpuscular Hemoglobin 32 PG (27-34); Mean Corpuscular Volume 96.6 FL (87-102); Mean Platelet Volume 9.2 FL (9.6-12.0); Monocytes # 0.8 10*3/uL (0.11-0.8); Monocytes % 5.7 % (1.7-12.7); Neutrophils # 11.4 10*3/uL (1.4-7.4); Neutrophils % 81.5 % (38.7-73.9); Platelet Count 329 T/CUMM (130-400); Red Blood Count 4.46 MC/CUMM (3.8-5.5); Red Cell Distribution Width 17.9 % (9.3-17.3); White Blood Count 13.9 T/CUMM (4-12)
[2017-07-05] MEDS ORDERED: HYDROmorphone 2 MG/1 ML VIAL ONE ×2 (11:25→16:10)
[2017-07-05 11:59] LABS: Alanine Aminotransferase 23 U/L (16-61); Albumin 4.1 G/DL (3.4-5.0); Alkaline Phosphatase 76 U/L (45-117); Amylase 87 U/L (25-115); Aspartate Amino Transferase 10 U/L (0-37); Blood Urea Nitrogen 24 MG/DL (7-18); Calcium 9.1 MG/DL (8.5-10.1); Glucose 162 MG/DL (74-106); Lactic Acid 3.3 MMOL/L (0.4-2.0); Osmolality,Calculated 269.7 MOS/KG (273-304); Potassium 3.9 MMOL/L (3.5-5.1); Sodium 131 MMOL/L (136-145); Total Protein 9.2 G/DL (6.4-8.3); Troponin I Only < 0.015 NG/ML (0.00-0.045)
[2017-07-05] MEDS ORDERED: metroNIDAZOLE INJ 500 MG in PREMIX 1 EACH IV STA (12:39)
[2017-07-05] MEDS ORDERED: cefTRIAXone 1,000 MG in SODIUM CHLORIDE 0.9% 100 ML IV STA (12:39)
[2017-07-05] MEDS ORDERED: cefTRIAXone 1,000 MG VIAL ONE (13:39)
[2017-07-05] MEDS ORDERED: metroNIDAZOLE 500 MG/100 ML PREMIX IV ONE (13:40)
[2017-07-05 17:22] LABS: Lactic Acid 2.4 MMOL/L (0.4-2.0)
[2017-07-05] MEDS ORDERED: hydrALAZINE 20 MG/1 ML VIAL IV PRN (17:25)
[2017-07-05] MEDS ORDERED: ONDANSETRON 4 MG/2 ML VIAL IV PRN (17:25)
[2017-07-05] MEDS ORDERED: HYDROmorphone 2 MG/1 ML VIAL IV PRN (17:25)
[2017-07-05] MEDS: cefTRIAXone 1,000 MG in SYRINGE 1 EACH IV SCH (18:32)
[2017-07-05] MEDS: SODIUM CHLORIDE 0.9% 1,000 ML IV SCH (18:33)
[2017-07-05] MEDS ORDERED: methylPREDNISolone SOD SUC 40 MG/1 ML VIAL IV ONE (20:19)
[2017-07-05] MEDS ORDERED: traZODone 50 MG TABLET PO PRN (21:06)
[2017-07-05] MEDS: metroNIDAZOLE INJ 500 MG in PREMIX 1 EACH IV SCH (21:23)
[2017-07-05] MEDS ORDERED: NICOTINE 14 MG/24 HR PATCH TRANSDERM ONE (21:30)
[2017-07-05] MEDS: MEPERIDINE 25 MG/1 ML VIAL IV PRN (22:26)
[2017-07-05 22:53] LABS: Lactic Acid 2.1 MMOL/L (0.4-2.0)
[2017-07-06 02:33] LABS: Apearance,Urine CLEAR (Clear); Bilirubin,Urine Negative (Negative); Blood, Urine Negative (Negative); Glucose,Urine (UA) Negative (Negative); Ketones,Urine Negative (Negative); Mucus,Urine Occasional /LPF (Occasional); Nitrite,Urine Negative (Negative); Protein,Urine Negative; RBC,Urine <1 /HPF (0-4); Squamous Epithelial Cell,Urine Occasional /HPF (0-10); Urine Color Yellow (Yellow); Urine Specific Gravity 1.015 (1.001-1.035); Urine Urobilinogen < 2.0 EU/DL (0.2-1.0); WBC,Urine 1 /HPF (0-6)
[2017-07-06] MEDS: metroNIDAZOLE INJ 500 MG in PREMIX 1 EACH IV SCH ×5 (03:06→23:46)
[2017-07-06] MEDS: SODIUM CHLORIDE 0.9% 1,000 ML IV SCH ×2 (03:06→13:29)
[2017-07-06 03:47] LABS: Basophils % 0.1 % (0.0-0.8); Eosinophils % 0.1 % (0.00-10.9); Hematocrit 32.2 VOL% (42.0-52.0); Hemoglobin 11.1 GM/DL (14.0-18.0); Immature Granulocytes % 0.8 %; Immature Granulocytes Absolute 0.06 #; Lymphocytes # 1.1 10*3/uL (1.4-4.0); Lymphocytes % 14.1 % (21.2-54.2); Mean Corpuscular HGB Conc 34.5 GM/DL (32-36); Mean Corpuscular Hemoglobin 33 PG (27-34); Mean Corpuscular Volume 95.5 FL (87-102); Monocytes # 0.4 10*3/uL (0.11-0.8); Monocytes % 4.9 % (1.7-12.7); Neutrophils # 6.3 10*3/uL (1.4-7.4); Platelet Count 260 T/CUMM (130-400); Red Blood Count 3.37 MC/CUMM (3.8-5.5); Red Cell Distribution Width 17.4 % (9.3-17.3); White Blood Count 7.9 T/CUMM (4-12)
[2017-07-06] MEDS: MEPERIDINE 25 MG/1 ML VIAL IV PRN ×4 (04:02→22:18)
[2017-07-06 04:16] LABS: Albumin 3.2 G/DL (3.4-5.0); Calcium 8.5 MG/DL (8.5-10.1); Magnesium 2.1 MG/DL (1.8-2.4); Potassium 4.1 MMOL/L (3.5-5.1); Total Protein 6.9 G/DL (6.4-8.3)
[2017-07-06] MEDS ORDERED: ZALEPLON 5 MG CAPSULE PO PRN (08:46)
[2017-07-06] MEDS ORDERED: NICOTINE 14 MG/24 HR PATCH TRANSDERM SCH (09:00)
[2017-07-06] MEDS: PANTOPRAZOLE 40 MG VIAL IV SCH (10:30)
[2017-07-06] MEDS: amLODIPine 5 MG TABLET PO SCH (10:31)
[2017-07-06] MEDS: CITALOPRAM 20 MG TABLET PO SCH (10:31)
[2017-07-06] MEDS: LISINOPRIL 20 MG TABLET PO SCH ×2 (10:33→21:17)
[2017-07-06] MEDS: NICOTINE 14 MG/24 HR PATCH TRANSDERM SCH (10:33)
[2017-07-06] MEDS: cefTRIAXone 1,000 MG in SYRINGE 1 EACH IV SCH (17:31)
[2017-07-07 03:41] LABS: Calcium 8.6 MG/DL (8.5-10.1); Magnesium 2.1 MG/DL (1.8-2.4); Osmolality,Calculated 277.4 MOS/KG (273-304); Potassium 3.7 MMOL/L (3.5-5.1)
[2017-07-07] MEDS: MEPERIDINE 25 MG/1 ML VIAL IV PRN ×2 (04:24→10:27)
[2017-07-07] MEDS: SODIUM CHLORIDE 0.9% 1,000 ML IV SCH (05:42)
[2017-07-07] MEDS: metroNIDAZOLE INJ 500 MG in PREMIX 1 EACH IV SCH ×2 (05:43→12:09)
[2017-07-07] MEDS: PANTOPRAZOLE 40 MG VIAL IV SCH (09:21)
[2017-07-07] MEDS: CITALOPRAM 20 MG TABLET PO SCH (09:22)
[2017-07-07] MEDS: NICOTINE 14 MG/24 HR PATCH TRANSDERM SCH (09:23)
[2017-07-07] MEDS: amLODIPine 5 MG TABLET PO SCH (09:23)
[2017-07-07] MEDS: LISINOPRIL 20 MG TABLET PO SCH (09:23)
[2017-07-07 12:37] VITALS: BP 148/97
== END 2017-07-07 17:53 | disposition home or self-care (01) ==
LOC: N.ED 10:02 → N.EDINP 15:35 → INTOOBSV 15:35 → N.TELEN 17:25
PROVIDERS: ADMIT Family Medicine; ATTEND Family Medicine

== ENCOUNTER 2017-11-26 16:08 | Observation (INO) ==
[2017-11-26] MEDS ORDERED: ONDANSETRON 4 MG/2 ML VIAL IV STA (17:56)
[2017-11-26] MEDS ORDERED: SODIUM CHLORIDE 0.9% 1,000 ML IV STA (17:56)
[2017-11-26] MEDS ORDERED: MORPHINE 4 MG/1 ML VIAL IV STA ×2 (17:56→20:42)
[2017-11-26] MEDS ORDERED: ONDANSETRON 4 MG/2 ML VIAL ONE (18:19)
[2017-11-26] MEDS ORDERED: MORPHINE 4 MG/1 ML VIAL ONE ×2 (18:19→20:48)
[2017-11-26 18:38] LABS: Basophils # 0.1 10*3/uL (0.0-0.2); Basophils % 0.7 % (0.0-0.8); Eosinophils # 0.1 10*3/uL (0.0-0.87); Eosinophils % 0.9 % (0.00-10.9); Hematocrit 37.6 VOL% (42.0-52.0); Hemoglobin 12.3 GM/DL (14.0-18.0); Immature Granulocytes % 5.7 %; Immature Granulocytes Absolute 0.55 #; Lymphocytes # 2.3 10*3/uL (1.4-4.0); Lymphocytes % 23.6 % (21.2-54.2); Mean Corpuscular HGB Conc 32.7 GM/DL (32-36); Mean Corpuscular Hemoglobin 34 PG (27-34); Mean Platelet Volume 10.4 FL (9.6-12.0); Monocytes # 0.7 10*3/uL (0.11-0.8); Monocytes % 7.2 % (1.7-12.7); Neutrophils % 61.9 % (38.7-73.9); Platelet Count 254 T/CUMM (130-400); Red Blood Count 3.65 MC/CUMM (3.8-5.5); Red Cell Distribution Width 14.8 % (9.3-17.3); White Blood Count 9.7 T/CUMM (4-12)
[2017-11-26 19:04] LABS: Alanine Aminotransferase 34 U/L (16-61); Albumin 3.1 G/DL (3.4-5.0); Alkaline Phosphatase 147 U/L (45-117); Aspartate Amino Transferase 22 U/L (0-37); Bilirubin,Total < 0.39 MG/DL (0.2-1.0); Blood Urea Nitrogen 4 MG/DL (7-18); Calcium 8.8 MG/DL (8.5-10.1); Glucose 84 MG/DL (74-106); Osmolality,Calculated 272.5 MOS/KG (273-304); Potassium 4.8 MMOL/L (3.5-5.1); Sodium 139 MMOL/L (136-145); Total Protein 7.2 G/DL (6.4-8.3)
[2017-11-26 20:24] LABS: Band Neutrophils 2 % (0-10); Lymphocytes 27 % (20-55); Metamyelocytes 1 %; Myelocytes 6 %; Platelet Estimate Normal; Segmented Neutrophils 56 % (50-85); Total Cells Counted 100
[2017-11-26] MEDS ORDERED: ACETAMINOPHEN 325 MG TABLET PO PRN (20:42)
[2017-11-26] MEDS ORDERED: ONDANSETRON 4 MG/2 ML VIAL IV PRN (20:42)
[2017-11-26] MEDS ORDERED: GLUCAGON 1 MG VIAL IM PRN (20:44)
[2017-11-26] MEDS ORDERED: DEXTROSE 50% 25 GM/50 ML VIAL IV PRN (20:44)
[2017-11-26] MEDS: DOCUSATE SODIUM 100 MG CAPSULE PO SCH (21:25)
[2017-11-26] MEDS: INSULIN REGULAR 100 UNIT/ML SUBCUT SCH (21:25)
[2017-11-26] MEDS: SODIUM CHLORIDE 0.45% 1,000 ML IV SCH (21:37)
[2017-11-27] MEDS: HYDROmorphone 2 MG/1 ML VIAL IV PRN ×4 (00:27→13:49)
[2017-11-27] MEDS: SODIUM CHLORIDE 0.45% 1,000 ML IV SCH ×2 (04:01→13:49)
[2017-11-27] MEDS: INSULIN REGULAR 100 UNIT/ML SUBCUT SCH ×4 (07:48→21:45)
[2017-11-27] MEDS: DOCUSATE SODIUM 100 MG CAPSULE PO SCH ×2 (09:41→21:52)
[2017-11-27] MEDS: PANTOPRAZOLE 40 MG TABLET PO SCH (09:41)
[2017-11-27] MEDS ORDERED: traZODone 50 MG TABLET PO PRN (11:46)
[2017-11-27] MEDS ORDERED: diphenhydrAMINE CAP 25 MG CAPSULE PO PRN (12:07)
[2017-11-27] MEDS: diphenhydrAMINE 25 MG/10 ML UDCUP PO PRN ×2 (13:50→21:51)
[2017-11-27] MEDS: GABAPENTIN 100 MG CAPSULE PO SCH ×2 (15:48→21:52)
[2017-11-27] MEDS: HYDROmorphone 2 MG TABLET PO PRN ×2 (17:51→21:52)
[2017-11-27] MEDS: MAGNESIUM OXIDE 400 MG TABLET PO SCH (21:52)
[2017-11-27] MEDS: MEGESTROL 400 MG/10 ML UDCUP PO SCH (21:52)
[2017-11-27] MEDS: POTASSIUM CHLORIDE 10 MEQ TABLET PO SCH (21:52)
[2017-11-28] MEDS: SODIUM CHLORIDE 0.45% 1,000 ML IV SCH (02:33)
[2017-11-28] MEDS: HYDROmorphone 2 MG TABLET PO PRN ×3 (02:34→11:02)
[2017-11-28 07:25] LABS: Calcium 8.3 MG/DL (8.5-10.1); Osmolality,Calculated 280.3 MOS/KG (273-304); Potassium 4.3 MMOL/L (3.5-5.1)
[2017-11-28] MEDS: INSULIN REGULAR 100 UNIT/ML SUBCUT SCH ×2 (08:45→11:10)
[2017-11-28] MEDS: POTASSIUM CHLORIDE 10 MEQ TABLET PO SCH (08:48)
[2017-11-28] MEDS: MAGNESIUM OXIDE 400 MG TABLET PO SCH (08:48)
[2017-11-28] MEDS: diphenhydrAMINE 25 MG/10 ML UDCUP PO PRN (08:48)
[2017-11-28] MEDS: PANTOPRAZOLE 40 MG TABLET PO SCH (08:48)
[2017-11-28] MEDS: GABAPENTIN 100 MG CAPSULE PO SCH (08:48)
[2017-11-28] MEDS: MEGESTROL 400 MG/10 ML UDCUP PO SCH (08:49)
[2017-11-28] MEDS: DOCUSATE SODIUM 100 MG CAPSULE PO SCH (08:49)
[2017-11-28] MEDS ORDERED: CITALOPRAM 20 MG TABLET PO SCH (09:00)
[2017-11-28] MEDS ORDERED: amLODIPine 5 MG TABLET PO SCH (09:00)
[2017-11-28] MEDS ORDERED: NICOTINE 14 MG/24 HR PATCH TRANSDERM SCH (09:00)
[2017-11-28] MEDS ORDERED: LISINOPRIL 20 MG TABLET PO SCH (09:00)
[2017-11-28 12:29] VITALS: BP 142/94
== END 2017-11-28 14:58 | disposition home or self-care (01) ==
LOC: N.ED 16:08 → N.EDINP 16:08 → N.2E 21:12
PROVIDERS: ADMIT Family Medicine; ATTEND Family Medicine

== ENCOUNTER 2017-12-15 15:34 | Observation (INO) ==
[2017-12-15] MEDS ORDERED: ONDANSETRON 4 MG/2 ML VIAL IV STA (15:51)
[2017-12-15] MEDS ORDERED: MORPHINE 4 MG/1 ML VIAL IV STA ×2 (15:51→19:10)
[2017-12-15 16:01] LABS: Basophils % 0.2 % (0.0-0.8); Eosinophils % 0.3 % (0.00-10.9); Hematocrit 35.9 VOL% (42.0-52.0); Hemoglobin 12.4 GM/DL (14.0-18.0); Immature Granulocytes % 1.2 %; Lymphocytes # 2.1 10*3/uL (1.4-4.0); Lymphocytes % 24.1 % (21.2-54.2); Mean Corpuscular HGB Conc 34.5 GM/DL (32-36); Mean Corpuscular Hemoglobin 34 PG (27-34); Mean Corpuscular Volume 97.6 FL (87-102); Mean Platelet Volume 9.2 FL (9.6-12.0); Monocytes # 0.5 10*3/uL (0.11-0.8); Monocytes % 5.5 % (1.7-12.7); Neutrophils % 68.7 % (38.7-73.9); Platelet Count 356 T/CUMM (130-400); Red Blood Count 3.68 MC/CUMM (3.8-5.5); Red Cell Distribution Width 14.4 % (9.3-17.3); White Blood Count 8.7 T/CUMM (4-12)
[2017-12-15 16:28] LABS: Alanine Aminotransferase 32 U/L (16-61); Albumin 2.8 G/DL (3.4-5.0); Alkaline Phosphatase 115 U/L (45-117); Aspartate Amino Transferase 35 U/L (0-37); Bilirubin,Total < 0.39 MG/DL (0.2-1.0); Blood Urea Nitrogen 6 MG/DL (7-18); Calcium 8.7 MG/DL (8.5-10.1); Glucose 106 MG/DL (74-106); Osmolality,Calculated 278.3 MOS/KG (273-304); Potassium 3.7 MMOL/L (3.5-5.1); Sodium 141 MMOL/L (136-145); Total Protein 7.5 G/DL (6.4-8.3)
[2017-12-15 17:11] LABS: Lactic Acid 3.2 MMOL/L (0.4-2.0)
[2017-12-15 18:38] LABS: Apearance,Urine CLEAR (Clear); Bacteria,Urine Occasional /HPF (Few); Bilirubin,Urine Negative (Negative); Blood, Urine Negative (Negative); Glucose,Urine (UA) Negative (Negative); Hyaline Casts,Urine 2 /LPF (0-3); Ketones,Urine Negative (Negative); Mucus,Urine Occasional /LPF (Occasional); Nitrite,Urine Negative (Negative); Protein,Urine Negative; RBC,Urine 1 /HPF (0-4); Urine Color Yellow (Yellow); Urine Specific Gravity 1.019 (1.001-1.035); Urine Urobilinogen < 2.0 EU/DL (0.2-1.0); WBC,Urine 1 /HPF (0-6)
[2017-12-15] MEDS ORDERED: SODIUM CHLORIDE 0.9% 1,000 ML IV STA (20:37)
[2017-12-15 21:21] LABS: Lactic Acid 3.5 MMOL/L (0.4-2.0)
[2017-12-16] MEDS ORDERED: ONDANSETRON 4 MG/2 ML VIAL IV PRN (00:02)
[2017-12-16] MEDS ORDERED: SODIUM CHLORIDE 0.9% 1,000 ML IV SCH (00:30)
[2017-12-16] MEDS ORDERED: MORPHINE 4 MG/1 ML VIAL IV SCH (00:30)
[2017-12-16] MEDS: MORPHINE 4 MG/1 ML VIAL IV SCH ×8 (03:10→22:51)
[2017-12-16] MEDS: SODIUM CHLORIDE 0.9% 1,000 ML IV SCH ×2 (03:16→10:34)
[2017-12-16] MEDS: diphenhydrAMINE CAP 25 MG CAPSULE PO PRN ×3 (03:16→18:06)
[2017-12-16] MEDS ORDERED: PANTOPRAZOLE 40 MG TABLET PO SCH (09:00)
[2017-12-16] MEDS ORDERED: traZODone 50 MG TABLET PO PRN (09:59)
[2017-12-16] MEDS: POTASSIUM CHLORIDE 10 MEQ TABLET PO SCH ×2 (10:33→21:28)
[2017-12-16] MEDS: MEGESTROL 400 MG/10 ML UDCUP PO SCH ×2 (10:33→21:28)
[2017-12-16] MEDS: GABAPENTIN 100 MG CAPSULE PO SCH ×3 (10:33→21:28)
[2017-12-16] MEDS: amLODIPine 5 MG TABLET PO SCH (10:33)
[2017-12-16] MEDS: PANTOPRAZOLE 40 MG TABLET PO SCH (10:34)
[2017-12-16 15:49] LABS: Barbiturates Screen,Urine Negative (Negative); Benzodiazepines Screen,Urine Negative (Negative); Cannabinoid Screen,Urine Negative (Negative); Opiate Screen,Urine Positive (Negative); Phencyclidine Screen,Urine Negative (Negative)
[2017-12-16] MEDS ORDERED: CITALOPRAM 20 MG TABLET PO SCH (21:00)
[2017-12-17] MEDS: MORPHINE 4 MG/1 ML VIAL IV SCH ×6 (01:32→13:42)
[2017-12-17] MEDS: SODIUM CHLORIDE 0.9% 1,000 ML IV SCH ×2 (01:33→09:01)
[2017-12-17 05:08] LABS: Basophils % 0.4 % (0.0-0.8); Eosinophils # 0.1 10*3/uL (0.0-0.87); Eosinophils % 0.6 % (0.00-10.9); Hematocrit 31.6 VOL% (42.0-52.0); Hemoglobin 10.7 GM/DL (14.0-18.0); Immature Granulocytes % 0.8 %; Immature Granulocytes Absolute 0.06 #; Lymphocytes # 1.3 10*3/uL (1.4-4.0); Lymphocytes % 16.7 % (21.2-54.2); Mean Corpuscular HGB Conc 33.9 GM/DL (32-36); Mean Corpuscular Hemoglobin 34 PG (27-34); Mean Corpuscular Volume 99.7 FL (87-102); Mean Platelet Volume 10.1 FL (9.6-12.0); Monocytes # 0.5 10*3/uL (0.11-0.8); Monocytes % 6.1 % (1.7-12.7); Neutrophils # 5.8 10*3/uL (1.4-7.4); Neutrophils % 75.4 % (38.7-73.9); Platelet Count 280 T/CUMM (130-400); Red Blood Count 3.17 MC/CUMM (3.8-5.5); Red Cell Distribution Width 14.2 % (9.3-17.3); White Blood Count 7.7 T/CUMM (4-12)
[2017-12-17 05:29] LABS: Lactic Acid 1.8 MMOL/L (0.4-2.0)
[2017-12-17 05:43] LABS: Calcium 8.2 MG/DL (8.5-10.1); Osmolality,Calculated 279.1 MOS/KG (273-304); Potassium 3.4 MMOL/L (3.5-5.1)
[2017-12-17] MEDS: POTASSIUM CHLORIDE 20 MEQ TABLET PO PRN ×2 (06:43→09:01)
[2017-12-17] MEDS ORDERED: NON-FORMULARY MEDICATION (Citalopram Hydrobromide [Celexa] 10 MG) PO SCH (09:00)
[2017-12-17] MEDS: MEGESTROL 400 MG/10 ML UDCUP PO SCH (09:01)
[2017-12-17] MEDS: POTASSIUM CHLORIDE 10 MEQ TABLET PO SCH (09:02)
[2017-12-17] MEDS: GABAPENTIN 100 MG CAPSULE PO SCH (09:02)
[2017-12-17] MEDS: amLODIPine 5 MG TABLET PO SCH (09:02)
[2017-12-17] MEDS: PANTOPRAZOLE 40 MG TABLET PO SCH (09:03)
[2017-12-17 12:05] VITALS: BP 143/99
== END 2017-12-17 14:14 | disposition home or self-care (01) ==
LOC: N.EDINP 15:34 → N.ED 15:34 → N.TELEN 12-16 00:53
PROVIDERS: ADMIT Family Medicine; ATTEND Family Medicine

== ENCOUNTER 2018-01-06 14:25 | Observation (INO) ==
[2018-01-06 15:02] LABS: Basophils % 0.2 % (0.0-0.8); Eosinophils # 0.1 10*3/uL (0.0-0.87); Eosinophils % 0.5 % (0.00-10.9); Hematocrit 41.9 VOL% (42.0-52.0); Hemoglobin 14.3 GM/DL (14.0-18.0); Immature Granulocytes % 2.3 %; Immature Granulocytes Absolute 0.29 #; Lymphocytes # 2.1 10*3/uL (1.4-4.0); Lymphocytes % 16.5 % (21.2-54.2); Mean Corpuscular HGB Conc 34.1 GM/DL (32-36); Mean Corpuscular Hemoglobin 33 PG (27-34); Mean Corpuscular Volume 96.3 FL (87-102); Monocytes # 0.8 10*3/uL (0.11-0.8); Monocytes % 6.2 % (1.7-12.7); Neutrophils # 9.4 10*3/uL (1.4-7.4); Neutrophils % 74.3 % (38.7-73.9); Platelet Count 306 T/CUMM (130-400); Red Blood Count 4.35 MC/CUMM (3.8-5.5); Red Cell Distribution Width 13.7 % (9.3-17.3); White Blood Count 12.6 T/CUMM (4-12)
[2018-01-06 15:20] LABS: Albumin 3.6 G/DL (3.4-5.0); Bilirubin,Total 0.4 MG/DL (0.2-1.0); Calcium 9.2 MG/DL (8.5-10.1); Osmolality,Calculated 261.5 MOS/KG (273-304); Potassium 3.8 MMOL/L (3.5-5.1); Total Protein 8.7 G/DL (6.4-8.3)
[2018-01-06] MEDS ORDERED: SODIUM CHLORIDE 0.9% 1,000 ML IV STA (17:56)
[2018-01-06] MEDS ORDERED: PROMETHAZINE INJ 25 MG in SODIUM CHLORIDE 0.9% 50 ML IV STA (17:57)
[2018-01-06] MEDS ORDERED: PROMETHAZINE 25 MG/1 ML VIAL ONE (18:00)
[2018-01-06] MEDS ORDERED: KETOROLAC 30 MG/1 ML VIAL IV STA (18:06)
[2018-01-06] MEDS ORDERED: KETOROLAC 30 MG/1 ML VIAL ONE (18:08)
[2018-01-06] MEDS ORDERED: ONDANSETRON 4 MG/2 ML VIAL IV PRN (20:31)
[2018-01-06] MEDS ORDERED: MORPHINE 4 MG/1 ML VIAL ONE (20:52)
[2018-01-06] MEDS ORDERED: MORPHINE 4 MG/1 ML VIAL IV ONE (21:00)
[2018-01-06] MEDS: SODIUM CHLORIDE 0.9% 1,000 ML IV SCH (22:05)
[2018-01-06] MEDS: MEGESTROL 400 MG/10 ML UDCUP PO SCH (22:10)
[2018-01-06] MEDS: GABAPENTIN 100 MG CAPSULE PO SCH (22:10)
[2018-01-06] MEDS: ENOXAPARIN 40 MG/0.4 ML SYRINGE SUBCUT SCH (22:11)
[2018-01-06] MEDS: POTASSIUM CHLORIDE 10 MEQ TABLET PO SCH (22:11)
[2018-01-07] MEDS: SODIUM CHLORIDE 0.9% 1,000 ML IV SCH ×4 (03:44→21:14)
[2018-01-07 06:59] LABS: Albumin 2.9 G/DL (3.4-5.0); Bilirubin,Total 0.6 MG/DL (0.2-1.0); Calcium 8.3 MG/DL (8.5-10.1); Osmolality,Calculated 271.8 MOS/KG (273-304); Potassium 3.7 MMOL/L (3.5-5.1); Total Protein 7.5 G/DL (6.4-8.3)
[2018-01-07] MEDS: POTASSIUM CHLORIDE 10 MEQ TABLET PO SCH ×2 (09:10→21:13)
[2018-01-07] MEDS: PANTOPRAZOLE 40 MG TABLET PO SCH (09:10)
[2018-01-07] MEDS: MEGESTROL 400 MG/10 ML UDCUP PO SCH ×2 (09:10→21:11)
[2018-01-07] MEDS: GABAPENTIN 100 MG CAPSULE PO SCH ×3 (09:10→21:13)
[2018-01-07 09:46] LABS: Apearance,Urine CLOUDY (Clear); Bilirubin,Urine Small mg/dL (Negative); Blood, Urine Negative (Negative); Glucose,Urine (UA) Negative (Negative); Hyaline Casts,Urine 335 /LPF (0-3); Ketones,Urine 5 mg/dL (Negative); Mucus,Urine Many /LPF (Occasional); Nitrite,Urine Negative (Negative); Protein,Urine 100 MG/DL; RBC,Urine 3 /HPF (0-4); Urine Color Amber (Yellow); Urine Specific Gravity 1.028 (1.001-1.035); WBC,Urine 4 /HPF (0-6)
[2018-01-07 09:55] LABS: Barbiturates Screen,Urine Negative (Negative); Benzodiazepines Screen,Urine Negative (Negative); Cannabinoid Screen,Urine Positive (Negative); Opiate Screen,Urine Positive (Negative); Phencyclidine Screen,Urine Negative (Negative)
[2018-01-07] MEDS: NICOTINE 21 MG/24 HR PATCH TRANSDERM SCH (11:01)
[2018-01-07] MEDS: KETOROLAC 30 MG/1 ML VIAL IV PRN ×2 (11:02→18:04)
[2018-01-07] MEDS: MORPHINE 4 MG/1 ML VIAL IV PRN ×2 (13:22→21:12)
[2018-01-07] MEDS: ENOXAPARIN 40 MG/0.4 ML SYRINGE SUBCUT SCH (21:13)
[2018-01-08] MEDS: KETOROLAC 30 MG/1 ML VIAL IV PRN (00:20)
[2018-01-08] MEDS ORDERED: hydrALAZINE 20 MG/1 ML VIAL IV PRN (02:18)
[2018-01-08] MEDS: MORPHINE 4 MG/1 ML VIAL IV PRN ×2 (03:07→09:41)
[2018-01-08 08:17] LABS: Eosinophils # 0.1 10*3/uL (0.0-0.87); Eosinophils % 0.7 % (0.00-10.9); Mean Corpuscular Hemoglobin 33 PG (27-34); Mean Platelet Volume 9.7 FL (9.6-12.0); Red Cell Distribution Width 13.9 % (9.3-17.3)
[2018-01-08 08:25] LABS: Basophils % 0.4 % (0.0-0.8); Hematocrit 34.6 VOL% (42.0-52.0); Immature Granulocytes Absolute 0.08 #; Lymphocytes # 1.5 10*3/uL (1.4-4.0); Mean Corpuscular HGB Conc 33.2 GM/DL (32-36); Monocytes # 0.5 10*3/uL (0.11-0.8); Monocytes % 5.7 % (1.7-12.7); Neutrophils % 74.2 % (38.7-73.9); Platelet Count 248 T/CUMM (130-400); Red Blood Count 3.53 MC/CUMM (3.8-5.5)
[2018-01-08 08:29] LABS: White Blood Count 8.1 T/CUMM (4-12)
[2018-01-08 08:30] LABS: Hemoglobin 11.5 GM/DL (14.0-18.0)
[2018-01-08] MEDS: MEGESTROL 400 MG/10 ML UDCUP PO SCH (08:31)
[2018-01-08] MEDS: POTASSIUM CHLORIDE 10 MEQ TABLET PO SCH (08:31)
[2018-01-08] MEDS: PANTOPRAZOLE 40 MG TABLET PO SCH (08:32)
[2018-01-08] MEDS: NICOTINE 21 MG/24 HR PATCH TRANSDERM SCH (08:32)
[2018-01-08] MEDS: GABAPENTIN 100 MG CAPSULE PO SCH (08:32)
[2018-01-08 08:43] LABS: Calcium 8.2 MG/DL (8.5-10.1); Osmolality,Calculated 274.5 MOS/KG (273-304); Potassium 3.3 MMOL/L (3.5-5.1)
[2018-01-08] MEDS ORDERED: CITALOPRAM 20 MG TABLET PO SCH (09:00)
[2018-01-08] MEDS ORDERED: LISINOPRIL 20 MG TABLET PO SCH (09:00)
[2018-01-08] MEDS ORDERED: amLODIPine 5 MG TABLET PO SCH (09:00)
[2018-01-08 11:12] VITALS: BP 151/92
== END 2018-01-08 14:00 | disposition home or self-care (01) ==
LOC: N.ED 14:25 → N.EDINP 14:25 → SUATTDRO 20:31 → N.EDINP 21:32 → N.3E 21:39
PROVIDERS: ADMIT Family Medicine; ATTEND Family Medicine

== ENCOUNTER 2018-01-27 08:01 | Inpatient (IN) ==
[2018-01-27] MEDS ORDERED: SODIUM CHLORIDE 0.9% 1,000 ML IV STA ×2 (08:17→10:33)
[2018-01-27] MEDS ORDERED: ONDANSETRON 4 MG/2 ML VIAL IV STA (08:17)
[2018-01-27] MEDS ORDERED: HYDROmorphone 2 MG/1 ML VIAL IV STA ×2 (08:17→10:34)
[2018-01-27 08:44] LABS: Basophils # 0.1 10*3/uL (0.0-0.2); Basophils % 0.4 % (0.0-0.8); Eosinophils % 0.2 % (0.00-10.9); Hematocrit 40.6 VOL% (42.0-52.0); Hemoglobin 13.6 GM/DL (14.0-18.0); Immature Granulocytes % 1.8 %; Immature Granulocytes Absolute 0.22 #; Lymphocytes # 1.5 10*3/uL (1.4-4.0); Lymphocytes % 12.2 % (21.2-54.2); Mean Corpuscular HGB Conc 33.5 GM/DL (32-36); Mean Corpuscular Hemoglobin 32 PG (27-34); Mean Corpuscular Volume 95.3 FL (87-102); Mean Platelet Volume 8.7 FL (9.6-12.0); Monocytes # 0.6 10*3/uL (0.11-0.8); Neutrophils # 9.9 10*3/uL (1.4-7.4); Neutrophils % 80.4 % (38.7-73.9); Platelet Count 284 T/CUMM (130-400); Red Blood Count 4.26 MC/CUMM (3.8-5.5); Red Cell Distribution Width 13.6 % (9.3-17.3); White Blood Count 12.3 T/CUMM (4-12)
[2018-01-27 09:47] LABS: Alanine Aminotransferase 18 U/L (16-61); Albumin 3.1 G/DL (3.4-5.0); Alkaline Phosphatase 108 U/L (45-117); Aspartate Amino Transferase 14 U/L (0-37); Bilirubin,Total < 0.39 MG/DL (0.2-1.0); Blood Urea Nitrogen 7 MG/DL (7-18); Calcium 8.4 MG/DL (8.5-10.1); Glucose 166 MG/DL (74-106); Osmolality,Calculated 258.1 MOS/KG (273-304); Potassium 3.7 MMOL/L (3.5-5.1); Sodium 128 MMOL/L (136-145); Total Protein 6.8 G/DL (6.4-8.3)
[2018-01-27] MEDS ORDERED: ACETAMINOPHEN 325 MG TABLET PO PRN (11:35)
[2018-01-27] MEDS: DEXTROSE 5% NACL 0.9% 1,000 ML IV SCH (14:52)
[2018-01-27] MEDS: traMADol 50 MG TABLET PO PRN (15:50)
[2018-01-27] MEDS: ONDANSETRON 4 MG/2 ML VIAL IV PRN ×3 (16:08→22:28)
[2018-01-27] MEDS: HYDROmorphone 2 MG/1 ML VIAL IV PRN ×2 (17:40→22:24)
[2018-01-27] MEDS: methylPREDNISolone SOD SUC 40 MG/1 ML VIAL IV SCH (20:40)
[2018-01-27] MEDS: NICOTINE 14 MG/24 HR PATCH TRANSDERM SCH (20:43)
[2018-01-27] MEDS: DOCUSATE SODIUM 100 MG CAPSULE PO SCH (20:43)
[2018-01-27] MEDS: ENOXAPARIN 40 MG/0.4 ML SYRINGE SUBCUT SCH (20:43)
[2018-01-28] MEDS: DEXTROSE 5% NACL 0.9% 1,000 ML IV SCH ×5 (00:28→22:40)
[2018-01-28] MEDS: HYDROmorphone 2 MG/1 ML VIAL IV PRN ×5 (02:21→21:00)
[2018-01-28 05:58] LABS: Basophils % 0.3 % (0.0-0.8); Eosinophils % 0.1 % (0.00-10.9); Hematocrit 37.3 VOL% (42.0-52.0); Hemoglobin 12.5 GM/DL (14.0-18.0); Immature Granulocytes % 1.3 %; Immature Granulocytes Absolute 0.16 #; Lymphocytes # 1.2 10*3/uL (1.4-4.0); Lymphocytes % 9.7 % (21.2-54.2); Mean Corpuscular HGB Conc 33.5 GM/DL (32-36); Mean Corpuscular Hemoglobin 32 PG (27-34); Mean Corpuscular Volume 94.7 FL (87-102); Mean Platelet Volume 9.5 FL (9.6-12.0); Monocytes # 0.6 10*3/uL (0.11-0.8); Monocytes % 5.4 % (1.7-12.7); Neutrophils % 83.2 % (38.7-73.9); Platelet Count 264 T/CUMM (130-400); Red Blood Count 3.94 MC/CUMM (3.8-5.5); Red Cell Distribution Width 13.6 % (9.3-17.3)
[2018-01-28 06:18] LABS: Bilirubin,Total 0.5 MG/DL (0.2-1.0); Calcium 8.2 MG/DL (8.5-10.1); Osmolality,Calculated 262.7 MOS/KG (273-304); Potassium 3.6 MMOL/L (3.5-5.1); Risk Ratio 1.94; Total Protein 6.4 G/DL (6.4-8.3); VLDL CHOLESTEROL 12.2 MG/DL
[2018-01-28] MEDS: methylPREDNISolone SOD SUC 40 MG/1 ML VIAL IV SCH ×2 (07:39→17:41)
[2018-01-28] MEDS: KETOROLAC 15 MG/1 ML VIAL IV SCH ×3 (07:43→23:10)
[2018-01-28] MEDS: NICOTINE 14 MG/24 HR PATCH TRANSDERM SCH (10:07)
[2018-01-28] MEDS: LIDOCAINE 5% PATCH TRANSDERM SCH (10:08)
[2018-01-28] MEDS: PANTOPRAZOLE 40 MG TABLET PO SCH (10:08)
[2018-01-28] MEDS: DOCUSATE SODIUM 100 MG CAPSULE PO SCH ×2 (10:08→20:59)
[2018-01-28] MEDS: ONDANSETRON 4 MG/2 ML VIAL IV PRN (10:14)
[2018-01-28] MEDS ORDERED: traZODone 50 MG TABLET PO PRN (16:49)
[2018-01-28 17:27] LABS: Apearance,Urine Slightly Hazy (Clear); Bilirubin,Urine Negative (Negative); Blood, Urine Negative (Negative); Glucose,Urine (UA) Negative (Negative); Hyaline Casts,Urine 32 /LPF (0-3); Ketones,Urine Negative (Negative); Mucus,Urine Occasional /LPF (Occasional); Nitrite,Urine Negative (Negative); Protein,Urine 100 MG/DL; RBC,Urine <1 /HPF (0-4); Squamous Epithelial Cell,Urine Occasional /HPF (0-10); Urine Color Yellow (Yellow); Urine Specific Gravity 1.021 (1.001-1.035); Urine Urobilinogen < 2.0 EU/DL (0.2-1.0); WBC,Urine 3 /HPF (0-6)
[2018-01-28] MEDS: POTASSIUM CHLORIDE 10 MEQ TABLET PO SCH (20:59)
[2018-01-28] MEDS: MAGNESIUM OXIDE 400 MG TABLET PO SCH (20:59)
[2018-01-28] MEDS: ENOXAPARIN 40 MG/0.4 ML SYRINGE SUBCUT SCH (21:01)
[2018-01-29] MEDS: HYDROmorphone 2 MG/1 ML VIAL IV PRN ×6 (01:31→22:13)
[2018-01-29 06:06] LABS: Basophils % 0.2 % (0.0-0.8); Eosinophils % 0.3 % (0.00-10.9); Hematocrit 33.5 VOL% (42.0-52.0); Hemoglobin 11.4 GM/DL (14.0-18.0); Immature Granulocytes % 0.9 %; Immature Granulocytes Absolute 0.09 #; Lymphocytes # 1.7 10*3/uL (1.4-4.0); Lymphocytes % 16.6 % (21.2-54.2); Mean Corpuscular Hemoglobin 32 PG (27-34); Mean Corpuscular Volume 93.8 FL (87-102); Monocytes # 0.8 10*3/uL (0.11-0.8); Monocytes % 8.2 % (1.7-12.7); Neutrophils # 7.4 10*3/uL (1.4-7.4); Neutrophils % 73.8 % (38.7-73.9); Platelet Count 214 T/CUMM (130-400); Red Blood Count 3.57 MC/CUMM (3.8-5.5); Red Cell Distribution Width 13.7 % (9.3-17.3)
[2018-01-29] MEDS: methylPREDNISolone SOD SUC 40 MG/1 ML VIAL IV SCH ×2 (06:15→18:19)
[2018-01-29] MEDS: KETOROLAC 15 MG/1 ML VIAL IV SCH ×3 (06:20→22:11)
[2018-01-29 06:24] LABS: Calcium 8.2 MG/DL (8.5-10.1); Potassium 3.9 MMOL/L (3.5-5.1)
[2018-01-29] MEDS: MAGNESIUM OXIDE 400 MG TABLET PO SCH ×2 (09:15→20:59)
[2018-01-29] MEDS: NICOTINE 14 MG/24 HR PATCH TRANSDERM SCH (09:15)
[2018-01-29] MEDS: CITALOPRAM 20 MG TABLET PO SCH (09:16)
[2018-01-29] MEDS: LIDOCAINE 5% PATCH TRANSDERM SCH (09:16)
[2018-01-29] MEDS: DOCUSATE SODIUM 100 MG CAPSULE PO SCH ×2 (09:16→21:01)
[2018-01-29] MEDS: PANTOPRAZOLE 40 MG TABLET PO SCH (09:16)
[2018-01-29] MEDS: POTASSIUM CHLORIDE 10 MEQ TABLET PO SCH ×2 (09:16→20:59)
[2018-01-29] MEDS: LISINOPRIL 20 MG TABLET PO SCH (09:16)
[2018-01-29] MEDS: GABAPENTIN 100 MG CAPSULE PO SCH ×2 (16:07→20:59)
[2018-01-29] MEDS: MEGESTROL 400 MG/10 ML UDCUP PO SCH (20:59)
[2018-01-29] MEDS: ENOXAPARIN 40 MG/0.4 ML SYRINGE SUBCUT SCH (21:01)
[2018-01-30] MEDS: DEXTROSE 5% NACL 0.9% 1,000 ML IV SCH ×4 (00:28→21:48)
[2018-01-30] MEDS: HYDROmorphone 2 MG/1 ML VIAL IV PRN ×6 (02:50→22:34)
[2018-01-30] MEDS: methylPREDNISolone SOD SUC 40 MG/1 ML VIAL IV SCH ×2 (06:34→16:10)
[2018-01-30] MEDS: KETOROLAC 15 MG/1 ML VIAL IV SCH ×3 (06:38→21:47)
[2018-01-30] MEDS: NICOTINE 14 MG/24 HR PATCH TRANSDERM SCH (10:23)
[2018-01-30] MEDS: MEGESTROL 400 MG/10 ML UDCUP PO SCH ×2 (10:24→21:49)
[2018-01-30] MEDS: POTASSIUM CHLORIDE 10 MEQ TABLET PO SCH ×2 (10:24→21:49)
[2018-01-30] MEDS: LISINOPRIL 20 MG TABLET PO SCH (10:24)
[2018-01-30] MEDS: DOCUSATE SODIUM 100 MG CAPSULE PO SCH ×2 (10:25→21:50)
[2018-01-30] MEDS: CITALOPRAM 20 MG TABLET PO SCH (10:25)
[2018-01-30] MEDS: MAGNESIUM OXIDE 400 MG TABLET PO SCH ×2 (10:25→21:49)
[2018-01-30] MEDS: GABAPENTIN 100 MG CAPSULE PO SCH ×3 (10:25→21:49)
[2018-01-30] MEDS: PANTOPRAZOLE 40 MG TABLET PO SCH (10:45)
[2018-01-30] MEDS: LIDOCAINE 5% PATCH TRANSDERM SCH (10:45)
[2018-01-30] MEDS: ENOXAPARIN 40 MG/0.4 ML SYRINGE SUBCUT SCH (21:41)
[2018-01-31] MEDS: DEXTROSE 5% NACL 0.9% 1,000 ML IV SCH ×2 (00:42→18:07)
[2018-01-31] MEDS: HYDROmorphone 2 MG/1 ML VIAL IV PRN ×5 (03:02→20:02)
[2018-01-31] MEDS: methylPREDNISolone SOD SUC 40 MG/1 ML VIAL IV SCH ×2 (06:30→16:03)
[2018-01-31] MEDS: KETOROLAC 15 MG/1 ML VIAL IV SCH ×3 (06:34→21:39)
[2018-01-31] MEDS ORDERED: hydrALAZINE 20 MG/1 ML VIAL IV PRN (08:10)
[2018-01-31] MEDS: LISINOPRIL 20 MG TABLET PO SCH ×3 (09:58→21:41)
[2018-01-31] MEDS: MEGESTROL 400 MG/10 ML UDCUP PO SCH ×2 (09:58→21:41)
[2018-01-31] MEDS: CITALOPRAM 20 MG TABLET PO SCH (09:59)
[2018-01-31] MEDS: GABAPENTIN 100 MG CAPSULE PO SCH ×3 (09:59→21:41)
[2018-01-31] MEDS: MAGNESIUM OXIDE 400 MG TABLET PO SCH ×2 (09:59→21:41)
[2018-01-31] MEDS: LIDOCAINE 5% PATCH TRANSDERM SCH (09:59)
[2018-01-31] MEDS: DOCUSATE SODIUM 100 MG CAPSULE PO SCH ×2 (09:59→21:41)
[2018-01-31] MEDS: PANTOPRAZOLE 40 MG TABLET PO SCH (09:59)
[2018-01-31] MEDS: hydrALAZINE 25 MG TABLET PO SCH ×3 (09:59→21:40)
[2018-01-31] MEDS: POTASSIUM CHLORIDE 10 MEQ TABLET PO SCH ×2 (09:59→21:40)
[2018-01-31] MEDS: NICOTINE 14 MG/24 HR PATCH TRANSDERM SCH (10:00)
[2018-01-31] MEDS: ENOXAPARIN 40 MG/0.4 ML SYRINGE SUBCUT SCH (21:40)
[2018-02-01] MEDS: HYDROmorphone 2 MG/1 ML VIAL IV PRN ×3 (00:08→08:51)
[2018-02-01] MEDS: DEXTROSE 5% NACL 0.9% 1,000 ML IV SCH ×2 (00:11→18:31)
[2018-02-01] MEDS: KETOROLAC 15 MG/1 ML VIAL IV SCH ×2 (05:05→17:09)
[2018-02-01] MEDS: methylPREDNISolone SOD SUC 40 MG/1 ML VIAL IV SCH ×2 (05:08→17:53)
[2018-02-01] MEDS: POTASSIUM CHLORIDE 10 MEQ TABLET PO SCH (09:26)
[2018-02-01] MEDS: LISINOPRIL 20 MG TABLET PO SCH (09:26)
[2018-02-01] MEDS: PANTOPRAZOLE 40 MG TABLET PO SCH (09:27)
[2018-02-01] MEDS: hydrALAZINE 25 MG TABLET PO SCH ×2 (09:27→17:11)
[2018-02-01] MEDS: GABAPENTIN 100 MG CAPSULE PO SCH ×2 (09:27→17:12)
[2018-02-01] MEDS: MAGNESIUM OXIDE 400 MG TABLET PO SCH (09:27)
[2018-02-01] MEDS: CITALOPRAM 20 MG TABLET PO SCH (09:27)
[2018-02-01] MEDS: NICOTINE 14 MG/24 HR PATCH TRANSDERM SCH (09:27)
[2018-02-01] MEDS: MEGESTROL 400 MG/10 ML UDCUP PO SCH (09:28)
[2018-02-01] MEDS: DOCUSATE SODIUM 100 MG CAPSULE PO SCH (09:28)
[2018-02-01] MEDS: LIDOCAINE 5% PATCH TRANSDERM SCH (09:29)
[2018-02-01] MEDS: traMADol 50 MG TABLET PO PRN (14:00)
[2018-02-01 16:00] VITALS: BP 136/78
== END 2018-02-01 17:50 | disposition swing bed (61) | DRG 282 ==
LOC: N.ED 08:01 → N.EDINP 08:01 → N.3E 12:12
PROVIDERS: ADMIT Family Medicine; ATTEND Family Medicine

== ENCOUNTER 2018-03-31 09:53 | Observation (INO) ==
[2018-03-31 11:12] LABS: Basophils % 0.2 % (0.0-0.8); Eosinophils % 0.2 % (0.00-10.9); Hematocrit 32.5 VOL% (42.0-52.0); Hemoglobin 11.2 GM/DL (14.0-18.0); Immature Granulocytes % 0.5 %; Immature Granulocytes Absolute 0.04 #; Lymphocytes % 11.4 % (21.2-54.2); Mean Corpuscular HGB Conc 34.5 GM/DL (32-36); Mean Corpuscular Hemoglobin 32 PG (27-34); Mean Corpuscular Volume 92.6 FL (87-102); Mean Platelet Volume 10.2 FL (9.6-12.0); Monocytes # 0.4 10*3/uL (0.11-0.8); Monocytes % 4.8 % (1.7-12.7); Neutrophils # 7.4 10*3/uL (1.4-7.4); Neutrophils % 82.9 % (38.7-73.9); Platelet Count 247 T/CUMM (130-400); Red Blood Count 3.51 MC/CUMM (3.8-5.5); Red Cell Distribution Width 16.9 % (9.3-17.3); White Blood Count 8.9 T/CUMM (4-12)
[2018-03-31 11:42] LABS: Bilirubin,Total 0.7 MG/DL (0.2-1.0); Osmolality,Calculated 276.3 MOS/KG (273-304); Potassium 3.3 MMOL/L (3.5-5.1); Total Protein 5.7 G/DL (6.4-8.3)
[2018-03-31] MEDS ORDERED: SODIUM CHLORIDE 0.9% 1,000 ML IV STA (11:58)
[2018-03-31] MEDS ORDERED: MORPHINE 4 MG/1 ML VIAL IV STA (12:31)
[2018-03-31] MEDS ORDERED: ONDANSETRON 4 MG/2 ML VIAL IV STA (12:31)
[2018-03-31] MEDS ORDERED: MORPHINE 4 MG/1 ML VIAL ONE (12:32)
[2018-03-31] MEDS ORDERED: ONDANSETRON 4 MG/2 ML VIAL ONE (12:32)
[2018-03-31] MEDS ORDERED: PANTOPRAZOLE 40 MG VIAL IV STA (13:53)
[2018-03-31] MEDS ORDERED: PANTOPRAZOLE 40 MG VIAL IV ONE (13:54)
[2018-03-31] MEDS ORDERED: ONDANSETRON 4 MG/2 ML VIAL IV PRN ×2 (14:32→19:04)
[2018-03-31] MEDS ORDERED: ACETAMINOPHEN 325 MG TABLET PO PRN ×2 (14:32→19:04)
[2018-03-31] MEDS ORDERED: SODIUM CHLORIDE 0.9% 1,000 ML IV SCH ×2 (15:00→19:30)
[2018-03-31] MEDS: MORPHINE 4 MG/1 ML VIAL IV PRN ×2 (18:30→23:04)
[2018-03-31] MEDS ORDERED: MAGNESIUM HYDROXIDE SUSP 30 ML UDCUP PO PRN (19:04)
[2018-03-31] MEDS ORDERED: ONDANSETRON ODT 4 MG TABLET PO PRN (19:12)
[2018-03-31] MEDS ORDERED: DOCUSATE SODIUM 100 MG CAPSULE PO SCH (21:00)
[2018-03-31] MEDS: SODIUM CHLOR 0.9% KCL 20 MEQ 20 MEQ/1,000 ML BAG IV SCH (23:02)
[2018-03-31] MEDS: MAGNESIUM OXIDE 400 MG TABLET PO SCH (23:03)
[2018-03-31] MEDS: GABAPENTIN 100 MG CAPSULE PO SCH (23:03)
[2018-03-31] MEDS: hydrALAZINE 10 MG TABLET PO SCH (23:03)
[2018-03-31] MEDS: traZODone 50 MG TABLET PO PRN (23:05)
[2018-04-01] MEDS: MORPHINE 4 MG/1 ML VIAL IV PRN ×5 (04:50→22:51)
[2018-04-01 05:19] LABS: Basophils % 0.3 % (0.0-0.8); Eosinophils # 0.1 10*3/uL (0.0-0.87); Eosinophils % 1.3 % (0.00-10.9); Hematocrit 28.1 VOL% (42.0-52.0); Hemoglobin 9.7 GM/DL (14.0-18.0); Immature Granulocytes % 0.6 %; Immature Granulocytes Absolute 0.04 #; Lymphocytes # 1.3 10*3/uL (1.4-4.0); Lymphocytes % 19.7 % (21.2-54.2); Mean Corpuscular HGB Conc 34.5 GM/DL (32-36); Mean Corpuscular Hemoglobin 32 PG (27-34); Mean Corpuscular Volume 93.7 FL (87-102); Mean Platelet Volume 10.2 FL (9.6-12.0); Monocytes # 0.6 10*3/uL (0.11-0.8); Monocytes % 8.9 % (1.7-12.7); Neutrophils # 4.7 10*3/uL (1.4-7.4); Neutrophils % 69.2 % (38.7-73.9); Platelet Count 222 T/CUMM (130-400); Red Cell Distribution Width 16.7 % (9.3-17.3); White Blood Count 6.8 T/CUMM (4-12)
[2018-04-01 05:47] LABS: Albumin 1.8 G/DL (3.4-5.0); Bilirubin,Total 0.8 MG/DL (0.2-1.0); Calcium 7.3 MG/DL (8.5-10.1); Osmolality,Calculated 283.7 MOS/KG (273-304); Potassium 3.2 MMOL/L (3.5-5.1); Risk Ratio 2.12; Total Protein 4.9 G/DL (6.4-8.3)
[2018-04-01] MEDS ORDERED: PANTOPRAZOLE 40 MG TABLET PO SCH (09:00)
[2018-04-01] MEDS: GABAPENTIN 100 MG CAPSULE PO SCH ×3 (09:22→21:42)
[2018-04-01] MEDS: hydrALAZINE 10 MG TABLET PO SCH ×3 (09:22→21:41)
[2018-04-01] MEDS: CITALOPRAM 20 MG TABLET PO SCH (09:22)
[2018-04-01] MEDS: MAGNESIUM OXIDE 400 MG TABLET PO SCH ×2 (09:23→21:41)
[2018-04-01] MEDS: PANTOPRAZOLE 40 MG VIAL IV SCH (10:06)
[2018-04-01] MEDS: SODIUM CHLOR 0.9% KCL 20 MEQ 20 MEQ/1,000 ML BAG IV SCH (10:48)
[2018-04-01] MEDS: POTASSIUM CHLORIDE 20 MEQ TABLET PO PRN ×4 (12:17→18:45)
[2018-04-01] MEDS: SODIUM CHLORIDE 0.9% 1,000 ML IV SCH (12:17)
[2018-04-01 19:56] LABS: Apearance,Urine CLOUDY (Clear); Bacteria,Urine Occasional /HPF (Few); Bilirubin,Urine Negative (Negative); Blood, Urine Negative (Negative); Glucose,Urine (UA) Negative (Negative); Ketones,Urine 5 mg/dL (Negative); Mucus,Urine Many /LPF (Occasional); Nitrite,Urine Negative (Negative); Protein,Urine 100 MG/DL; RBC,Urine 4 /HPF (0-4); Urine Color Amber (Yellow); Urine Specific Gravity 1.017 (1.001-1.035); WBC,Urine 131 /HPF (0-6)
[2018-04-01] MEDS: POTASSIUM CHLORIDE 20 MEQ TABLET PO SCH (21:41)
[2018-04-01] MEDS: traZODone 50 MG TABLET PO PRN (21:43)
[2018-04-02] MEDS: SODIUM CHLORIDE 0.9% 1,000 ML IV SCH ×2 (02:00→17:22)
[2018-04-02] MEDS: MORPHINE 4 MG/1 ML VIAL IV PRN ×3 (04:05→14:08)
[2018-04-02] MEDS: GABAPENTIN 100 MG CAPSULE PO SCH ×2 (08:50→16:05)
[2018-04-02] MEDS: CITALOPRAM 20 MG TABLET PO SCH (08:50)
[2018-04-02] MEDS: POTASSIUM CHLORIDE 20 MEQ TABLET PO SCH (08:51)
[2018-04-02] MEDS: MAGNESIUM OXIDE 400 MG TABLET PO SCH (08:51)
[2018-04-02] MEDS: hydrALAZINE 10 MG TABLET PO SCH ×2 (08:51→16:05)
[2018-04-02] MEDS: PANTOPRAZOLE 40 MG VIAL IV SCH (08:51)
[2018-04-02] MEDS ORDERED: cefTRIAXone 1,000 MG in SYRINGE 1 EACH IV SCH (09:00)
[2018-04-02 10:23] LABS: Basophils % 0.3 % (0.0-0.8); Eosinophils # 0.1 10*3/uL (0.0-0.87); Eosinophils % 0.6 % (0.00-10.9); Hematocrit 31.5 VOL% (42.0-52.0); Hemoglobin 10.1 GM/DL (14.0-18.0); Immature Granulocytes % 0.5 %; Immature Granulocytes Absolute 0.04 #; Lymphocytes % 12.9 % (21.2-54.2); Mean Corpuscular HGB Conc 32.1 GM/DL (32-36); Mean Corpuscular Hemoglobin 31 PG (27-34); Mean Corpuscular Volume 97.8 FL (87-102); Mean Platelet Volume 9.3 FL (9.6-12.0); Monocytes # 0.4 10*3/uL (0.11-0.8); Monocytes % 5.5 % (1.7-12.7); Neutrophils # 6.3 10*3/uL (1.4-7.4); Neutrophils % 80.2 % (38.7-73.9); Platelet Count 198 T/CUMM (130-400); Red Blood Count 3.22 MC/CUMM (3.8-5.5); White Blood Count 7.8 T/CUMM (4-12)
[2018-04-02 10:58] LABS: Calcium 7.5 MG/DL (8.5-10.1); Osmolality,Calculated 283.8 MOS/KG (273-304); Potassium 3.6 MMOL/L (3.5-5.1)
[2018-04-02 11:14] VITALS: BP 134/82
== END 2018-04-02 16:33 | disposition home or self-care (01) ==
LOC: EDBD → EDUNIT# → N.EDINP 09:53 → N.ED 09:53 → N.2E 17:30
PROVIDERS: ADMIT Family Medicine; ATTEND Family Medicine